=== PATIENT | male | born 1960 | race Caucasian/White ===

== ENCOUNTER 2017-07-30 21:19 | Emergency (ER) | payer SELFPAY ==
--- NOTE | 2017-07-30 21:20 | DI.CT.S_ITS ---
PROCEDURE: CT HEAD/BRAIN WO CON INDICATIONS: 56-year-old male with unwitnessed fall and confusion. TECHNIQUE: Noncontrast 4.5 mm thick angled axial sections acquired from the foramen magnum to the vertex, with coronal and sagittal reformats. For radiation dose reduction, the following was used: automated exposure control, adjustment of mA and/or kV according to patient size. COMPARISON: None. FINDINGS: Image quality: Excellent. CSF spaces: Basal cisterns are patent. No extra-axial fluid collections. Ventricles are normal in size and shape. Brain: No midline shift. No intracranial masses or hemorrhage. Wallace-white matter interface is normal. Skull and face: Calvarium and visualized facial bones are intact, without suspicious lesions. Sinuses: Visualized sinuses and mastoids are clear. IMPRESSION: No acute intracranial abnormalities. Dictated by: Alon Hoyos M.D. on 07/30/2017 at 21:49 Approved by: Alon Hoyos M.D. on 07/30/2017 at 21:52
--- NOTE | 2017-07-30 21:22 | ED.ALCOHOL ---
HPI - Alcohol General Chief Complaint: Psychiatric Symptoms Stated Complaint: Suicidal ideation Time Seen by Provider: 07/30/17 21:19 Source: EMS Mode of arrival: EMS Limitations: other (Alcohol intoxication) History of Present Illness HPI narrative: Patient arrived by EMS after they were called because the patient was found lying in the grass. Was reports of intoxication by alcohol. Also reports of concerns about the patient making statements about suicide. Was unable to talk EMS prior to their departure and I am unsure as to who called EMS and the exact situation with regard to the suicidal ideation. Related Data Home Medications Medication Instructions Recorded Confirmed clonazepam 1 mg PO QDAY #0 09/02/12 lisinopril 5 mg PO QDAY #0 09/02/12 propranolol [Inderal LA] 80 mg PO QDAY #0 09/02/12 quetiapine [Seroquel XR] 50 mg PO QDAY #0 09/02/12 sertraline [Zoloft] 50 mg PO QDAY #0 09/02/12 Allergies Allergy/AdvReac Type Severity Reaction Status Date / Time No Known Drug Allergies Allergy Verified 07/31/17 00:27 Review of Systems Review of Systems unobtainable due to mental condition (Specifically alcohol intoxication) Exam Initial Vital Signs Initial Vital Signs: Vital Signs Temperature 98.9 F 07/30/17 21:26 Pulse Rate 99 H 07/30/17 21:26 Respiratory Rate 18 07/30/17 21:26 Blood Pressure 138/85 H 07/30/17 21:26 Pulse Oximetry 99 07/30/17 21:26 Const General: healthy appearing, well developed, well groomed and No acute distress Nutritional Appearance: average body habitus Limitations: altered mental status (Intoxicated) [facility] Head: normal to inspection, normocephalic and atraumatic Nose: external nose normal Resp Effort & Inspection: normal respiratory effort Cardio Rate: regular rate Rhythm: regular rhythm GI Inspection: normal to inspection and non-distended Palpation: soft, No firm and No tender Skin General: no rashes or lesions noted, No jaundice and No petechiae Neuro General: awake and moves all extremities Extrem General: normal to inspection and normal exam except as noted Course Orders Ordered: Sodium Chloride (Normal Saline 0.9%) 1,000 mls @ 150 mls/hr IV CONT ELEUTERIO Last Admin: 07/31/17 00:57 Dose: Vital Signs - 8 hr 07/31/17 05:43 Temperature 97.5 F L Pulse Rate 92 H Respiratory Rate 16 Blood Pressure [Left Arm] 131/86 H Pulse Oximetry 98 MDM - Alcohol Lab Data Attestation: I reviewed the patient's lab results. Result diagrams: 07/30/17 21:25 07/30/17 21:25 Labs: Lab Results 07/30/17 07/30/17 07/30/17 Range/Units 21:25 21:25 21:25 WBC 8.7 (4.5-11.0) X10^3/uL RBC 5.11 (4.5-5.9) X10^6/uL Hgb 16.9 (13.5-17.5) g/dL Hct 48.7 (41-53) % MCV 95.3 (80-100) fL MCH 33.0 (26-34) PG MCHC 34.6 (30-36) % RDW 13.6 (11.6-14.8) % Plt Count 320 (150-400) X10^3/uL Neut % (Auto) 53.1 (50-75) % Lymph % (Auto) 30.5 (25-40) % [place] % (Auto) 10.0 (3-14) % Eos % (Auto) 3.8 (2-4) % Baso % (Auto) 2.6 H (0-2) % Neut # (Auto) 4600 (6021-6064) /uL Sodium 145 (137-145) mmol/L Potassium 3.7 (3.4-5.1) mmol/L Chloride 102 (98-107) mmol/L Carbon Dioxide 25 (22-32) mmol/L BUN 19 (9-20) mg/dL Creatinine 1.30 H (0.66-1.25) mg/dL Estimated GFR 57.5 L (>60) mL/min BUN/Creatinine Ratio 14.6 (6-22) Glucose 99 (70-100) mg/dL Calcium 9.0 (8.4-10.2) mg/dL Total Bilirubin 0.9 (0.2-1.3) mg/dL Conjugated Bilirubin 0.0 (0.0-0.3) md/dL Unconjugated Bilirubin 0.5 (0.0-1.1) mg/dL AST 229 H (17-59) IU/L ALT 162 H (21-72) IU/L Alkaline Phosphatase 164 H (38-126) U/L Total Protein 8.2 (6.3-8.2) g/dL Albumin 4.6 (3.5-5.0) g/dL Globulin 3.6 (1.7-4.1) g/dL Albumin/Globulin Ratio 1.3 (1.0-2.8) Lipase 128 (23-300) U/L Salicylates < 1.0 (<20) mg/dL Urine Opiates Screen (Negative) Ur Oxycodone Screen (Negative) Urine Methadone Screen (Negative) Acetaminophen < 10 L (10-30) ug/mL Ur Barbiturates Screen (Negative) U Tricyclic Antidepress (Negative) Ur Phencyclidine Scrn (Negative) Ur Amphetamines Screen (Negative) U Methamphetamines Scrn (Negative) Ur MDMA Scrn (Ecstasy) (Negative) U Benzodiazepines Scrn (Negative) Urine Cocaine Screen (Negative) U Marijuana (THC) Screen (Negative) Ethyl Alcohol 425 H* mg/dL 07/30/17 Range/Units 21:50 WBC (4.5-11.0) X10^3/uL RBC (4.5-5.9) X10^6/uL Hgb (13.5-17.5) g/dL Hct (41-53) % MCV (80-100) fL MCH (26-34) PG MCHC (30-36) % RDW (11.6-14.8) % Plt Count (150-400) X10^3/uL Neut % (Auto) (50-75) % Lymph % (Auto) (25-40) % [place] % (Auto) (3-14) % Eos % (Auto) (2-4) % Baso % (Auto) (0-2) % Neut # (Auto) (2944-2155) /uL Sodium (137-145) mmol/L Potassium (3.4-5.1) mmol/L Chloride (98-107) mmol/L Carbon Dioxide (22-32) mmol/L BUN (9-20) mg/dL Creatinine (0.66-1.25) mg/dL Estimated GFR (>60) mL/min BUN/Creatinine Ratio (6-22) Glucose (70-100) mg/dL Calcium (8.4-10.2) mg/dL Total Bilirubin (0.2-1.3) mg/dL Conjugated Bilirubin (0.0-0.3) md/dL Unconjugated Bilirubin (0.0-1.1) mg/dL AST (17-59) IU/L ALT (21-72) IU/L Alkaline Phosphatase (38-126) U/L Total Protein (6.3-8.2) g/dL Albumin (3.5-5.0) g/dL Globulin (1.7-4.1) g/dL Albumin/Globulin Ratio (1.0-2.8) Lipase (23-300) U/L Salicylates (<20) mg/dL Urine Opiates Screen Positive H (Negative) Ur Oxycodone Screen Negative (Negative) Urine Methadone Screen Negative (Negative) Acetaminophen (10-30) ug/mL Ur Barbiturates Screen Negative (Negative) U Tricyclic Antidepress Positive H (Negative) Ur Phencyclidine Scrn Negative (Negative) Ur Amphetamines Screen Negative (Negative) U Methamphetamines Scrn Negative (Negative) Ur MDMA Scrn (Ecstasy) Negative (Negative) U Benzodiazepines Scrn Positive H (Negative) Urine Cocaine Screen Negative (Negative) U Marijuana (THC) Screen Negative (Negative) Ethyl Alcohol mg/dL Imaging Data CT scan - head: Radiologist's impression: ROCEDURE: CT HEAD/BRAIN WO CON INDICATIONS: 56-year-old male with unwitnessed fall and confusion. TECHNIQUE: Noncontrast 4.5 mm thick angled axial sections acquired from the foramen magnum to the vertex, with coronal and sagittal reformats. For radiation dose reduction, the following was used: automated exposure control, adjustment of mA and/or kV according to patient size. COMPARISON: None. FINDINGS: Image quality: Excellent. CSF spaces: Basal cisterns are patent. No extra-axial fluid collections. Ventricles are normal in size and shape. Brain: No midline shift. No intracranial masses or hemorrhage. Wallace-white matter interface is normal. Skull and face: Calvarium and visualized facial bones are intact, without suspicious lesions. Sinuses: Visualized sinuses and mastoids are clear. IMPRESSION: No acute intracranial abnormalities. Dictated by: Alon Hoyos M.D. on 07/30/2017 at 21:49 MDM Narrative Medical decision making narrative: Patient arrived by EMS and was alert without signs of trauma did admit to drinking alcohol. Patient had elevated initial alcohol. He slept in the emergency department here without any problems. After several hours here in the emergency department I went in and around the patient. He was alert and oriented. He states that he did not remember the events of last night. He states that he did not remember where his car was or how he ended up in the grass. He did admit to drinking alcohol last night. He stated that he has been having ?problems ?with his mental health medicines. He states that he works at [employer]. He states that he had a fractured clavicle which prevented him from going to work and because he was not working he was dropped from their insurance and has not been able to get his medication. Patient states that he ?constantly ?has thoughts of suicide. He states he would never act on any of these thoughts. He was somewhat evasive when asking about his mental health in about getting help for alcohol abuse. He did ambulate to the bathroom without any problems. He did tolerate oral intake. He did have a friend who came by the emergency department last evening who left his phone number. Patient has to ?sleep ?here in the emergency department for little while longer. Turned over to day provider for further evaluation and disposition Discharge Plan Departure Prescriptions: No Action quetiapine [Seroquel XR] 50 MG tablet extended release 24 hr 50 mg PO QDAY Qty: 0 RF: 0 clonazepam 0.5 MG tablet 1 mg PO QDAY Qty: 0 RF: 0 propranolol [Inderal LA] 80 MG capsule,extended release 24 hr 80 mg PO QDAY Qty: 0 RF: 0 sertraline [Zoloft] 50 MG tablet 50 mg PO QDAY Qty: 0 RF: 0 lisinopril 5 MG tablet 5 mg PO QDAY Qty: 0 RF: 0
[2017-07-30 21:26] VITALS: BP 138/85; PULSE 99; RESP 18; TEMP 37.2; O2SAT 99
[2017-07-30 21:29] VITALS: BP 138/85; PULSE 99; RESP 18; TEMP 37.2; O2SAT 99; BMI 29.0
[2017-07-30 21:31] LABS: Add Manual Diff / Slide Review NO; Basophils Percent Auto 2.6 % (0-2); Eosinophils Percent Auto 3.8 % (2-4); Hematocrit 48.7 % (41-53); Hemoglobin 16.9 g/dL (13.5-17.5); Lymphocytes Percent Auto 30.5 % (25-40); Mean Corpuscular HGB Conc 34.6 % (30-36); Mean Corpuscular Volume 95.3 fL (80-100); Neutrophils Absolute Auto 4600 /uL (3000-5900); Neutrophils Percent Auto 53.1 % (50-75); Platelet Count 320 X10^3/uL (150-400); Red Blood Cell Count 5.11 X10^6/uL (4.5-5.9); Red Cell Distribution Width 13.6 % (11.6-14.8); White Blood Cell Count 8.7 X10^3/uL (4.5-11.0)
[2017-07-30 21:40] LABS: Acetaminophen < 10 ug/mL (10-30)
[2017-07-30 21:42] LABS: Alanine Aminotransferase 162 IU/L (21-72); Albumin 4.6 g/dL (3.5-5.0); Albumin Globulin Ratio 1.3 (1.0-2.8); Alkaline Phosphatase 164 U/L (38-126); Aspartate Aminotransferase 229 IU/L (17-59); BUN Creatinine Ratio 14.6 (6-22); Bilirubin Total 0.9 mg/dL (0.2-1.3); Bilirubin Unconjugated 0.5 mg/dL (0.0-1.1); Blood Urea Nitrogen 19 mg/dL (9-20); Carbon Dioxide 25 mmol/L (22-32); Chloride 102 mmol/L (98-107); Estimated Glomerular Filt Rate 57.5 mL/min (>60); Globulin 3.6 g/dL (1.7-4.1); Glucose 99 mg/dL (70-100); Lipase 128 U/L (23-300); Potassium 3.7 mmol/L (3.4-5.1); Salicylate < 1.0 mg/dL (<20); Sodium 145 mmol/L (137-145); Total Protein 8.2 g/dL (6.3-8.2)
[2017-07-30 21:50] LABS: HEMOLYSIS 40 (0-50)
[2017-07-30 21:54] LABS: Ethanol (ETOH) 425 mg/dL
[2017-07-30 22:07] LABS: Urine Amphetamines Negative (Negative); Urine Barbiturates Negative (Negative); Urine Benzodiazepines Positive (Negative); Urine Cocaine Negative (Negative); Urine MDMA Negative (Negative); Urine Methadone Negative (Negative); Urine Methamphetamines Negative (Negative); Urine Morphine/Opi cutoff 2000 Positive (Negative); Urine Phencyclidine Negative (Negative); Urine Tetrahydrocannabinol Negative (Negative); Urine Tricyclic Antidepressant Positive (Negative)
[2017-07-30 22:08] LABS: Urine Oxycodone Negative (Negative)
[2017-07-31 05:43] VITALS: BP 131/86; PULSE 92; RESP 16; TEMP 36.4; O2SAT 98
--- NOTE | 2017-07-31 07:09 | PC.NURSE ---
Assumed care. Sleeping. Plan for friend to return this am and discuss safetly plan.
--- NOTE | 2017-07-31 08:16 | PC.NURSE ---
Breakfast tray provided to patient
[2017-07-31] MEDS: ONDANSETRON 4 MG ODT PO (09:18)
[2017-07-31 10:17] VITALS: BP 124/76; PULSE 103; RESP 16; O2SAT 94
--- NOTE | 2017-07-31 16:15 | PC.NURSE ---
Pt has been accepted at [facility]. Meds will be provided for pts pm doses and scripts will be faxed to [facility] in [place]. 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
--- NOTE | 2017-07-31 16:15 | CM.SWNOTE ---
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 Mental Status: AxO. Flat affect. Monotone. Calm, cooperative, fair eye contact, some psychomotor slowing, no tremor or involuntary movements observed. Linear and concrete thought process. At the time of SW evaluation patient stated he had been down this before and knew if he told ?SW the truth it would end badly?. Patient was hesitance and guarded with all answers during assessment. Chemical Dependency: Patient states he drinks ?a lot?. Preferable vodka. Patient states he has been though all sorts of rehabs and detox and ?still ends up here?. Legal: Denies. Mental Health: Patient not currently being followed for diagnosis of Bipolar. Patient stated he recently lost his health insurance and is not compliant with his medication. Assessment: Met with patient. Patient emotional throughout conversation. Patient stated he doesn?t remember anything but knows he messed up. Patient concerned over his vehicle, his cell phone, his job and his mom. Patient stated he left work at [employer] at lunch and took a nap. When he woke up he went to his second job at [employer] when he was told to leave because ?he didn?t look right?. Patient doesn?t remember drinking, but stated that he probably did. Patient unsure how he ended up in field. SW asked patient if he remembers telling the police that he tried to wrap his bet around the neck and disclosing that he has tried multiple times during the week? Patient stated he doesn?t remember saying that but he has tried that in the past. Ask patient is he was currently suicidal and he looked SW right in the eye and said ?I want all this to end?. Asked patient again if he had plans to harm himself and he stated ?If I tell you, I know what you will have to do.? SW asked patient if he would be willing to voluntary go to detox and get stabilized for MH. Patient gave SW permission to locate bed. Patient?s friend Kishan entered the room and patient gave SW permission to speak freely. Kishan stated he had been concerned about patient and his SI. Kishan stated patient has appeared extremely manic at time but when he starts to drink he becomes very depressed and talks about . Plan: SW called crisis line for guidance given patient?s lack of health insurance. Patient will be able to go to [facility]. Patient was assessed, accepted and agreed to go to [facility]. Patient understands that if he does no longer agree to seek treatment ED staff will call [facility] to review for involuntary treatment.
--- NOTE | 2017-07-31 16:48 | PC.NURSE ---
PT understands plan for dc. Understands that if he dose not go volentary then he will be held involentary and detained by [facility] under [place] law. PT understands this. Clothing gone through in search of car keys with pt present. No keys found. Belongings locked back in safety cabinet. Friend found car and pt is aware.
[2017-07-31] MEDS: LORazepam 0.5 MG TABLET 1 MG PO (17:46)
--- NOTE | 2017-07-31 17:47 | PC.NURSE ---
Pt is looking for reasons not to go. MD at bedside and discusing options with pt. PT understands and agrees to go voluntary. Meds po per VO
[2017-07-31 17:52] VITALS: BP 161/88; PULSE 84; RESP 18; O2SAT 98
--- NOTE | 2017-07-31 20:03 | PC.NURSE ---
Late Entry: Received report from JENNIFER Castro at shift change. Pt has Rx in sealed envelope along with the rest of paperwork that needs to go to [facility] with him. 2100hr meds also in chart to be given at that time before departure. [employer] [facility] coming at 2215 for transport and informed no stops are to be made on the way, there is also a taxi voucher in the chart for payment. Pt is resting at this time on stretcher. Pt has been calm and cooperative today. Needs met at this time.
--- NOTE | 2017-07-31 21:16 | PC.NURSE ---
Seroquel 300mg and Trazodone [address] Calvillo for pt to take prior to [facility]. Spoke to JENNIFER Johnson at [facility] and made her aware of the concern of medicated pt prior to departure in regard to being too sleepy on arrival for intake assessment. JENNIFER Johnson agreed and reports she is able to give pt his night meds if they come with. Meds in labeled bag and placed in folder with the rest of pt's [facility] paperwork. Dr Calvillo made aware and ok'd.
--- NOTE | 2017-07-31 21:54 | PC.NURSE ---
Clothing given back to pt to dress. Taxi ETA 15-20 min. Pt sitting on side of bed checking cell phone
[2017-07-31] MEDS: QUETIAPINE 100 MG TABLET PO (21:56)
[2017-07-31] MEDS: TRAZODONE 50 MG TABLET 150 MG PO (22:04)
[2017-07-31] MEDS: QUETIAPINE 200 MG TABLET PO (22:04)
[2017-07-31 22:20] VITALS: BP 145/88; PULSE 88; RESP 18; O2SAT 97
== END 2017-07-31 22:23 | disposition home or self-care (01) ==
PROVIDERS: Emergency Provider Emergency Medicine; Family Provider Family Medicine; PCP Family Medicine
DX: R45.851 Suicidal ideations (principal); F10.929 Alcohol use, unspecified with intoxication, unspecified
CPT/HCPCS: 36591; 70450; 80053; 80076; 80305; 80320; 80329; 82075; 83690; 85025; 99285; G0480

== ENCOUNTER → 2019-03-08 12:01 | Outpatient (ROUT) | payer OTHER, SELFPAY | PROVIDERS: Family Provider Family Medicine; PCP Family Medicine; Visit Provider Family Medicine | DX: L03.032 Cellulitis of left toe (principal) | CPT/HCPCS: 87070; 87077; 87147; 87205 ==

== ENCOUNTER → 2019-09-28 09:12 | Outpatient (CLI) | payer OTHER, SELFPAY ==
[2019-09-28 09:43] LABS: Add Manual Diff / Slide Review NO; Basophils Absolute Auto 100 /uL (0-100); Basophils Percent Auto 1.1 % (0-2); Eosinophils Absolute Auto 400 /uL (0-450); Eosinophils Percent Auto 3.8 % (2-4); Hematocrit 42.4 % (41-53); Hemoglobin 14.4 g/dL (13.5-17.5); Lymphocytes Absolute Auto 1600 /uL (1100-4500); Lymphocytes Percent Auto 16.9 % (25-40); Mean Corpuscular HGB Conc 34.1 % (30-36); Monocytes Absolute Auto 700 /uL (0-900); Monocytes Percent Auto 7.6 % (3-14); Neutrophils Absolute Auto 6800 /uL (1500-7000); Neutrophils Percent Auto 70.6 % (50-75); Platelet Count 336 X10^3/uL (150-400); Red Blood Cell Count 4.66 X10^6/uL (4.5-5.9); White Blood Cell Count 9.6 X10^3/uL (4.5-11.0)
[2019-09-28 10:22] LABS: UR Morphine/Opiate cutoff 300 Negative (Negative); Ur Creatinine Normal (Normal); Ur Specific Gravity Normal (Normal); Urine Amphetamines Negative (Negative); Urine Barbiturates Negative (Negative); Urine Benzodiazepines Negative (Negative); Urine Cocaine Negative (Negative); Urine MDMA Negative (Negative); Urine Methadone Negative (Negative); Urine Methamphetamines Negative (Negative); Urine Oxycodone Negative (Negative); Urine Phencyclidine Negative (Negative); Urine Tetrahydrocannabinol Negative (Negative); Urine Tricyclic Antidepressant Positive (Negative); Urine pH Normal (Normal)
[2019-09-28 10:24] LABS: Alanine Aminotransferase 22 IU/L (<50); Albumin 4.4 g/dL (3.5-5.0); Albumin Globulin Ratio 1.5 (1.0-2.8); Alkaline Phosphatase 142 U/L (38-126); Aspartate Aminotransferase 29 IU/L (17-59); BUN Creatinine Ratio 13.3 (6-22); Bilirubin Total 0.6 mg/dL (0.2-1.3); Blood Urea Nitrogen 13 mg/dL (9-20); Calcium 9.6 mg/dL (8.4-10.2); Carbon Dioxide 27 mmol/L (22-32); Chloride 105 mmol/L (98-107); Estimated Glomerular Filt Rate > 60.0 mL/min (>60); Glucose 101 mg/dL (70-100); HEMOLYSIS < 15 (0-50); Sodium 139 mmol/L (137-145); Total Protein 7.4 g/dL (6.3-8.2)
[2019-09-28 10:37] LABS: Free T4, Direct Thyroxine 1.34 ng/dL (0.78-2.19)
[2019-09-28 10:51] LABS: Thyroid Stimulating Hormone 1.39 uIU/mL (0.47-4.68)
== END ==
PROVIDERS: Family Provider Family Medicine; PCP Family Medicine; Referring Provider Psychiatry & Neurology Psychiatry; Visit Provider Psychiatry & Neurology Psychiatry
DX: F31.9 Bipolar disorder, unspecified (principal)
CPT/HCPCS: 36415; 80053; 80305; 84439; 84443; 85025

== ENCOUNTER → 2019-10-16 12:26 | Outpatient (CLI) | payer OTHER, SELFPAY ==
[2019-10-16 14:04] LABS: BUN Creatinine Ratio 14.1 (6-22); Blood Urea Nitrogen 14 mg/dL (9-20); Calcium 9.2 mg/dL (8.4-10.2); Carbon Dioxide 29 mmol/L (22-32); Chloride 103 mmol/L (98-107); Estimated Glomerular Filt Rate > 60.0 mL/min (>60); Glucose 82 mg/dL (70-100); HEMOLYSIS < 15 (0-50); Potassium 4.7 mmol/L (3.4-5.1); Sodium 137 mmol/L (137-145)
[2019-10-16 14:17] LABS: Lithium < 0.2 mmol/L (0.6-1.2)
== END ==
PROVIDERS: Family Provider Family Medicine; PCP Family Medicine; Referring Provider Psychiatry & Neurology Psychiatry; Visit Provider Psychiatry & Neurology Psychiatry
DX: F31.81 Bipolar II disorder (principal)
CPT/HCPCS: 36415; 80048; 80178

== ENCOUNTER → 2020-01-23 16:14 | Outpatient (CLI) | payer OTHER, SELFPAY ==
[2020-01-23 17:36] LABS: BUN Creatinine Ratio 8.5 (6-22); Blood Urea Nitrogen 11 mg/dL (9-20); Calcium 8.9 mg/dL (8.4-10.2); Carbon Dioxide 30 mmol/L (22-32); Chloride 103 mmol/L (98-107); Estimated Glomerular Filt Rate 57.4 mL/min (>60); Glucose 79 mg/dL (70-100); HEMOLYSIS < 15 (0-50); Potassium 3.8 mmol/L (3.4-5.1); Sodium 135 mmol/L (137-145)
[2020-01-23 17:39] LABS: Lithium < 0.2 mmol/L (0.6-1.2)
== END ==
PROVIDERS: Family Provider Family Medicine; PCP Family Medicine; Referring Provider Psychiatry & Neurology Psychiatry; Visit Provider Psychiatry & Neurology Psychiatry
DX: F31.81 Bipolar II disorder (principal)
CPT/HCPCS: 36415; 80048; 80178

== ENCOUNTER → 2020-04-01 09:50 | Outpatient (CLI) | payer OTHER, SELFPAY ==
[2020-04-01 10:47] LABS: Lithium 0.4 mmol/L (0.6-1.2)
== END ==
PROVIDERS: Referring Provider Psychiatry & Neurology Psychiatry; Visit Provider Psychiatry & Neurology Psychiatry
DX: F31.81 Bipolar II disorder (principal)
CPT/HCPCS: 36415; 80178

== ENCOUNTER → 2020-05-12 14:19 | Outpatient (CLI) | payer OTHER, SELFPAY ==
[2020-05-12 15:50] LABS: Lithium 0.4 mmol/L (0.6-1.2)
== END ==
PROVIDERS: Referring Provider Psychiatry & Neurology Psychiatry; Visit Provider Psychiatry & Neurology Psychiatry
DX: F31.81 Bipolar II disorder (principal)
CPT/HCPCS: 36415; 80178

== ENCOUNTER → 2020-12-26 10:43 | Outpatient (CLI) | payer OTHER, SELFPAY ==
[2020-12-26 12:17] LABS: Add Manual Diff / Slide Review NO; Basophils Absolute Auto 200 /uL (0-100); Basophils Percent Auto 1.4 % (0-2); Eosinophils Absolute Auto 600 /uL (0-450); Eosinophils Percent Auto 5.1 % (2-4); Hematocrit 39.1 % (41-53); Lymphocytes Absolute Auto 1800 /uL (1100-4500); Lymphocytes Percent Auto 16.1 % (25-40); Mean Corpuscular HGB Conc 33.3 % (30-36); Mean Corpuscular Hemoglobin 30.1 PG (26-34); Mean Corpuscular Volume 90.5 fL (80-100); Monocytes Absolute Auto 800 /uL (0-900); Monocytes Percent Auto 7.2 % (3-14); Neutrophils Absolute Auto 8000 /uL (1500-7000); Neutrophils Percent Auto 70.2 % (50-75); Platelet Count 370 X10^3/uL (150-400); Red Blood Cell Count 4.32 X10^6/uL (4.5-5.9); Red Cell Distribution Width 13.2 % (11.6-14.8); White Blood Cell Count 11.4 X10^3/uL (4.5-11.0)
[2020-12-29 16:52] LABS: Interpretation Negative (Negative)
== END ==
PROVIDERS: PCP Family Medicine; Referring Provider Family Medicine; Visit Provider Family Medicine
DX: R74.8 Abnormal levels of other serum enzymes (principal); R53.81 Other malaise
CPT/HCPCS: 36415; 83013; 85025

== ENCOUNTER → 2021-03-18 12:55 | Outpatient (CLI) | payer OTHER, SELFPAY ==
--- NOTE | 2021-03-18 | DI.CT.S_ITS ---
PROCEDURE: CT ABDOMEN PELVIS W CON INDICATIONS: Left upper quadrant pain TECHNIQUE: After the administration of intravenous contrast, axial sections acquired from the lung bases to the pubic symphysis. Coronal and sagittal reformats were performed. For radiation dose reduction, the following was used: automated exposure control, adjustment of mA and/or kV according to patient size. COMPARISON: Merged With [facility], CT, PE STUDY (CTA CHEST), 09/02/2012, 19:44. FINDINGS: Image quality: Excellent. Lung bases: There is a nonspecific peripheral wedge-shaped density in the left lower lobe on image 10/2 measuring approximately 1.8 x 1.7 cm. This can potentially represent a peripheral nodular infiltrate or an area of pulmonary infarct. Neoplasm is not excluded. Also noted is an ill-defined somewhat rectangular nodule in the extreme left lung base on image 12/3 measuring 6 x 10 mm. . Heart: No significant findings. ABDOMEN: Liver: Unremarkable. Gallbladder: Unremarkable. Biliary ducts: Unremarkable. Pancreas: Unremarkable. Spleen: Unremarkable. Adrenal Glands: Unremarkable. Kidneys and Ureters: Unremarkable. Stomach and Bowel: There is a small focal area of luminal narrowing and wall thickening at the rectosigmoid junction which may potentially represent an area of peristalsis. However, a constricting lesion is not excluded. Reference images 65/2 in 36/4. Peritoneum: No abnormal intraperitoneal fluid. No free air. Ventral Wall: No hernias. Abdominal Nodes: No retroperitoneal or mesenteric adenopathy by size criteria. Vessels: Aorta and inferior vena cava are normal in size. PELVIS: Pelvic Organs: Unremarkable. Bladder: Mild diffuse bladder wall thickening. Pelvic Nodes: No enlarged lymph nodes. Miscellaneous: Fat containing right inguinal hernia. The region Bones: Bilateral L5 pars defects, grade 1 anterolisthesis of L5 on S1 measuring 10 mm. Resultant severe bilateral foraminal narrowing with bilateral L5 foraminal nerve root impingement. IMPRESSION: 1. A focal area of narrowing at the rectosigmoid junction most likely represents an area of active peristalsis. However, cannot exclude a constricting lesion. Therefore, direct visualization is recommended if this patient has not undergone recent colonoscopy. 2. A 1.8 x 1.7 cm wedge-shaped pleural-based density in the extreme left lung base is nonspecific. It can potentially represent a focal pneumonia versus pulmonary infarct. 3. There is also an ill-defined left basilar pulmonary nodule measuring 6 x 10 mm. 4. Note made of bilateral L5 pars defects, anterolisthesis of L5 on S1, and severe bilateral foraminal narrowing with bilateral L5 foraminal nerve root impingement. Comment: Consider chest CT with contrast. Dictated by: Alex Whitman M.D. on 03/18/2021 at 14:57 Approved by: Alex Whitman M.D. on 03/18/2021 at 15:10
== END ==
LOC: CT 12:56
PROVIDERS: PCP Family Medicine; Referring Provider Family Medicine; Visit Provider Family Medicine
DX: R10.12 Left upper quadrant pain (principal); R91.1 Solitary pulmonary nodule; M43.17 Spondylolisthesis, lumbosacral region; M48.061 Spinal stenosis, lumbar region without neurogenic claudication
CPT/HCPCS: 74177; Q9967

== ENCOUNTER → 2021-05-18 12:55 | Outpatient (CLI) | payer OTHER, SELFPAY ==
[2021-05-18 15:03] LABS: Lithium 0.7 mmol/L (0.6-1.2)
[2021-05-18 15:14] LABS: Alanine Aminotransferase 12 IU/L (<50); Albumin Globulin Ratio 1.1 (1.0-2.8); Alkaline Phosphatase 168 U/L (38-126); Aspartate Aminotransferase 22 IU/L (17-59); BUN Creatinine Ratio 18.7 (6-22); Bilirubin Total 0.4 mg/dL (0.2-1.3); Blood Urea Nitrogen 20 mg/dL (9-20); Calcium 9.6 mg/dL (8.4-10.2); Carbon Dioxide 25 mmol/L (22-32); Chloride 103 mmol/L (98-107); Estimated Glomerular Filt Rate > 60.0 mL/min (>60); Globulin 3.8 g/dL (1.7-4.1); Glucose 92 mg/dL (70-100); HEMOLYSIS < 15 (0-50); Potassium 4.4 mmol/L (3.4-5.1); Sodium 136 mmol/L (137-145); Total Protein 7.8 g/dL (6.3-8.2)
== END ==
PROVIDERS: PCP Family Medicine; Referring Provider Psychiatry & Neurology Psychiatry; Visit Provider Psychiatry & Neurology Psychiatry
DX: F31.81 Bipolar II disorder (principal)
CPT/HCPCS: 36415; 80053; 80178

== ENCOUNTER → 2021-05-24 10:09 | Outpatient (CLI) | payer OTHER, SELFPAY ==
[2021-05-24 11:02] LABS: COVID19 -Nasal RAPID Negative (Negative)
== END ==
PROVIDERS: PCP Family Medicine; Visit Provider Physician Assistant
DX: Z20.822 Contact with and (suspected) exposure to COVID-19 (principal)
CPT/HCPCS: 87635

== ENCOUNTER 2021-05-26 15:00 | Day surgery (SDC) | payer OTHER, SELFPAY ==
[2021-05-26] VITALS (7 sets, daily range): BP systolic 100–155; BP diastolic 63–104; PULSE 66–100; RESP 12–16; TEMP 36.1–36.4; O2SAT 98–100; BMI 24.0
--- NOTE | 2021-05-26 | PATH_ITS ---
[facility] Accession Number: [id number] . 01 Material submitted: . PART A: duodenum - DUODENUM PART B: stomach - PYLORUS PART C: stomach - FUNDUS PART D: gastrointestinal site - GASTRIC BODY PART E: esophagus, E-G Junction - GE JUNCTION PART F: sigmoid colon - SIGMOID POLYP (6MM) PART G: sigmoid colon - SIGMOID POLYP (6MM) PART H: rectum - RECTUM (4MM) . 02 Diagnosis: A. Duodenum, Biopsy: Small bowel mucosa with no diagnostic abnormality. Negative for active inflammation, dysplasia, and malignancy. . B. Pylorus: Portions of gastric antral mucosa with no diagnostic abnormality. Negative for Helicobacter organisms by immunohistochemistry. Positive for intestinal metaplasia. Negative for dysplasia or malignancy. . C. Fundus: Gastric body-type mucosa with mild chronic inflammation. Negative for Helicobacter organisms by immunohistochemistry. Negative for intestinal metaplasia. Negative for dysplasia or malignancy. . D. Gastric Body: Portions of gastric body-type mucosa with mild chronic inflammation. Negative for Helicobacter organisms by immunohistochemistry. Negative for intestinal metaplasia. Negative for dysplasia or malignancy. . E. Gastroesophageal Junction: Portion of mildly inflamed proximal gastric mucosa with features of reactive gastropathy. Negative for intestinal metaplasia. Negative for dysplasia or malignancy. . F. Sigmoid Polyp (6 mm): Portions of hyperplastic polyp x2. . G. Sigmoid Polyp (6 mm): Portions of hyperplastic polyp x2. . H. Rectum (4 mm): Portions of hyperplastic polyp x2. [facility] 05/29/2021 1358 Local . 02 Electronically signed: . Rupal Neumann MD, Pathologist NPI- [id number] . 01 Gross description: . Part A: DUODENUM: Received in formalin are 2 fragment(s) of yoo, soft tissue measuring 0.3 x 0.1 x 0.1 cm submitted entirely in 1 cassette(s) Part B: PYLORUS: Received in formalin are 3 fragment(s) of yoo, soft tissue measuring 0.5 x 0.2 x 0.1 cm to 0.1 x 0.1 x 0.1 cm submitted entirely in 1 cassette(s) Part C: FUNDUS: Received in formalin is 1 fragment(s) of yoo, soft tissue measuring 0.2 x 0.2 x 0.2 cm submitted entirely in 1 cassette(s) Part D: GASTRIC BODY: Received in formalin are 2 fragment(s) of yoo, soft tissue measuring 0.2 x 0.2 x 0.1 cm to 0.2 x 0.1 x 0.1 cm submitted entirely in 1 cassette(s) Part E: GE JUNCTION: Received in formalin is 1 fragment(s) of yoo, soft tissue measuring 0.3 x 0.2 x 0.1 cm submitted entirely in 1 cassette(s) Part F: SIGMOID POLYP (6MM): Received in formalin are 2 fragment(s) of yoo, soft tissue measuring 0.4 x 0.3 x 0.2 cm to 0.3 x 0.2 x 0.1 cm submitted entirely in 1 cassette(s) Part G: SIGMOID POLYP (6MM): Received in formalin are 2 fragment(s) of yoo, soft tissue measuring 0.4 x 0.2 x 0.2 cm to 0.3 x 0.2 x 0.1 cm submitted entirely in 1 cassette(s) Part H: RECTUM (4MM): Received in formalin are 2 fragment(s) of yoo, soft tissue measuring 0.3 x 0.3 x 0.2 cm to 0.1 x 0.1 x 0.1 cm submitted entirely in 1 cassette(s) /CPE 05/27/2021 0433 Local . 02 Microscopic: . B. An immunohistochemical stain is performed to evaluate for Helicobacter organisms and is negative. The control stain showed appropriate reactivity. . C. An immunohistochemical stain is performed to evaluate for Helicobacter organisms and is negative. The control stain showed appropriate reactivity. . D. An immunohistochemical stain is performed to evaluate for Helicobacter organisms and is negative. The control stain showed appropriate reactivity. . . * This test was developed and its performance characteristics determined by [facility]. It has not been cleared or approved by the U.S. Food and Drug Administration. The FDA has determined that such clearance or approval is not necessary. This test is used for clinical purposes. It should not be regarded as investigational or for research. . 02 Pathologist provided ICD-10: K29.70, Z12.11, R10.11, R10.12, K63.5 . 02 CPT . 253400, 624058, 120291, 603265, 729532, 582206, 036230, 793720, [id number] Specimen Comment: A courtesy copy of this report has been sent to [phone] Performed at: 01 [facility] [address] [place] [address], [place], [place] [id number] MD Cody Adamson MD Phone: [phone] Performed at: 02 [facility] [place] [address] [address] [place], [place] [id number] MD Ling Irving MD Phone: [phone]
--- NOTE | 2021-05-26 13:17 | P.HP_ITS ---
History of Present Illness History of Present Illness Chief complaint: DX COLONOSCOPY & EGD Narrative: 60 Years Old Male seen today for consideration of a diagnostic EGD and colonoscopy. Complaining of nausea x3 months with associated diarrhea. Has the feeling that he always has to go. Normally his baseline stool is formed. In the last 3 months, he has also had bilateral upper quadrant pain, left greater than right. At his 03/27/21 appointment, he was noted to have lost 10 pounds in approximately [address] abdomen/pelvis on 03/18/2021 showed a focal narrowing of the rectosigmoid junction most likely representing an area of active peristalsis but could not exclude a constricting lesion, colonoscopy recommended. He has never had a colonoscopy. However, he continues to feel extremely nauseated and has unrelenting left upper quadrant pain. Medical history significant for alcohol and drug abuse including IV heroin and cocaine for approximately 30 years, he has been sober for the last 3.5 years. Secondary to chronic GERD, he has been on omeprazole but in the last 3 months, that was changed to Protonix 40 mg p.o. daily, he has been taking this on empty stomach and that has not attenuated his symptoms. Just saw Dr. Jiang 2 weeks ago and was changed to omeprazole 40 mg PO BID. Family history significant for colon cancer in his mother. He denies melena or hematochezia. His last CBC on 12/30/2020 showed a mild anemia with a hemoglobin of 13.0, hematocrit 38.6. Medical history is complex and he has an upcoming toe surgery for open ulcer. CT scan on 03/18/2021 also showed a pulmonary nodule and wedge-shaped pleural- based density with inability to exclude neoplasm. Past Medical History: Stenosis of rectum and anus: Lung nodules: Chronic ulcer of right toe: ECZEMA: Abdominal pain: Bilateral upper quadrant Nausea: PLANTAR FASCIITIS: TOBACCO USER: Chronic ulcer of left foot: ALCOHOL ABUSE: SUBSTANCE ADDICTION/DEPENDENCE: HYPERTENSION, BENIGN ESSENTIAL: TACHYCARDIA: GERD: BIPOLAR DISORDER: DEPRESSION/ANXIETY: INSOMNIA: HERNIA: Past Surgical History: Hernia (1987) Family History: Father: Alcohol Mother: Hypertension, kidney cancer, colon cnacer, glaucoma,Alcohol Child: Asthma Social History: Marital Status: Children: Cassandra Daughter, Corinna daughter Occupation: [employer] Alcohol and drug abuse including IV heroin and cocaine for approximately 30 years, he has been sober for the last 3.5 years. Patient History Family & Social History Tobacco & Substance use: Smoking Status Current every day smoker alcohol intake frequency 3 or more drinks per day Meds Home Medications and Allergies Home Medications Medication Instructions Recorded Confirmed Type omeprazole 20 mg capsule,delayed See Rx Instructions .ROUTE 01/19/21 05/26/21 Rx release .COMPLEX #30 cap propranolol 20 mg tablet See Rx Instructions .ROUTE 03/06/21 05/26/21 Rx .COMPLEX #180 tab lithium carbonate 300 mg tablet See Rx Instructions .ROUTE 04/13/21 05/26/21 Rx .COMPLEX #90 tab lorazepam 0.5 mg tablet 0.5 mg PO TID PRN #60 tab 05/07/21 05/26/21 Rx trazodone 100 mg tablet 200 mg PO BEDTIME #60 tab 05/07/21 05/26/21 Rx bupropion HCl 150 mg 24 hr tablet, 150 mg PO QAM #30 tab 05/21/21 05/26/21 Rx extended release hydrochlorothiazide 12.5 mg tablet 12.5 mg PO DAILY 05/26/21 05/26/21 History quetiapine 400 mg tablet 400 mg PO DAILY 05/26/21 05/26/21 History Allergies Allergy/AdvReac Type Severity Reaction Status Date / Time No Known Drug Allergies Allergy Verified 05/26/21 15:22 Review of Systems Review of Systems Narrative: All remaining ROS were reviewed and negative except as addressed. Exam Narrative Exam Narrative: General: well developed, well nourished, in no acute distress, Head: normocephalic and atraumatic, Lungs: normal respiratory effort, clear bilaterally to auscultation, no wheezes rales or rhonchi. Heart: normal rate and regular rhythm, no murmurs, rubs, gallops, or clicks, Abdomen: Soft, tender in bilateral upper quadrants, left greater than right and over the epigastrium. Nondistended. Hypoactive bowel sounds in all 4 quadrants. Skin: intact without suspicious lesions or rashes, Psych: alert and cooperative; normal mood and affect; normal attention span and concentration; cognition, remote and recent memory appear to be intact, Assessment & Plan Assessment & Plan narrative: 1. Stenosis of rectum and anus 2. Abdominal pain, bilateral upper quadrant 3. Anorexia 4. Anemia 5. Tenesmus 6. Family history of colon cancer 7. Recent weight loss 8. History of substance abuse 9. Screening for colon cancer Plan for diagnostic EGD and screening colonoscopy. The nature and character of the procedures as well as anticipated results were discussed. The possibility of not completing the procedures were also discussed. Possible complications including aspiration pneumonia, bleeding, perforation and reaction to medications either for sedation or preparation and missed lesions were disc ussed. Questions were answered and proceeding to the EGD and colonoscopy were elected. Informed consent signed. Secondary to 30+ years of polysubstance abuse and addiction, will consult MD anesthesia for this high risk patient. I sincerely appreciate the referral allowing me to participate in this patient's care. Please contact me with any questions or concerns.
--- NOTE | 2021-05-26 13:29 | P.OP.EGD_ITS ---
Operative Date/Time/Diagnoses Date of procedure: 05/26/21 Procedure Notes SCOAP/Timeout: 4:10 p.m. Procedure in detail: ENDOSCOPIST: Yari Rick MD Anesthesiologist: Evaristo Mcclure MD Sedation start time: 4:11 p.m. Sedation end time: 4:29 p.m. PROCEDURE: EGD with biopsy REFERRING PROVIDER: Dr. Jiang INDICATIONS: 1. Bilateral upper quadrant pain 2. Anorexia 3. Anemia 4. Recent weight loss 5. Polysubstance abuse history MEDICATION: Incremental doses of Versed and fentanyl until an appropriate level of sedation was achieved. ASA Ratin DURATION OF PROCEDURE: 18 minutes. COMPLICATIONS: None. LIMITATIONS: None EXTENT OF PROCEDURE: Third portion of the Duodenum. PROCEDURE: The high-definition gastroduodenoscope was introduced into the posterior oropharynx under direct vision after Hurricaine spray, noted IV sedation, and proper informed consent. The esophagus was identified and intubated under direct visualization. The scope was quickly passed through the esophagus and into the fundus of the stomach. A clear fundal pool was aspirated. The scope was then advanced to the antrum and the pylorus was identified and intubated with some difficulty secondary to what appeared to be stenosis. The scope was eventually passed through the pylorus into the second and third portions of the duodenum. No abnormalities were noted in the duodenum, duodenal bulb or pyloric channel. Random biopsy taken x2. The antrum appeared to be hyp ertrophic and erythematous, targeted biopsy taken x4. J maneuver was produced. No abnormalities were noted of the proximal body, fundus or cardia. Random biopsy taken x2. No hiatal hernia was noted. Scope was broken out of the J maneuver and the remainder of the stomach was carefully inspected upon withdrawal and was normal. The stomach was carefully deflated of all air on withdrawal. The distal esophagus was carefully inspected and Z-line was noted to be regular, secondary to history unexplained weight loss, random biopsy taken at the GE junction x1. The remainder of the esophagus was normal upon withdrawal. The larynx and vocal cords appeared to be unremarkable. IMPRESSION: 1. Antritis 2. Hypertrophic antrum PLAN: 1. Follow-up in clinic status post pathology results. The possibility of missed lesion including a malignancy was discussed prior with the patient. Potential alarm symptoms have been discussed and should be reported by the patient immediately.
--- NOTE | 2021-05-26 13:32 | PM.OP.COLON ---
Operative Date/Time/Diagnoses Date of procedure: 05/26/21 Procedure Notes SCOAP/Timeout: 4:10 p.m. Procedure in detail: ENDOSCOPIST: Yari Rick MD Anesthesiologist: Roldan Mcclure MD Sedation start time: 4:34 p.m. Sedation end time: 4:30 p.m. PROCEDURE: Colonoscopy with cold biopsy INDICATIONS: 1. Stenosis of rectum and anus on CT scan 2. Bilateral upper quadrant pain 3. Anorexia 4. Anemia 5. Tenesmus 6. Family history of colon cancer 7. Recent weight loss 9. Screening for colon cancer 10. Polysubstance abuse MEDICATION: Levsin 0.125 mg sublingual, incremental doses of Versed and fentanyl until appropriate level sedation achieved. ASA CLASS: 3 CECAL WITHDRAWAL TIME: 20 minutes COMPLICATIONS: None. EXTENT OF PROCEDURE: Cecum. QUALITY OF PREP: Good with portions of liquid stool. PROCEDURE: Prior to insertion of the colonoscope, a digital rectal examination was accomplished with circumferential palpation of the distal rectal mucosa without significant findings being noted. The high-definition colonoscope was passed into the rectum in the usual fashion and advanced over to the cecum without difficulty. The ileocecal valve, appendiceal stoma, and medial wall all could be inspected and no abnormalities were seen. ASCENDING COLON: As the colonoscope was withdrawn, care was taken to expose and inspect the haustral folds and no abnormalities were seen. HEPATIC FLEXURE: Normal, no polyps, diverticula or other abnormalities. TRANSVERSE COLON: Normal, no polyps, diverticula or other abnormalities. DESCENDING COLON: Normal, no polyps, diverticula or other abnormalities. SIGMOID COLON: Two 6 mm polyps were removed with cold biopsy forceps, excellent hemostasis. No diverticula. RECTUM: Normal, no appreciable stricture. J maneuver was produced. There was no significant perianal disease. The J maneuver was broken. The remainder of the rectum was inspected and there was a 4 mm polyp that was removed with cold biopsy forceps. There was moderate external hemorrhoid disease and thrombosed rectal varicosities. The scope was withdrawn. IMPRESSION: 1. Sigmoid polyp x2, 6 mm, removed with cold biopsy forceps 2. Rectal polyp x1, 4 mm, removed with cold biopsy forceps 3. External hemorrhoids 4. Thrombosed rectal varicosities 5. No appreciable area of narrowing in the rectum or anus. PLAN: 1. Follow-up in clinic status post pathology results. The possibility of a missed lesion including a malignancy has been discussed with the patient previously. Potential alarm symptoms have been discussed and should be reported immediately.
[2021-05-26] MEDS: HYOSCYAMINE 0.125 MG TABLET PO (15:17)
[2021-05-26] MEDS: LACTATED RINGERS 1,000 ML 200 ML IV (15:17)
[2021-05-26] MEDS: LIDOCAINE JELLY 2% 5 ML 1 APPLIC TOP (16:16)
[2021-05-26] MEDS: LIDOCAINE 4% SOLN 50 ML 20 ML TOP (16:17)
== END 2021-05-26 17:52 | disposition home or self-care (01) ==
PROVIDERS: PCP Family Medicine; Referring Provider Student in an Organized Health Care Education/Training Program; Visit Provider Student in an Organized Health Care Education/Training Program
PROC: 0DJ08ZZ Inspection of Upper Intestinal Tract, Via Natural or Artificial Opening Endoscopic (ICD-10-PCS; CPT 43235; principal; 2021-05-26 16:00)
PROC: 0DJD8ZZ Inspection of Lower Intestinal Tract, Via Natural or Artificial Opening Endoscopic (ICD-10-PCS; CPT 45378; 2021-05-26 16:00)
DX: R10.11 Right upper quadrant pain (principal); R10.12 Left upper quadrant pain; R11.0 Nausea; R63.0 Anorexia; R63.4 Abnormal weight loss; R93.3 Abnormal findings on diagnostic imaging of other parts of digestive tract; K21.9 Gastro-esophageal reflux disease without esophagitis; D64.9 Anemia, unspecified; F31.81 Bipolar II disorder; F41.9 Anxiety disorder, unspecified; K64.4 Residual hemorrhoidal skin tags; K29.50 Unspecified chronic gastritis without bleeding; K31.9 Disease of stomach and duodenum, unspecified; K63.5 Polyp of colon; K62.1 Rectal polyp
CPT/HCPCS: 45380; 43239; J2704

== ENCOUNTER → 2021-06-01 11:30 | Outpatient (CLI) | payer OTHER, SELFPAY ==
--- NOTE | 2021-06-01 11:33 | DI.US.S_ITS ---
PROCEDURE: US PERIPH VENOUS LOW EXTREM LT INDICATIONS: PAIN IN LOWER LEFT LEG TECHNIQUE: Real-time imaging, as well as color and pulse Doppler interrogation, were performed of the lower extremity deep veins from the inguinal ligament to the popliteal fossa. COMPARISON: None. FINDINGS: In the common femoral vein, there is incomplete compressibility and internal echoes noted. Internal echoes noted involving the superficial femoral and popliteal vein and as well without compressibility. IMPRESSION: Right lower extremity deep venous thrombosis Note: Results were phoned to the referring physician by the cosmetology professor at 12:27 p.m. Approved by: Mynor Merlos M.D. on 06/01/2021 at 13:36
== END ==
PROVIDERS: PCP Family Medicine; Referring Provider Family Medicine; Visit Provider Family Medicine
DX: I82.401 Acute embolism and thrombosis of unspecified deep veins of right lower extremity (principal); M79.662 Pain in left lower leg
CPT/HCPCS: 93971

== ENCOUNTER → 2021-06-23 07:48 | Outpatient (CLI) | payer OTHER, SELFPAY ==
--- NOTE | 2021-06-23 | DI.NM.S_ITS ---
PROCEDURE: NM HIDA WITH CCK PHARMACEUTICAL: 5.0 mCi Tc-99m mebrofenin IV; 2.3 mcg CCK IV. INDICATIONS: Right upper quadrant pain TECHNIQUE: Following intravenous administration of Tc-99m mebrofenin, sequential anterior abdominal images were obtained. To evaluate the contractile response of the gallbladder in response to Cholecystokinin (CCK), sincalide (0.02 ?g/kg) was administered by slow intravenous infusion approximately 60 minutes after the administration of the radiopharmaceutical. Sequential imaging was continued for 30 minutes after the start of CCK infusion. Gallbladder ejection fraction was calculated. COMPARISON: [facility], CT, CT ABDOMEN PELVIS W CON, 03/18/2021, 13:44. FINDINGS: Biliary scan: There is normal tracer uptake and excretion by the liver. There is normal visualization of the intrahepatic ducts, common bile duct, and gallbladder. There is normal tracer transit into the duodenum. CCK stimulation: There is normal contractile response of the gallbladder to CCK infusion. The calculated gallbladder ejection fraction is 81% ; normal values are above 35%. IMPRESSION: 1. Normal filling of gallbladder. No evidence for acute cholecystitis. 2. Normal contractile response of gallbladder to CCK stimulation. Dictated by: Milena Tarango M.D. on 06/23/2021 at 11:20 Approved by: Milena Tarango M.D. on 06/23/2021 at 11:22
== END ==
PROVIDERS: PCP Family Medicine; Referring Provider Family Medicine; Visit Provider Family Medicine
DX: R10.11 Right upper quadrant pain (principal)
CPT/HCPCS: 78227; A9537; J2805

== ENCOUNTER → 2022-02-25 07:57 | Outpatient (CLI) | payer OTHER, SELFPAY ==
--- NOTE | 2022-02-25 | DI.RAD.S_ITS ---
PROCEDURE: XR LUMBAR SPINE 2-3V INDICATIONS: Lumbago with sciatica, left side TECHNIQUE: 3 views of the lumbar spine were acquired. COMPARISON: None. FINDINGS: Bones: 5 [id number] vertebrae are present. There is grade 1 anterolisthesis of L5 on S1 measuring approximately 1.2 cm secondary to L5 pars defect.. No acute vertebral body compression fractures. No suspicious bony lesions. Multilevel lumbar spondylitic changes most severe at L5-S1. Soft tissues: Overlying bowel gas pattern is normal. No suspicious soft tissue calcifications. IMPRESSION: Lumbar spine without acute fracture . Grade 1 anterolisthesis of L5 on S1 secondary to L5 pars defects. Moderate multilevel lumbar spondylosis. Dictated by: Ever Murphy M.D. on 02/25/2022 at 10:46 Approved by: Ever Murphy M.D. on 02/25/2022 at 10:55
== END ==
PROVIDERS: PCP Family Medicine; Referring Provider Family Medicine; Visit Provider Family Medicine
DX: M54.42 Lumbago with sciatica, left side (principal); M43.17 Spondylolisthesis, lumbosacral region; M47.816 Spondylosis without myelopathy or radiculopathy, lumbar region
CPT/HCPCS: 72100

== ENCOUNTER 2022-08-07 07:36 | Inpatient (IN) | payer OTHER, SELFPAY ==
[2022-08-07] VITALS (40 sets, daily range): BP systolic 105–165; BP diastolic 57–95; PULSE 78–104; RESP 12–27; TEMP 36–36.6; O2SAT 91–98; BMI 29.3; BMI 25.4
--- NOTE | 2022-08-07 07:44 | DI.RAD.S_ITS ---
PROCEDURE: XR CHEST 1V INDICATIONS: overdose TECHNIQUE: One view of the chest was acquired. COMPARISON: [facility], , CHEST 1 VIEW, 09/02/2012, 18:26. FINDINGS: Surgical changes and devices: None. Lungs and pleura: No pleural effusions or pneumothorax. Low lung volumes accentuate pulmonary interstitium and heart size. Left basilar atelectasis and or infiltrate Mediastinum: Mediastinal contours appear normal. Heart size is normal. Bones and chest wall: No suspicious bony lesions. Overlying soft tissues appear unremarkable. IMPRESSION: Left basilar atelectasis and or infiltrate accentuated by low lung volumes Approved by: Mynor Merlos M.D. on 08/07/2022 at 8:30
--- NOTE | 2022-08-07 07:45 | ED_ITS ---
HPI - Overdose General Chief Complaint: Psychiatric Symptoms Stated Complaint: SI Time Seen by Provider: 08/07/22 07:43 Source: patient, EMS, RN notes reviewed and old records reviewed History of Present Illness HPI Narrative: This is a 61-year-old male with history of chronic back pain and bipolar history, hypertension. Patient today with EMS. He is altered but able to answer questions. Indicates that he took 60 tablets of alprazolam yesterday during the day an attempt to overdose as well as drank alcohol. He denies other ingestions, there are medications including quetiapine and trazodone at bedside but they were filled May 20 for 60 days total at that time. Patient denies any other ingestions. He indicates that he still wants to . EMS was contacted after he did not show up for work today by his place of employment. Patient is eligible to tell me his name, he knows he is at [facility] and had a cord is, he is able to answer basic questions but falls asleep quite easily. Medics note that he had incontinence at home, vitals were stable for him but was sleepy. Glucose in the field was above 100. Related Data Home Medications Medication Instructions Recorded Confirmed apixaban 5 mg tablet (Eliquis) 5 mg PO BID 07/12/22 08/07/22 hydrochlorothiazide 25 mg tablet 25 mg PO DAILY 07/12/22 08/07/22 omeprazole 40 mg capsule,delayed 40 mg PO BID 07/12/22 08/07/22 release Previous Rx's Medication Instructions Recorded lorazepam 0.5 mg tablet 1 mg PO TID PRN agitation and 05/18/22 anxiety #120 tabs quetiapine 400 mg tablet 400 mg PO DAILY #30 tabs 05/20/22 trazodone 100 mg tablet 200 mg PO BEDTIME #180 tabs 05/20/22 cyclobenzaprine 10 mg tablet 10 mg PO BID PRN muscle spasm #60 07/12/22 tabs venlafaxine 75 mg capsule,extended 225 mg PO DAILY #90 caps 07/23/22 release 24 hr alprazolam 1 mg tablet 1 mg PO TID #60 tabs 08/04/22 Allergies Allergy/AdvReac Type Severity Reaction Status Date / Time No Known Drug Allergies Allergy Verified 07/12/22 15:48 Review of Systems Review of Systems ROS Unobtainable: All systems reviewed & are unremarkable except as noted in HPI and below Patient History Medical History Complicated grief Facet arthropathy, lumbar Lumbar foraminal stenosis Spondylolisthesis at L5-S1 level Surgical History H/O foot surgery Family History Family/Other No pertinent family history Social History household members: family Smoking Status: Current every day smoker alcohol intake: former Smoking Status: Current every day smoker (1ppd) alcohol intake frequency: 3 or more drinks per day Substance Use Type: marijuana Exam Narrative Exam Narrative: GEN: Male, alert and oriented to self and location, does answer questions but falls asleep quite easily, arousable to verbal stimuli, patient appears to be in moderate distress. HEENT: Atraumatic, pupils are equal round reactive to light, extraocular movements are intact, nares are clear, there is no conjunctival pallor. Throat is clear without any exudates, erythema, tonsillar enlargement or uvular deviation, no facial droop. HEART: Regular rate and rhythm without murmur, clicks, rubs. Pulses are equal in upper and lower extremities LUNGS:Lungs clear to auscultation, no wheezes, rales, crackles, chest moves symmetrically, no tachypnea accessory muscle use ABD:bowel sounds normal, soft, non-tender, no guarding, rebound, rigidity, no masses noted, no hepatosplenomegaly :No CVA tenderness MSCL: Non-tender, no muscle atrophy, muscles strength 5/5 upper and lower extremities, full range of motion NEURO:CN 2-12 intact, sensation normal, reflexes 2/4 upper and lower extremities. SKIN: No rash, erythema or other skin changes noted. Initial Vital Signs Initial Vital Signs: Vital Signs Pulse Rate 89 08/07/22 07:39 Blood Pressure 143/95 H 08/07/22 07:39 Pulse Oximetry 96 08/07/22 07:39 Course Orders Ordered: Apixaban (Apixaban 5 Mg Tablet) 5 mg PO BID ELEUTERIO Last Admin: 08/07/22 21:35 Dose: Not Given Documented By: Admin: 08/07/22 14:53 Dose: Not Given Documented By: DONOVAN Cyclobenzaprine HCl (Cyclobenzaprine 10 Mg Tablet) 10 mg PO BID PRN PRN Reason: muscle spasm Heparin Sodium (Porcine) (Heparin 5,000 Unit/Ml Vial) 5,000 unit SUBCUT BID [facility] Last Admin: 08/07/22 21:40 Dose: 5,000 unit Documented By: Admin: 08/07/22 15:13 Dose: 5,000 unit Documented By: DONOVAN Hydrochlorothiazide (Hydrochlorothiazide 25 Mg Tablet) 25 mg PO DAILY [facility] Sodium Chloride (Normal Saline 0.9%) 1,000 mls @ 84 mls/hr IV CONT [facility] Last Admin: 08/08/22 02:24 Dose: 84 mls/hr Documented By: Infusion: 08/08/22 02:24 Dose: 84 mls/hr Documented By: Admin: 08/07/22 15:16 Dose: 84 mls/hr Documented By: DONOVAN Lorazepam (Lorazepam 0.5 Mg Tablet) 1 mg PO TID PRN PRN Reason: agitation and anxiety Mupirocin (Mupirocin 22 Gm Oint) 1 applic TOP BID [facility] Last Admin: 08/07/22 21:41 Dose: 1 each Documented By: LORRAINE Ondansetron HCl (Ondansetron 4 Mg/2 Ml Inj) 4 mg IV Q6HR PRN PRN Reason: Nausea And Vomiting Pantoprazole Sodium (Pantoprazole Dr 40 Mg Tablet) 40 mg PO BID [facility] Last Admin: 08/07/22 21:36 Dose: Not Given Documented By: LORRAINE Quetiapine Fumarate (Quetiapine 100 Mg Tablet) 400 mg PO DAILY [facility] Trazodone HCl (Trazodone 50 Mg Tablet) 200 mg PO BEDTIME [facility] Last Admin: 08/07/22 21:36 Dose: Not Given Documented By: LORRANIE Venlafaxine HCl (Venlafaxine Er 75 Mg Cap) 225 mg PO DAILY [facility] Discontinued Medications Alprazolam (Alprazolam 0.5 Mg Tablet) 1 mg PO TID [facility] Sodium Chloride (Normal Saline 0.9%) 1,000 mls @ 1,000 mls/hr IV BOLUS ONE Stop: 08/07/22 08:42 Last Admin: 08/07/22 08:41 Dose: 1,000 mls/hr Documented By: AT Ondansetron HCl (Ondansetron 4 Mg/2 Ml Inj) 4 mg IV NOW ONE Stop: 08/07/22 07:44 Last Admin: 08/07/22 08:41 Dose: 4 mg Documented By: AT Vital Signs Vital signs: Vital Signs - 8 hr 08/07/22 07:45 08/07/22 07:39 08/07/22 07:39 Temperature 97.5 F L Pulse Rate 82 89 Respiratory Rate 22 Blood Pressure 141/94 H 143/95 H Pulse Oximetry 96 96 Oxygen Delivery Method Room Air 08/07/22 07:40 08/07/22 07:40 08/07/22 07:50 Temperature Pulse Rate 89 Respiratory Rate Blood Pressure 141/94 H 138/90 Pulse Oximetry 97 Oxygen Delivery Method 08/07/22 07:50 08/07/22 08:00 08/07/22 08:00 Temperature Pulse Rate 85 80 Respiratory Rate 27 H 19 Blood Pressure 135/88 Pulse Oximetry 96 97 Oxygen Delivery Method 08/07/22 08:10 08/07/22 08:10 08/07/22 08:20 Temperature Pulse Rate 79 Respiratory Rate 19 Blood Pressure 125/82 124/81 Pulse Oximetry 96 Oxygen Delivery Method 08/07/22 08:20 08/07/22 08:30 08/07/22 08:30 Temperature Pulse Rate 80 78 Respiratory Rate 18 18 Blood Pressure 145/89 H Pulse Oximetry 97 98 Oxygen Delivery Method 08/07/22 08:46 08/07/22 08:46 08/07/22 08:50 Temperature Pulse Rate 81 Respiratory Rate 17 Blood Pressure 157/92 H 153/88 H Pulse Oximetry Oxygen Delivery Method 08/07/22 08:50 08/07/22 09:00 08/07/22 09:00 Temperature Pulse Rate 83 92 H Respiratory Rate 17 17 Blood Pressure 139/74 Pulse Oximetry Oxygen Delivery Method 08/07/22 09:10 08/07/22 09:10 08/07/22 09:20 Temperature Pulse Rate 102 H Respiratory Rate 17 Blood Pressure 115/59 L 112/57 L Pulse Oximetry Oxygen Delivery Method 08/07/22 09:20 08/07/22 09:30 08/07/22 09:30 Temperature Pulse Rate 104 H 102 H Respiratory Rate 15 13 Blood Pressure 116/61 Pulse Oximetry Oxygen Delivery Method MDM - Overdose Lab Data 08/08/22 04:16 08/08/22 04:16 Labs: Lab Results 08/07/22 08/07/22 08/07/22 Range/Units 08:45 08:45 08:45 WBC 7.3 (4.5-11.0) X10^3/uL RBC 4.94 (4.5-5.9) X10^6/uL Hgb 14.9 (13.5-17.5) g/dL Hct 43.5 (41-53) % MCV 88.0 (80-100) fL MCH 30.2 (26-34) PG MCHC 34.3 (30-36) % RDW 14.3 (11.6-14.8) % Plt Count 314 (150-400) X10^3/uL Neut % (Auto) 71.0 (50-75) % Lymph % (Auto) 17.7 L (25-40) % [place] % (Auto) 9.6 (3-14) % Eos % (Auto) 1.0 L (2-4) % Baso % (Auto) 0.7 (0-2) % Neut # (Auto) 5200 (2599-8323) /uL Lymph # (Auto) 1300 (8511-6081) /uL [place] # (Auto) 700 (0-900) /uL Eos # (Auto) 100 (0-450) /uL Baso # (Auto) 0 (0-100) /uL PT 13.0 H (10.1-12.7) SECONDS INR 1.1 (0.9-1.3) APTT 35 (26-36) SECONDS Sodium 142 (137-145) mmol/L Potassium 3.4 (3.4-5.1) mmol/L Chloride 103 (98-107) mmol/L Carbon Dioxide 28 (22-32) mmol/L BUN 10 (9-20) mg/dL Creatinine 0.91 (0.66-1.25) mg/dL Estimated GFR > 60 (>60) mL/min BUN/Creatinine Ratio 11.0 (6-22) Glucose 97 (70-100) mg/dL Lactate (0.7-2.1) mmol/L Calcium 9.3 (8.4-10.2) mg/dL Total Bilirubin 0.8 (0.2-1.3) mg/dL Conjugated Bilirubin 0.0 (0.0-0.3) md/dL Unconjugated Bilirubin 0.5 (0.0-1.1) mg/dL AST 27 (17-59) IU/L ALT 23 (<50) IU/L Alkaline Phosphatase 114 (38-126) U/L Total Creatine Kinase 121 (55-170) U/L CK-MB (CK-2) TNP CK-MB (CK-2) Rel Index TNP Troponin I < 0.012 (0.01-0.034) ng/mL Total Protein 7.9 (6.3-8.2) g/dL Albumin 4.4 (3.5-5.0) g/dL Globulin 3.5 (1.7-4.1) g/dL Albumin/Globulin Ratio 1.3 (1.0-2.8) Salicylates < 1.0 (<20) mg/dL Acetaminophen < 10 (10-30) ug/mL Ethyl Alcohol 34 H ( - 10) mg/dL / Range/Units 08:45 WBC (4.5-11.0) X10^3/uL RBC (4.5-5.9) X10^6/uL Hgb (13.5-17.5) g/dL Hct (41-53) % MCV (80-100) fL MCH (26-34) PG MCHC (30-36) % RDW (11.6-14.8) % Plt Count (150-400) X10^3/uL Neut % (Auto) (50-75) % Lymph % (Auto) (25-40) % [place] % (Auto) (3-14) % Eos % (Auto) (2-4) % Baso % (Auto) (0-2) % Neut # (Auto) (8386-2091) /uL Lymph # (Auto) (6350-4618) /uL [place] # (Auto) (0-900) /uL Eos # (Auto) (0-450) /uL Baso # (Auto) (0-100) /uL PT (10.1-12.7) SECONDS INR (0.9-1.3) APTT (26-36) SECONDS Sodium (137-145) mmol/L Potassium (3.4-5.1) mmol/L Chloride (98-107) mmol/L Carbon Dioxide (22-32) mmol/L BUN (9-20) mg/dL Creatinine (0.66-1.25) mg/dL Estimated GFR (>60) mL/min BUN/Creatinine Ratio (6-22) Glucose (70-100) mg/dL Lactate 2.6 H (0.7-2.1) mmol/L Calcium (8.4-10.2) mg/dL Total Bilirubin (0.2-1.3) mg/dL Conjugated Bilirubin (0.0-0.3) md/dL Unconjugated Bilirubin (0.0-1.1) mg/dL AST (17-59) IU/L ALT (<50) IU/L Alkaline Phosphatase (38-126) U/L Total Creatine Kinase (55-170) U/L CK-MB (CK-2) CK-MB (CK-2) Rel Index Troponin I (0.01-0.034) ng/mL Total Protein (6.3-8.2) g/dL Albumin (3.5-5.0) g/dL Globulin (1.7-4.1) g/dL Albumin/Globulin Ratio (1.0-2.8) Salicylates (<20) mg/dL Acetaminophen (10-30) ug/mL Ethyl Alcohol ( - 10) mg/dL Imaging Data Chest x-ray: Radiologist's Impression: Close Chest X-Ray (Signed) Mynor Merlos - 08/07/22 Lumbar Spine X-Ray (Signed) Ever Murphy - 02/25/22 Hepatobiliary Scan Nuclear Medicine (Signed) Mireille Tarango - 06/23/21 Vascular Ultrasound (Signed) Mynor Merlos - 06/01/21 Abdomen/Pelvis CT (Signed) Alex Whitman - 03/18/[address] (Signed) Alon Hoyos - 07/30/[address] [address] XRay Report Signed Patient: Douglas Lucio MR#: [id number] : 1960 Acct:[id number] Age/Sex: 61 / M Date of Service: 08/07/22 Loc: 90A-1 Accession Number: [id number] ?? Procedure: XR chest 1V Ordering Provider: Corazon Ventura D.O. PROCEDURE:? XR CHEST 1V ? INDICATIONS:? overdose ? TECHNIQUE:? One view of the chest was acquired.? ? COMPARISON:? [facility], , CHEST 1 VIEW, 09/02/2012, 18:26. ? FINDINGS:? ? Surgical changes and devices:? None.? ? Lungs and pleura: ? No pleural effusions or pneumothorax.? Low lung volumes accentuate pulmonary interstitium and heart size.? Left basilar atelectasis and or infiltrate ? Mediastinum:? Mediastinal contours appear normal.? Heart size is normal.? ? Bones and chest wall:? No suspicious bony lesions.? Overlying soft tissues appear unremarkable.? ? IMPRESSION:? ? Left basilar atelectasis and or infiltrate accentuated by low lung volumes ? ? ? Approved by: Mynor Merlos M.D. on 08/07/2022 at 8:30? ECG Data Attestation: I personally reviewed and interpreted this ECG as follows: Interpretation: Sinus rhythm first-degree AV block rate of 70 8p are 212 QRS of 94 QTC of 476. No acute ST changes. MDM Narrative Medical decision making narrative: This is a 61-year-old male with attempted overdose describes 60 tablets of alprazolam and alcohol, there was quetiapine and trazodone bottles at home but they are empty and filled on May 20 for 60 days which would have been completed at the beginning of the month. Patient indicates only the alprazolam and alcohol. He is sedated somewhat obtunded but protecting airway, he has [id number] Poison on end-tidal CO2 without any rise, vitals have been appropriate. At this time he continues to be sleepy and felt unlikely to medically clear today, I spoke with Dr. Harden the hospitalist who accepts for admission ICU for monitoring, patient's labs show lactate slightly elevated but otherwise normal CBC, CMP, troponin no major EKG changes. Poison control was contacted recommend time monitoring no reversal of benzodiazepines. Poison control re-contacted, reviewed all of patient's labs his repeat lactate had decreased to 1.5. Otherwise negative workup UDS has not been obtained. Naloxone at Discharge Meets criteria for naloxone at discharge?: No (admitted for inpatient care.) Discharge Plan Departure Patient Disposition: Admitted As Inpatient Clinical Impression: Benzodiazepine overdose Admit Date/Time: 08/07/22 09:31 Admit Provider: Krystal Quinn
[2022-08-07] MEDS: ONDANSETRON 4 MG/2 ML INJ IV (08:41)
[2022-08-07] MEDS: SODIUM CHLORIDE 0.9% 1,000 ML 1000 ML IV (08:41)
[2022-08-07 09:00] LABS: Add Manual Diff / Slide Review NO; Basophils Absolute Auto 0 /uL (0-100); Basophils Percent Auto 0.7 % (0-2); Eosinophils Absolute Auto 100 /uL (0-450); Hematocrit 43.5 % (41-53); Hemoglobin 14.9 g/dL (13.5-17.5); Lymphocytes Absolute Auto 1300 /uL (1100-4500); Lymphocytes Percent Auto 17.7 % (25-40); Mean Corpuscular HGB Conc 34.3 % (30-36); Mean Corpuscular Hemoglobin 30.2 PG (26-34); Monocytes Absolute Auto 700 /uL (0-900); Monocytes Percent Auto 9.6 % (3-14); Neutrophils Absolute Auto 5200 /uL (1500-7000); Platelet Count 314 X10^3/uL (150-400); Red Blood Cell Count 4.94 X10^6/uL (4.5-5.9); Red Cell Distribution Width 14.3 % (11.6-14.8); White Blood Cell Count 7.3 X10^3/uL (4.5-11.0)
[2022-08-07 09:01] LABS: INR 1.1 (0.9-1.3)
[2022-08-07 09:04] LABS: Acetaminophen < 10 ug/mL (10-30); Alanine Aminotransferase 23 IU/L (<50); Albumin 4.4 g/dL (3.5-5.0); Albumin Globulin Ratio 1.3 (1.0-2.8); Alkaline Phosphatase 114 U/L (38-126); Aspartate Aminotransferase 27 IU/L (17-59); Bilirubin Total 0.8 mg/dL (0.2-1.3); Bilirubin Unconjugated 0.5 mg/dL (0.0-1.1); Blood Urea Nitrogen 10 mg/dL (9-20); Calcium 9.3 mg/dL (8.4-10.2); Carbon Dioxide 28 mmol/L (22-32); Chloride 103 mmol/L (98-107); Creatine Kinase 121 U/L (55-170); Estimated Glomerular Filt Rate > 60 mL/min (>60); Ethanol (ETOH) 34 mg/dL; Globulin 3.5 g/dL (1.7-4.1); Glucose 97 mg/dL (70-100); HEMOLYSIS < 15 (0-50); Lactate (Lactic Acid) 2.6 mmol/L (0.7-2.1); PTT Partial Thromboplastin Tim 35 SECONDS (26-36); Potassium 3.4 mmol/L (3.4-5.1); Salicylate < 1.0 mg/dL (<20); Sodium 142 mmol/L (137-145); Total Protein 7.9 g/dL (6.3-8.2)
[2022-08-07 09:15] LABS: Troponin I < 0.012 ng/mL (0.01-0.034)
[2022-08-07 10:48] LABS: Reflexed Lactate in 2 Hours Y
[2022-08-07 11:13] LABS: Lactate 2HR (Lactic Acid Rflx) 1.5 mmol/L (0.7-2.1)
[2022-08-07 11:31] LABS: MRSA (Nasal) PCR DETECTED (Not Detect)
--- NOTE | 2022-08-07 11:35 | PC.NURSE ---
Q15 [employer] Intelligence Consultant 10:45 patient in bed 11:00 patient in bed 11:15 patient in bed 11:30 patient in bed 11:45 patient in bed 12:00 patient in bed
--- NOTE | 2022-08-07 12:50 | PC.NURSE ---
1005 Pt arrived in 227 per stretcher from ED. Report from ED Nurse stated that pt arousable and continues to express suicidal ideation, however on arrival to , pt somnilent, unable to arouse and non verbal. VSS airway patent and O2 sats 98% Placed on ETCO2 monitor for safety. Pt is unrestrained and unresponsive at this time. Dr. Quinn notified of pt's arrival and she stated that not necessary for 1:1 observation at this time. Will reevaluate as pt begins to wake. Family members at the bedside.
--- NOTE | 2022-08-07 14:40 | P.HP_ITS ---
History of Present Illness History of Present Illness Date Patient Seen: 08/07/22 Chief complaint: SI Narrative: Douglas Lucio is a 61-year-old male with history of chronic back pain and bi polar history, hypertension.? Patient presented to ER today with EMS.? He had altered mental status but was able to answer questions in the ER.? Indicated that he took 60 tablets of alprazolam yesterday during the day an attempt to overdose as well as drank alcohol.? He denied other ingestions, there were medications including quetiapine and trazodone at bedside but they were filled May 20 for 60 days total at that time.? Patient denied any other ingestions.? He indicated that he still wants to .? EMS was contacted after he did not show up for work today by his place of employment.? Patient iwas able to tell R Physician his name, he knew he was at [facility], he was able to answer basic questions but fell asleep quite easily.? Medics note that he had incontinence at home, vitals were stable for him but was sleepy.? Glucose in the field was above 100. At the time of my examination he was not arousable. His daughter was by his bedside and she stated that he recognized him when she came to the ER. [facility] Medical History Complicated grief Facet arthropathy, lumbar Lumbar foraminal stenosis Spondylolisthesis at L5-S1 level Surgical History H/O foot surgery Family History Family/Other No pertinent family history Social History household members: family Smoking Status: Current every day smoker alcohol intake: former Meds Home Medications and Allergies Home Medications Medication Instructions Recorded Confirmed Type lorazepam 0.5 mg tablet 1 mg PO TID PRN agitation and 05/18/22 08/07/22 Rx anxiety #120 tabs quetiapine 400 mg tablet 400 mg PO DAILY #30 tabs 05/20/22 08/07/22 Rx trazodone 100 mg tablet 200 mg PO BEDTIME #180 tabs 05/20/22 08/07/22 Rx apixaban 5 mg tablet (Eliquis) 5 mg PO BID 07/12/22 08/07/22 History cyclobenzaprine 10 mg tablet 10 mg PO BID PRN muscle spasm #60 07/12/22 08/07/22 Rx tabs hydrochlorothiazide 25 mg tablet 25 mg PO DAILY 07/12/22 08/07/22 History omeprazole 40 mg capsule,delayed 40 mg PO BID 07/12/22 08/07/22 History release venlafaxine 75 mg capsule,extended 225 mg PO DAILY #90 caps 07/23/22 08/07/22 Rx release 24 hr alprazolam 1 mg tablet 1 mg PO TID #60 tabs 08/04/22 08/07/22 Rx Allergies Allergy/AdvReac Type Severity Reaction Status Date / Time No Known Drug Allergies Allergy Verified 07/12/22 15:48 Review of Systems Review of Systems Narrative: Unable to do a review of systems due to the fact that the patient is not arousable to talk to me. Only information available is from the ER physician and EMS as indicated above. Exam Vital Signs (past 8 hours): - 08/07/22 07:45 08/07/22 07:39 08/07/22 07:39 Temperature 97.5 F L Pulse Rate 82 89 Respiratory Rate 22 Blood Pressure 141/94 H 143/95 H Pulse Oximetry 96 96 Oxygen Delivery Method Room Air 08/07/22 07:40 08/07/22 07:40 08/07/22 07:50 Temperature Pulse Rate 89 Respiratory Rate Blood Pressure 141/94 H 138/90 Pulse Oximetry 97 Oxygen Delivery Method 08/07/22 07:50 08/07/22 08:00 08/07/22 08:00 Temperature Pulse Rate 85 80 Respiratory Rate 27 H 19 Blood Pressure 135/88 Pulse Oximetry 96 97 Oxygen Delivery Method 08/07/22 08:10 08/07/22 08:10 08/07/22 08:20 Temperature Pulse Rate 79 Respiratory Rate 19 Blood Pressure 125/82 124/81 Pulse Oximetry 96 Oxygen Delivery Method 08/07/22 08:20 08/07/22 08:30 08/07/22 08:30 Temperature Pulse Rate 80 78 Respiratory Rate 18 18 Blood Pressure 145/89 H Pulse Oximetry 97 98 Oxygen Delivery Method 08/07/22 08:46 08/07/22 08:46 08/07/22 08:50 Temperature Pulse Rate 81 Respiratory Rate 17 Blood Pressure 157/92 H 153/88 H Pulse Oximetry Oxygen Delivery Method 08/07/22 08:50 08/07/22 09:00 08/07/22 09:00 Temperature Pulse Rate 83 92 H Respiratory Rate 17 17 Blood Pressure 139/74 Pulse Oximetry Oxygen Delivery Method 08/07/22 09:10 08/07/22 09:10 08/07/22 09:20 Temperature Pulse Rate 102 H Respiratory Rate 17 Blood Pressure 115/59 L 112/57 L Pulse Oximetry Oxygen Delivery Method 08/07/22 09:20 08/07/22 09:30 08/07/22 09:30 Temperature Pulse Rate 104 H 102 H Respiratory Rate 15 13 Blood Pressure 116/61 Pulse Oximetry Oxygen Delivery Method 08/07/22 10:21 08/07/22 09:40 08/07/22 09:40 Temperature 96.8 F L Pulse Rate 102 H 100 H Respiratory Rate 19 12 Blood Pressure 146/80 H 123/64 Pulse Oximetry 93 Oxygen Delivery Method 08/07/22 09:50 08/07/22 09:50 08/07/22 09:58 Temperature Pulse Rate 97 H Respiratory Rate 12 Blood Pressure 117/65 Pulse Oximetry Oxygen Delivery Method Room Air 08/07/22 10:17 08/07/22 10:30 08/07/22 11:00 Temperature Pulse Rate 101 H 99 H Respiratory Rate Blood Pressure 126/68 Pulse Oximetry 97 92 Oxygen Delivery Method 08/07/22 11:00 08/07/22 11:30 08/07/22 12:00 Temperature Pulse Rate 91 H 88 Respiratory Rate Blood Pressure 138/75 Pulse Oximetry 96 98 Oxygen Delivery Method 08/07/22 12:00 08/07/22 12:30 08/07/22 13:00 Temperature Pulse Rate 90 89 Respiratory Rate Blood Pressure 129/75 Pulse Oximetry 98 98 Oxygen Delivery Method 08/07/22 13:00 08/07/22 14:00 Temperature Pulse Rate 87 Respiratory Rate Blood Pressure Pulse Oximetry 98 Oxygen Delivery Method Nasal Cannula Oxygen Delivery Method Nasal Cannula Narrative Exam Narrative: GEN:? Male, sleeping and not arousable and does not appear to be any acute medical distress. HEENT: Atraumatic, pupils are equal round reactive to light, extraocular movements are intact, nares are clear, there is no conjunctival pallor.? Throat is clear without any exudates, erythema, tonsillar enlargement or uvular deviat ion, no facial droop. HEART: Regular rate and rhythm without murmur or extra sounds..? Pulses are eq ual in upper and lower extremities LUNGS:Lungs clear to auscultation, no wheezes, rales, crackles, chest moves symmetrically, no tachypnea accessory muscle use ABD:bowel sounds normal, soft, non-tender, no guarding, rebound, rigidity, no masses noted, no hepatosplenomegaly :No CVA tenderness MSCL: Non-tender as indicated by the patient not wincing, no muscle atrophy, passive full range of motion NEURO: reflexes 2/4 upper and lower extremities. SKIN:? No rash, erythema or other skin changes noted. Objective Labs 08/07/22 08:45 08/07/22 08:45 Labs: Laboratory Results - last 24 hr 08/07/22 08/07/22 08/07/22 08:45 08:45 08:45 WBC 7.3 RBC 4.94 Hgb 14.9 Hct 43.5 MCV 88.0 MCH 30.2 MCHC 34.3 RDW 14.3 Plt Count 314 Neut % (Auto) 71.0 Lymph % (Auto) 17.7 L [place] % (Auto) 9.6 Eos % (Auto) 1.0 L Baso % (Auto) 0.7 Neut # (Auto) 5200 Lymph # (Auto) 1300 [place] # (Auto) 700 Eos # (Auto) 100 Baso # (Auto) 0 PT 13.0 H INR 1.1 APTT 35 Sodium 142 Potassium 3.4 Chloride 103 Carbon Dioxide 28 BUN 10 Creatinine 0.91 Estimated GFR > 60 BUN/Creatinine Ratio 11.0 Glucose 97 Lactate Calcium 9.3 Total Bilirubin 0.8 Conjugated Bilirubin 0.0 Unconjugated Bilirubin 0.5 AST 27 ALT 23 Alkaline Phosphatase 114 Total Creatine Kinase 121 CK-MB (CK-2) TNP CK-MB (CK-2) Rel Index TNP Troponin I < 0.012 Total Protein 7.9 Albumin 4.4 Globulin 3.5 Albumin/Globulin Ratio 1.3 Nasal Screen MRSA (PCR) Salicylates < 1.0 Acetaminophen < 10 Ethyl Alcohol 34 H 08/07/22 08/07/22 08/07/22 08:45 10:20 10:55 WBC RBC Hgb Hct MCV MCH MCHC RDW Plt Count Neut % (Auto) Lymph % (Auto) [place] % (Auto) Eos % (Auto) Baso % (Auto) Neut # (Auto) Lymph # (Auto) [place] # (Auto) Eos # (Auto) Baso # (Auto) PT INR APTT Sodium Potassium Chloride Carbon Dioxide BUN Creatinine Estimated GFR BUN/Creatinine Ratio Glucose Lactate 2.6 H 1.5 Calcium Total Bilirubin Conjugated Bilirubin Unconjugated Bilirubin AST ALT Alkaline Phosphatase Total Creatine Kinase CK-MB (CK-2) CK-MB (CK-2) Rel Index Troponin I Total Protein Albumin Globulin Albumin/Globulin Ratio Nasal Screen MRSA (PCR) Detected H Salicylates Acetaminophen Ethyl Alcohol Assessment & Plan Assessment & Plan narrative: 1. Intentional overdose of 60 tablets of 1 mg alprazolam. ER physician called poison control. Treatment is observation and maintenance of airway with expected observation over time being treatment of choice. 2. Persistent grief. Secondary to recent of friend. 3. Family stress. Mother's care transferred to a custodial facility in [place]. 4. Under psychiatric care with Dr. Kerns for following: Depression possibly bipolar/grief, fatigue, anhedonia, anxiety. Most recently treated with venlafaxine and quetiapine. Questionable whether the patient has been compliant with medication. Will contact Psychiatry about this admission. 5. History of alcohol abuse with recent sobriety that lasted for years. Recent use of alcohol during this presentation. 6. Suicidal ideation and plan with use of alprazolam/alcohol. 7. GERD. Has been treated with omeprazole. Continue once patient able to tolerate tolerate oral intake. 8. History of muscle spasms/low back pain. Re-initiation of cyclobenzaprine once patient able to take medication Patient admitted for observation and further evaluation. Not expected to be hospitalized for more than 2 midnights. Information obtained from the patient's daughter and the ER physician. Multiple avenues were completed to obtain the patient's accurate current medication for reconciliation Code status: Due to inability to discuss with the patient need to presumed full code at this time. Surrogate decision maker: Unable to ask the patient. New daughters have been visiting the patient however. DVT prophylaxis: Patient normally on apixaban. Unable to take anything by mouth at this time. Will treat with heparin 5000 units subQ b.i.d. until patient able to reinitiate apixaban MRSA screen positive. COVID-19 COVID-19 status: Not tested Quality VTE Deep Vein Thrombosis/Pulmonary Embolism Present on Admission: No MIPS - Admit The patient?s Advance Care plan is not present because I did NOT confirm today the presence of an Advance Care Plan or surrogate decision maker documented within the patient's medical record.: Yes MIPS - Meds 'Current medications' to include all prescriptions, [id number] products, herbals, cannabis/cannabidiol products, and vitamin/mineral/dietary (nu tritional) supplements. I have utilized all available resources to obtain, update, or review the patient?s current medications. [If Yes, STOP here]: Yes
[2022-08-07] MEDS: HEPARIN 5,000 UNIT/ML VIAL 5000 UNIT SUBCUT ×2 (15:13→21:40)
[2022-08-07] MEDS: SODIUM CHLORIDE 0.9% 1,000 ML 84 ML IV (15:16)
[2022-08-07 17:13] LABS: Ur Creatinine Normal (Normal)
[2022-08-07 17:14] LABS: UR Morphine/Opiate cutoff 300 Negative (Negative); Ur Specific Gravity Normal (Normal); Urine Amphetamines Negative (Negative); Urine Cocaine Negative (Negative); Urine Methamphetamines Negative (Negative); Urine Phencyclidine Negative (Negative); Urine Tetrahydrocannabinol Positive (Negative); Urine pH Normal (Normal)
[2022-08-07 17:15] LABS: Urine Barbiturates Negative (Negative); Urine Benzodiazepines Positive (Negative); Urine MDMA Negative (Negative); Urine Methadone Negative (Negative); Urine Oxycodone Positive (Negative); Urine Tricyclic Antidepressant Positive (Negative)
[2022-08-07] MEDS: MUPIROCIN 22 GM OINT 1 APPLIC TOP (21:41)
[2022-08-08] VITALS (43 sets, daily range): BP systolic 127–176; BP diastolic 72–92; PULSE 92–115; RESP 17–19; TEMP 36.3–37.2; O2SAT 91–97
--- NOTE | 2022-08-08 01:26 | PC.NURSE ---
0100- Patient remains somulent but will now open his eyes when asked. No purposeful movement but appears to be more aware. Will monitor
[2022-08-08] MEDS: SODIUM CHLORIDE 0.9% 1,000 ML 84 ML IV ×2 (02:24→12:57)
[2022-08-08 04:51] LABS: Add Manual Diff / Slide Review NO; Basophils Absolute Auto 100 /uL (0-100); Basophils Percent Auto 0.8 % (0-2); Eosinophils Absolute Auto 200 /uL (0-450); Eosinophils Percent Auto 1.4 % (2-4); Hematocrit 44.7 % (41-53); Hemoglobin 15.3 g/dL (13.5-17.5); Lymphocytes Absolute Auto 1000 /uL (1100-4500); Lymphocytes Percent Auto 6.8 % (25-40); Mean Corpuscular HGB Conc 34.3 % (30-36); Mean Corpuscular Hemoglobin 30.1 PG (26-34); Mean Corpuscular Volume 87.8 fL (80-100); Monocytes Absolute Auto 1000 /uL (0-900); Neutrophils Absolute Auto 11900 /uL (1500-7000); Platelet Count 308 X10^3/uL (150-400); Red Cell Distribution Width 14.3 % (11.6-14.8); White Blood Cell Count 14.2 X10^3/uL (4.5-11.0)
[2022-08-08 04:59] LABS: Alanine Aminotransferase 23 IU/L (<50); Albumin 3.9 g/dL (3.5-5.0); Albumin Globulin Ratio 1.1 (1.0-2.8); Alkaline Phosphatase 120 U/L (38-126); Aspartate Aminotransferase 25 IU/L (17-59); BUN Creatinine Ratio 11.3 (6-22); Bilirubin Total 1.3 mg/dL (0.2-1.3); Blood Urea Nitrogen 11 mg/dL (9-20); Calcium 8.7 mg/dL (8.4-10.2); Carbon Dioxide 27 mmol/L (22-32); Chloride 106 mmol/L (98-107); Estimated Glomerular Filt Rate > 60 mL/min (>60); Globulin 3.5 g/dL (1.7-4.1); Glucose 121 mg/dL (70-100); HEMOLYSIS < 15 (0-50); Potassium 3.4 mmol/L (3.4-5.1); Sodium 139 mmol/L (137-145); Total Protein 7.4 g/dL (6.3-8.2)
[2022-08-08] MEDS: HEPARIN 5,000 UNIT/ML VIAL 5000 UNIT SUBCUT ×2 (09:02→20:28)
[2022-08-08] MEDS: MUPIROCIN 22 GM OINT 1 APPLIC TOP ×2 (09:07→20:28)
--- NOTE | 2022-08-08 11:07 | CM.DANOTE ---
Addendum entered by SHASHI Velazquez 08/08/22 14:12: ADD: SW met bedside with pt's Dtr Corinna and explained role and pt still not very responsive but beginning to show signs of coughing and attempts to clear his throat at times but not opening his eyes. Dtr confirms that pt lives in [place] typically with his mother but she is currently at SNF after a hip fx and pt's best friend by suicide recently. Dtr confirms that pt also has another Dtr who lives in [place] who will be beside today and another Dtr in [place]. Family has noticed the past few weeks that pt has been more depressed and unhappy and they have been encouraging him to also get a therapist in addition to his established Psychiatrist for more counseling support. Dtr is not aware of pt having any hx of suicide attempt or Inpt MH tx but states that pt has a hx of suicidal ideation that he has been able to manage in the past. Although Dtr states that pt has a remote hx of drug abuse/addiction and had been starting to have thoughts of relapse that he has mentioned to his friend/coworker but hadn't relapsed yet. BF Original Note: Patient is a 61 yo male who was admitted on 08/07/22 for intentional overdose/suicidal ideation. Pt has [employer] for insurance and his PCP is Dr. Roldan Jiang. EMR was reviewed. Per MD, pt with dx of bipolar and life stressors and intentionally ingested prescribed medication with alcohol and upon arrival to ED was still endorsing suicidal ideation. Per MD and RN, since admission pt has been very somnolent and drowsy without much responsiveness and as of this morning pt was not yet medically appropriate for bedside assessment and adult Dtrs have been bedside and supportive but pt barely opening his eyes this morning. Pt resides in [place] alone and works and when he did not show for his work shift a [employer] check requested and pt found with intentional overdose and was able to give specific information and confirm ongoing suicidal ideation. Pt is established with Psychiatrist Dr. Kerns since 2019 for his bipolar and made Psych Consult order [place] [facility] [place] [facility] although it is currently a weekend and SW will call in the AM to confirm Dr. Kerns aware his pt is admitted for intentional overdose. Plan: SW to follow closely for bedside assessment when pt more medically appropriate and in the AM to call [employer] to confirm Dr. Kerns aware his pt is admitted to see if he can consult bedside. SHASHI Velazquez Discharge Planning/Care Management CM Discharge Assessment Start: 08/08/22 11:01 Freq: Status: Active Protocol: Document 08/08/22 11:02 BF (Rec: 08/08/22 11:06 BF [id number]) Discharge Planning Assessment Assigned Executive Account Manager SHASHI Bills Advance Directives? No Advance Directives on File No History Provided By Family Member,Medical Record Has Patient been admitted in last 30 No days? Prior Living Arrangements House Household Members none Type of transporation used prior to Drives own vehicle admit Independent with ADL's Yes Is patient alert and oriented? Yes Caregiver for Another No Barriers to Discharge Yes Comment Intentional overdose Discharge Plan Psychiatric Facility Transportation Arrangement Pending mental health assessment and d/c needs. Lots of supportive family bedside Additional Comment Waiting for pt to be more alert and oriented for mental health eval to determine d/c needs Whiteboard Updated in Patient Room with Yes name and ext. # of Executive Account Manager Review Status In Process Please Provide Date Initial DC 08/08/22 Assessment Was Performed Next Review Type Continued Stay Review ED Psychiatric Symptoms Assessment Start: 08/07/22 07:50 Freq: Status: Discharge Protocol: Document 08/07/22 08:00 NR (Rec: 08/07/22 09:04 NR [id number]) Psychiatric Symptoms Assessment Symptoms/Complaint suicide attempt Onset t-1 Duration Getting Worse History Of Same Yes Context Recent Alcohol Abuse,Recent Drug Abuse Associated Psychiatric Symptoms Suicidal Ideation If Self Harm Has Acted on Plan,Intentional Overdose Details of Plan pt took 60mg of alprazolam yesterday afternoon in attempt to kill himself. pt was found down this morning unresponsive. Level of Observation Continuous Precautions Safety precautions initiated Room placement non-ligature mitigated room Safety Interventions Constant observation Level of Consciousness Drowsy,Lethargic,Sedated Patient Orientation Name,Birthday,Place Patient Behavior/Mood Asleep,Sedated Ability to Follow Directions Poor Patient Cognition Impaired Yes Patient Appearance Unkempt,Disheveled Major Depressive Episode Yes Suicide Plan Clear,Organized,Specific, Feasible,High Lethality Nausea/Vomiting None
--- NOTE | 2022-08-08 11:08 | P.PN_ITS ---
Subjective Subjective Interval history: More alert today, trying to wake up and and talk but just grunting but is very aware that his daughter is by his bedside. Exam Vital Signs (past 8 hours): - 08/08/22 04:00 08/08/22 04:00 08/08/22 05:00 Temperature 98.1 F Pulse Rate 100 H Respiratory Rate Blood Pressure 148/87 H 143/92 H Pulse Oximetry 94 Oxygen Delivery Method Oxygen Flow Rate 2 2 08/08/22 05:00 08/08/22 05:33 08/08/22 06:00 Temperature Pulse Rate 105 H 106 H Respiratory Rate Blood Pressure 153/88 H Pulse Oximetry 94 93 Oxygen Delivery Method Oxygen Flow Rate 08/08/22 06:00 08/08/22 06:30 08/08/22 07:00 Temperature Pulse Rate 105 H 106 H Respiratory Rate Blood Pressure 148/88 H Pulse Oximetry 93 94 Oxygen Delivery Method Oxygen Flow Rate 08/08/22 07:00 08/08/22 07:30 08/08/22 08:00 Temperature Pulse Rate 108 H 114 H Respiratory Rate Blood Pressure 134/72 Pulse Oximetry 94 93 Oxygen Delivery Method Oxygen Flow Rate 08/08/22 08:00 08/08/22 10:00 Temperature 98.6 F Pulse Rate 115 H Respiratory Rate 19 Blood Pressure Pulse Oximetry 93 Oxygen Delivery Method Nasal Cannula Oxygen Flow Rate Oxygen Delivery Method Nasal Cannula Oxygen Flow Rate 2 Narrative Exam Narrative: GEN:? Male, sleeping but arousable and aware that his daughter is by his bedside, trying to speak with but grunting only HEART: Regular rate and rhythm without murmur or extra sounds..? Pulses are equal in upper and lower extremities LUNGS:Lungs clear to auscultation, no wheezes or crackles ABD:bowel sounds normal, soft, non-tender MSCL: no muscle atrophy, passive full range of motion SKIN:? No rash, erythema or other skin changes noted. Objective Labs 08/08/22 04:16 08/08/22 04:16 Labs: Laboratory Results - last 24 hr 08/07/22 08/07/22 08/07/22 10:20 10:55 17:00 WBC RBC Hgb Hct MCV MCH MCHC RDW Plt Count Neut % (Auto) Lymph % (Auto) [place] % (Auto) Eos % (Auto) Baso % (Auto) Neut # (Auto) Lymph # (Auto) [place] # (Auto) Eos # (Auto) Baso # (Auto) Sodium Potassium Chloride Carbon Dioxide BUN Creatinine Estimated GFR BUN/Creatinine Ratio Glucose Lactate 1.5 Calcium Total Bilirubin AST ALT Alkaline Phosphatase Total Protein Albumin Globulin Albumin/Globulin Ratio Nasal Screen MRSA (PCR) Detected H U Opiates 300ng/mL cut Negative Ur Oxycodone Screen Positive H Urine Methadone Screen Negative Ur Barbiturates Screen Negative U Tricyclic Antidepress Positive H Ur Phencyclidine Scrn Negative Ur Amphetamines Screen Negative U Methamphetamines Scrn Negative Ur MDMA Scrn (Ecstasy) Negative U Benzodiazepines Scrn Positive H Urine Cocaine Screen Negative U Marijuana (THC) Screen Positive H 08/08/22 08/08/22 04:16 04:16 WBC 14.2 H D RBC 5.10 Hgb 15.3 Hct 44.7 MCV 87.8 MCH 30.1 MCHC 34.3 RDW 14.3 Plt Count 308 Neut % (Auto) 84.0 H Lymph % (Auto) 6.8 L [place] % (Auto) 7.0 Eos % (Auto) 1.4 L Baso % (Auto) 0.8 Neut # (Auto) 17772 H Lymph # (Auto) 1000 L [place] # (Auto) 1000 H Eos # (Auto) 200 Baso # (Auto) 100 Sodium 139 Potassium 3.4 Chloride 106 Carbon Dioxide 27 BUN 11 Creatinine 0.97 Estimated GFR > 60 BUN/Creatinine Ratio 11.3 Glucose 121 H Lactate Calcium 8.7 Total Bilirubin 1.3 AST 25 ALT 23 Alkaline Phosphatase 120 Total Protein 7.4 Albumin 3.9 Globulin 3.5 Albumin/Globulin Ratio 1.1 Nasal Screen MRSA (PCR) U Opiates 300ng/mL cut Ur Oxycodone Screen Urine Methadone Screen Ur Barbiturates Screen U Tricyclic Antidepress Ur Phencyclidine Scrn Ur Amphetamines Screen U Methamphetamines Scrn Ur MDMA Scrn (Ecstasy) U Benzodiazepines Scrn Urine Cocaine Screen U Marijuana (THC) Screen [facility] Medical History Complicated grief Facet arthropathy, lumbar Lumbar foraminal stenosis Spondylolisthesis at L5-S1 level Surgical History H/O foot surgery Family History Family/Other No pertinent family history Social History household members: none Smoking Status: Current every day smoker alcohol intake: former Assessment & Plan Assessment & Plan narrative: 1. Intentional overdose of 60 tablets of 1 mg alprazolam.? ER physician called poison control.? Treatment is observation and maintenance of airway with expected observation over time being treatment of choice. Continue. Patient is slowly waking up. 2. Persistent grief.? Secondary to recent of friend. Under psychiatric care for this, psychiatrist is Dr. Kerns. 3. Family stress.? Mother's care transferred to a intermediate facility in [place]. Discussed yesterday with the mother the patient's status. 4. Under psychiatric care with Dr. Kerns for following:? Depression possibly bipolar/grief, fatigue, anhedonia, anxiety.? Most recently treated with venlafaxine and quetiapine.? Questionable whether the patient has been compliant with medication. Will contact Psychiatry about this admission. 5. History of alcohol abuse with recent sobriety that lasted for years.? Recent use of alcohol however during this presentation. 6. Suicidal ideation and plan with use of alprazolam/alcohol prior to presentation. 7. GERD.? Has been treated with omeprazole.? Continue once patient able to tolerate tolerate oral intake. 8. History of muscle spasms/low back pain.? Re-initiation of cyclobenzaprine once patient able to take medication Code status:? Due to inability to discuss with the patient need to presumed full code at this time. Surrogate decision maker:? Unable to ask the patient. Daughters have been visiting the patient however. DVT prophylaxis:? Patient normally on apixaban.? Unable to take anything by [facility] at this time.? Will treat with heparin 5000 units subQ b.i.d. until patient able to reinitiate apixaban MRSA screen positive. Quality VTE Deep Vein Thrombosis/Pulmonary Embolism Present on Admission: No
[2022-08-09] VITALS (35 sets, daily range): BP systolic 126–175; BP diastolic 70–93; PULSE 65–94; RESP 18–20; TEMP 36.3–37.6; O2SAT 80–100
[2022-08-09] MEDS: LORazepam 2 MG/ML INJ IV (05:36)
--- NOTE | 2022-08-09 08:34 | P.PN_ITS ---
Subjective Subjective Date Patient Seen: 08/09/22 Time Patient Seen: 08:34 Interval history: Patient still groggy this morning but will alert. Not met any completely. Wanting to go to [facility]. Still suicidal. All based on his friend's suicide. Exam Vital Signs (past 8 hours): - 08/09/22 00:36 08/09/22 01:00 08/09/22 01:00 Temperature Pulse Rate 91 H 89 Blood Pressure 145/87 H Pulse Oximetry 96 96 Oxygen Flow Rate 2 2 2 08/09/22 01:08 08/09/22 02:00 08/09/22 02:00 Temperature Pulse Rate 88 87 Blood Pressure 144/89 H Pulse Oximetry 97 97 Oxygen Flow Rate 2 2 2 08/09/22 03:00 08/09/22 03:00 08/09/22 03:06 Temperature Pulse Rate 88 87 Blood Pressure 158/90 H Pulse Oximetry 98 97 Oxygen Flow Rate 2 2 2 08/09/22 04:00 08/09/22 04:00 08/09/22 05:00 Temperature Pulse Rate 88 Blood Pressure 164/89 H 150/91 H Pulse Oximetry 97 Oxygen Flow Rate 2 2 2 08/09/22 05:00 08/09/22 05:48 08/09/22 06:00 Temperature Pulse Rate 88 86 87 Blood Pressure Pulse Oximetry 95 97 97 Oxygen Flow Rate 2 2 2 08/09/22 06:00 08/09/22 07:00 08/09/22 07:00 Temperature Pulse Rate 86 Blood Pressure 160/93 H 164/87 H Pulse Oximetry 98 Oxygen Flow Rate 2 2 2 08/09/22 07:02 08/09/22 08:07 08/09/22 07:30 Temperature 98.6 F Pulse Rate 87 88 Blood Pressure Pulse Oximetry 98 98 Oxygen Flow Rate 2 08/09/22 08:00 08/09/22 08:01 08/09/22 08:01 Temperature Pulse Rate 86 89 Blood Pressure 141/90 H Pulse Oximetry 98 96 Oxygen Flow Rate Oxygen Delivery Method Nasal Cannula Oxygen Flow Rate 2 Narrative Exam Narrative: Alert male fatigued in appearance no acute distress Lungs are clear heart is regular rate and rhythm neurologic exam was nonfocal. His mentating slow. Is responding somewhat appropriately to questions. Wanting to go to [facility]. Objective Labs 08/08/22 04:16 08/08/22 04:16 [facility] Medical History Complicated grief Facet arthropathy, lumbar Lumbar foraminal stenosis Spondylolisthesis at L5-S1 level Surgical History H/O foot surgery Family History Family/Other No pertinent family history Social History household members: none Smoking Status: Current every day smoker alcohol intake: former Assessment & Plan Assessment & Plan narrative: Active suicide intention. Status post suicidal attempt. Still not baseline. Still recovering from benzodiazepine overdose. But improving. At this point I do not believe he is probably safe to go home. But would like psychiatric input. Will discuss with his psychiatrist. And hopefully he will be seen. No other changes. Will feed today and continue to follow. Possible hematuria. UA. Recheck later. No complaints of discomfort. History of alcohol abuse. Probably part of a suicide attempt. Will have to follow as outpatient. Hopefully recheck and reconnect with AA. Not his biggest issue right now. Depression/grief. Will need to restart his psychiatric medicines but will see what Dr. Kerns has to say. GERD has been treated in the past will continue to follow. Code status full. DVT prophylaxis. On heparin will switch to orals later today hopefully Disposition. Hopefully possibly discharge tomorrow with some type of long-term more intense care. Will see what Dr. Kerns things today. Forty-five total minutes spent reviewing chart, family patient nursing dictation orders Quality VTE Deep Vein Thrombosis/Pulmonary Embolism Present on Admission: No
[2022-08-09 09:22] LABS: Add Manual Diff / Slide Review NO; Basophils Absolute Auto 100 /uL (0-100); Basophils Percent Auto 0.6 % (0-2); Eosinophils Absolute Auto 200 /uL (0-450); Hematocrit 42.9 % (41-53); Hemoglobin 14.5 g/dL (13.5-17.5); Lymphocytes Absolute Auto 1600 /uL (1100-4500); Lymphocytes Percent Auto 8.1 % (25-40); Mean Corpuscular HGB Conc 33.7 % (30-36); Mean Corpuscular Volume 88.8 fL (80-100); Monocytes Absolute Auto 1200 /uL (0-900); Monocytes Percent Auto 5.9 % (3-14); Neutrophils Absolute Auto 16600 /uL (1500-7000); Neutrophils Percent Auto 84.4 % (50-75); Platelet Count 300 X10^3/uL (150-400); Red Blood Cell Count 4.83 X10^6/uL (4.5-5.9); Red Cell Distribution Width 14.4 % (11.6-14.8); White Blood Cell Count 19.6 X10^3/uL (4.5-11.0)
[2022-08-09] MEDS: VENLAFAXINE ER 75 MG CAP 225 MG PO (09:33)
[2022-08-09] MEDS: hydroCHLOROthiazide 25 MG TABLET PO (09:34)
[2022-08-09] MEDS: PANTOPRAZOLE DR 40 MG TABLET PO ×2 (09:34→20:34)
[2022-08-09] MEDS: QUETIAPINE 100 MG TABLET 400 MG PO (09:34)
[2022-08-09] MEDS: APIXABAN 5 MG TABLET PO ×2 (09:34→20:34)
[2022-08-09] MEDS: MUPIROCIN 22 GM OINT 1 APPLIC TOP ×2 (09:35→20:45)
[2022-08-09] MEDS: HEPARIN 5,000 UNIT/ML VIAL 5000 UNIT SUBCUT ×2 (09:35→20:32)
[2022-08-09 09:52] LABS: Alanine Aminotransferase 21 IU/L (<50); Albumin 3.8 g/dL (3.5-5.0); Alkaline Phosphatase 111 U/L (38-126); Aspartate Aminotransferase 24 IU/L (17-59); Blood Urea Nitrogen 13 mg/dL (9-20); Calcium 8.9 mg/dL (8.4-10.2); Carbon Dioxide 28 mmol/L (22-32); Chloride 111 mmol/L (98-107); Estimated Glomerular Filt Rate > 60 mL/min (>60); Globulin 3.7 g/dL (1.7-4.1); Glucose 102 mg/dL (70-100); HEMOLYSIS 22 (0-50); Potassium 3.4 mmol/L (3.4-5.1); Sodium 144 mmol/L (137-145); Total Protein 7.5 g/dL (6.3-8.2)
[2022-08-09 09:53] LABS: Appearance Urine UA CLEAR; Bilirubin Urine UA 1+ (NEGATIVE); Color Urine UA YELLOW; Glucose Urine UA NEGATIVE (Negative); Ketones Urine UA TRACE (NEGATIVE); Leukocyte Esterase Urine UA NEGATIVE (NEGATIVE); Nitrite Urine UA NEGATIVE (Negative); Occult Blood Urine UA 3+ (Negative); Protein Urine UA 1+ (Negative); Specific Gravity Urine UA >=1.030 (1.000-1.035)
[2022-08-09 10:20] LABS: Bacteria Urine Few (2-10); Ictotest Urine Negative (Negative); RBC Urine 10-30/HPF (0-5/HPF); Squamous Epithelial Cell Urine 0-1 /HPF (0-5/HPF); WBC Urine 5-10/HPF (0-5/HPF)
[2022-08-09 10:21] LABS: Culture Indicated Urine Specimen Cultured; Mucus Urine 2+ (Negative)
--- NOTE | 2022-08-09 12:43 | DI.RAD.S_ITS ---
PROCEDURE: XR CHEST 1V INDICATIONS: cough, fever TECHNIQUE: One view of the chest was acquired. COMPARISON: [facility], [place], XR CHEST 1V, 08/07/2022, 7:42. [facility], [place], CHEST 1 VIEW, 09/02/2012, 18:26. FINDINGS: Surgical changes and devices: None. Lungs and pleura: Patchy right basilar airspace opacity. Mediastinum: Mediastinal contours appear normal. Heart size is normal. Bones and chest wall: No suspicious bony lesions. Overlying soft tissues appear unremarkable. IMPRESSION: Patchy right basilar airspace opacity, concerning for infection. Dictated by: Mario Alberto Ni M.D. on 08/09/2022 at 13:31 Approved by: Mario Alberto Ni M.D. on 08/09/2022 at 13:32
[2022-08-09] MEDS: SODIUM CHLORIDE 0.9% 1,000 ML 84 ML IV (12:54)
[2022-08-09] MEDS: levoFLOXacin 500 MG/100 ML PIGGYBACK 100 MG IV (12:57)
[2022-08-09] MEDS: POTASSIUM CHLORIDE 20 MEQ TAB 40 MEQ PO (13:48)
--- NOTE | 2022-08-09 13:50 | CM.DPC ---
DCP Cont: Per Dr. Jiang, pt now awake but continues to have some ongoing confusion and not yet medically stable to discharge and appears to still have some suicidal ideation and will await Psych Consult to determine possible Inpt MH vs close outpt f/u. Per Psychiatrist Dr. Kerns (whom pt has been established with since 2019), attempted bedside assessment but pt still too confused to fully assess and will attempt to meet with pt bedside again tonight after clinic to see if pt more alert and oriented. Dr. Kerns has concerns and possible Inpt MH tx recommendation but will wait for pt to be more medically appropriate. Supportive family has been bedside. Plan: SW to follow closely in the AM to determine if Psychiatrist able to determine recommendation of Inpt MH vs outpt and if pt would be voluntary vs involuntary for ongoing tx and support. SHASHI Velazquez
--- NOTE | 2022-08-09 16:44 | P.CONS_ITS ---
History of Present Illness Consult details Date Patient Seen: 08/09/22 Time Patient Seen: 10:10 Chief complaint: SI Reason for consult: Suicide attempt by overdose on alprazolam Requesting provider: Roldan Jiang Narrative: HISTORY OF PRESENT ILLNESS: Blade Lucio is a 61-year-old man with the long history of polysubstance dependence (long-time in remission) in the context of possible bipolar depress ion and significant anxiety as well.? He has been able to maintain sobriety for several years, but in recent years has had difficulty with worsening mood and anxiety symptoms.? We have been maintaining him on what appeared to be an optimal lithium dose of 900 mg per day and quetiapine dose of 400 mg per day.? When increasing either these he has experienced intolerable side effects.? Since his ongoing depression and anxiety have been persistent and severe we decided to try to modify his medication regimen in order to achieve better control of depression and anxiety symptoms. Triasl of bupropion, lamotrigine, lithium were not effective. We attempted a re-trial of venlafaxine along with quetiapine, which seemed to be working well in recent months. We were also in the process of re-visiting the diagnosis of bipolar disorder since he felt that it was not be entirely accurate given that when he was diagnosed with bipolar disorder he was also doing significant amounts of a number of different illicit substances including daily use of cocaine.? He thinks that his diagnosis is more accurately recurrent episodes of depression.? We concur that this may indeed be possible.? We decided to continue at his current dosing of medications while continuing to be vigilant regarding the possibility of cycling into a manic episode.? However, we note that given the poor performance of mood stabilizers in his case and the significant improvement on venlafaxine, he may be correct. Several weeks ago, his closest friend committed suicide by gunshot after drinking a large quantity of vodka.? The patient has had a difficult time coping with this but had been able to maintain sobriety and feels as if he is starting to get ?over the hump. ?? Unfortunately, shortly after that his mother fell and broke her hip and he has been having to cope with her issues, taking care of her dog, and feeling overwhelmed.? We switched from lorazepam to alprazolam for a brief period, and after his mother was transferred to a [place] [facility] facility felt that he was starting to improve with the relief from this stressor. In a recent visit, he reported that got a tattoo memorializing his friend and is planning on doing a celebration of life at some point in the future.? He reported feeling much more settled, much less stressed, has been able to grieve his loss and get back to normal.? Unfortunately, mood began to deterioirate and he was starting to feel the urge to return to drinking. The night before his admission, he took all of his alprazolam, lining up his pills, taking a couple and chasing it with booze. When he failed to report to work, his co-worker suspected something was up, called police for a welfare check resulting in EMS bringing the patient to the ED. Meds Home Medications and Allergies Home Medications Medication Instructions Recorded Confirmed Type lorazepam 0.5 mg tablet 1 mg PO TID PRN agitation and 05/18/22 08/07/22 Rx anxiety #120 tabs quetiapine 400 mg tablet 400 mg PO DAILY #30 tabs 05/20/22 08/07/22 Rx trazodone 100 mg tablet 200 mg PO BEDTIME #180 tabs 05/20/22 08/07/22 Rx apixaban 5 mg tablet (Eliquis) 5 mg PO BID 07/12/22 08/07/22 History cyclobenzaprine 10 mg tablet 10 mg PO BID PRN muscle spasm #60 07/12/22 08/07/22 Rx tabs hydrochlorothiazide 25 mg tablet 25 mg PO DAILY 07/12/22 08/07/22 History omeprazole 40 mg capsule,delayed 40 mg PO BID 07/12/22 08/07/22 History release venlafaxine 75 mg capsule,extended 225 mg PO DAILY #90 caps 07/23/22 08/07/22 Rx release 24 hr alprazolam 1 mg tablet 1 mg PO TID #60 tabs 08/04/22 08/07/22 Rx amoxicillin 875 mg-potassium 1 tab PO BID #20 tabs 08/11/22 Rx clavulanate 125 mg tablet Allergies Allergy/AdvReac Type Severity Reaction Status Date / Time No Known Drug Allergies Allergy Verified 07/12/22 15:48 Review of Systems Review of Systems ROS: Yes All systems reviewed with the patient and are negative except as otherwise documented Exam Vital Signs (past 8 hours): - 08/09/22 10:00 08/09/22 11:53 08/09/22 09:00 Pulse Rate 90 Respiratory Rate 18 Blood Pressure 175/89 H 168/89 H Pulse Oximetry 99 Oxygen Delivery Method Room Air 08/09/22 09:00 08/09/22 09:30 08/09/22 10:00 Pulse Rate 86 85 81 Respiratory Rate Blood Pressure Pulse Oximetry 96 99 99 Oxygen Delivery Method 08/09/22 10:30 08/09/22 11:00 08/09/22 11:30 Pulse Rate 90 90 88 Respiratory Rate Blood Pressure Pulse Oximetry 99 98 99 Oxygen Delivery Method 08/09/22 11:57 08/09/22 11:57 08/09/22 12:00 Pulse Rate 89 89 Respiratory Rate Blood Pressure 175/89 H Pulse Oximetry 98 96 Oxygen Delivery Method 08/09/22 12:30 08/09/22 13:59 08/09/22 14:01 Pulse Rate 87 65 Respiratory Rate Blood Pressure Pulse Oximetry 98 80 L 100 Oxygen Delivery Method 08/09/22 14:03 08/09/22 16:05 Pulse Rate Respiratory Rate Blood Pressure 154/88 H Pulse Oximetry 96 Oxygen Delivery Method Oxygen Delivery Method Room Air Oxygen Flow Rate 2 Narrative Exam Narrative: MENTAL STATUS EXAM * Apperance and Grooming:??The patient is very tall but well-developed and well- nourished male who appears stated age, and seen lying in his hospital bed. * Eye Contact:?Good * Behavior:?Calm and cooperative with the examination. * Motor Movement:?No abnormal motor movements noted. * Gait:?Normal * Speech:?Normal rate, volume, tone, and michela. * Mood:?better. OK. kind of embarrassed. * Affect:? Pleasant, but subdued, mildly dysphoric. Congruent with thought content and with normal range and reactivity. * Thought Process:?Linear, logical, and goal-directed. * Thought Content:?Denies current SI/HI, intent, or plan. No evidence of a thought or perceptual disturbance. * Attention:?Attentive to interview * Orientation:?Oriented to person, place, time, and circumstance. * Memory:?Intact for interview, not formally tested. * Insight:?Fair * Judgment:?Fair * Impulse Control:?Intact. Objective Labs 08/11/22 04:26 08/11/22 04:26 Labs: Laboratory Results - last 24 hr 08/09/22 08/09/22 08/09/22 09:00 09:00 09:30 WBC 19.6 H RBC 4.83 Hgb 14.5 Hct 42.9 MCV 88.8 MCH 30.0 MCHC 33.7 RDW 14.4 Plt Count 300 Neut % (Auto) 84.4 H Lymph % (Auto) 8.1 L Miner % (Auto) 5.9 Eos % (Auto) 1.0 L Baso % (Auto) 0.6 Neut # (Auto) 66102 H Lymph # (Auto) 1600 Miner # (Auto) 1200 H Eos # (Auto) 200 Baso # (Auto) 100 Sodium 144 Potassium 3.4 Chloride 111 H Carbon Dioxide 28 BUN 13 Creatinine 0.93 Estimated GFR > 60 BUN/Creatinine Ratio 14.0 Glucose 102 H Calcium 8.9 Total Bilirubin 1.0 AST 24 ALT 21 Alkaline Phosphatase 111 Total Protein 7.5 Albumin 3.8 Globulin 3.7 Albumin/Globulin Ratio 1.0 Urine Color Yellow Urine Appearance Clear Urine pH 6.0 Ur Specific [place] >=1.030 H Urine Protein 1+ H Urine Glucose (UA) Negative Urine Ketones Trace H Urine Occult Blood 3+ H Urine Nitrate Negative Urine Bilirubin 1+ H Ur Bilirubin Confirm Negative Urine Urobilinogen 2.0 H Ur Leukocyte Esterase Negative Urine RBC 10-30/hpf H Urine WBC 5-10/hpf H Ur Squamous Epith Cells 0-1 /hpf Urine Bacteria Few (2-10) H Urine Mucus 2+ H Ur Culture Indicated? Specimen cultured [facility], 1928[facility]1983 Medical History Complicated grief Facet arthropathy, lumbar Lumbar foraminal stenosis Spondylolisthesis at L5-S1 level Surgical History H/O foot surgery Family History Family/Other No pertinent family history Social History household members: none Tobacco & Substance Use Smoking Status: Current every day smoker alcohol intake: former Assessment & Plan Assessment & Plan narrative: ASSESSMENT: Blade Lucio is a 61-year-old male with a long history of polysubstance dependence that was in remission 5 years of sobriety until this incident. In addition, the patient has a very long history of anxiety and mood symptoms that have previously been diagnosed with bipolar II disorder, but more recently we have been considering that these may possibly have been related to his substance use because when he was diagnosed he was still using multiple substances regularly. The patient recently had a severe blow when his best friend committed suicide by gunshot after drinking a large quantity of vodka. For the last several weeks, tati allen has had a difficult time coping with this loss and over time started to more and more consider returning to alcohol use. In addition, further life stressors related to dealing with his ailing mother, and other life circumstances caused him to feel overwhelmed resulting in his taking all of his alprazolam and washing it down with hard liquor. RECOMMENDATIONS: 1. The patient currently denies any suicidal ideation, intent, or plan. Does not wish to be admitted to an inpatient psychiatric setting. Despite his serious suicide attempt, I do not believe he is holdable. Therefore, once he is medically stable, recommend discharge to outpatient care where we will follow him closely until more stable. 2. The patient is to resume his previous medication regimen with the exception of alprazolam. This should include: * Venlafaxine ER 225 mg daily * Trazodone 200 mg at bedtime * Quetiapine 400 mg at bedtime 3. I will assess need for lorazepam following discharge and provide limited supply. 4. Notify Psychiatry health manager when ready for discharge to schedule with me gonzales crump the next week. 5. I will assist in arranging [facility] 6. We will continue to follow with you while the patient is still inpatient.
--- NOTE | 2022-08-09 17:47 | PM.PN.1 ---
Subjective Subjective Date Patient Seen: 08/09/22 Time Patient Seen: 17:47 Interval history: Patient seen in follow-up of his labs and chest x-ray today. No real cough. Exam Vital Signs (past 8 hours): - 08/09/22 10:00 08/09/22 11:53 08/09/22 10:00 Pulse Rate 90 81 Respiratory Rate 18 Blood Pressure 175/89 H Pulse Oximetry 99 99 Oxygen Delivery Method Room Air 08/09/22 10:30 08/09/22 11:00 08/09/22 11:30 Pulse Rate 90 90 88 Respiratory Rate Blood Pressure Pulse Oximetry 99 98 99 Oxygen Delivery Method 08/09/22 11:57 08/09/22 11:57 08/09/22 12:00 Pulse Rate 89 89 Respiratory Rate Blood Pressure 175/89 H Pulse Oximetry 98 96 Oxygen Delivery Method 08/09/22 12:30 08/09/22 13:59 08/09/22 14:01 Pulse Rate 87 65 Respiratory Rate Blood Pressure Pulse Oximetry 98 80 L 100 Oxygen Delivery Method 08/09/22 14:03 08/09/22 16:05 Pulse Rate Respiratory Rate Blood Pressure 154/88 H Pulse Oximetry 96 Oxygen Delivery Method Oxygen Delivery Method Room Air Oxygen Flow Rate 2 Narrative Exam Narrative: Alert male sleeping in no acute distress Objective Labs 08/09/22 09:00 08/09/22 09:00 Labs: Laboratory Results - last 24 hr 08/09/22 08/09/22 08/09/22 09:00 09:00 09:30 WBC 19.6 H RBC 4.83 Hgb 14.5 Hct 42.9 MCV 88.8 MCH 30.0 MCHC 33.7 RDW 14.4 Plt Count 300 Neut % (Auto) 84.4 H Lymph % (Auto) 8.1 L Moore % (Auto) 5.9 Eos % (Auto) 1.0 L Baso % (Auto) 0.6 Neut # (Auto) 45688 H Lymph # (Auto) 1600 Moore # (Auto) 1200 H Eos # (Auto) 200 Baso # (Auto) 100 Sodium 144 Potassium 3.4 Chloride 111 H Carbon Dioxide 28 BUN 13 Creatinine 0.93 Estimated GFR > 60 BUN/Creatinine Ratio 14.0 Glucose 102 H Calcium 8.9 Total Bilirubin 1.0 AST 24 ALT 21 Alkaline Phosphatase 111 Total Protein 7.5 Albumin 3.8 Globulin 3.7 Albumin/Globulin Ratio 1.0 Urine Color Yellow Urine Appearance Clear Urine pH 6.0 Ur Specific [place] >=1.030 H Urine Protein 1+ H Urine Glucose (UA) Negative Urine Ketones Trace H Urine Occult Blood 3+ H Urine Nitrate Negative Urine Bilirubin 1+ H Ur Bilirubin Confirm Negative Urine Urobilinogen 2.0 H Ur Leukocyte Esterase Negative Urine RBC 10-30/hpf H Urine WBC 5-10/hpf H Ur Squamous Epith Cells 0-1 /hpf Urine Bacteria Few (2-10) H Urine Mucus 2+ H Ur Culture Indicated? Specimen cultured [facility] Medical History Complicated grief Facet arthropathy, lumbar Lumbar foraminal stenosis Spondylolisthesis at L5-S1 level Surgical History H/O foot surgery Family History Family/Other No pertinent family history Social History household members: none Smoking Status: Current every day smoker alcohol intake: former Assessment & Plan Assessment & Plan narrative: Elevated white count with abnormal chest x-ray and urine. Could be a UTI. Could be pneumonia and I would lean way more to aspiration given the fact that he was having difficulty clearing his airway. Nurses felt like they were pulling significant stuff out of those airway this weekend. At this point will cover with Unasyn. Should cover both risks and will recheck tomorrow. Suicidal ideation. Patient was suicidal still this morning. Appreciate Dr. Lawton evaluation. Probably will need inpatient therapy. Still not clear Enough at this point. Quality VTE Deep Vein Thrombosis/Pulmonary Embolism Present on Admission: No
[2022-08-09] MEDS: AMPICILLIN/SULBACTAM 3 GM 3 GM in SODIUM CHLORIDE 0.9% 100 ML IV ×2 (18:10→23:26)
[2022-08-09] MEDS: TRAZODONE 50 MG TABLET 200 MG PO (20:34)
[2022-08-10] VITALS (23 sets, daily range): BP systolic 130–152; BP diastolic 66–95; PULSE 65–91; RESP 16–20; TEMP 36.6–37.5; O2SAT 87–95
[2022-08-10] MEDS: SODIUM CHLORIDE 0.9% 1,000 ML 84 ML IV ×2 (03:08→15:58)
[2022-08-10 04:58] LABS: BUN Creatinine Ratio 11.7 (6-22); Blood Urea Nitrogen 9 mg/dL (9-20); Calcium 8.2 mg/dL (8.4-10.2); Carbon Dioxide 27 mmol/L (22-32); Chloride 106 mmol/L (98-107); Estimated Glomerular Filt Rate > 60 mL/min (>60); Glucose 99 mg/dL (70-100); HEMOLYSIS < 15 (0-50); Potassium 3.5 mmol/L (3.4-5.1); Sodium 137 mmol/L (137-145)
[2022-08-10] MEDS: AMPICILLIN/SULBACTAM 3 GM 3 GM in SODIUM CHLORIDE 0.9% 100 ML IV ×4 (06:52→23:47)
[2022-08-10] MEDS: QUETIAPINE 100 MG TABLET 400 MG PO (08:20)
[2022-08-10] MEDS: VENLAFAXINE ER 75 MG CAP 225 MG PO (08:20)
[2022-08-10] MEDS: hydroCHLOROthiazide 25 MG TABLET PO (08:20)
[2022-08-10] MEDS: PANTOPRAZOLE DR 40 MG TABLET PO ×2 (08:20→20:59)
[2022-08-10] MEDS: LACTOBACILLUS ACIDOPHILUS TABLET 1 EACH PO ×3 (08:20→18:21)
[2022-08-10] MEDS: HEPARIN 5,000 UNIT/ML VIAL 5000 UNIT SUBCUT ×2 (08:20→20:59)
[2022-08-10] MEDS: APIXABAN 5 MG TABLET PO ×2 (08:20→20:59)
--- NOTE | 2022-08-10 08:39 | PM.PN.1 ---
Subjective Subjective Date Patient Seen: 08/10/22 Time Patient Seen: 08:40 Interval history: Patient seen in follow-up of benzodiazepine overdose suicide ideation andspiration pneumonia. Patient much clear today. Not feeling suicidal today. No other significant change. No cough. No shortness of breath no chest pain. Exam Vital Signs (past 8 hours): - 08/10/22 04:18 08/10/22 04:18 08/10/22 04:28 Temperature 99.5 F Pulse Rate 82 83 Respiratory Rate Blood Pressure 150/81 H Pulse Oximetry 95 94 08/10/22 04:30 08/10/22 05:00 08/10/22 05:30 Temperature Pulse Rate 85 84 89 Respiratory Rate Blood Pressure Pulse Oximetry 94 93 95 08/10/22 06:00 08/10/22 06:30 08/10/22 07:00 Temperature Pulse Rate 88 88 86 Respiratory Rate Blood Pressure Pulse Oximetry 94 94 94 08/10/22 07:57 Temperature 98 F Pulse Rate 84 Respiratory Rate 16 Blood Pressure 152/95 H Pulse Oximetry 93 Oxygen Delivery Method Room Air Oxygen Flow Rate 2 Narrative Exam Narrative: Alert male in no acute distress Lungs are clear heart regular rate and rhythm Objective Labs 08/09/22 09:00 08/10/22 04:15 Labs: Laboratory Results - last 24 hr 08/09/22 08/09/22 08/09/22 09:00 09:00 09:30 WBC 19.6 H RBC 4.83 Hgb 14.5 Hct 42.9 MCV 88.8 MCH 30.0 MCHC 33.7 RDW 14.4 Plt Count 300 Neut % (Auto) 84.4 H Lymph % (Auto) 8.[address] % (Auto) 5.9 Eos % (Auto) 1.0 L Baso % (Auto) 0.6 Neut # (Auto) 61208 H Lymph # (Auto) 1600 [facility] # (Auto) 1200 H Eos # (Auto) 200 Baso # (Auto) 100 Sodium 144 Potassium 3.4 Chloride 111 H Carbon Dioxide 28 BUN 13 Creatinine 0.93 Estimated GFR > 60 BUN/Creatinine Ratio 14.0 Glucose 102 H Calcium 8.9 Total Bilirubin 1.0 AST 24 ALT 21 Alkaline Phosphatase 111 Total Protein 7.5 Albumin 3.8 Globulin 3.7 Albumin/Globulin Ratio 1.0 Urine Color Yellow Urine Appearance Clear Urine pH 6.0 Ur Specific [place] >=1.030 H Urine Protein 1+ H Urine Glucose (UA) Negative Urine Ketones Trace H Urine Occult Blood 3+ H Urine Nitrate Negative Urine Bilirubin 1+ H Ur Bilirubin Confirm Negative Urine Urobilinogen 2.0 H Ur Leukocyte Esterase Negative Urine RBC 10-30/hpf H Urine WBC 5-10/hpf H Ur Squamous Epith Cells 0-1 /hpf Urine Bacteria Few (2-10) H Urine Mucus 2+ H Ur Culture Indicated? Specimen cultured 08/10/22 04:15 WBC RBC Hgb Hct MCV MCH MCHC RDW Plt Count Neut % (Auto) Lymph % (Auto) [facility] % (Auto) Eos % (Auto) Baso % (Auto) Neut # (Auto) Lymph # (Auto) [facility] # (Auto) Eos # (Auto) Baso # (Auto) Sodium 137 Potassium 3.5 Chloride 106 Carbon Dioxide 27 BUN 9 Creatinine 0.77 Estimated GFR > 60 BUN/Creatinine Ratio 11.7 Glucose 99 Calcium 8.2 L Total Bilirubin AST ALT Alkaline Phosphatase Total Protein Albumin Globulin Albumin/Globulin Ratio Urine Color Urine Appearance Urine pH Ur Specific [place] Urine Protein Urine Glucose (UA) Urine Ketones Urine Occult Blood Urine Nitrate Urine Bilirubin Ur Bilirubin Confirm Urine Urobilinogen Ur Leukocyte Esterase Urine RBC Urine WBC Ur Squamous Epith Cells Urine Bacteria Urine Mucus Ur Culture Indicated? [facility] Medical History Complicated grief Facet arthropathy, lumbar Lumbar foraminal stenosis Spondylolisthesis at L5-S1 level Surgical History H/O foot surgery Family History Family/Other No pertinent family history Social History household members: none Smoking Status: Current every day smoker alcohol intake: former Assessment & Plan Assessment & Plan narrative: Active suicidal ideation. Patient currently not expressing suicidal ideation. Due to the strong attempt to end his life patient probably would benefit from inpatient therapy but at this point after discussion with Dr. Kerns it is unclear whether or not he is going to be a candidate. Probably will not meet criteria for forced inpatient. Will continue to follow. Dr. Kerns is going to see later today and will come up with plan at that time. But continue observation. Aspiration pneumonia. On Unasyn. White count pending. Will see what that shows. Probably IV antibiotics for the next 24 hours and then discontinue. Possible UTI. Discontinue Chavez continue Unasyn. Await culture. History of alcohol abuse. One time episode. Suspect stable at this time. Has good program. Will follow. Depression/grief manic. Continue usual meds as per Dr. Kerns. Code status full. DVT prophylaxis on heparin Disposition possible discharge tomorrow. Whether or not this is going to be to inpatient therapy is unclear at this time. Will waiting Dr. Bautista final decision. Otherwise will need antibiotics for at least 24 more hours. 45 minutes spent with nursing consult social service patient and dictation orders Quality VTE Deep Vein Thrombosis/Pulmonary Embolism Present on Admission: No
[2022-08-10 08:45] LABS: Add Manual Diff / Slide Review NO; Basophils Absolute Auto 100 /uL (0-100); Basophils Percent Auto 1.1 % (0-2); Eosinophils Absolute Auto 700 /uL (0-450); Eosinophils Percent Auto 4.9 % (2-4); Hematocrit 37.8 % (41-53); Hemoglobin 12.8 g/dL (13.5-17.5); Lymphocytes Absolute Auto 1300 /uL (1100-4500); Lymphocytes Percent Auto 9.4 % (25-40); Mean Corpuscular HGB Conc 33.9 % (30-36); Mean Corpuscular Hemoglobin 29.9 PG (26-34); Mean Corpuscular Volume 88.2 fL (80-100); Monocytes Absolute Auto 1000 /uL (0-900); Monocytes Percent Auto 7.5 % (3-14); Neutrophils Absolute Auto 10700 /uL (1500-7000); Neutrophils Percent Auto 77.1 % (50-75); Platelet Count 270 X10^3/uL (150-400); Red Blood Cell Count 4.29 X10^6/uL (4.5-5.9); Red Cell Distribution Width 14.2 % (11.6-14.8); White Blood Cell Count 13.9 X10^3/uL (4.5-11.0)
[2022-08-10 08:57] LABS: Alanine Aminotransferase 16 IU/L (<50); Albumin 3.1 g/dL (3.5-5.0); Albumin Globulin Ratio 1.1 (1.0-2.8); Alkaline Phosphatase 90 U/L (38-126); Aspartate Aminotransferase 20 IU/L (17-59); Bilirubin Total 0.8 mg/dL (0.2-1.3); Blood Urea Nitrogen 8 mg/dL (9-20); Calcium 8.1 mg/dL (8.4-10.2); Carbon Dioxide 27 mmol/L (22-32); Chloride 106 mmol/L (98-107); Estimated Glomerular Filt Rate > 60 mL/min (>60); Globulin 2.9 g/dL (1.7-4.1); Glucose 98 mg/dL (70-100); HEMOLYSIS < 15 (0-50); Potassium 3.3 mmol/L (3.4-5.1); Sodium 138 mmol/L (137-145)
[2022-08-10] MEDS: MUPIROCIN 22 GM OINT 1 APPLIC TOP ×2 (10:27→20:58)
[2022-08-10] MEDS: POTASSIUM CHLORIDE 20 MEQ TAB 40 MEQ PO ×2 (10:27→15:50)
--- NOTE | 2022-08-10 16:41 | CM.DPC ---
DCP Continued: COSTUME SPECIALIST reviewed EMR. From psychiatry, it does not appear that patient has a current plan to complete suicide at this time. From provider, it is likely that patient will be medically stable and ready for d/c tomorrow, 08.11.22. COSTUME SPECIALIST team entered room and introduced selves and roles. Patient was sitting up in the chair and appeared A/Ox4. Patient was euthymic and conversational, frequently making jokes with COSTUME SPECIALIST team. Patient reported that he feels regretful after his suicidal attempt. Patient went into the timeline and history of his attempt. Patient went into details regarding some of his stressors that contributed to his feelings, such as caring for his mother. Patient reported he has no current plan at this time. Patient was able to list current supports he has in his life/reasons for living, such as his daughters, dogs, and his mother. Working with COSTUME SPECIALISTStanford Jones. Will be continuing case on 08.11. Will update Apolinar in am. Vincenzo Weinstein entered room towards the end of the assessment. Daughter agreed that at this time it is in patient's best interest to not d/c home alone. Vincenzo Weinstein reported between her and her sisters (Cassandra and Cristina) they will have someone stay with him at this time. COSTUME SPECIALIST provided daughter Corinna with information for HH care for patient's mother in order to reduce stressors with patient upon d/c. COSTUME SPECIALIST called [facility] to set up an OP MH appointment. Patient has a virtual appointment with Shelbie Servin for August 26 at 9:30am to assess for MH needs. Plan: Likely d/c home with family. COSTUME SPECIALIST team will put together a packet of suicide crisis stabilization information, grief support, suicide support, and MH providers. CM team will continue to follow with needs. SHASHI Ng
[2022-08-10] MEDS: SODIUM CHLORIDE 0.9% 1,000 ML 100 ML IV (20:07)
[2022-08-10] MEDS: TRAZODONE 50 MG TABLET 200 MG PO (20:59)
[2022-08-11 01:00] VITALS: BP 163/95; PULSE 80; RESP 20; TEMP 37; O2SAT 95
[2022-08-11 04:32] VITALS: BP 157/95; PULSE 78; RESP 18; TEMP 37.2; O2SAT 95
[2022-08-11 05:00] LABS: Add Manual Diff / Slide Review NO; Basophils Absolute Auto 100 /uL (0-100); Basophils Percent Auto 1.1 % (0-2); Eosinophils Absolute Auto 700 /uL (0-450); Eosinophils Percent Auto 5.8 % (2-4); Lymphocytes Absolute Auto 1700 /uL (1100-4500); Lymphocytes Percent Auto 14.2 % (25-40); Mean Corpuscular HGB Conc 34.1 % (30-36); Mean Corpuscular Hemoglobin 29.8 PG (26-34); Mean Corpuscular Volume 87.4 fL (80-100); Monocytes Absolute Auto 800 /uL (0-900); Monocytes Percent Auto 6.9 % (3-14); Neutrophils Absolute Auto 8700 /uL (1500-7000); Platelet Count 312 X10^3/uL (150-400); Red Blood Cell Count 4.35 X10^6/uL (4.5-5.9); Red Cell Distribution Width 13.8 % (11.6-14.8); White Blood Cell Count 12.1 X10^3/uL (4.5-11.0)
[2022-08-11 05:05] LABS: Alanine Aminotransferase 16 IU/L (<50); Albumin 3.1 g/dL (3.5-5.0); Albumin Globulin Ratio 0.9 (1.0-2.8); Alkaline Phosphatase 93 U/L (38-126); Aspartate Aminotransferase 23 IU/L (17-59); BUN Creatinine Ratio 11.3 (6-22); Bilirubin Total 0.7 mg/dL (0.2-1.3); Blood Urea Nitrogen 8 mg/dL (9-20); Calcium 8.2 mg/dL (8.4-10.2); Carbon Dioxide 26 mmol/L (22-32); Chloride 105 mmol/L (98-107); Estimated Glomerular Filt Rate > 60 mL/min (>60); Globulin 3.3 g/dL (1.7-4.1); Glucose 97 mg/dL (70-100); HEMOLYSIS < 15 (0-50); Potassium 3.4 mmol/L (3.4-5.1); Sodium 136 mmol/L (137-145); Total Protein 6.4 g/dL (6.3-8.2)
[2022-08-11] MEDS: AMPICILLIN/SULBACTAM 3 GM 3 GM in SODIUM CHLORIDE 0.9% 100 ML IV (05:30)
[2022-08-11] MEDS: SODIUM CHLORIDE 0.9% 1,000 ML 100 ML IV (05:31)
[2022-08-11 07:15] VITALS: BP 158/99; PULSE 82; RESP 18; TEMP 37.2; O2SAT 97
[2022-08-11] MEDS: HEPARIN 5,000 UNIT/ML VIAL 5000 UNIT SUBCUT (08:26)
[2022-08-11] MEDS: LACTOBACILLUS ACIDOPHILUS TABLET 1 EACH PO (08:27)
[2022-08-11] MEDS: QUETIAPINE 100 MG TABLET 400 MG PO (08:27)
[2022-08-11] MEDS: APIXABAN 5 MG TABLET PO (08:27)
[2022-08-11] MEDS: VENLAFAXINE ER 75 MG CAP 225 MG PO (08:27)
[2022-08-11] MEDS: PANTOPRAZOLE DR 40 MG TABLET PO (08:27)
[2022-08-11] MEDS: hydroCHLOROthiazide 25 MG TABLET PO (08:27)
[2022-08-11] MEDS: MUPIROCIN 22 GM OINT 1 APPLIC TOP (08:27)
--- NOTE | 2022-08-11 09:12 | P.DS_ITS ---
History of Present Illness History of Present Illness Date Patient Seen: 08/11/22 Time Patient Seen: 09:13 Date of Onset of Symptoms: 08/07/22 Chief complaint: SI Narrative: Douglas Lucio is a 61-year-old male with history of chronic back pain and bipolar history, hypertension.? Patient presented to ER today with EMS.? He had altered mental status but was able to answer questions in the ER.? Indicated that he took 60 tablets of alprazolam yesterday during the day an attempt to overdose as well as drank alcohol.? He denied other ingestions, there were medications including quetiapine and trazodone at bedside but they were filled May 20 for 60 days total at that time.? Patient denied any other ingestions.? He indicated that he still wants to .? EMS was contacted after he did not show up for work today by his place of employment.? Patient iwas able to tell R Physician? his name, he knew he was at [facility], he was able to answer basic questions but fell asleep quite easily.? Medics note that he had incontinence at home, vitals were stable for him but was sleepy.? Glucose in the field was above 100.? At the time of my examination he was not arousable.? His daughter was by his bedside and she stated that he recognized him when she came to the ER. Discharge Providers Provider Date of admission: 08/07/22 09:31 Discharge Date: 08/11/22 Primary care physician: Roldan Jiang MD Consults: 08/07/22 07:43 Consult to [facility] [place] [facility] Urgent Comment: 08/07/22 07:50 Consult to [facility] [place] Stat Comment: 08/07/22 15:07 Consult to Physician Routine Comment: Consult to Dr. Kerns Consulting Provider: Kellen Palencia Reason for consultation: Known patient to psychiatrist Has provider been notified: No Discharge provider: Roldan Jiang MD Summary Hospital Course Discharge Diagnosis: Benzodiazepine overdose Suicidal ideation Aspiration pneumonia History of alcohol Abuse depression/grief/manic depression Hospital Course: Benzodiazepine overdose. Patient was serious suicidal attempt. Benzodiazepine and alcohol. Patient actually slept for 48 hours and required no significant other support. And has slowly woken up over the past 2 days increasingly back to normal. Able to ambulate and move. Appreciate Dr. Lawton input. Dr. Kerns myself have discussed with patient extensively. He feels like he does not need inpatient therapy because he feels this was a mistake he is not suicidal ideation. After discussion with Dr. Kerns he does not have indication for admission against his will and at this point he will be discharged home. P atient understands. Questions answered. He guarantees he is fine he will be with family and will be discharged home. Will follow-up with both Dr. Kerns and myself next week. He will call us sooner if any changes has appointment set up for counseling by social service. Suicidal ideation. Patient has developed understanding about his attempt and feels that the reasons he does not want to commit suicide and well he is still sad does not have active suicidal ideation. He expressed that multiple people and overall is doing well. Will follow-up with me next week will call sooner if any change. Will continue current medicines. Aspiration pneumonia. Patient was found to have a significantly elevated white count and abnormal chest x-ray. While there was some question of UTI cultures have not grown anything definitive. Patient was placed on Unasyn. Will be had significant improvement in symptoms and white count. Cultures were negative. He was switched to Augmentin will be followed as an outpatient. History of alcohol abuse. Patient will continue with his sobriety. Really this was all part of his suicidal attempt and he does not feel like his addiction is active he will follow-up with his usual program. Depression. As per Dr. Kerns but seems to be slightly improved. Certainly concerning with the degree of impact he had. And will be followed as an outpatient. 40 minutes spent with patient dictation social service dictation and orders Exam Vital Signs (past 8 hours): - 08/11/22 04:32 08/11/22 07:15 08/11/22 08:15 Temperature 98.9 F 98.9 F Pulse Rate 78 82 Respiratory Rate 18 18 Blood Pressure 157/95 H 158/99 H Pulse Oximetry 95 97 Oxygen Delivery Method Room Air Oxygen Flow Rate 0 Oxygen Delivery Method Room Air Oxygen Flow Rate 0 Narrative Exam Narrative: Alert male in no acute distress. Much more clear and appropriate Lungs are clear heart is regular rate and rhythm Objective Labs 08/11/22 04:26 08/11/22 04:26 Labs: Laboratory Results - last 24 hr 08/11/22 08/11/22 04:26 04:26 WBC 12.1 H RBC 4.35 L Hgb 13.0 L Hct 38.0 L MCV 87.4 MCH 29.8 MCHC 34.1 RDW 13.8 Plt Count 312 Neut % (Auto) 72.0 Lymph % (Auto) 14.2 L Hoke % (Auto) 6.9 Eos % (Auto) 5.8 H Baso % (Auto) 1.1 Neut # (Auto) 8700 H Lymph # (Auto) 1700 Hoke # (Auto) 800 Eos # (Auto) 700 H Baso # (Auto) 100 Sodium 136 L Potassium 3.4 Chloride 105 Carbon Dioxide 26 BUN 8 L Creatinine 0.71 Estimated GFR > 60 BUN/Creatinine Ratio 11.3 Glucose 97 Calcium 8.2 L Total Bilirubin 0.7 AST 23 ALT 16 Alkaline Phosphatase 93 Total Protein 6.4 Albumin 3.1 L Globulin 3.3 Albumin/Globulin Ratio 0.9 L PFSH Medical History Complicated grief Facet arthropathy, lumbar Lumbar foraminal stenosis Spondylolisthesis at L5-S1 level Surgical History H/O foot surgery Family History Family/Other No pertinent family history Social History household members: none Smoking Status: Current every day smoker alcohol intake: former Discharge Assessment & Plan Assessment and Plan Assessment: Discharge home Plan of Treatment: Close follow-up with psychiatrist Psychology and ia Discharge Plan Discharge Plan Patient Disposition: Home Discharge orders & Medications Prescriptions: New amoxicillin-pot clavulanate 875-125 mg tablet 1 tab PO BID Qty: 20 0RF Continued lorazepam 0.5 mg tablet 1 mg PO TID PRN (Reason: agitation and anxiety) Qty: 120 0RF trazodone 100 mg tablet 200 mg PO BEDTIME Qty: 180 0RF quetiapine 400 mg tablet 400 mg PO DAILY Qty: 30 2RF venlafaxine 75 mg capsule,extended release 24hr 225 mg PO DAILY Qty: 90 2RF alprazolam 1 mg tablet 1 mg PO TID Qty: 60 0RF hydrochlorothiazide 25 mg tablet 25 mg PO DAILY Patient Comments: TAKE ONE TABLET BY MOUTH ONE TIME DAILY omeprazole 40 mg capsule,delayed release(DR/EC) 40 mg PO BID Patient Comments: TAKE ONE CAPSULE BY MOUTH TWICE DAILY Eliquis 5 mg tablet 5 mg PO BID Patient Comments: Take 1 tablet by mouth twice a day cyclobenzaprine 10 mg tablet 10 mg PO BID PRN (Reason: muscle spasm) Qty: 60 1RF Follow up/Referrals: Mario Alberto Kerns MD [Physician] - 08/17/22 (has 0800 appointment) Roldan Jiang MD [Primary Care Provider] - 08/17/22 (Appt:08/17 @ please call for appointment before discharge) Discharge Health Status Multidrug resistant organism: No MDRO Diet/Activity/Treatments Diet: Diet as Tolerated Visit Report/Discharge Packet Stand Alone Forms: Patient Portal/API, Stroke Signs & Symptoms Discharge Data Primary Care Provider: Roldan Jiang Quality VTE Deep Vein Thrombosis/Pulmonary Embolism Present on Admission: No
[2022-08-11] MEDS: POTASSIUM CHLORIDE 20 MEQ TAB 40 MEQ PO (09:45)
--- NOTE | 2022-08-11 15:41 | CM.DPC ---
DCP Continued: DRAFTER COMMERCIAL entered room and reintroduced self and role. Patient appeared A/Ox4 and was accompanied by daughter. Patient reported feeling in a good mood and was excited to d/c because it's her daughter's birthday. DRAFTER COMMERCIAL provided patient with SI crisis stabilization information, national suicide hotline information, appointment information for his August 26 [facility] assessment at 9:30am, follow up appointment information for Dr. Kerns, suicide support groups, grief support groups, comprehensive MH facilities in the area, and AA group information. Patient appeared appreciative for the information. Patient and daughter reported that patient will not be alone for the next week or so after d/c. One of his daughter's will stay with him between now and follow up appointment with Dr. Kerns. Plan: d/c home with daughters in POV. Patient will follow up with MH screening appointment on August 26 and psychiatry appointment on August 17. CM team will continue to follow with needs. SHASHI Ng
== END 2022-08-11 09:40 | disposition home or self-care (01) | DRG 917 ==
LOC: ED 08:06 → AC 09:32 → ICU 09:58
PROVIDERS: Admitting Provider Neuromusculoskeletal Medicine, Sports Medicine; Emergency Provider Emergency Medicine; PCP Family Medicine; Referring Provider Emergency Medicine; Visit Provider Family Medicine
DX: T42.4X2A Poisoning by benzodiazepines, intentional self-harm, initial encounter (principal); J69.0 Pneumonitis due to inhalation of food and vomit; R45.851 Suicidal ideations; F33.9 Major depressive disorder, recurrent, unspecified; F43.81 Prolonged grief disorder; K21.9 Gastro-esophageal reflux disease without esophagitis; M62.830 Muscle spasm of back; F10.90 Alcohol use, unspecified, uncomplicated; F17.210 Nicotine dependence, cigarettes, uncomplicated; I10 Essential (primary) hypertension; Y90.1 Blood alcohol level of 20-39 mg/100 ml; Z20.822 Contact with and (suspected) exposure to COVID-19
CPT/HCPCS: 36415; 71045; 80048; 80053; 80076; 80305; 80320; 80329; 81001; 82550; 82962; 83605; 84484; 85025; 85610; 85730; 87040; 87086; 87797; 93005; 96374; 99222; 99284; G0480; J0295; J1644; J1956; J2060; J2405

== ENCOUNTER 2022-10-07 16:16 | Emergency (ER) | payer OTHER, SELFPAY ==
[2022-08-07 09:58] VITALS: BMI 25.4
[2022-10-07 16:20] VITALS: BP 144/88; PULSE 93; RESP 18; TEMP 36.6; O2SAT 95; BMI 27.7
[2022-10-07 16:56] LABS: Add Manual Diff / Slide Review NO; Basophils Absolute Auto 200 /uL (0-100); Basophils Percent Auto 2.4 % (0-2); Eosinophils Absolute Auto 500 /uL (0-450); Eosinophils Percent Auto 6.1 % (2-4); Hematocrit 44.7 % (41-53); Hemoglobin 15.4 g/dL (13.5-17.5); Lymphocytes Absolute Auto 2800 /uL (1100-4500); Lymphocytes Percent Auto 31.5 % (25-40); Mean Corpuscular HGB Conc 34.4 % (30-36); Mean Corpuscular Hemoglobin 30.9 PG (26-34); Mean Corpuscular Volume 89.7 fL (80-100); Monocytes Absolute Auto 500 /uL (0-900); Monocytes Percent Auto 6.1 % (3-14); Neutrophils Absolute Auto 4800 /uL (1500-7000); Neutrophils Percent Auto 53.9 % (50-75); Platelet Count 383 X10^3/uL (150-400); Red Blood Cell Count 4.98 X10^6/uL (4.5-5.9); Red Cell Distribution Width 14.9 % (11.6-14.8); White Blood Cell Count 8.9 X10^3/uL (4.5-11.0)
[2022-10-07 17:03] LABS: UR Morphine/Opiate cutoff 300 Negative (Negative); Ur Creatinine Normal (Normal); Ur Specific Gravity Normal (Normal); Urine Amphetamines Negative (Negative); Urine Barbiturates Negative (Negative); Urine Benzodiazepines Positive (Negative); Urine Cocaine Negative (Negative); Urine MDMA Negative (Negative); Urine Methadone Negative (Negative); Urine Methamphetamines Negative (Negative); Urine Oxycodone Negative (Negative); Urine Phencyclidine Negative (Negative); Urine Tetrahydrocannabinol Positive (Negative); Urine pH Normal (Normal)
[2022-10-07 17:04] LABS: Acetaminophen < 10 ug/mL (10-30); Alanine Aminotransferase 32 IU/L (<50); Albumin 4.4 g/dL (3.5-5.0); Albumin Globulin Ratio 1.2 (1.0-2.8); Alkaline Phosphatase 123 U/L (38-126); Aspartate Aminotransferase 35 IU/L (17-59); BUN Creatinine Ratio 11.8 (6-22); Bilirubin Total 0.4 mg/dL (0.2-1.3); Blood Urea Nitrogen 11 mg/dL (9-20); Calcium 9.2 mg/dL (8.4-10.2); Carbon Dioxide 21 mmol/L (22-32); Chloride 112 mmol/L (98-107); Estimated Glomerular Filt Rate > 60 mL/min (>60); Ethanol (ETOH) 263 mg/dL; Globulin 3.7 g/dL (1.7-4.1); Glucose 88 mg/dL (70-100); HEMOLYSIS < 15 (0-50); Salicylate < 1.0 mg/dL (<20); Sodium 145 mmol/L (137-145); Total Protein 8.1 g/dL (6.3-8.2); Urine Tricyclic Antidepressant Negative (Negative)
[2022-10-07 17:20] LABS: Free T4, Direct Thyroxine 1.17 ng/dL (0.78-2.19)
[2022-10-07] MEDS: NICOTINE 21 MG PATCH TOP (17:21)
[2022-10-07] MEDS: LORazepam 0.5 MG TABLET 1 MG PO (17:31)
[2022-10-07 17:34] LABS: Thyroid Stimulating Hormone 0.475 uIU/mL (0.47-4.68)
[2022-10-07 17:45] LABS: COVID19 -Nasal RAPID Negative (Negative)
--- NOTE | 2022-10-07 17:55 | PC.NURSE ---
belongings placed in pt cabinet
--- NOTE | 2022-10-07 18:24 | CM.SWNOTE ---
WRAPPER STRIPPER Assessment WRAPPER STRIPPER - Clerical Supervisor Assessment WRAPPER STRIPPER/Clerical Supervisor Assessment Time Spent with Patient Start date 10/07/22 Visit Start Time 17:00 End date 10/07/22 Visit End Time 17:30 Total time Care Management spent on 30 minutes patient visit-in minutes Mental Health Screening Include Onset, Duration, Intensity Presenting Problem Patient presents to ED via POV with friend after calling his Psychiatrist's office, they contacted 911 and patient contacted his friend regarding current SI with plan. Patient endorses current plan to hang self with belt and active SI I want to . Patient had Psychiatry appt yesterday and hospitalization was discussed but it was decided to start [place] rx first. After consulting with Psychiatrist, Dr. Kerns recommends hospitalization for patient. Precipitating Event(s) Patient had recent suicide attempt where he overdosed on 100 pills of trazadone and xanax. Patient endorses he has been suicidal and depressed since his friend killed himself in May 2022. Patient endorses that he started drinking again recently. Patient's BAL is 263 . Patient Strengths Patient has support from friends and family, patient has current Psychiatrist and upcoming counselor appt on October 20. Current Behavioral Health Provider(s) Patient sees Psychiatrist Dr. Ayse Wyatt, Provider, Ph. # Luis F at [facility](Ph. # [phone]), patient had appointment yesterday with provider. Dr. Kerns calls ED and states he recommends inpatient hospitalization for patient. Patient has scheduled Psychiatry appt for 10/26/22. Patient has upcoming appt with [facility] at [facility] with ISABELLA UnderwoodSW (Ph. # [phone]) on Psych. Hx Mental Health and Chemical Patient has dx of Bipolar 2 Dependency disorder severe depressed with Anxious distress, Anxiety, Polysubstance dependence in early or patial remission. Patient has rx for Quetiapine 400mg, Trazodone 200mg, Clonzaepam 0.5 mg BID, was just prescribed [place] (300mg for 5 days, increase to 600mg on day 6 increase to 900mg on day 12). Patient was just recommended to continue venafaxine XR 225mg and discontine Sertraline 50mg. Patient endorses he started drinking again recently and drank 1 pint of vodka earlier today, patient endorses occasional marijuana use. Patient is positive for ETOH, marijuana and Benzodiazepines. Family Hx of Behavioral Abuse Patient endorses he has been in and out of therapy most of his life. Psychiatric Hospitalizations (date(s)/ Patient endorses hx of location) hospitalization after overdose in 2004 at [facility]. Psychosocial information & Support Patient is 61 y/o male who Systems resides in [place] on his mother's property. Patient has mother, daughters, and friends as supports. School/Work Patient works at [employer] Legal Concerns Legal Matters - Outstanding Issues None reported Mental Status Orientation (Person/Place/Time) A/Ox4 Stated Mood I want to Affect (Congruent with Mood?) anxious, sarcastic, euthymic, incongruent with mood, full range. Thought Content - Specify/Describe Patient denies visual and Obsessions, Delusions, Hallucinations auditory hallucinations. Patient denies paranoia or delusions. Thought Processes (Nlkyjev-Bnxrfqte-Zqnr coherent Ptocviwf-Ckpdhksl-Ctqzqwmkqp- Iporoxgbpwodve-Mdtygjd-Znpirsynbdjh- Thought Blocking) Speech (Yvhvyj-Sbys-Tfbfasj-Rapid-Soft- loud, normal Loud-Pressured) Motor (Frvlyb-Kyiirfbfo-Hpmw-Other) normal Insight (Esre-Foiq-Nrre/Limited) fair/limited Judgement (Pwan-Glld-Klyc/Limited) fair/limited Impulse Control (Adequate-Impaired) adequate, vocalizing he has thoughts of leaving hallway ED location, but patient is able to vocalize patient needs and patient is given nicotene. Memory (Vqfdvckil-Vrxedw-Bxfedm, intact, not formally assessed Impaired-Intact) Concentration (Intact-Impaired) intact Attention (Intact-Impaired) intact Behavior (Appropriate-Inappropriate) appropriate, patient presents with humor and sarcasm as coping mechanism. Additional Comment Patient presents as calm, cooperate and communicative. Risk Assessment Suicidal Ideation (Plan) Yes Homicidal Ideation (Plan) No Comment Patient endorses SI, current plan to kill himself like Jalen Cheung, lead [employer]roll of [employer]. Patient endorses plan to hang self with belt in the bathroom. When asked about attempting this patient states not yet. Patient endorses he attempted to kill himself in July () by overdosing on 100 pills of trazodone and xanax. Patient was placed in ICU after attempt and was hospitalized for 4 days at with outpatient follow up. Patient endorses he wishes he was not found after overdose. Intervention Intervention WRAPPER STRIPPER enters hallway to meet with patient. Present with patient is patient's friend Medardo, it is reported that patient contacted his friend after contacting his psychiatrist's office endorsing SI with plan. WRAPPER STRIPPER speaks with patient's psychiatrist Dr. Kerns who recommends BH inpatient hospitalization for patient after meeting with patient yesterday and in response to patient's call requesting for help. Patient endorses ongoing SI since suicide attempt in July 2022. Patient endorses current plan to hang self with belt and current thoughts of wanting to . WRAPPER STRIPPER discusses voluntary vs. involuntary BH hospitalization , at this time patient cannot contract for safety or contract to agree to voluntary BH hospitalization. It is the opinion of this WRAPPER STRIPPER that patient is in need of DCR evaluation to determine [facility] hospitalization. There is concern for patient's safety, crisis stabilization and patient has not yet started new medications recently prescribed by Psychiatrist. At this time, patient's psychiatrist is recommending BH hospitalization for patient and endorses that patient has had ongoing struggles with stabilization since suicide attempt in July 2022. WRAPPER STRIPPER to review the above with ED provider Dr. Calvillo. Plan RA Plan Upon medical clearance, ED team to dispatch DCR and seek [facility] placement for patient. JORGITO Du
--- NOTE | 2022-10-07 18:48 | PC.NURSE ---
during interviewing this patient he reports to taking 1 pint of vodka since July. Prior to this he reports 5 years sober. Patient last drink at 9am. Patient denies having had seizures on previous withdrawl. Patient reports that he started lithium per Dr. Kerns yesterday but thinks he messed up the amount as he believes he was supposed to gradually build up to 900mg. Patient reports first dose taken yesterday of full 900mg. Provider notified.
[2022-10-07 19:30] LABS: Lithium 0.3 mmol/L (0.6-1.2)
--- NOTE | 2022-10-07 20:11 | PC.NURSE ---
Pt refused ativan, stated he was leaving & wanted his personal effects Pt informed he was DCR'd & couldn't leave & we would not give him his belongings until evaluated & cleared by [facility]. Charge nurse notified
--- NOTE | 2022-10-07 20:43 | ED.PSYCH ---
HPI - Psych <Regis Calvillo, DO - Last Filed: 10/11/22 19:09> General Chief Complaint: Psychiatric Symptoms Stated Complaint: SI Time Seen by Provider: 10/07/22 17:25 Source: patient Mode of arrival: Ambulatory History of Present Illness HPI Narrative: Patient is a 61-year-old male who arrives to the emergency department voluntarily for evaluation of suicidal ideation. Patient has had significant issues with alcohol in the past. He states he was sober for a fairly long time however over the past several months he has had quite a bit of personal issues. He states that 1 of his best friends killed himself earlier this year. After this he states that he fell off the wagon. He started drinking again. He was actually here in the hospital and admitted several weeks ago for an intentional medication overdose. Over the past 24-48 hours he is had an increase in life stressors. He would not specifically go into these discussions. He does admit to drinking alcohol. He contact in both his psychiatrist yesterday and also his primary doctor. His psychiatrist started him on lithium. He does have history of bipolar disorder. History of polysubstance abuse. History of anxiety. Patient states he does have a plan to kill himself. He states he would take a belt and hang himself from a door. He says he had those thoughts earlier today however since that time he found out from his daughter that she was . He stated that this actually was very good news. Patient was seen by social work prior to myself. At 1 point he did leave the emergency department and was sitting in the weight room but came back when asked. Related Data Home Medications Medication Instructions Recorded Confirmed apixaban 5 mg tablet (Eliquis) 5 mg PO BID 07/12/22 08/07/22 hydrochlorothiazide 25 mg tablet 25 mg PO DAILY 07/12/22 08/07/22 omeprazole 40 mg capsule,delayed 40 mg PO BID 07/12/22 08/07/22 release Previous Rx's Medication Instructions Recorded quetiapine 400 mg tablet 400 mg PO DAILY #30 tabs 05/20/22 trazodone 100 mg tablet 200 mg PO BEDTIME #180 tabs 05/20/22 cyclobenzaprine 10 mg tablet 10 mg PO BID PRN muscle spasm #60 07/12/22 tabs alprazolam 1 mg tablet 1 mg PO TID #60 tabs 08/04/22 amoxicillin 875 mg-potassium 1 tab PO BID #20 tabs 08/11/22 clavulanate 125 mg tablet clonazepam 1 mg tablet 0.5 mg PO BID #30 tabs 09/22/22 sertraline 50 mg tablet 100 mg PO DAILY #60 tabs 09/28/22 lithium carbonate 300 mg capsule 900 mg PO BEDTIME #90 caps 10/06/22 Allergies Allergy/AdvReac Type Severity Reaction Status Date / Time No Known Drug Allergies Allergy Verified 10/07/22 16:28 Review of Systems <Regis Calvillo DO - Last Filed: 10/11/22 19:09> Constitutional Constitutional: Denies headache(s) ENT Ears, Nose, Mouth, and Throat: Denies headache(s) Cardiovascular Comments: Chest pain Respiratory Comments: Denies shortness of breath Gastrointestinal Comments: Denies abdominal pain Integumentary/Breasts Comments: No skin rashes Neurologic Neurologic: Denies headache(s) Patient History <DO Cathleen Tineo Last Filed: 10/11/22 19:09> Medical History Complicated grief Facet arthropathy, lumbar Lumbar foraminal stenosis Spondylolisthesis at L5-S1 level Surgical History H/O foot surgery Family History Family/Other No pertinent family history Social History household members: none Smoking Status: Current every day smoker alcohol intake: former Smoking Status: Current every day smoker alcohol intake frequency: 3 or more drinks per day Substance Use Type: marijuana Exam <DO Cathleen Tineo Last Filed: 10/11/22 19:09> Initial Vital Signs Initial Vital Signs: Vital Signs Temperature 98 F 10/07/22 16:20 Pulse Rate 93 H 10/07/22 16:20 Respiratory Rate 18 10/07/22 16:20 Blood Pressure 144/88 H 10/07/22 16:20 Pulse Oximetry 95 10/07/22 16:20 Oxygen Delivery Method Room Air 10/07/22 16:20 Const General: No ill appearing HENMT Head: normal to inspection and normocephalic Resp Effort & Inspection: normal respiratory effort Cardio Rate: regular rate Skin General: no rashes or lesions noted Neuro General: patient alert, patient awake, patient oriented x3 and moves all extremities Psych Other: Intoxicated, suicidal ideation <Corazon Ventura DO - Last Filed: 10/08/22 19:51> Initial Vital Signs Initial Vital Signs: Vital Signs Temperature 98 F 10/07/22 16:20 Pulse Rate 93 H 10/07/22 16:20 Respiratory Rate 18 10/07/22 16:20 Blood Pressure 144/88 H 10/07/22 16:20 Pulse Oximetry 95 10/07/22 16:20 Oxygen Delivery Method Room Air 10/07/22 16:20 Course <Regis Calvillo, DO - Last Filed: 10/11/22 19:09> Orders Ordered: Discontinued Medications Apixaban (Apixaban 5 Mg Tablet) 5 mg PO NOW ONE Stop: 10/07/22 21:01 Last Admin: 10/07/22 21:23 Dose: Not Given Documented By: GC Diphenhydramine HCl (Diphenhydramine 50 Mg/Ml Vial) 25 mg IM NOW ONE Stop: 10/07/22 20:38 Last Admin: 10/07/22 20:40 Dose: Not Given Documented By: GC Haloperidol (Haloperidol 5 Mg/Ml Vial) 5 mg IM NOW ONE Stop: 10/07/22 20:38 Last Admin: 10/07/22 20:40 Dose: Not Given Documented By: GC Lorazepam (Lorazepam 0.5 Mg Tablet) 1 mg PO NOW ONE Stop: 10/07/22 17:26 Last Admin: 10/07/22 17:31 Dose: 1 mg Documented By: AMV Lorazepam (Lorazepam 0.5 Mg Tablet) 1 mg PO NOW ONE Stop: 10/07/22 19:55 Last Admin: 10/07/22 21:30 Dose: Not Given Documented By: GC Lorazepam (Lorazepam 2 Mg/Ml Inj) 2 mg IM NOW ONE Stop: 10/07/22 20:39 Last Admin: 10/07/22 20:40 Dose: Not Given Documented By: GC Nicotine (Nicotine 21 Mg Patch) 21 mg TOP NOW ONE Stop: 10/07/22 17:17 Last Admin: 10/07/22 17:21 Dose: 21 mg Documented By: CHARITY Quetiapine Fumarate (Quetiapine 100 Mg Tablet) 400 mg PO BEDTIME FOR[facility]LY [facility], [facility]1983 Last Admin: 10/07/22 21:17 Dose: 400 mg Documented By: CARL Trazodone HCl (Trazodone 50 Mg Tablet) 200 mg PO BEDTIME FORMERLY [facility], [facility] Last Admin: 10/07/22 21:17 Dose: 200 mg Documented By: CARL Vital Signs Vital signs: Vital Signs - 8 hr 10/08/22 07:35 Temperature 98.0 F Pulse Rate 109 H Respiratory Rate 14 Blood Pressure 169/101 H Pulse Oximetry 97 Oxygen Delivery Method Room Air <Corazon Ventura, - Last Filed: 10/08/22 19:51> Orders Ordered: Discontinued Medications Apixaban (Apixaban 5 Mg Tablet) 5 mg PO NOW ONE Stop: 10/07/22 21:01 Last Admin: 10/07/22 21:23 Dose: Not Given Documented By: CARL Diphenhydramine HCl (Diphenhydramine 50 Mg/Ml Vial) 25 mg IM NOW ONE Stop: 10/07/22 20:38 Last Admin: 10/07/22 20:40 Dose: Not Given Documented By: CARL Haloperidol (Haloperidol 5 Mg/Ml Vial) 5 mg IM NOW ONE Stop: 10/07/22 20:38 Last Admin: 10/07/22 20:40 Dose: Not Given Documented By: CARL Lorazepam (Lorazepam 0.5 Mg Tablet) 1 mg PO NOW ONE Stop: 10/07/22 17:26 Last Admin: 10/07/22 17:31 Dose: 1 mg Documented By: LIZY Lorazepam (Lorazepam 0.5 Mg Tablet) 1 mg PO NOW ONE Stop: 10/07/22 19:55 Last Admin: 10/07/22 21:30 Dose: Not Given Documented By: CARL Lorazepam (Lorazepam 2 Mg/Ml Inj) 2 mg IM NOW ONE Stop: 10/07/22 20:39 Last Admin: 10/07/22 20:40 Dose: Not Given Documented By: CARL Nicotine (Nicotine 21 Mg Patch) 21 mg TOP NOW ONE Stop: 10/07/22 17:17 Last Admin: 10/07/22 17:21 Dose: 21 mg Documented By: CHARITY Quetiapine Fumarate (Quetiapine 100 Mg Tablet) 400 mg PO BEDTIME FOR[facility] Last Admin: 08/17/23 21:17 Dose: 400 mg Documented By: CARL Trazodone HCl (Trazodone 50 Mg Tablet) 200 mg PO BEDTIME ELEUTERIO Last Admin: 10/07/22 21:17 Dose: 200 mg Documented By: CARL Vital Signs Vital signs: Vital Signs - 8 hr 10/08/22 07:35 Temperature 98.0 F Pulse Rate 109 H Respiratory Rate 14 Blood Pressure 169/101 H Pulse Oximetry 97 Oxygen Delivery Method Room Air MDM - Psych <Regis Calvillo DO - Last Filed: 10/11/22 19:09> Medical Records Attestation: I reviewed the patient's medical records. Lab Data Attestation: I reviewed the patient's lab results. 10/07/22 16:30 10/07/22 16:30 Labs: Lab Results 10/07/22 10/07/22 10/07/22 Range/Units 16:30 16:30 16:30 WBC 8.9 (4.5-11.0) X10^3/uL RBC 4.98 (4.5-5.9) X10^6/uL Hgb 15.4 (13.5-17.5) g/dL Hct 44.7 (41-53) % MCV 89.7 (80-100) fL MCH 30.9 (26-34) PG MCHC 34.4 (30-36) % RDW 14.9 H (11.6-14.8) % Plt Count 383 (150-400) X10^3/uL Neut % (Auto) 53.9 (50-75) % Lymph % (Auto) 31.5 (25-40) % Mchenry % (Auto) 6.1 (3-14) % Eos % (Auto) 6.1 H (2-4) % Baso % (Auto) 2.4 H (0-2) % Neut # (Auto) 4800 (7990-0772) /uL Lymph # (Auto) 2800 (2207-8729) /uL Mchenry # (Auto) 500 (0-900) /uL Eos # (Auto) 500 H (0-450) /uL Baso # (Auto) 200 H (0-100) /uL Sodium 145 (137-145) mmol/L Potassium 4.0 (3.4-5.1) mmol/L Chloride 112 H (98-107) mmol/L Carbon Dioxide 21 L (22-32) mmol/L BUN 11 (9-20) mg/dL Creatinine 0.93 (0.66-1.25) mg/dL Estimated GFR > 60 (>60) mL/min BUN/Creatinine Ratio 11.8 (6-22) Glucose 88 (70-100) mg/dL Calcium 9.2 (8.4-10.2) mg/dL Total Bilirubin 0.4 (0.2-1.3) mg/dL AST 35 (17-59) IU/L ALT 32 (<50) IU/L Alkaline Phosphatase 123 (38-126) U/L Total Protein 8.1 (6.3-8.2) g/dL Albumin 4.4 (3.5-5.0) g/dL Globulin 3.7 (1.7-4.1) g/dL Albumin/Globulin Ratio 1.2 (1.0-2.8) TSH 0.475 (0.47-4.68) uIU/mL Free T4 1.17 (0.78-2.19) ng/dL Salicylates < 1.0 (<20) mg/dL U Opiates 300ng/mL cut (Negative) Ur Oxycodone Screen (Negative) Urine Methadone Screen (Negative) Acetaminophen < 10 (10-30) ug/mL Ur Barbiturates Screen (Negative) U Tricyclic Antidepress (Negative) Ur Phencyclidine Scrn (Negative) Ur Amphetamines Screen (Negative) U Methamphetamines Scrn (Negative) Ur MDMA Scrn (Ecstasy) (Negative) U Benzodiazepines Scrn (Negative) Bucks (0.6-1.2) mmol/L Urine Cocaine Screen (Negative) U Marijuana (THC) Screen (Negative) Ethyl Alcohol 263 H ( - 10) mg/dL SARS-CoV-2 (PCR) (Negative) 10/07/22 10/07/22 10/07/22 Range/Units 16:30 16:30 16:30 WBC (4.5-11.0) X10^3/uL RBC (4.5-5.9) X10^6/uL Hgb (13.5-17.5) g/dL Hct (41-53) % MCV (80-100) fL MCH (26-34) PG MCHC (30-36) % RDW (11.6-14.8) % Plt Count (150-400) X10^3/uL Neut % (Auto) (50-75) % Lymph % (Auto) (25-40) % Mchenry % (Auto) (3-14) % Eos % (Auto) (2-4) % Baso % (Auto) (0-2) % Neut # (Auto) (9549-7108) /uL Lymph # (Auto) (1917-1732) /uL Mchenry # (Auto) (0-900) /uL Eos # (Auto) (0-450) /uL Baso # (Auto) (0-100) /uL Sodium (137-145) mmol/L Potassium (3.4-5.1) mmol/L Chloride (98-107) mmol/L Carbon Dioxide (22-32) mmol/L BUN (9-20) mg/dL Creatinine (0.66-1.25) mg/dL Estimated GFR (>60) mL/min BUN/Creatinine Ratio (6-22) Glucose (70-100) mg/dL Calcium (8.4-10.2) mg/dL Total Bilirubin (0.2-1.3) mg/dL AST (17-59) IU/L ALT (<50) IU/L Alkaline Phosphatase (38-126) U/L Total Protein (6.3-8.2) g/dL Albumin (3.5-5.0) g/dL Globulin (1.7-4.1) g/dL Albumin/Globulin Ratio (1.0-2.8) TSH (0.47-4.68) uIU/mL Free T4 (0.78-2.19) ng/dL Salicylates (<20) mg/dL U Opiates 300ng/mL cut Negative (Negative) Ur Oxycodone Screen Negative (Negative) Urine Methadone Screen Negative (Negative) Acetaminophen (10-30) ug/mL Ur Barbiturates Screen Negative (Negative) U Tricyclic Antidepress Negative (Negative) Ur Phencyclidine Scrn Negative (Negative) Ur Amphetamines Screen Negative (Negative) U Methamphetamines Scrn Negative (Negative) Ur MDMA Scrn (Ecstasy) Negative (Negative) U Benzodiazepines Scrn Positive H (Negative) Bucks 0.3 L (0.6-1.2) mmol/L Urine Cocaine Screen Negative (Negative) U Marijuana (THC) Screen Positive H (Negative) Ethyl Alcohol ( - 10) mg/dL SARS-CoV-2 (PCR) Negative (Negative) Urine Dip Bedside Urine Glucose Negative Bedside Urine Bilirubin - Negative Bedside Urine Ketone - Negative Urine Specific [place] 1.01 Bedside Urine Occult Blood - Negative Bedside Urine pH 6 Bedside Urine Protein - Negative Bedside Urine Urobilinogen - Negative Bedside Urine Nitrite - Negative Bedside Urine Leukocytes - Negative Esterase MDM Narrative Medical decision making narrative: Douglas and Giovanna had a very rough initial encounter during this visit. He left the emergency department prior to my evaluation but only went to the waiting room and returned when asked to do so. During our initial encounter he once again left the emergency department and was actually brought back by police. We then sat down together. This 2nd encounter was much better. We are both more calm. He was very open about his struggles that he is had specifically with regard to his good friend killing himself. Patient did state that he had thoughts of killing himself in his had persistent thoughts of killing himself since his friend's . He does admit to drinking alcohol. He stated that these thoughts today were actually before he heard from his daughter that she was . He did make comments that now that he knew this he does want to be around for his grandchild. This would be his 1st grandchild. We had a extensive discussion regarding his presentation here and what we had to offer him. We discussed his alcohol use. We came to an agreement that I would provide him his nightly medicines to include Seroquel and trazodone. He agreed to stay here in the emergency department. He would sleep here this evening. He would sober up from his alcohol use and then we could re-evaluate once he had a chance to sleep. He was in agreement with this. Since that time he has been sleeping comfortably. Care turned over to day provider to follow-up and disposition. <Corazon Ventura, DO - Last Filed: 10/08/22 19:51> Lab Data Labs: Lab Results 10/07/22 10/07/22 10/07/22 Range/Units 16:30 16:30 16:30 WBC 8.9 (4.5-11.0) X10^3/uL RBC 4.98 (4.5-5.9) X10^6/uL Hgb 15.4 (13.5-17.5) g/dL Hct 44.7 (41-53) % MCV 89.7 (80-100) fL MCH 30.9 (26-34) PG MCHC 34.4 (30-36) % RDW 14.9 H (11.6-14.8) % Plt Count 383 (150-400) X10^3/uL Neut % (Auto) 53.9 (50-75) % Lymph % (Auto) 31.5 (25-40) % Mchenry % (Auto) 6.1 (3-14) % Eos % (Auto) 6.1 H (2-4) % Baso % (Auto) 2.4 H (0-2) % Neut # (Auto) 4800 (6835-2101) /uL Lymph # (Auto) 2800 (9471-2727) /uL Mchenry # (Auto) 500 (0-900) /uL Eos # (Auto) 500 H (0-450) /uL Baso # (Auto) 200 H (0-100) /uL Sodium 145 (137-145) mmol/L Potassium 4.0 (3.4-5.1) mmol/L Chloride 112 H (98-107) mmol/L Carbon Dioxide 21 L (22-32) mmol/L BUN 11 (9-20) mg/dL Creatinine 0.93 (0.66-1.25) mg/dL Estimated GFR > 60 (>60) mL/min BUN/Creatinine Ratio 11.8 (6-22) Glucose 88 (70-100) mg/dL Calcium 9.2 (8.4-10.2) mg/dL Total Bilirubin 0.4 (0.2-1.3) mg/dL AST 35 (17-59) IU/L ALT 32 (<50) IU/L Alkaline Phosphatase 123 (38-126) U/L Total Protein 8.1 (6.3-8.2) g/dL Albumin 4.4 (3.5-5.0) g/dL Globulin 3.7 (1.7-4.1) g/dL Albumin/Globulin Ratio 1.2 (1.0-2.8) TSH 0.475 (0.47-4.68) uIU/mL Free T4 1.17 (0.78-2.19) ng/dL Salicylates < 1.0 (<20) mg/dL U Opiates 300ng/mL cut (Negative) Ur Oxycodone Screen (Negative) Urine Methadone Screen (Negative) Acetaminophen < 10 (10-30) ug/mL Ur Barbiturates Screen (Negative) U Tricyclic Antidepress (Negative) Ur Phencyclidine Scrn (Negative) Ur Amphetamines Screen (Negative) U Methamphetamines Scrn (Negative) Ur MDMA Scrn (Ecstasy) (Negative) U Benzodiazepines Scrn (Negative) Bucks (0.6-1.2) mmol/L Urine Cocaine Screen (Negative) U Marijuana (THC) Screen (Negative) Ethyl Alcohol 263 H ( - 10) mg/dL SARS-CoV-2 (PCR) (Negative) 10/07/22 10/07/22 10/07/22 Range/Units 16:30 16:30 16:30 WBC (4.5-11.0) X10^3/uL RBC (4.5-5.9) X10^6/uL Hgb (13.5-17.5) g/dL Hct (41-53) % MCV (80-100) fL MCH (26-34) PG MCHC (30-36) % RDW (11.6-14.8) % Plt Count (150-400) X10^3/uL Neut % (Auto) (50-75) % Lymph % (Auto) (25-40) % [place]hen[place] % (Auto) (3-14) % Eos % (Auto) (2-4) % Baso % (Auto) (0-2) % Neut # (Auto) (4893-6709) /uL Lymph # (Auto) (9741-0103) /uL Mchenry # (Auto) (0-900) /uL Eos # (Auto) (0-450) /uL Baso # (Auto) (0-100) /uL Sodium (137-145) mmol/L Potassium (3.4-5.1) mmol/L Chloride (98-107) mmol/L Carbon Dioxide (22-32) mmol/L BUN (9-20) mg/dL Creatinine (0.66-1.25) mg/dL Estimated GFR (>60) mL/min BUN/Creatinine Ratio (6-22) Glucose (70-100) mg/dL Calcium (8.4-10.2) mg/dL Total Bilirubin (0.2-1.3) mg/dL AST (17-59) IU/L ALT (<50) IU/L Alkaline Phosphatase (38-126) U/L Total Protein (6.3-8.2) g/dL Albumin (3.5-5.0) g/dL Globulin (1.7-4.1) g/dL Albumin/Globulin Ratio (1.0-2.8) TSH (0.47-4.68) uIU/mL Free T4 (0.78-2.19) ng/dL Salicylates (<20) mg/dL U Opiates 300ng/mL cut Negative (Negative) Ur Oxycodone Screen Negative (Negative) Urine Methadone Screen Negative (Negative) Acetaminophen (10-30) ug/mL Ur Barbiturates Screen Negative (Negative) U Tricyclic Antidepress Negative (Negative) Ur Phencyclidine Scrn Negative (Negative) Ur Amphetamines Screen Negative (Negative) U Methamphetamines Scrn Negative (Negative) Ur MDMA Scrn (Ecstasy) Negative (Negative) U Benzodiazepines Scrn Positive H (Negative) Bucks 0.3 L (0.6-1.2) mmol/L Urine Cocaine Screen Negative (Negative) U Marijuana (THC) Screen Positive H (Negative) Ethyl Alcohol ( - 10) mg/dL SARS-CoV-2 (PCR) Negative (Negative) Urine Dip Bedside Urine Glucose Negative Bedside Urine Bilirubin - Negative Bedside Urine Ketone - Negative Urine Specific [place] 1.01 Bedside Urine Occult Blood - Negative Bedside Urine pH 6 Bedside Urine Protein - Negative Bedside Urine Urobilinogen - Negative Bedside Urine Nitrite - Negative Bedside Urine Leukocytes - Negative Esterase MDM Narrative Medical decision making narrative: Douglas and Giovanna had a very rough initial encounter during this visit. He left the emergency department prior to my evaluation but only went to the waiting room and returned when asked to do so. During our initial encounter he once again left the emergency department and was actually brought back by police. We then sat down together. This 2nd encounter was much better. We are both more calm. He was very open about his struggles that he is had specifically with regard to his good friend killing himself. Patient did state that he had thoughts of killing himself in his had persistent thoughts of killing himself since his friend's . He does admit to drinking alcohol. He stated that these thoughts today were actually before he heard from his daughter that she was . He did make comments that now that he knew this he does want to be around for his grandchild. This would be his 1st grandchild. We had a extensive discussion regarding his presentation here and what we had to offer him. We discussed his alcohol use. We came to an agreement that I would provide him his nightly medicines to include Seroquel and trazodone. He agreed to stay here in the emergency department. He would sleep here this evening. He would sober up from his alcohol use and then we could re-evaluate once he had a chance to sleep. He was in agreement with this. Since that time he has been sleeping comfortably. Care turned over to day provider to follow-up and disposition. 10/08/22 Mank: Patient signed out to myself. He and I discussed the events overnight. At this time he states he would like to return home. He states that he does not wish to kill himself, he states that he recently found out that he is going to be a grandfather and he finds this positive event. He states his mom is at home and he does need to help take care of her as well. This time he is nael for safety, he is calm and appropriate and denies any active suicidal intent. Patient and I discussed he is willing to have via awake call today, he does not normally answer his phone so we discussed watch for new numbers and voice they will leave a voicemail and he needs to call back within 30 minutes otherwise they will have police do a welfare check. Also spoke with his primary care doctor Apolinar they are happy to see him and he can be seen 1st thing Tuesday or Tuesday. Discharge Plan Departure Patient Disposition: Home Clinical Impression: Suicidal ideation, Alcohol intoxication Activity Restrictions/Additional Instructions: Follow with at your scheduled appointment. I did speak with Dr. Jiang today and they can follow up with you at any time as well, call Tuesday and they can see you Tuesday or Tuesday. You will be contacted by via away or [facility] between 5 and 6:00 p.m. today September 07 please call them back within 30 minutes. They will also reach out to you again tomorrow likely between 2 and 4:00 p.m. on September 08. If you're feeling suicidal or having suicidal thoughts, contact the suicide hotline: . Please return if you are having worsening thoughts of harming herself, if you do not feel you can keep yourself or other safe, if you have other new or concerning changes. Prescriptions: No Action sertraline 50 mg tablet 100 mg PO DAILY Qty: 60 1RF Rx Instructions: Take 50 mg (1/2 tab) daily for two weeks, then increase to 100 mg (2 tabs) daily. trazodone 100 mg tablet 200 mg PO BEDTIME Qty: 180 0RF quetiapine 400 mg tablet 400 mg PO DAILY Qty: 30 2RF alprazolam 1 mg tablet 1 mg PO TID Qty: 60 0RF clonazepam 1 mg tablet 0.5 mg PO BID Qty: 30 1RF lithium carbonate 300 mg capsule 900 mg PO BEDTIME Qty: 90 0RF amoxicillin-pot clavulanate 875-125 mg tablet 1 tab PO BID Qty: 20 0RF hydrochlorothiazide 25 mg tablet 25 mg PO DAILY Patient Comments: TAKE ONE TABLET BY MOUTH ONE TIME DAILY omeprazole 40 mg capsule,delayed release(DR/EC) 40 mg PO BID Patient Comments: TAKE ONE CAPSULE BY MOUTH TWICE DAILY Eliquis 5 mg tablet 5 mg PO BID Patient Comments: Take 1 tablet by mouth twice a day cyclobenzaprine 10 mg tablet 10 mg PO BID PRN (Reason: muscle spasm) Qty: 60 1RF Referrals: Roldan Jiang MD [Primary Care Provider] - Stand Alone Forms: Patient Portal/API
--- NOTE | 2022-10-07 20:46 | PC.NURSE ---
Pt flipped stretcher in room [address] Calvillo speaking to pt and attempting to explain what the process was. Dr Calvillo ordered medication to help with the patients behavior and anxiety. Prior to being able to give the patient RX he left. Pt left the department for the 2nd time. Police were called and asked if they will bring him back to the ED if they locate him. The first time that he left was at 2007. The patient said that he wanted his belongings or he wanted the political reporter to come. Pt only made it to the lobby the first time that he left and then returned to room 13. The 2nd time he left he walked out toward [facility]. Police were called.
[2022-10-07] MEDS: TRAZODONE 50 MG TABLET 200 MG PO (21:17)
[2022-10-07] MEDS: QUETIAPINE 100 MG TABLET 400 MG PO (21:17)
--- NOTE | 2022-10-08 05:16 | PC.NURSE ---
SUPERVISORY FORESTER note: Pt got up to use bathroom/urinate at 0430.
--- NOTE | 2022-10-08 05:18 | CM.MNRNOTE ---
FIELD [employer]ILL[employer] BASIC note: Pt has been laying down with eyes closed since 2300, got up once at 0430 to urinate in the bathroom, pt breathing is even and unlabored, no signs of distress, no stated concerns at the moment.
--- NOTE | 2022-10-08 07:30 | PC.NURSE ---
0730: 1:[address] See paper charting for Q15 min documentation.
[2022-10-08 07:35] VITALS: BP 169/101; PULSE 109; RESP 14; TEMP 36.7; O2SAT 97
--- NOTE | 2022-10-08 09:30 | PC.NURSE ---
Pt A&Ox4, calm and cooperative. Denies suicide ideation or intent to harm self or others and verbalizes agreement with discharge plan and instructions. Called friend for ride home. Provided with personal belongings.
[2022-10-08 09:44] VITALS: BP 155/92; PULSE 100; RESP 16; TEMP 36.9; O2SAT 99
== END 2022-10-08 09:34 | disposition home or self-care (01) ==
PROVIDERS: Emergency Medicine; Emergency Provider Emergency Medicine; PCP Family Medicine
DX: R45.851 Suicidal ideations (principal); F10.129 Alcohol abuse with intoxication, unspecified; Y90.8 Blood alcohol level of 240 mg/100 ml or more; Z79.01 Long term (current) use of anticoagulants; Z79.899 Other long term (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 therapy; Z20.822 Contact with and (suspected) exposure to COVID-19
CPT/HCPCS: 80053; 80178; 80305; 80320; 80329; 81003; 84439; 84443; 85025; 87635; 99284; C9803; G0480

== ENCOUNTER → 2022-10-20 10:20 | Outpatient (CLI) | payer OTHER, SELFPAY ==
[2022-08-07 09:58] VITALS: BMI 25.4
[2022-10-20 13:26] LABS: Lithium 0.6 mmol/L (0.6-1.2)
== END ==
PROVIDERS: PCP Family Medicine; Referring Provider Psychiatry & Neurology Psychiatry; Visit Provider Psychiatry & Neurology Psychiatry
DX: F31.81 Bipolar II disorder (principal); F10.20 Alcohol dependence, uncomplicated; F43.21 Adjustment disorder with depressed mood; F41.9 Anxiety disorder, unspecified; Z79.899 Other long term (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 therapy
CPT/HCPCS: 36415; 80178; 90834

== ENCOUNTER → 2022-11-09 11:50 | Outpatient (CLI) | payer OTHER, SELFPAY ==
[2022-08-07 09:58] VITALS: BMI 25.4
--- NOTE | 2022-11-09 11:51 | DI.MRI.S_ITS ---
PROCEDURE: MR LUMBAR SPINE WO CON INDICATIONS: L5-S1 spondylolisthesis TECHNIQUE: Noncontrast sagittal T1 spin echo and T2 fast echo, coronal T2, sagittal STIR, and T2 fast spin echo through the lumbar spine. COMPARISON: [facility], CR, XR LUMBAR SPINE 2-3V, 02/25/2022, 8:08. FINDINGS: Image quality: Excellent. Alignment and Curvature: 5 lumbar type vertebral bodies are present by plain film. 2 mm of retrolisthesis L2 on L3 and L4 on L5. 11 mm of anterolisthesis of L5 on S1. Mild diffuse leftward curvature of the mid lumbar spine. Bone Marrow: Marrow is of normal overall signal. No acute vertebral body compression fractures. Bilateral L5-S1 pars interarticularis defects. Moderate reactive signal within the endplates adjacent to the L5-S1 intervertebral disc. Mild reactive signal within the remaining lumbar and lower thoracic endplates. Spinal Cord: Conus medullaris terminates at the L1-L2 disc space level. Visualized cord demonstrates normal signal and size. Paraspinous Soft Tissues: No paravertebral masses. T12-L1: Mild disc desiccation. No significant canal nor foraminal stenosis. L1-L2: Mild disc desiccation. Mild facet and ligamentum flavum hypertrophy. No significant canal nor foraminal stenosis. L2-L3: Mild disc desiccation and diffuse disc bulge. Mild facet and ligamentum flavum hypertrophy. Mild canal stenosis. Mild bilateral foraminal stenosis. L3-L4: Moderate disc height loss and desiccation. Mild diffuse disc bulge. Mild facet and ligamentum flavum hypertrophy. Mild epidural lipomatosis. Mild canal stenosis. Moderate right and mild left foraminal stenosis. L4-L5: Mild disc desiccation and diffuse disc bulge. Mild bilateral facet hypertrophy. Mild canal stenosis. Mild bilateral foraminal stenosis. L5-S1: Severe disc height loss and desiccation. Mild diffuse disc bulge. Mild bilateral facet hypertrophy. No significant canal stenosis. Severe bilateral foraminal stenosis with bilateral L5 nerve root compression. IMPRESSION: 1. Grade 1 isthmic spondylolisthesis at L5-S1. 2. Multilevel degenerative disc and facet disease, as well as ligamentum flavum hypertrophy and epidural lipomatosis. 3. Mild multilevel canal stenoses. 4. Multilevel foraminal stenoses, worst at L5-S1 where there is associated intraforaminal nerve root compression. Recommend correlation with clinical symptoms to ascertain relevance of this finding. Dictated by: Di Swanson M.D. on 11/09/2022 at 13:28 Approved by: Di Swanson M.D. on 11/09/2022 at 13:32
== END ==
PROVIDERS: PCP Family Medicine; Referring Provider Physical Medicine & Rehabilitation; Visit Provider Physical Medicine & Rehabilitation
DX: M43.17 Spondylolisthesis, lumbosacral region (principal); M48.061 Spinal stenosis, lumbar region without neurogenic claudication; M48.07 Spinal stenosis, lumbosacral region; M47.816 Spondylosis without myelopathy or radiculopathy, lumbar region; M47.817 Spondylosis without myelopathy or radiculopathy, lumbosacral region; M51.36 Other intervertebral disc degeneration, lumbar region; M51.37 Other intervertebral disc degeneration, lumbosacral region
CPT/HCPCS: 72148

== ENCOUNTER 2023-01-17 16:18 | Emergency (ER) | payer OTHER, SELFPAY ==
[2022-12-30 09:44] VITALS: BMI 25.4
--- NOTE | 2023-01-17 16:46 | ED.PSYCH ---
HPI - Psych <Corazon Conti MD - Last Filed: 01/18/23 08:59> General Chief Complaint: Psychiatric Symptoms Stated Complaint: SI Time Seen by Provider: 01/17/23 16:37 History of Present Illness HPI Narrative: 62-year-old male with history of alcohol use disorder, substance abuse, severe depression presents by private vehicle for suicidal ideation. History is limited as the patient is severely intoxicated. He denied suicidal ideation to myself or charge nurse, however to his nurse, who was a mutual acquaintance, he did endorse that he has been profoundly depressed since his best friend of suicide and he does not know how to escape his anger and depression. Previously overdosed on pills in the past badly enough to require ICU hospitalization. Related Data Home Medications Medication Instructions Recorded Confirmed hydrochlorothiazide 25 mg tablet 25 mg PO QAM 07/12/22 01/17/23 omeprazole 40 mg capsule,delayed 40 mg PO BID 07/12/22 01/17/23 release quetiapine 400 mg tablet 400 mg PO BEDTIME 01/17/23 01/17/23 venlafaxine 75 mg capsule,extended 150 mg PO QAM 01/17/23 01/17/23 release 24 hr Previous Rx's Medication Instructions Recorded lithium carbonate 300 mg capsule 900 mg (3 x 300 mg) PO BEDTIME #90 11/08/22 caps trazodone 100 mg tablet 200 mg (2 x 100 mg) PO BEDTIME #60 11/09/22 tabs clonazepam 1 mg tablet 1 mg PO BID PRN panic attack(s) 01/11/23 #30 tabs Allergies Allergy/AdvReac Type Severity Reaction Status Date / Time No Known Drug Allergies Allergy Verified 01/17/23 17:22 Review of Systems <Corazon Conti MD - Last Filed: 01/18/23 08:59> Review of Systems Narrative: Unable to assess due to intoxication Patient History <Corazon Conti MD - Last Filed: 01/18/23 08:59> Medical History (Updated 01/18/23 @ 00:00 by Regis Calvillo DO) Complicated grief Facet arthropathy, lumbar Lumbar foraminal stenosis Spondylolisthesis at L5-S1 level Surgical History H/O foot surgery Family History Family/Other No pertinent family history Social History household members: none Smoking Status: Current every day smoker alcohol intake: former Smoking Status: Current every day smoker alcohol intake frequency: 3 or more drinks per day Substance Use Type: marijuana Exam <Corazon Conti MD - Last Filed: 01/18/23 08:59> Initial Vital Signs Initial Vital Signs: Vital Signs Temperature 98.6 F 01/17/23 17:02 Pulse Rate 93 H 01/17/23 17:02 Respiratory Rate 20 01/17/23 17:02 Blood Pressure 136/88 01/17/23 17:02 Pulse Oximetry 97 01/17/23 17:02 Oxygen Delivery Method Room Air 01/17/23 17:02 Const: Awake, alert, appears chronically unwell, intoxicated Cardiac: regular rate, regular rhythm RESP: unlabored, clear bilaterally, no wheezing GI: Atraumatic, soft, nontender, nondistended, no rebound, no guarding MSK: Atraumatic, full range of motion, pulses equal Skin: Warm, Dry, intact, no rashes Neuro: AO x3, CN II-XII grossly intact, moves all extremities Psych: Unable to assess due to intoxication, does endorse suicidal ideation to nursing <Regis Calvillo DO - Last Filed: 01/18/23 00:00> Initial Vital Signs Initial Vital Signs: Vital Signs Temperature 98.6 F 01/17/23 17:02 Pulse Rate 93 H 01/17/23 17:02 Respiratory Rate 20 01/17/23 17:02 Blood Pressure 136/88 01/17/23 17:02 Pulse Oximetry 97 01/17/23 17:02 Oxygen Delivery Method Room Air 01/17/23 17:02 Course <Corazon Conti MD - Last Filed: 01/18/23 08:59> Orders Ordered: Discontinued Medications Clonazepam (Clonazepam 0.5 Mg Tablet) 1 mg PO NOW ONE Stop: 01/17/23 18:35 Last Admin: 01/17/23 18:38 Dose: 1 mg Documented By: ELMER Clonazepam (Clonazepam 0.5 Mg Tablet) 1 mg PO BID PRN PRN Reason: Anxiety Last Admin: 01/17/23 23:04 Dose: 1 mg Documented By: JACKY Folic Acid (Folic Acid 1 Mg Tablet) 1 mg PO NOW ONE Stop: 01/17/23 16:46 Last Admin: 01/17/23 17:27 Dose: 1 mg Documented By: ALAN Hydrochlorothiazide (Hydrochlorothiazide 25 Mg Tablet) 25 mg PO DAILY [facility] Thiamine HCl 100 mg/ Sodium (Chloride) 101 mls @ 404 mls/hr IV NOW ONE Stop: 01/17/23 16:46 Last Infusion: 01/17/23 17:52 Dose: Infused Documented By: Admin: 01/17/23 17:27 Dose: 404 mls/hr Documented By: ALAN Sodium Chloride (Normal Saline 0.9%) 1,000 mls @ 1,000 mls/hr IV BOLUS ONE Stop: 01/17/23 17:45 Last Infusion: 01/17/23 18:39 Dose: Infused Documented By: Admin: 01/17/23 17:26 Dose: 1,000 mls/hr Documented By: ALAN [place] Carbonate ([place] 150 Mg Ir Capsule) 900 mg PO BEDTIME [facility] Last Admin: 01/17/23 21:06 Dose: 900 mg Documented By: JACKY Pantoprazole Sodium (Pantoprazole Dr 20 Mg Tablet) 20 mg PO 0700,2100 [facility] Last Admin: 01/17/23 23:05 Dose: 20 mg Documented By: JACKY Quetiapine Fumarate (Quetiapine 100 Mg Tablet) 400 mg PO BEDTIME [facility] Last Admin: 01/17/23 21:07 Dose: 400 mg Documented By: JACKY Trazodone HCl (Trazodone 50 Mg Tablet) 100 mg PO BEDTIME [facility] Last Admin: 01/17/23 21:06 Dose: 100 mg Documented By: JACKY Venlafaxine HCl (Venlafaxine Er 75 Mg Cap) 75 mg PO DAILY [facility] Vital Signs Vital signs: Vital Signs - 8 hr 01/18/23 05:53 Temperature 98.3 F Pulse Rate 91 H Respiratory Rate 20 Blood Pressure [Left Arm] 139/75 Pulse Oximetry 96 Oxygen Delivery Method Room Air Oxygen Flow Rate 0 <Regis Calvillo DO - Last Filed: 01/18/23 00:00> Orders Ordered: Discontinued Medications Clonazepam (Clonazepam 0.5 Mg Tablet) 1 mg PO NOW ONE Stop: 01/17/23 18:35 Last Admin: 01/17/23 18:38 Dose: 1 mg Documented By: ELMER Clonazepam (Clonazepam 0.5 Mg Tablet) 1 mg PO BID PRN PRN Reason: Anxiety Last Admin: 01/17/23 23:04 Dose: 1 mg Documented By: JACKY Folic Acid (Folic Acid 1 Mg Tablet) 1 mg PO NOW ONE Stop: 01/17/23 16:46 Last Admin: 01/17/23 17:27 Dose: 1 mg Documented By: ALAN Hydrochlorothiazide (Hydrochlorothiazide 25 Mg Tablet) 25 mg PO DAILY [facility] Thiamine HCl 100 mg/ Sodium (Chloride) 101 mls @ 404 mls/hr IV NOW ONE Stop: 01/17/23 16:46 Last Infusion: 01/17/23 17:52 Dose: Infused Documented By: Admin: 01/17/23 17:27 Dose: 404 mls/hr Documented By: ALAN Sodium Chloride (Normal Saline 0.9%) 1,000 mls @ 1,000 mls/hr IV BOLUS ONE Stop: 01/17/23 17:45 Last Infusion: 01/17/23 18:39 Dose: Infused Documented By: Admin: 01/17/23 17:26 Dose: 1,000 mls/hr Documented By: ALAN [place] Carbonate ([place] 150 Mg Ir Capsule) 900 mg PO BEDTIME [facility] Last Admin: 01/17/23 21:06 Dose: 900 mg Documented By: JACKY Pantoprazole Sodium (Pantoprazole Dr 20 Mg Tablet) 20 mg PO 0700,2100 [facility] Last Admin: 01/17/23 23:05 Dose: 20 mg Documented By: JACKY Quetiapine Fumarate (Quetiapine 100 Mg Tablet) 400 mg PO BEDTIME [facility] Last Admin: 01/17/23 21:07 Dose: 400 mg Documented By: JACKY Trazodone HCl (Trazodone 50 Mg Tablet) 100 mg PO BEDTIME [facility] Last Admin: 01/17/23 21:06 Dose: 100 mg Documented By: JACKY Venlafaxine HCl (Venlafaxine Er 75 Mg Cap) 75 mg PO DAILY [facility] Vital Signs Vital signs: Vital Signs - 8 hr 01/18/23 05:53 Temperature 98.3 F Pulse Rate 91 H Respiratory Rate 20 Blood Pressure [Left Arm] 139/75 Pulse Oximetry 96 Oxygen Delivery Method Room Air Oxygen Flow Rate 0 MDM - Psych <Corazon Conti MD - Last Filed: 01/18/23 08:59> Differential Diagnosis Differential diagnosis: Likely acute psychosis, suicidal ideation and drug-induced psychotic disorder Lab Data 01/17/23 17:15 01/17/23 17:15 Labs: Lab Results 01/17/23 01/17/23 Range/Units 17:15 17:26 WBC 12.1 H (4.5-11.0) X10^3/uL RBC 4.92 (4.5-5.9) X10^6/uL Hgb 15.5 (13.5-17.5) g/dL Hct 46.4 (41-53) % MCV 94.2 (80-100) fL MCH 31.5 (26-34) PG MCHC 33.4 (30-36) % RDW 13.7 (11.6-14.8) % Plt Count 376 (150-400) X10^3/uL Neut % (Auto) 62.0 (50-75) % Lymph % (Auto) 25.8 (25-40) % [place] % (Auto) 4.1 (3-14) % Eos % (Auto) 6.0 H (2-4) % Baso % (Auto) 2.1 H (0-2) % Neut # (Auto) 7500 H (6067-6667) /uL Lymph # (Auto) 3100 (4317-5870) /uL [place] # (Auto) 500 (0-900) /uL Eos # (Auto) 700 H (0-450) /uL Baso # (Auto) 200 H (0-100) /uL Sodium 146 H (137-145) mmol/L Potassium 3.9 (3.4-5.1) mmol/L Chloride 109 H (98-107) mmol/L Carbon Dioxide 22 (22-32) mmol/L BUN 9 (9-20) mg/dL Creatinine 1.13 (0.66-1.25) mg/dL Estimated GFR > 60 (>60) mL/min BUN/Creatinine Ratio 8.0 (6-22) Glucose 88 (80-110) mg/dL Calcium 10.0 (8.4-10.2) mg/dL Magnesium 2.2 (1.6-2.3) mg/dL Total Bilirubin 0.8 (0.2-1.3) mg/dL AST 57 (17-59) IU/L ALT 35 (<50) IU/L Alkaline Phosphatase 124 (38-126) U/L Total Protein 8.6 H (6.3-8.2) g/dL Albumin 4.7 (3.5-5.0) g/dL Globulin 3.9 (1.7-4.1) g/dL Albumin/Globulin Ratio 1.2 (1.0-2.8) TSH 1.10 (0.47-4.68) uIU/mL Free T4 1.12 (0.78-2.19) ng/dL Urine Color Yellow Urine Appearance Clear Urine pH 6.5 (4.5-8.0) Ur Specific [place] <=1.005 (1.000-1.035) Urine Protein Negative (Negative) Urine Glucose (UA) Negative (Negative) g/dL Urine Ketones Negative (NEGATIVE) Urine Occult Blood Negative (Negative) Urine Nitrate Negative (Negative) Urine Bilirubin Negative (NEGATIVE) Urine Urobilinogen 0.2 (0.2) E.U./dL Ur Leukocyte Esterase Negative (NEGATIVE) Urine RBC 0-1/hpf D (0-5/HPF) Urine WBC 0-1/hpf (0-5/HPF) Ur Squamous Epith Cells 0-1 /hpf (0-5/HPF) Urine Bacteria None seen (None) Ur Culture Indicated? Cult not indicated Salicylates < 1.0 (<20) mg/dL U Opiates 300ng/mL cut Negative (Negative) Ur Oxycodone Screen Negative (Negative) Urine Methadone Screen Negative (Negative) Acetaminophen < 10 (10-30) ug/mL Ur Barbiturates Screen Negative (Negative) U Tricyclic Antidepress Negative (Negative) Ur Phencyclidine Scrn Negative (Negative) Ur Amphetamines Screen Negative (Negative) U Methamphetamines Scrn Negative (Negative) Ur MDMA Scrn (Ecstasy) Negative (Negative) U Benzodiazepines Scrn Negative (Negative) [place] 0.6 (0.6-1.2) mmol/L Urine Cocaine Screen Negative (Negative) U Marijuana (THC) Screen Positive H (Negative) Ethyl Alcohol 345 H ( - 10) mg/dL SARS-CoV-2 (PCR) Negative (Negative) ECG Data Interpretation: Normal sinus rhythm, rate 86 beats per minute. Normal axis, borderline QTC Treatment and disposition Social Determinants of Health that impact treatment or disposition: Depression, chronic alcohol abuse, substance abuse MDM Narrative Medical decision making narrative: This is a chronically unwell appearing patient known to this emergency department for severe depression and numerous suicide attempts. He initially denies suicidal ideation, however did endorse to nursing staff privately that he was wanting to kill himself due to the severity of his anger and his sadness. Has overdose on benzodiazepines in the past. We will order laboratory work for medical clearance. Discussed case with certified medical records coder, who agrees that patient should be detained on an involuntary status. 1800 -care of patient is signed out to Dr. Calvillo. <Regis Calvillo, DO - Last Filed: 01/18/23 00:00> Lab Data Labs: Lab Results 01/17/23 01/17/23 Range/Units 17:15 17:26 WBC 12.1 H (4.5-11.0) X10^3/uL RBC 4.92 (4.5-5.9) X10^6/uL Hgb 15.5 (13.5-17.5) g/dL Hct 46.4 (41-53) % MCV 94.2 (80-100) fL MCH 31.5 (26-34) PG MCHC 33.4 (30-36) % RDW 13.7 (11.6-14.8) % Plt Count 376 (150-400) X10^3/uL Neut % (Auto) 62.0 (50-75) % Lymph % (Auto) 25.8 (25-40) % [place] % (Auto) 4.1 (3-14) % Eos % (Auto) 6.0 H (2-4) % Baso % (Auto) 2.1 H (0-2) % Neut # (Auto) 7500 H (0771-5392) /uL Lymph # (Auto) 3100 (7651-2866) /uL [place] # (Auto) 500 (0-900) /uL Eos # (Auto) 700 H (0-450) /uL Baso # (Auto) 200 H (0-100) /uL Sodium 146 H (137-145) mmol/L Potassium 3.9 (3.4-5.1) mmol/L Chloride 109 H (98-107) mmol/L Carbon Dioxide 22 (22-32) mmol/L BUN 9 (9-20) mg/dL Creatinine 1.13 (0.66-1.25) mg/dL Estimated GFR > 60 (>60) mL/min BUN/Creatinine Ratio 8.0 (6-22) Glucose 88 (80-110) mg/dL Calcium 10.0 (8.4-10.2) mg/dL Magnesium 2.2 (1.6-2.3) mg/dL Total Bilirubin 0.8 (0.2-1.3) mg/dL AST 57 (17-59) IU/L ALT 35 (<50) IU/L Alkaline Phosphatase 124 (38-126) U/L Total Protein 8.6 H (6.3-8.2) g/dL Albumin 4.7 (3.5-5.0) g/dL Globulin 3.9 (1.7-4.1) g/dL Albumin/Globulin Ratio 1.2 (1.0-2.8) TSH 1.10 (0.47-4.68) uIU/mL Free T4 1.12 (0.78-2.19) ng/dL Urine Color Yellow Urine Appearance Clear Urine pH 6.5 (4.5-8.0) Ur Specific [place] <=1.005 (1.000-1.035) Urine Protein Negative (Negative) Urine Glucose (UA) Negative (Negative) g/dL Urine Ketones Negative (NEGATIVE) Urine Occult Blood Negative (Negative) Urine Nitrate Negative (Negative) Urine Bilirubin Negative (NEGATIVE) Urine Urobilinogen 0.2 (0.2) E.U./dL Ur Leukocyte Esterase Negative (NEGATIVE) Urine RBC 0-1/hpf D (0-5/HPF) Urine WBC 0-1/hpf (0-5/HPF) Ur Squamous Epith Cells 0-1 /hpf (0-5/HPF) Urine Bacteria None seen (None) Ur Culture Indicated? Cult not indicated Salicylates < 1.0 (<20) mg/dL U Opiates 300ng/mL cut Negative (Negative) Ur Oxycodone Screen Negative (Negative) Urine Methadone Screen Negative (Negative) Acetaminophen < 10 (10-30) ug/mL Ur Barbiturates Screen Negative (Negative) U Tricyclic Antidepress Negative (Negative) Ur Phencyclidine Scrn Negative (Negative) Ur Amphetamines Screen Negative (Negative) U Methamphetamines Scrn Negative (Negative) Ur MDMA Scrn (Ecstasy) Negative (Negative) U Benzodiazepines Scrn Negative (Negative) [place] 0.6 (0.6-1.2) mmol/L Urine Cocaine Screen Negative (Negative) U Marijuana (THC) Screen Positive H (Negative) Ethyl Alcohol 345 H ( - 10) mg/dL SARS-CoV-2 (PCR) Negative (Negative) MDM Narrative Medical decision making narrative: This is a chronically unwell appearing patient known to this emergency department for severe depression and numerous suicide attempts. He initially denies suicidal ideation, however did endorse to nursing staff privately that he was wanting to kill himself due to the severity of his anger and his sadness. Has overdose on benzodiazepines in the past. We will order laboratory work for medical clearance. Discussed case with certified medical records coder, who agrees that patient should be detained on an involuntary status. 1800 -care of patient is signed out to Dr. Calvillo. Dr Calvillo: Received turned over. If you patient's history and physical and workup up to this point. Patient has remained calm. Has ambulated to the bathroom. Given his frequent history of presenting with intoxication and suicidal ideation social work consulted DCR for evaluation of TAIWO under [place]'s law. Patient was seen here in the emergency department by DCR and will be detained. Placement has been found. Patient stable for transport. Discharge Plan Departure Patient Disposition: Xfer [facility] Clinical Impression: Alcohol intoxication, Suicidal ideations Prescriptions: No Action trazodone 100 mg tablet 200 mg PO BEDTIME Qty: 60 3RF clonazepam 1 mg tablet 1 mg PO BID PRN (Reason: panic attack(s)) Qty: 30 0RF lithium carbonate 300 mg capsule 900 mg PO BEDTIME Qty: 90 2RF venlafaxine 75 mg capsule,extended release 24hr 150 mg PO QAM quetiapine 400 mg tablet 400 mg PO BEDTIME hydrochlorothiazide 25 mg tablet 25 mg PO QAM Patient Comments: TAKE ONE TABLET BY MOUTH ONE TIME DAILY omeprazole 40 mg capsule,delayed release(DR/EC) 40 mg PO BID Patient Comments: TAKE ONE CAPSULE BY MOUTH TWICE DAILY Referrals: Roldan Jiang MD [Primary Care Provider] -
[2023-01-17 17:02] VITALS: BP 136/88; PULSE 93; RESP 20; TEMP 37; O2SAT 97; BMI 27.1
--- NOTE | 2023-01-17 17:14 | PC.NURSE ---
Pt came to ED today via personal vehicle with ex and friends. Pt was consuming etoh today and is having SI. Pt stated that he wants to , but does not have a specific plan today and has made attempts to in the past. Pt has several suicide attempts and most recent overdose attempt resulted in an ICU stay at [facility] from 12/16/2022-12/31/2022. Pt states that he wants to get help because he feels sick, but he does not feel like he knows how and the doctors just keep giving him pills. He has been experiencing depression and SI since last May when his lifelong and best friend committed suicide. Friend reports that he started using etoh and prescription medications again after 20 years of sobriety shortly after his friend's passing. Pt has access to clonezepam and admits to taking too many with alcohol sometimes. Friend reports that pt drinks 750ml (1/5th) of vodka a day. Pt intoxicated at this time. Pt placed in paper scrubs, belongings secured in locked cabinet, and family at beside. Labs and urine sample sent to lab. Pt agrees to following steps to treatment at this time. Dr Conti notified of pt status.
[2023-01-17] MEDS: SODIUM CHLORIDE 0.9% 1,000 ML 1000 ML IV (17:26)
[2023-01-17] MEDS: THIAMINE 100 MG in SODIUM CHLORIDE 0.9% 100 ML 404 MG IV (17:27)
[2023-01-17] MEDS: FOLIC ACID 1 MG TABLET PO (17:27)
[2023-01-17 17:28] LABS: Add Manual Diff / Slide Review NO; Basophils Absolute Auto 200 /uL (0-100); Basophils Percent Auto 2.1 % (0-2); Eosinophils Absolute Auto 700 /uL (0-450); Hematocrit 46.4 % (41-53); Hemoglobin 15.5 g/dL (13.5-17.5); Lymphocytes Absolute Auto 3100 /uL (1100-4500); Lymphocytes Percent Auto 25.8 % (25-40); Mean Corpuscular HGB Conc 33.4 % (30-36); Mean Corpuscular Hemoglobin 31.5 PG (26-34); Mean Corpuscular Volume 94.2 fL (80-100); Monocytes Absolute Auto 500 /uL (0-900); Monocytes Percent Auto 4.1 % (3-14); Neutrophils Absolute Auto 7500 /uL (1500-7000); Platelet Count 376 X10^3/uL (150-400); Red Blood Cell Count 4.92 X10^6/uL (4.5-5.9); Red Cell Distribution Width 13.7 % (11.6-14.8); White Blood Cell Count 12.1 X10^3/uL (4.5-11.0)
[2023-01-17 17:38] LABS: Appearance Urine UA CLEAR; Bilirubin Urine UA NEGATIVE (NEGATIVE); Color Urine UA YELLOW; Glucose Urine UA NEGATIVE (Negative); Ketones Urine UA NEGATIVE (NEGATIVE); Leukocyte Esterase Urine UA NEGATIVE (NEGATIVE); Nitrite Urine UA NEGATIVE (Negative); Occult Blood Urine UA NEGATIVE (Negative); Protein Urine UA NEGATIVE (Negative); Specific Gravity Urine UA <=1.005 (1.000-1.035); Urobilinogen Urine UA 0.2 E.U./dL (0.2); pH Urine UA 6.5 (4.5-8.0)
[2023-01-17 17:41] LABS: Magnesium 2.2 mg/dL (1.6-2.3); UR Morphine/Opiate cutoff 300 Negative (Negative); Ur Creatinine Normal (Normal); Ur Specific Gravity Normal (Normal); Urine Amphetamines Negative (Negative); Urine Barbiturates Negative (Negative); Urine Benzodiazepines Negative (Negative); Urine Cocaine Negative (Negative); Urine MDMA Negative (Negative); Urine Methadone Negative (Negative); Urine Methamphetamines Negative (Negative); Urine Oxycodone Negative (Negative); Urine Phencyclidine Negative (Negative); Urine Tetrahydrocannabinol Positive (Negative); Urine Tricyclic Antidepressant Negative (Negative); Urine pH Normal (Normal)
[2023-01-17 17:43] LABS: Acetaminophen < 10 ug/mL (10-30); Alanine Aminotransferase 35 IU/L (<50); Albumin 4.7 g/dL (3.5-5.0); Albumin Globulin Ratio 1.2 (1.0-2.8); Alkaline Phosphatase 124 U/L (38-126); Aspartate Aminotransferase 57 IU/L (17-59); Bilirubin Total 0.8 mg/dL (0.2-1.3); Blood Urea Nitrogen 9 mg/dL (9-20); Carbon Dioxide 22 mmol/L (22-32); Chloride 109 mmol/L (98-107); Estimated Glomerular Filt Rate > 60 mL/min (>60); Globulin 3.9 g/dL (1.7-4.1); Glucose 88 mg/dL (80-110); HEMOLYSIS < 15 (0-50); Potassium 3.9 mmol/L (3.4-5.1); Salicylate < 1.0 mg/dL (<20); Sodium 146 mmol/L (137-145); Total Protein 8.6 g/dL (6.3-8.2)
--- NOTE | 2023-01-17 17:43 | PC.NURSE ---
Addendum entered by Shelbie Jones CNA 01/17/23 17:54: this presser all around is turning over 1:1 to patient sitter. Original Note: [employer]AMER note: Pt. is lying down with pillow over face and nose exposed. respirations are even and non labored, chest is rising and falling. this presser all around remains at pt. doorway for 1:1
[2023-01-17 17:45] LABS: COVID19 -Nasal RAPID Negative (Negative)
--- NOTE | 2023-01-17 17:45 | CM.SWNOTE ---
ED SLASHER TENDER Assessment SLASHER TENDER - Endoscopy Tech Assessment SLASHER TENDER/Endoscopy Tech Assessment Time Spent with Patient Start date 01/17/23 Visit Start Time 16:40 End date 01/17/23 Visit End Time 16:45 Total time Care Management spent on 10 minutes patient visit-in minutes Mental Health Screening Include Onset, Duration, Intensity Presenting Problem Patient presents to ED with friend via POV with ex due to concern for patient's SI and ETOH use. Patient is not forthcoming with his substance use today or SI and asks SLASHER TENDER to leave. Precipitating Event(s) Patient has hx of TAIWO hospitalizations at [facility] in October 2022 and November- December 2022, patient also engaged in detox at [facility] in November 2022. Patient has hx of suicide attempt in July 2022 via overdose and hx of SI plans. Patient lost his very close friend by suicide in May 2022 and has been coping by drinking excessively and experience depression and SI. Patient Strengths Patient has support from daughter, friends and ex Current Behavioral Health Provider(s) Patient sees Psychiatrist Dr. Ayse Wyatt, Provider, Ph. # Luis F at [facility] clinic (Ph. # [phone]), patient's last appt was on and patient has appt scheduled for 01/27/23. Patient also sees therapist JORGITO Underwood at clinic and has scheduled appt for 02/28/23. Psych. Hx Mental Health and Chemical Patient has dx of Bipolar II, Dependency ETOH use disorder, Anxiety, SI and hx of SA. Per EMR patient drinks a pint to a 1/5 of vodka daily. Hx of occasional Marijuana use. Patient is prescribed the following by Psychiatrist Dr. Kerns: -clonazepam1 mg PO BID PRN 30 tabs 0RF panic attack(s) -[place] 600 mg po qhs -Quetiapine 400 mg p.o. q.h.s. -Trazodone 200 mg p.o. q.h.s. -Venlafaxine XR 150 mg po qday Family Hx of Behavioral Abuse None reported Psychiatric Hospitalizations (date(s)/ Patient has hospitalized for location) at [facility] 11/01/22 to 11/05/22, [facility] 12/16/22 to 12/31/22 and was also at [facility] for detox in November 2022. Patient previously endorsed hx of overdose in 2004 leading to hospitalization at [facility]. Psychosocial information & Support Patient is 62 y/o male who Systems resides at home with mother in [place]. Patient is primary caregiver for mother. Patient has support from friends, daughter and ex . School/Work Patient works at [employer] Legal Concerns Legal Matters - Outstanding Issues None reported Mental Status Orientation (Person/Place/Time) A/Ox3 Stated Mood I shouldn't be here...I have no idea why I'm here Affect (Congruent with Mood?) sarcastic, flat, congruent with mood Thought Content - Specify/Describe Non reported Obsessions, Delusions, Hallucinations Thought Processes (Kysqqig-Ibzoqhwr-Qrky circumstantial, unable to Xqdpefwr-Qgewyrav-Mwqhqpqrjm- answer direct questions Zrmloemtedtxpi-Sirqnkk-Jebhrbibgdqs- Thought Blocking) Speech (Dmldae-Iutj-Snxhvvi-Rapid-Soft- slurred, slow to respond or Loud-Pressured) nonresponsive Motor (Bvvuqm-Liqvxdxrx-Wxga-Other) normal Insight (Rzrp-Ehac-Sazt/Limited) limited/poor Judgement (Hfki-Knfi-Dcnx/Limited) limited/poor Impulse Control (Adequate-Impaired) somewhat adequate, there is concern patient may try to leave. Memory (Vuebsmeps-Hyrlkt-Lvivsu, intact, not formally assessed Impaired-Intact) Concentration (Intact-Impaired) impaired Attention (Intact-Impaired) impaired, patient easily distracted and not wanting to engage in conversation. Behavior (Appropriate-Inappropriate) appropriate Additional Comment Patient presents as calm and cooperative. Patient not willing to communicate with SLASHER TENDER and asks SLASHER TENDER to leave. Patient is able to communicate with RN who has known patient as acquaintance. Risk Assessment Suicidal Ideation (Plan) Yes Homicidal Ideation (Plan) No Comment Patient endorses current SI I want to . Patient does not endorse current plans. Patient has hx of SI plans to hang self with belt in bathroom like Jalen Cheung, lead carroll of brigida and patient has hx of recent overdose attempts with benzodiazpines and ETOH. Patient has easy access to prescribed medication and alcohol. Patient's overdose in July 2022 of trazadone and xanax resulted in an ICU admission at . Intervention Intervention SLASHER TENDER enters room to meet with patient, present in room is RNs and patient's friend. Patient is very limited in communication with SLASHER TENDER and eventually asks SLASHER TENDER to leave. RN conducts further triage assessment with patient and patient endorses depression and SI but does not identify SI plan. Patient has significant hx of trauma with the loss of his best friend in May 2022 via suicide, since that time patient has been struggling with Depression, ETOH use and SI, leading to suicide attempts. It is the opinion of this SLASHER TENDER that patient is not safe for discharge to home and would benefit from inpatient hospitalization. It is the opinion of this SLASHER TENDER that patient is not able to make decisions to leave ED at this time and patient would benefit from DCR evaluation upon medical clearance to determine eligibility for TAIWO hospitalization. SLASHER TENDER reviews this with ED provider Dr. Conti who indicates agreement and understanding. Plan RA Plan SLASHER TENDER and ED team to dispatch DCR upon medical clearance JORGITO Du
[2023-01-17 17:47] LABS: Bacteria Urine None Seen; Culture Indicated Urine Cult Not Indicated; RBC Urine 0-1/HPF (0-5/HPF); Squamous Epithelial Cell Urine 0-1 /HPF (0-5/HPF); WBC Urine 0-1/HPF (0-5/HPF)
[2023-01-17 17:47] LABS: Lithium 0.6 mmol/L (0.6-1.2)
[2023-01-17 17:54] LABS: Ethanol (ETOH) 345 mg/dL
[2023-01-17 17:58] LABS: Free T4, Direct Thyroxine 1.12 ng/dL (0.78-2.19)
[2023-01-17] MEDS: clonazePAM 0.5 MG TABLET 1 MG PO ×2 (18:38→23:04)
--- NOTE | 2023-01-17 19:07 | CM.SWNOTE ---
PRESSURE DISPATCHER Note PRESSURE DISPATCHER dispatches DCR, faxes attestation and clinical packet. Loida DCR is assigned, PRESSURE DISPATCHER discusses patient with DCR. PRESSURE DISPATCHER discusses that patient is an appropriate Roshan's Law candidate due to ongoing SI, substance use and hx of suicide attempts. Loida states he is going to call facilities, will f/u with ED and assess patient this evening. Awaiting DCR Roshan's Law evaluation and DCR disposition. Adilene Walls, RECEIVABLE EXECUTIVE
[2023-01-17] MEDS: LITHIUM 150 MG IR CAPSULE 900 MG PO (21:06)
[2023-01-17] MEDS: TRAZODONE 50 MG TABLET 100 MG PO (21:06)
[2023-01-17] MEDS: QUETIAPINE 100 MG TABLET 400 MG PO (21:07)
[2023-01-17] MEDS: PANTOPRAZOLE DR 20 MG TABLET PO (23:05)
--- NOTE | 2023-01-18 00:46 | PC.NURSE ---
Pt accepted at [facility] By Dr. Bender . [facility] picking Pt up @ 0700 for arrival at facility @1030am.
[2023-01-18 05:53] VITALS: BP 139/75; PULSE 91; RESP 20; TEMP 36.8; O2SAT 96
== END 2023-01-18 07:11 ==
PROVIDERS: Emergency Medicine; Emergency Provider Emergency Medicine; PCP Family Medicine
DX: F10.129 Alcohol abuse with intoxication, unspecified (principal); R45.851 Suicidal ideations; I44.0 Atrioventricular block, first degree; R94.31 Abnormal electrocardiogram [ECG] [EKG]; Y90.8 Blood alcohol level of 240 mg/100 ml or more
CPT/HCPCS: 36415; 80053; 80178; 80305; 80320; 80329; 81001; 83735; 84439; 84443; 85025; 87635; 93005; 96361; 96374; 99284; 99285; C9803; G0480

== ENCOUNTER → 2023-01-28 13:44 | Outpatient (CLI) | payer OTHER, SELFPAY ==
[2022-12-30 09:44] VITALS: BMI 25.4
[2023-01-28 14:19] LABS: Lithium 0.8 mmol/L (0.6-1.2)
== END ==
PROVIDERS: PCP Family Medicine; Referring Provider Psychiatry & Neurology Psychiatry; Visit Provider Psychiatry & Neurology Psychiatry
DX: Z79.899 Other long term (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 therapy (principal)
CPT/HCPCS: 36415; 80178

== ENCOUNTER 2023-01-30 16:08 | Inpatient (IN) | payer OTHER, MEDICAID, SELFPAY ==
[2022-12-30 09:44] VITALS: BMI 25.4
[2023-01-30] VITALS (16 sets, daily range): BP systolic 82–150; BP diastolic 52–89; PULSE 63–85; RESP 13–34; TEMP 36.3–37.1; O2SAT 96–100; BMI 27.1
--- NOTE | 2023-01-30 16:13 | DI.RAD.S_ITS ---
PROCEDURE: XR HIP W PEL IF DONE LT 2V INDICATIONS: fall, left hip pain, shortened, rotated. TECHNIQUE: 2 views of the hip were acquired. COMPARISON: None. FINDINGS: Bones: Severely comminuted intertrochanteric fracture extending to the proximal diaphysis with moderate to severe foreshortening. No suspicious bony lesions. The visualized pelvic ring appears intact. Soft tissues: No suspicious soft tissue calcifications or masses. IMPRESSION: Severely comminuted left femur fracture. Dictated by: Rc Peres M.D. on 01/30/2023 at 16:21 Approved by: Rc Peres M.D. on 01/30/2023 at 16:22
--- NOTE | 2023-01-30 16:13 | DI.RAD.S_ITS ---
PROCEDURE: XR CHEST 1V INDICATIONS: fall, left hip pain, shortened, rotated. TECHNIQUE: One view of the chest was acquired. COMPARISON: [facility], , CHEST 1 VIEW, 09/02/2012, 18:26. FINDINGS: Surgical changes and devices: None. Lungs and pleura: Lungs are clear. No pleural effusions or pneumothorax. Mediastinum: Mediastinal contours appear normal. Heart size is normal. Bones and chest wall: No suspicious bony lesions. Overlying soft tissues appear unremarkable. IMPRESSION: No acute cardiopulmonary abnormality is seen. Dictated by: Rc Peres M.D. on 01/30/2023 at 16:19 Approved by: Rc Peres M.D. on 01/30/2023 at 16:21
--- NOTE | 2023-01-30 16:16 | ED.FALL ---
HPI - Fall General Chief Complaint: Extremity Injury, Lower Stated Complaint: GLF, L hip pain Time Seen by Provider: 01/30/23 16:08 Source: patient, RN notes reviewed and old records reviewed Mode of arrival: Ambulatory Limitations: no limitations History of Present Illness HPI Narrative: 62-year-old male with a history of alcohol use disorder, substance abuse, severe depression with fall this evening. Patient states he would taken his home lithium and Seroquel dose was planning to sit down watch some TV and fall asleep. Patient states he was walking made a twisting motion and fell and felt a crack in his left hip leg has significant pain with shortening and rotation. Patient states no numbness or tingling. Pain with any sort of movement. He denies hitting his head he denies any headache, no neck pain, no chest pain or shortness of breath. Denies any nausea or vomiting. He denies any loss of consciousness. Denies any low back pain. Denies any diarrhea or constipation, no incontinence. Denies any other injuries. Patient states no alcohol today. He states he has been attending outpatient alcohol treatment. Patient has had multiple overdoses in the past. Patient was recently transferred to a psychiatric hospital on 01/17/2023 and I T8 under Roshan's law. He denies any thoughts of harming himself or others at this time. No known drug allergies. Does smoke daily, uses marijuana denies any other recreational drugs currently. Patient received fentanyl EN route with EMS. Patient notes that he took his lithium and Seroquel in the often makes him feel loopy and may have contributed to his fall. Related Data Home Medications Medication Instructions Recorded Confirmed omeprazole 40 mg capsule,delayed 40 mg PO BID 07/12/22 01/30/23 release quetiapine 400 mg tablet 400 mg PO BEDTIME 01/17/23 01/30/23 venlafaxine 75 mg capsule,extended 150 mg PO QAM 01/17/23 01/30/23 release 24 hr Previous Rx's Medication Instructions Recorded clonazepam 1 mg tablet 1 mg PO TID PRN severe anxiety. 01/27/23 #30 tabs lithium carbonate 300 mg capsule 600 mg (2 x 300 mg) PO BEDTIME #60 01/27/23 caps trazodone 100 mg tablet 200 mg (2 x 100 mg) PO BEDTIME #60 01/27/23 tabs Allergies Allergy/AdvReac Type Severity Reaction Status Date / Time No Known Drug Allergies Allergy Verified 01/17/23 17:22 Review of Systems Review of Systems ROS Unobtainable: All systems reviewed & are unremarkable except as noted in HPI and below Patient History Medical History Complicated grief Facet arthropathy, lumbar Lumbar foraminal stenosis Spondylolisthesis at L5-S1 level Surgical History H/O foot surgery Family History Family/Other No pertinent family history Social History household members: none Smoking Status: Current every day smoker alcohol intake: former Smoking Status: Current every day smoker alcohol intake frequency: 3 or more drinks per day Alcohol type: beer and hard liquor Substance Use Type: marijuana and prescription drug Exam Narrative Exam Narrative: GEN: well nourished, well appearing male, alert and oriented x 3, patient appears to be in moderate distress. HEENT: Atraumatic, pupils are equal round reactive to light, extraocular movements are intact, nares are clear, there is no conjunctival pallor. Throat is clear without any exudates, erythema, tonsillar enlargement or uvular deviation, no cervical vertebral tenderness. HEART: Regular rate and rhythm without murmur, clicks, rubs. Pulses are equal in upper and lower extremities LUNGS:Lungs clear to auscultation, no wheezes, rales, crackles, chest moves symmetrically ABD:bowel sounds normal, soft, non-tender, no guarding, rebound, rigidity, no masses noted, no hepatosplenomegaly :No CVA tenderness MSCL: Patient's left hip is tender, it is shortened and externally rotated. He has 2+ dorsalis pedis pulse. Can feel sensation to light touch throughout the leg. Patient is able to dorsi plantar flex his foot without issue. Full range of motion of 3 other extremities. NEURO:CN 2-12 intact, sensation normal Initial Vital Signs Initial Vital Signs: Vital Signs Temperature 97.4 F L 01/30/23 16:15 Pulse Rate 63 01/30/23 16:15 Respiratory Rate 14 01/30/23 16:15 Blood Pressure 102/57 L 01/30/23 16:15 Pulse Oximetry 99 01/30/23 16:15 Oxygen Delivery Method Room Air 01/30/23 16:15 Course Orders Ordered: Clonazepam (Clonazepam 0.5 Mg Tablet) 1 mg PO TID PRN PRN Reason: severe anxiety. Last Admin: 01/30/23 21:04 Dose: 1 mg Documented By: AKP Folic Acid (Folic Acid 1 Mg Tablet) 1 mg PO DAILY [facility] Hydromorphone HCl (Hydromorphone 0.5 Mg Inj) 1 mg IV Q2H PRN PRN Reason: Pain, Severe (7-10) Sodium Chloride (Normal Saline 0.9%) 1,000 mls @ 125 mls/hr IV CONT [facility] Last Admin: 01/31/23 06:27 Dose: 125 mls/hr Documented By: Infusion: 01/31/23 05:59 Dose: Infused Documented By: Admin: 01/30/23 21:59 Dose: 125 mls/hr Documented By: Infusion: 01/30/23 21:59 Dose: Infused Documented By: Admin: 01/30/23 16:31 Dose: 125 mls/hr Documented By: CRIS [place] Carbonate ([place] 150 Mg Ir Capsule) 600 mg PO BEDTIME [facility] Last Admin: 01/30/23 21:04 Dose: 600 mg Documented By: KONSTANTIN Lorazepam (Lorazepam 2 Mg/Ml Inj) 0 mg IV CIWAPRN PRN; Protocol PRN Reason: Alcohol Withdrawal Morphine Sulfate (Morphine 4 Mg/Ml Inj) 4 mg IV Q2HR [facility] Last Admin: 01/31/23 07:31 Dose: 4 mg Documented By: Admin: 01/31/23 04:52 Dose: 4 mg Documented By: Admin: 01/31/23 02:59 Dose: Not Given Documented By: Admin: 01/31/23 01:58 Dose: Not Given Documented By: Admin: 01/31/23 00:20 Dose: Not Given Documented By: Admin: 01/30/23 21:04 Dose: 4 mg Documented By: KONSTANTIN Multivitamins (Multivitamin 1 Tablet) 1 tab PO DAILY [facility] Naloxone HCl (Naloxone 0.4 Mg/Ml Vial) 0.2 mg IV Q2MIN PRN PRN Reason: Opiate Reversal Ondansetron HCl (Ondansetron 4 Mg/2 Ml Inj) 4 mg IV Q6HR PRN PRN Reason: Nausea And Vomiting Last Admin: 01/30/23 17:26 Dose: 4 mg Documented By: ALAN Pantoprazole Sodium (Pantoprazole Dr 40 Mg Tablet) 40 mg PO BID [facility] Last Admin: 01/30/23 21:04 Dose: 40 mg Documented By: KONSTANTIN Quetiapine Fumarate (Quetiapine 100 Mg Tablet) 400 mg PO BEDTIME [facility] Last Admin: 01/30/23 21:04 Dose: 400 mg Documented By: KONSTANTIN Thiamine HCl (Thiamine 100 Mg Tablet) 100 mg PO DAILY [facility] Stop: 02/03/23 09:01 Trazodone HCl (Trazodone 50 Mg Tablet) 200 mg PO BEDTIME [facility] Last Admin: 01/30/23 21:04 Dose: 200 mg Documented By: KONSTANTIN Venlafaxine HCl (Venlafaxine Er 75 Mg Cap) 150 mg PO DAILY [facility] Discontinued Medications Hydromorphone HCl (Hydromorphone 1 Mg Inj) 1 mg IV NOW ONE Stop: 01/30/23 17:49 Last Admin: 01/30/23 17:51 Dose: 1 mg Documented By: ALAN Morphine Sulfate (Morphine 4 Mg/Ml Inj) 4 mg IV NOW ONE Stop: 01/30/23 17:21 Last Admin: 01/30/23 17:25 Dose: 4 mg Documented By: ALAN Vital Signs Vital signs: Vital Signs - 8 hr 01/30/23 16:15 01/30/23 16:22 01/30/23 16:23 Temperature 97.4 F L Pulse Rate 63 65 Respiratory Rate 14 34 H Blood Pressure 102/57 L 82/52 L Pulse Oximetry 99 96 Oxygen Delivery Method Room Air 01/30/23 16:24 01/30/23 16:24 01/30/23 16:29 Temperature Pulse Rate 71 71 Respiratory Rate 34 H 34 H Blood Pressure 109/66 Pulse Oximetry 96 97 Oxygen Delivery Method 01/30/23 16:29 01/30/23 16:30 01/30/23 16:30 Temperature Pulse Rate 71 Respiratory Rate 30 H Blood Pressure 120/75 125/77 Pulse Oximetry 97 Oxygen Delivery Method 01/30/23 17:00 01/30/23 17:00 01/30/23 17:15 Temperature Pulse Rate 73 75 Respiratory Rate 24 Blood Pressure 120/70 Pulse Oximetry 96 97 Oxygen Delivery Method 01/30/23 17:15 01/30/23 17:30 01/30/23 17:30 Temperature Pulse Rate 77 Respiratory Rate 18 Blood Pressure 119/71 124/70 Pulse Oximetry 97 Oxygen Delivery Method Room Air MDM - Fall Lab Data 01/31/23 06:00 01/30/23 16:40 Labs: Lab Results 01/30/23 01/30/23 Range/Units 16:40 16:50 WBC 9.7 (4.5-11.0) X10^3/uL RBC 4.18 L (4.5-5.9) X10^6/uL Hgb 13.3 L (13.5-17.5) g/dL Hct 39.1 L (41-53) % MCV 93.7 (80-100) fL MCH 31.9 (26-34) PG MCHC 34.1 (30-36) % RDW 13.3 (11.6-14.8) % Plt Count 405 H (150-400) X10^3/uL Neut % (Auto) 62.9 (50-75) % Lymph % (Auto) 21.7 L (25-40) % [place] % (Auto) 9.3 (3-14) % Eos % (Auto) 4.3 H (2-4) % Baso % (Auto) 1.8 (0-2) % Neut # (Auto) 6100 (6655-9182) /uL Lymph # (Auto) 2100 (3164-6675) /uL [place] # (Auto) 900 (0-900) /uL Eos # (Auto) 400 (0-450) /uL Baso # (Auto) 200 H (0-100) /uL PT 13.6 H (9.4-12.5) SECONDS INR 1.2 (0.9-1.3) APTT 29 (25.1-36.5) SECONDS Sodium 136 L (137-145) mmol/L Potassium 4.2 (3.4-5.1) mmol/L Chloride 106 (98-107) mmol/L Carbon Dioxide 25 (22-32) mmol/L BUN 8 L (9-20) mg/dL Creatinine 1.11 (0.66-1.25) mg/dL Estimated GFR > 60 (>60) mL/min BUN/Creatinine Ratio 7.2 (6-22) Glucose 104 (80-110) mg/dL Calcium 9.4 (8.4-10.2) mg/dL Total Bilirubin 0.6 (0.2-1.3) mg/dL AST 25 (17-59) IU/L ALT 25 (<50) IU/L Alkaline Phosphatase 74 (38-126) U/L Total Protein 6.9 (6.3-8.2) g/dL Albumin 3.9 (3.5-5.0) g/dL Globulin 3.0 (1.7-4.1) g/dL Albumin/Globulin Ratio 1.3 (1.0-2.8) Lipase 44 (23-300) U/L [place] 0.8 (0.6-1.2) mmol/L Ethyl Alcohol 14 H ( - 10) mg/dL Blood Type O Negative Antibody Screen Positive Antibody Identification Anti-D Imaging Data Chest x-ray: Radiologist's Impression: [address] [address] XRay Report Signed Patient: Douglas Lucio MR#: [id number] : 1960 Acct:[id number] Age/Sex: 62 / M Date of Service: 01/30/23 Loc: ED Accession Number: [id number] Procedure: XR chest 1V Ordering Provider: Corazon Ventura D.O. PROCEDURE: XR CHEST 1V INDICATIONS: fall, left hip pain, shortened, rotated. TECHNIQUE: One view of the chest was acquired. COMPARISON: [facility], CHEST 1 VIEW, 09/02/2012, 18:26. FINDINGS: Surgical changes and devices: None. Lungs and pleura: Lungs are clear. No pleural effusions or pneumothorax. Mediastinum: Mediastinal contours appear normal. Heart size is normal. Bones and chest wall: No suspicious bony lesions. Overlying soft tissues appear unremarkable. IMPRESSION: No acute cardiopulmonary abnormality is seen. Dictated by: Rc Peres M.D. on 01/30/2023 at 16:19 Approved by: Rc Peres M.D. on 01/30/2023 at 16:21 Extremity x-ray #1: Radiologist's Impression: Close Hip X-Ray (Signed) Rc Peres - 01/30/23 Chest X-Ray (Signed) Rc Peres - 01/30/23 Lumbar Spine MRI (Signed) Di Swanson - 11/09/22 Chest X-Ray (Signed) Mario Alberto Ni - 08/09/22 Telemetry Strips 08/07/22 Chest X-Ray (Signed) MerlosMynor - 08/07/22 Lumbar Spine X-Ray (Signed) MurphyEver - 02/25/22 Hepatobiliary Scan Nuclear Medicine (Signed) Mireille Tarango - 06/23/21 Vascular Ultrasound (Signed) Mynor Merlos - 06/01/21 Abdomen/Pelvis CT (Signed) J CarlosAlex - 03/18/[address] (Signed) Alon Hoyos - 07/30/[address] [address] XRay Report Signed Patient: Douglas Lucio MR#: [id number] : 1960 Acct:[id number] Age/Sex: 62 / M Date of Service: 01/30/23 Loc: ED Accession Number: [id number] Procedure: XR hip w pel if done LT 2V Ordering Provider: Corazon Ventura D.O. PROCEDURE: XR HIP W PEL IF DONE LT 2V INDICATIONS: fall, left hip pain, shortened, rotated. TECHNIQUE: 2 views of the hip were acquired. COMPARISON: None. FINDINGS: Bones: Severely comminuted intertrochanteric fracture extending to the proximal diaphysis with moderate to severe foreshortening. No suspicious bony lesions. The visualized pelvic ring appears intact. Soft tissues: No suspicious soft tissue calcifications or masses. IMPRESSION: Severely comminuted left femur fracture. Dictated by: Rc Peres M.D. on 01/30/2023 at 16:21 Approved by: Rc Peres M.D. on 01/30/2023 at 16:22 [facility] Narrative Medical decision making narrative: 62-year-old male history psychiatric issues who had reported trip and fall and has left hip fracture. Patient states he did have his home medications. He states he has been alcohol free. Patient's exam consistent with left hip fracture and CT imaging shows same. No obvious changes to chest x-ray. CBC shows a white count of 9.7 13.3 hemoglobin, 405 platelets. Coags are negative, sodium is 136 electrolytes are appropriate with normal renal function LFTs. Type and screen was sent. Spoke with Dr. Fleming, orthopedic surgery asked to add on a femur to visualize the entire femur. Patient plan for surgical repair. Plan for admission to patient's medical team. Spoke with Dr. Segura who accepts for admission. We will put in orders. Discussed there is potential for alcohol withdrawal. Discharge Plan Departure Patient Disposition: Admitted As Inpatient Clinical Impression: Closed fracture of left hip Admit Date/Time: 01/30/23 18:00 Admit Provider: Tootie Segura
[2023-01-30] MEDS: SODIUM CHLORIDE 0.9% 1,000 ML 125 ML IV ×2 (16:31→21:59)
--- NOTE | 2023-01-30 16:34 | PC.NURSE ---
Shortening and rotation of left leg.
[2023-01-30 17:05] LABS: Add Manual Diff / Slide Review NO; Basophils Absolute Auto 200 /uL (0-100); Basophils Percent Auto 1.8 % (0-2); Eosinophils Absolute Auto 400 /uL (0-450); Eosinophils Percent Auto 4.3 % (2-4); Hematocrit 39.1 % (41-53); Hemoglobin 13.3 g/dL (13.5-17.5); Lymphocytes Absolute Auto 2100 /uL (1100-4500); Lymphocytes Percent Auto 21.7 % (25-40); Mean Corpuscular HGB Conc 34.1 % (30-36); Mean Corpuscular Hemoglobin 31.9 PG (26-34); Mean Corpuscular Volume 93.7 fL (80-100); Monocytes Absolute Auto 900 /uL (0-900); Monocytes Percent Auto 9.3 % (3-14); Neutrophils Absolute Auto 6100 /uL (1500-7000); Neutrophils Percent Auto 62.9 % (50-75); Platelet Count 405 X10^3/uL (150-400); Red Blood Cell Count 4.18 X10^6/uL (4.5-5.9); Red Cell Distribution Width 13.3 % (11.6-14.8); White Blood Cell Count 9.7 X10^3/uL (4.5-11.0)
[2023-01-30 17:13] LABS: INR 1.2 (0.9-1.3); Prothrombin Time 13.6 SECONDS (9.4-12.5)
[2023-01-30 17:16] LABS: Alanine Aminotransferase 25 IU/L (<50); Albumin 3.9 g/dL (3.5-5.0); Albumin Globulin Ratio 1.3 (1.0-2.8); Alkaline Phosphatase 74 U/L (38-126); Aspartate Aminotransferase 25 IU/L (17-59); BUN Creatinine Ratio 7.2 (6-22); Bilirubin Total 0.6 mg/dL (0.2-1.3); Blood Urea Nitrogen 8 mg/dL (9-20); Calcium 9.4 mg/dL (8.4-10.2); Carbon Dioxide 25 mmol/L (22-32); Chloride 106 mmol/L (98-107); Estimated Glomerular Filt Rate > 60 mL/min (>60); Glucose 104 mg/dL (80-110); HEMOLYSIS < 15 (0-50); Lipase 44 U/L (23-300); PTT Partial Thromboplastin Tim 29 SECONDS (25.1-36.5); Potassium 4.2 mmol/L (3.4-5.1); Sodium 136 mmol/L (137-145); Total Protein 6.9 g/dL (6.3-8.2)
[2023-01-30] MEDS: MORPHINE 4 MG/ML INJ IV ×2 (17:25→21:04)
[2023-01-30 17:26] LABS: Lithium 0.8 mmol/L (0.6-1.2)
[2023-01-30] MEDS: ONDANSETRON 4 MG/2 ML INJ IV (17:26)
--- NOTE | 2023-01-30 17:35 | DI.RAD.S_ITS ---
PROCEDURE: XR FEMUR LT MIN 2V INDICATIONS: whole femur for Dr. Fleming TECHNIQUE: 5 views of the femur were acquired. COMPARISON: [facility], CR, XR HIP W PEL IF DONE LT 2V, 01/30/2023, 16:24. FINDINGS: Bones: Avulsion of lesser trochanter with probable fracture line extending through the intertrochanteric region. Decreased foreshortening from comparison. No suspicious bony lesions. Soft tissues: No suspicious soft tissue calcifications or masses. IMPRESSION: Comminuted intertrochanteric fracture with avulsion and moderate displacement of the lesser trochanter Dictated by: Rc Peres M.D. on 01/30/2023 at 17:44 Approved by: Rc Peres M.D. on 01/30/2023 at 17:46
[2023-01-30 17:48] LABS: Ethanol (ETOH) 14 mg/dL
[2023-01-30] MEDS: HYDROMORPHONE 1 MG INJ IV (17:51)
--- NOTE | 2023-01-30 19:22 | PM.HP.1 ---
History of Present Illness History of Present Illness Date Patient Seen: 01/30/23 Time Patient Seen: 19:22 Date of Onset of Symptoms: 01/30/23 Chief complaint: GLF, L hip pain Narrative: This is a 62-year-old gentleman who fell and noted the acute onset of severe left hip pain. He just slipped outside in the wet. 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 He lives with his mom who has some disability and uses a walker. They have 5 steps to get into the house. He did not have any hip problems prior to the fall. [facility] Medical History Complicated grief Facet arthropathy, lumbar Lumbar foraminal stenosis Spondylolisthesis at L5-S1 level Surgical History H/O foot surgery Family History Family/Other No pertinent family history Social History household members: none Smoking Status: Current every day smoker alcohol intake: former Meds Home Medications and Allergies Home Medications Medication Instructions Recorded Confirmed Type omeprazole 40 mg capsule,delayed 40 mg PO BID 07/12/22 01/17/23 History release quetiapine 400 mg tablet 400 mg PO BEDTIME 01/17/23 01/17/23 History venlafaxine 75 mg capsule,extended 150 mg PO QAM 01/17/23 01/17/23 History release 24 hr clonazepam 1 mg tablet 1 mg PO TID PRN severe anxiety. 01/27/23 01/27/23 Rx #30 tabs lithium carbonate 300 mg capsule 600 mg (2 x 300 mg) PO BEDTIME #60 01/27/23 01/27/23 Rx caps trazodone 100 mg tablet 200 mg (2 x 100 mg) PO BEDTIME #60 01/27/23 01/27/23 Rx tabs Allergies Allergy/AdvReac Type Severity Reaction Status Date / Time No Known Drug Allergies Allergy Verified 01/17/23 17:22 Review of Systems Review of Systems Narrative: It was not lightheaded did not have chest pain dizziness or other problems prior to the fall. He slipped in the wet and landed on his left hip, he does have problems with GI distress but he says he does reasonably well as long as he takes his omeprazole. He has problems with anxiety and significant depression. Exam Vital Signs (past 8 hours): - 01/30/23 16:15 01/30/23 16:22 01/30/23 16:23 Temperature 97.4 F L Pulse Rate 63 65 Respiratory Rate 14 34 H Blood Pressure 102/57 L 82/52 L Pulse Oximetry 99 96 Oxygen Delivery Method Room Air 01/30/23 16:24 01/30/23 16:24 01/30/23 16:29 Temperature Pulse Rate 71 71 Respiratory Rate 34 H 34 H Blood Pressure 109/66 Pulse Oximetry 96 97 Oxygen Delivery Method 01/30/23 16:29 01/30/23 16:30 01/30/23 16:30 Temperature Pulse Rate 71 Respiratory Rate 30 H Blood Pressure 120/75 125/77 Pulse Oximetry 97 Oxygen Delivery Method 01/30/23 17:00 01/30/23 17:00 01/30/23 17:15 Temperature Pulse Rate 73 75 Respiratory Rate 24 Blood Pressure 120/70 Pulse Oximetry 96 97 Oxygen Delivery Method 01/30/23 17:15 01/30/23 17:30 01/30/23 17:30 Temperature Pulse Rate 77 Respiratory Rate 18 Blood Pressure 119/71 124/70 Pulse Oximetry 97 Oxygen Delivery Method Room Air 01/30/23 17:45 01/30/23 17:45 01/30/23 18:00 Temperature Pulse Rate 74 81 Respiratory Rate 19 13 Blood Pressure 126/73 Pulse Oximetry 98 99 Oxygen Delivery Method 01/30/23 18:00 01/30/23 18:15 01/30/23 18:15 Temperature Pulse Rate 80 Respiratory Rate 20 Blood Pressure 128/75 130/76 Pulse Oximetry 98 Oxygen Delivery Method 01/30/23 18:30 01/30/23 18:30 01/30/23 18:45 Temperature Pulse Rate 83 85 Respiratory Rate 19 19 Blood Pressure 150/89 H Pulse Oximetry 100 96 Oxygen Delivery Method Room Air 01/30/23 18:45 01/30/23 19:00 01/30/23 19:00 Temperature Pulse Rate 85 Respiratory Rate 16 Blood Pressure 123/78 127/77 Pulse Oximetry 98 Oxygen Delivery Method Room Air Oxygen Delivery Method Room Air Narrative Exam Narrative: Resting comfortably in bed, HEENT is benign lungs are clear cor regular rate and rhythm abdomen soft and benign examination of his left lower extremity shows obvious substantial foreshortening of his left lower extremity with external rotation deformity he has some mild numbness in his left foot he can fire his toe flexors and extensors and he has a palpable dorsalis and posterior tibial pulse, skin is intact, his calf is soft, bilateral upper extremities are unremarkable nares no pain with range of motion in the right lower extremity except that it is painful in the left lower extremity. Objective Labs 01/30/23 16:40 01/30/23 16:40 Labs: Laboratory Results - last 24 hr 01/30/23 01/30/23 16:40 16:50 WBC 9.7 RBC 4.18 L Hgb 13.3 L Hct 39.1 L MCV 93.7 MCH 31.9 MCHC 34.1 RDW 13.3 Plt Count 405 H Neut % (Auto) 62.9 Lymph % (Auto) 21.7 L [place] % (Auto) 9.3 Eos % (Auto) 4.3 H Baso % (Auto) 1.8 Neut # (Auto) 6100 Lymph # (Auto) 2100 [place] # (Auto) 900 Eos # (Auto) 400 Baso # (Auto) 200 H PT 13.6 H INR 1.2 APTT 29 Sodium 136 L Potassium 4.2 Chloride 106 Carbon Dioxide 25 BUN 8 L Creatinine 1.11 Estimated GFR > 60 BUN/Creatinine Ratio 7.2 Glucose 104 Calcium 9.4 Total Bilirubin 0.6 AST 25 ALT 25 Alkaline Phosphatase 74 Total Protein 6.9 Albumin 3.9 Globulin 3.0 Albumin/Globulin Ratio 1.3 Lipase 44 [place] 0.8 Ethyl Alcohol 14 H Blood Type O Negative Antibody Screen Positive x-rays show a comminuted left subtroch intertrochanteric hip fracture with displacement Assessment & Plan Assessment and plan (1) Closed fracture of left hip: Status: Acute (2) [place] use: Status: Acute (3) Facet arthropathy, lumbar: Status: Acute (4) Anxiety: Status: Acute (5) Primary hypertension: Status: Acute (6) Bipolar II disorder, severe, depressed, with anxious distress: Status: Acute (7) Closed subtrochanteric fracture of hip: Status: Acute Plan I have recommended open reduction internal fixation of his left hip fracture with repair as indicated. He has a comminuted fracture which is intertrochanteric and subtrochanteric. Supplemented fixation with a intramedullary nail. We will plan to use a long nail and will have a cerclage wire available in case we need it. The procedure options risks benefits complications were discussed in detail. We also discussed that it will take a minimum of 6 weeks to heal and he will be only partial weight-bearing on the left lower extremity. Options risks benefits and complications discussed in detail. We are going to go ahead and proceed with that sometime tomorrow when we can get him onto the operating room schedule.
[2023-01-30 19:31] LABS: UR Morphine/Opiate cutoff 300 Positive (Negative); Ur Creatinine Normal (Normal); Ur Specific Gravity Normal (Normal); Urine Amphetamines Negative (Negative); Urine Barbiturates Negative (Negative); Urine Benzodiazepines Positive (Negative); Urine Cocaine Negative (Negative); Urine MDMA Negative (Negative); Urine Methadone Negative (Negative); Urine Methamphetamines Negative (Negative); Urine Oxycodone Negative (Negative); Urine Phencyclidine Negative (Negative); Urine Tetrahydrocannabinol Positive (Negative); Urine Tricyclic Antidepressant Negative (Negative); Urine pH Normal (Normal)
[2023-01-30] MEDS: QUETIAPINE 100 MG TABLET 400 MG PO (21:04)
[2023-01-30] MEDS: PANTOPRAZOLE DR 40 MG TABLET PO (21:04)
[2023-01-30] MEDS: clonazePAM 0.5 MG TABLET 1 MG PO (21:04)
[2023-01-30] MEDS: LITHIUM 150 MG IR CAPSULE 600 MG PO (21:04)
[2023-01-30] MEDS: TRAZODONE 50 MG TABLET 200 MG PO (21:04)
[2023-01-31 00:20] VITALS: BP 109/70; PULSE 88; RESP 16; TEMP 36.1; O2SAT 96
[2023-01-31 04:00] VITALS: BP 111/70; PULSE 91; RESP 16; TEMP 36.3; O2SAT 95
[2023-01-31] MEDS: MORPHINE 4 MG/ML INJ IV ×7 (04:52→23:49)
[2023-01-31 06:17] LABS: Add Manual Diff / Slide Review NO; Basophils Absolute Auto 100 /uL (0-100); Basophils Percent Auto 1.8 % (0-2); Eosinophils Absolute Auto 300 /uL (0-450); Eosinophils Percent Auto 3.7 % (2-4); Hematocrit 35.2 % (41-53); Hemoglobin 11.9 g/dL (13.5-17.5); Lymphocytes Absolute Auto 1700 /uL (1100-4500); Lymphocytes Percent Auto 22.5 % (25-40); Mean Corpuscular HGB Conc 33.8 % (30-36); Mean Corpuscular Hemoglobin 31.4 PG (26-34); Mean Corpuscular Volume 92.9 fL (80-100); Monocytes Absolute Auto 1200 /uL (0-900); Monocytes Percent Auto 15.8 % (3-14); Neutrophils Absolute Auto 4300 /uL (1500-7000); Neutrophils Percent Auto 56.2 % (50-75); Platelet Count 312 X10^3/uL (150-400); Red Blood Cell Count 3.79 X10^6/uL (4.5-5.9); Red Cell Distribution Width 13.6 % (11.6-14.8); White Blood Cell Count 7.7 X10^3/uL (4.5-11.0)
[2023-01-31] MEDS: SODIUM CHLORIDE 0.9% 1,000 ML 125 ML IV ×3 (06:27→21:59)
--- NOTE | 2023-01-31 07:35 | PC.ADMIT ---
[email or web address] Admission Note: Patient arrived to AC unit from ED at 19:30, transferred into bed using slide board. A/O x 4, drowsy, able to make needs known. Oriented to room and call light. Bed in low and locked position, bed alarm is on. CIWA 0, seizure pads in place. NS running @ 125. Refused skin assessment d/t pain. Bed in low and locked position, bed alarm is on. The patient,Douglas Lucio,62 y/o, was given written information regarding hospital policies, unit procedures and contact persons. Patient's smoking status: Current every day smoker. Vital Signs - 8 hr 01/31/23 00:20 01/31/23 04:00 Temperature 97.0 F L 97.4 F L Pulse Rate 88 91 H Respiratory Rate 16 16 Blood Pressure 109/70 111/70 Pulse Oximetry 96 95 Oxygen Flow Rate 0 0
[2023-01-31 08:41] VITALS: BP 139/89; PULSE 95; RESP 18; TEMP 36.9; O2SAT 98
[2023-01-31] MEDS: PANTOPRAZOLE DR 40 MG TABLET PO ×2 (09:04→21:47)
[2023-01-31] MEDS: THIAMINE 100 MG TABLET PO (09:04)
[2023-01-31] MEDS: FOLIC ACID 1 MG TABLET PO (09:04)
[2023-01-31] MEDS: VENLAFAXINE ER 75 MG CAP 150 MG PO (09:04)
[2023-01-31] MEDS: MULTIVITAMIN 1 TABLET 1 TAB PO (09:05)
--- NOTE | 2023-01-31 11:36 | P.PN_ITS ---
Subjective Subjective Date Patient Seen: 01/31/23 Time Patient Seen: 12:27 Interval history: Pt sleeping, arouses easily to voice. C/o LLE pain. Aware that surgical repair delayed until tomorrow. Exam Vital Signs (past 8 hours): - 01/31/23 04:00 01/31/23 08:41 Temperature 97.4 F L 98.4 F Pulse Rate 91 H 95 H Respiratory Rate 16 18 Blood Pressure 111/70 139/89 Pulse Oximetry 95 98 Oxygen Flow Rate 0 0 Oxygen Delivery Method Room Air Oxygen Flow Rate 0 Narrative Exam Narrative: Left leg externally rotated. 5/5 strength in PF, DF, EHL on left; unable to flex at knee or hip d/t pain. Sensation to light touch and skin intact throughout LLE. Objective Labs 01/31/23 06:00 01/30/23 16:40 Labs: Laboratory Results - last 24 hr 01/30/23 01/30/23 01/30/23 16:40 16:50 18:28 WBC 9.7 RBC 4.18 L Hgb 13.3 L Hct 39.1 L MCV 93.7 MCH 31.9 MCHC 34.1 RDW 13.3 Plt Count 405 H Neut % (Auto) 62.9 Lymph % (Auto) 21.7 L [place] % (Auto) 9.3 Eos % (Auto) 4.3 H Baso % (Auto) 1.8 Neut # (Auto) 6100 Lymph # (Auto) 2100 [place] # (Auto) 900 Eos # (Auto) 400 Baso # (Auto) 200 H PT 13.6 H INR 1.2 APTT 29 Sodium 136 L Potassium 4.2 Chloride 106 Carbon Dioxide 25 BUN 8 L Creatinine 1.11 Estimated GFR > 60 BUN/Creatinine Ratio 7.2 Glucose 104 Calcium 9.4 Total Bilirubin 0.6 AST 25 ALT 25 Alkaline Phosphatase 74 Total Protein 6.9 Albumin 3.9 Globulin 3.0 Albumin/Globulin Ratio 1.3 Lipase 44 U Opiates 300ng/mL cut Positive H Ur Oxycodone Screen Negative Urine Methadone Screen Negative Ur Barbiturates Screen Negative U Tricyclic Antidepress Negative Ur Phencyclidine Scrn Negative Ur Amphetamines Screen Negative U Methamphetamines Scrn Negative Ur MDMA Scrn (Ecstasy) Negative U Benzodiazepines Scrn Positive H [place] 0.8 Urine Cocaine Screen Negative U Marijuana (THC) Screen Positive H Ethyl Alcohol 14 H Blood Type O Negative Antibody Screen Positive Antibody Identification Anti-D 01/31/23 06:00 WBC 7.7 RBC 3.79 L Hgb 11.9 L Hct 35.2 L MCV 92.9 MCH 31.4 MCHC 33.8 RDW 13.6 Plt Count 312 Neut % (Auto) 56.2 Lymph % (Auto) 22.5 L [place] % (Auto) 15.8 H Eos % (Auto) 3.7 Baso % (Auto) 1.8 Neut # (Auto) 4300 Lymph # (Auto) 1700 [place] # (Auto) 1200 H Eos # (Auto) 300 Baso # (Auto) 100 PT INR APTT Sodium Potassium Chloride Carbon Dioxide BUN Creatinine Estimated GFR BUN/Creatinine Ratio Glucose Calcium Total Bilirubin AST ALT Alkaline Phosphatase Total Protein Albumin Globulin Albumin/Globulin Ratio Lipase U Opiates 300ng/mL cut Ur Oxycodone Screen Urine Methadone Screen Ur Barbiturates Screen U Tricyclic Antidepress Ur Phencyclidine Scrn Ur Amphetamines Screen U Methamphetamines Scrn Ur MDMA Scrn (Ecstasy) U Benzodiazepines Scrn [place] Urine Cocaine Screen U Marijuana (THC) Screen Ethyl Alcohol Blood Type Antibody Screen Antibody Identification PFSH Medical History Complicated grief Facet arthropathy, lumbar Lumbar foraminal stenosis Spondylolisthesis at L5-S1 level Surgical History H/O foot surgery Family History Family/Other No pertinent family history Social History household members: none Smoking Status: Current every day smoker alcohol intake: former Assessment & Plan Assessment and plan (1) Closed subtrochanteric fracture of hip: Status: Acute Plan: Plan for open reduction and internal fixation of subtrochanteric hip fracture tomorrow late afternoon d/t lack of operating room availability today. Plan is long IM nail, possible cerclage wire. NPO after midnight for surgery.
[2023-01-31 12:35] LABS: Alanine Aminotransferase 23 IU/L (<50); Albumin 3.3 g/dL (3.5-5.0); Albumin Globulin Ratio 1.1 (1.0-2.8); Alkaline Phosphatase 72 U/L (38-126); Aspartate Aminotransferase 31 IU/L (17-59); BUN Creatinine Ratio 9.9 (6-22); Bilirubin Total 0.8 mg/dL (0.2-1.3); Blood Urea Nitrogen 9 mg/dL (9-20); Calcium 8.9 mg/dL (8.4-10.2); Carbon Dioxide 26 mmol/L (22-32); Chloride 108 mmol/L (98-107); Estimated Glomerular Filt Rate > 60 mL/min (>60); Glucose 91 mg/dL (80-110); HEMOLYSIS < 15 (0-50); Potassium 3.9 mmol/L (3.4-5.1); Sodium 137 mmol/L (137-145); Total Protein 6.3 g/dL (6.3-8.2)
[2023-01-31] MEDS: HYDROMORPHONE 0.5 MG INJ 1 MG IV ×3 (13:17→19:10)
--- NOTE | 2023-01-31 13:34 | PM.HP.1 ---
History of Present Illness History of Present Illness Date Patient Seen: 01/31/23 Time Patient Seen: 13:35 Date of Onset of Symptoms: 01/30/23 Chief complaint: GLF, L hip pain Narrative: Patient is a 62-year-old male well known to me with history of severe depression, suicidal ideation, suicidal attempts, and severe alcohol use disorder. Patient was recently discharged from [address] [place] [address] for required inpatient stay. Patient feels like that helped him immensely. And he is actually feeling better. He denies any alcohol use. Apparently he was on his back porch and twisted lost his balance and fell. Did not hit his head. Did not had any other changes. But hit his hip left side. [place] an enormous pain at the time. [place] a crack. Was brought to the emergency room. COUNTS INCLUDE 234 BEDS AT THE [facility] Medical History Complicated grief Facet arthropathy, lumbar Lumbar foraminal stenosis Spondylolisthesis at L5-S1 level Surgical History H/O foot surgery Family History Family/Other No pertinent family history Social History household members: none Smoking Status: Current every day smoker alcohol intake: former Meds Home Medications and Allergies Home Medications Medication Instructions Recorded Confirmed Type omeprazole 40 mg capsule,delayed 40 mg PO BID 07/12/22 01/30/23 History release quetiapine 400 mg tablet 400 mg PO BEDTIME 01/17/23 01/30/23 History venlafaxine 75 mg capsule,extended 150 mg PO QAM 01/17/23 01/30/23 History release 24 hr clonazepam 1 mg tablet 1 mg PO TID PRN severe anxiety. 01/27/23 01/30/23 Rx #30 tabs lithium carbonate 300 mg capsule 600 mg (2 x 300 mg) PO BEDTIME #60 01/27/23 01/30/23 Rx caps trazodone 100 mg tablet 200 mg (2 x 100 mg) PO BEDTIME #60 01/27/23 01/30/23 Rx tabs Allergies Allergy/AdvReac Type Severity Reaction Status Date / Time No Known Drug Allergies Allergy Verified 01/17/23 17:22 Review of Systems Review of Systems Narrative: Negative except as above Exam Vital Signs (past 8 hours): - 01/31/23 08:41 Temperature 98.4 F Pulse Rate 95 H Respiratory Rate 18 Blood Pressure 139/89 Pulse Oximetry 98 Oxygen Flow Rate 0 Oxygen Delivery Method Room Air Oxygen Flow Rate 0 Narrative Exam Narrative: Alert middle-aged male in no acute distress HEENT exam shows no tenderness or abnormality neck supple without adenopathy lungs are clear heart is regular rate and rhythm abdomen is soft positive bowel sounds nontender. Extremities left is appears normal but it was not moved right is normal. Neurologic exam is nonfocal Objective Labs 01/31/23 06:00 01/31/23 06:41 Labs: Laboratory Results - last 24 hr 01/30/23 01/30/23 01/30/23 16:40 16:50 18:28 WBC 9.7 RBC 4.18 L Hgb 13.3 L Hct 39.1 L MCV 93.7 MCH 31.9 MCHC 34.1 RDW 13.3 Plt Count 405 H Neut % (Auto) 62.9 Lymph % (Auto) 21.7 L [place] % (Auto) 9.3 Eos % (Auto) 4.3 H Baso % (Auto) 1.8 Neut # (Auto) 6100 Lymph # (Auto) 2100 [place] # (Auto) 900 Eos # (Auto) 400 Baso # (Auto) 200 H PT 13.6 H INR 1.2 APTT 29 Sodium 136 L Potassium 4.2 Chloride 106 Carbon Dioxide 25 BUN 8 L Creatinine 1.11 Estimated GFR > 60 BUN/Creatinine Ratio 7.2 Glucose 104 Calcium 9.4 Total Bilirubin 0.6 AST 25 ALT 25 Alkaline Phosphatase 74 Total Protein 6.9 Albumin 3.9 Globulin 3.0 Albumin/Globulin Ratio 1.3 Lipase 44 U Opiates 300ng/mL cut Positive H Ur Oxycodone Screen Negative Urine Methadone Screen Negative Ur Barbiturates Screen Negative U Tricyclic Antidepress Negative Ur Phencyclidine Scrn Negative Ur Amphetamines Screen Negative U Methamphetamines Scrn Negative Ur MDMA Scrn (Ecstasy) Negative U Benzodiazepines Scrn Positive H [place] 0.8 Urine Cocaine Screen Negative U Marijuana (THC) Screen Positive H Ethyl Alcohol 14 H Blood Type O Negative Antibody Screen Positive Antibody Identification Anti-D 01/31/23 01/31/23 06:00 06:41 WBC 7.7 RBC 3.79 L Hgb 11.9 L Hct 35.2 L MCV 92.9 MCH 31.4 MCHC 33.8 RDW 13.6 Plt Count 312 Neut % (Auto) 56.2 Lymph % (Auto) 22.5 L [place] % (Auto) 15.8 H Eos % (Auto) 3.7 Baso % (Auto) 1.8 Neut # (Auto) 4300 Lymph # (Auto) 1700 [place] # (Auto) 1200 H Eos # (Auto) 300 Baso # (Auto) 100 PT INR APTT Sodium 137 Potassium 3.9 Chloride 108 H Carbon Dioxide 26 BUN 9 Creatinine 0.91 Estimated GFR > 60 BUN/Creatinine Ratio 9.9 Glucose 91 Calcium 8.9 Total Bilirubin 0.8 AST 31 ALT 23 Alkaline Phosphatase 72 Total Protein 6.3 Albumin 3.3 L Globulin 3.0 Albumin/Globulin Ratio 1.1 Lipase U Opiates 300ng/mL cut Ur Oxycodone Screen Urine Methadone Screen Ur Barbiturates Screen U Tricyclic Antidepress Ur Phencyclidine Scrn Ur Amphetamines Screen U Methamphetamines Scrn Ur MDMA Scrn (Ecstasy) U Benzodiazepines Scrn [place] Urine Cocaine Screen U Marijuana (THC) Screen Ethyl Alcohol Blood Type Antibody Screen Antibody Identification Assessment & Plan Assessment & Plan narrative: Left hip fracture. Femur fracture. As per orthopedist appreciate Dr. Fleming input. Will continue IV pain control. Will need to prep for discharge. Unclear where that is going to be. Will discuss with social service. History of depression/suicidal ideation. Actually seems to be doing well. Appreciate Dr. Casey seeing. No other changes. Will continue his current medication. Seems to be stable. History of alcohol abuse. Severe. Denies use did have a mild increase in his alcohol although it is minimal. I tend to believe him. He has been off alcohol for more than a week but will keep alcohol withdrawal protocol in place. Code status full code. DVT prophylaxis on Lovenox. Disposition. Surgery tomorrow. Will need to pay attention to where we are going to go afterwards. Going to be difficult for him to do this at home by himself. Mom probably will not be able to help. Will have to see how it goes.
[2023-01-31 15:22] VITALS: BP 115/61; PULSE 83; RESP 16; TEMP 37.1
--- NOTE | 2023-01-31 17:02 | CM.DANOTE ---
Initial DCP Assessment Note Patient is a 62 yo male, resident of [place], presents after a fall at home and subsequent hip fx in need of repair. Patient is scheduled for hip surgery tomorrow 02.01.23 PCP: Roldan Jiang Payer: [place] [facility] Met w/patient to introduce self and role. Patient is drowsy this visit and admits to being in pain, tried to keep visit brief. Patient reports that since his friend by suicide in May 2022, he has not been healthy. Three weeks ago patient had been drinking up to or more than a fifth of alcohol daily, has presented to the ER multiple times after drinking and threatening suicide-has been detained numerous times and has hx at [facility], [facility] psychiatric unit x2 and detained recently to [facility] in [place] under [place] [employer]. Patient states he has been sober since being discharged from [facility] after an 8 day stay and feels great pride about this. Patient has been attending group, trying to secure an outpatient [facility] program and was scheduled to see his long time psychiatrist Dr Kerns until this injury happened. Patient is motivated to remain clean for his daughters and a grand baby on the way. Patient lives next door to his mom and also looks after her. Asked patient how he will be cared for upon discharge, patient unsure. Suggested that CM team return to discuss discharge plan after patient's surgery and once therapy has a chance to provide recommendations. Patient states appreciation. Plan: Discharge plan TBD. Awaiting surgery and recs from PT. Can patient return home w/family to assist (?) If SNF- need SNF acceptance and a [place] auth needs to be obtained. PASRR---> Hospital Exempt (?) SHASHI [place] Discharge Planning/Care Management CM Discharge Assessment Start: 01/31/23 16:57 Maisha: Status: Active Protocol: Document 01/31/23 16:57 DAYAMI (Rec: 01/31/23 17:02 DAYAMI [id number]) Discharge Planning Assessment Assigned Dial Equipment Engineer SHASHI Groves DPOA/Assigned Designee Name cristela Coates Contact Information [phone] Advance Directives? No Advance Directives on File No History Provided By Patient,Medical Record Prior Living Arrangements House Household Members none Comment Patient's diasbled mom lives in a MIL house on the property Type of transporation used prior to Drives own vehicle admit Independent with ADL's Yes Is patient alert and oriented? Yes Barriers to Discharge Yes Comment Needs assist upon discharge, unsure who will provide (?) May be able to discharge home with daughters if they are available to assist
[2023-01-31 19:00] VITALS: BP 123/79; PULSE 81; RESP 16; TEMP 36.4; O2SAT 95
[2023-01-31] MEDS: LITHIUM 150 MG IR CAPSULE 600 MG PO (21:46)
[2023-01-31] MEDS: TRAZODONE 50 MG TABLET 200 MG PO (21:46)
[2023-01-31] MEDS: QUETIAPINE 100 MG TABLET 400 MG PO (21:46)
[2023-01-31 23:00] VITALS: BP 118/73; PULSE 83; RESP 16; TEMP 36.3; O2SAT 94
[2023-02-01] VITALS (15 sets, daily range): BP systolic 118–137; BP diastolic 63–89; PULSE 83–104; RESP 12–18; TEMP 36.2–37; O2SAT 90–99; BMI 27.1
--- NOTE | 2023-02-01 | DI.RAD.S_ITS ---
PROCEDURE: XR FEMUR LT MIN 2V INDICATIONS: LEFT HIP NAILING TECHNIQUE: 6 views of the femur were acquired. COMPARISON: [facility], CR, XR FEMUR LT MIN 2V, 01/30/2023, 17:50. [facility], CR, XR FEMUR LT MIN 2V, 02/01/2023, 16:59. FINDINGS: Bones: Status post interval open reduction and internal fixation of intertrochanteric fracture of the proximal left femur using anterograde intramedullary mehnaz and dynamic compression screw fixation. Distal interlocking screws are also seen. No evidence for acute hardware complication. Normal postsurgical alignment. Remainder of the visualized osseous structures appear intact. Soft tissues: No suspicious soft tissue calcifications or masses. Expected postsurgical changes of the left hip. Skin paxton are present. IMPRESSION: Status post open reduction and internal fixation of mildly comminuted left intertrochanteric femur neck fracture in normal postsurgical alignment. No evidence for acute hardware complication. Dictated by: Ever Murphy M.D. on 02/01/2023 at 20:17 Approved by: Ever Murphy M.D. on 02/01/2023 at 20:19
--- NOTE | 2023-02-01 | DI.RAD.S_ITS ---
PROCEDURE: XR FEMUR LT MIN 2V INDICATIONS: LEFT HIP NAILING TECHNIQUE: Numerous fluoroscopy images of the femur were acquired. COMPARISON: [facility], CR, XR FEMUR LT MIN 2V, 02/01/2023, 19:25. [facility], CR, XR HIP W PEL IF DONE LT 2V, 01/30/2023, 16:24. [facility], CR, XR FEMUR LT MIN 2V, 01/30/2023, 17:50. FINDINGS: Intraoperative fluoroscopy images demonstrate open reduction internal fixation of trans trochanteric proximal femoral fracture. IMPRESSION: ORIF of proximal femoral fracture. Dictated by: Milena Tarango M.D. on 02/01/2023 at 20:02 Approved by: Milena Tarango M.D. on 02/01/2023 at 20:03
[2023-02-01] MEDS: HYDROMORPHONE 0.5 MG INJ 1 MG IV ×3 (04:10→12:46)
[2023-02-01] MEDS: SODIUM CHLORIDE 0.9% 1,000 ML 125 ML IV (05:53)
--- NOTE | 2023-02-01 08:28 | PM.PN.1 ---
Subjective Subjective Date Patient Seen: 02/01/23 Time Patient Seen: 08:29 Interval history: Patient seen in follow-up of depression, alcohol abuse history, left femur fracture. Overall stable. No evidence of withdrawal. Pain has been intense but controlled. Apparently due for surgery today. Exam Vital Signs (past 8 hours): - 02/01/23 04:00 Temperature 97.5 F L Pulse Rate 87 Respiratory Rate 16 Blood Pressure 118/63 Pulse Oximetry 98 Oxygen Flow Rate 0 Oxygen Delivery Method Room Air Oxygen Flow Rate 0 Narrative Exam Narrative: Alert male in no acute distress lying in bed Lungs are clear heart is regular rate and rhythm Objective Labs 01/31/23 06:00 01/31/23 06:41 Labs: Laboratory Results - last 24 hr 01/31/23 06:41 Sodium 137 Potassium 3.9 Chloride 108 H Carbon Dioxide 26 BUN 9 Creatinine 0.91 Estimated GFR > 60 BUN/Creatinine Ratio 9.9 Glucose 91 Calcium 8.9 Total Bilirubin 0.8 AST 31 ALT 23 Alkaline Phosphatase 72 Total Protein 6.3 Albumin 3.3 L Globulin 3.0 Albumin/Globulin Ratio 1.1 PFSH Medical History Complicated grief Facet arthropathy, lumbar Lumbar foraminal stenosis Spondylolisthesis at L5-S1 level Surgical History H/O foot surgery Family History Family/Other No pertinent family history Social History household members: none Smoking Status: Current every day smoker alcohol intake: former Assessment & Plan Assessment & Plan narrative: Left femur fracture. Apparently going to be repaired today by orthopedist. Appreciate their help. While pain is intense seems to be well-controlled with current medication. Depression. Actually seems to be doing pretty well. While he is frustrated that he fractured his leg and it seems like 1 more thing he seems to be processing well and having no issues. History of alcohol abuse. Currently sober but we have to watch closely. No evidence of withdrawal. I do not think we are going to have any and will follow. Code status. Full. DVT prophylaxis on Lovenox. Disposition. Discussed with social service. Going to be difficult for him to go home with no help. Mom has not capable of caring for him. Will have to see how things go. Other family members are not living in town as far as I know. Will just have to see how it goes. Patient understands and will see how he does after surgery. That will be the determination. If there is an issue with his mental health certainly can have Dr. brenner assess. Currently feels like things are going well. 35 minutes spent with the patient social service dictation orders
[2023-02-01] MEDS: THIAMINE 100 MG TABLET PO (10:00)
[2023-02-01] MEDS: MULTIVITAMIN 1 TABLET 1 TAB PO (10:00)
[2023-02-01] MEDS: PANTOPRAZOLE DR 40 MG TABLET PO (10:00)
[2023-02-01] MEDS: FOLIC ACID 1 MG TABLET PO (10:00)
[2023-02-01] MEDS: VENLAFAXINE ER 75 MG CAP 150 MG PO (10:00)
[2023-02-01] MEDS: MORPHINE 4 MG/ML INJ IV ×2 (10:09→11:57)
[2023-02-01] MEDS: LACTATED RINGERS 1,000 ML 42 ML IV ×2 (15:56→18:52)
--- NOTE | 2023-02-01 16:16 | PC.NURSE ---
Patient taken to PREOP by bed approximately 1530 this afternoon by bed. A&OX4.
--- NOTE | 2023-02-01 16:18 | PM.PREOP ---
Pre-operative Note Interval Note History & Physical reviewed/Exam performed by Physician: Yes Changes to H&P: No
--- NOTE | 2023-02-01 16:19 | PM.OP.1 ---
Operative Date/Time/Diagnoses Date of procedure: 02/01/23 Time of procedure: 16:20 Pre-op diagnosis: Comminuted left femur fracture subtroch intertroch variant Post-op diagnosis: same Procedure & Clinicians Procedure: Intramedullary nailing left femur fracture subtroch intertrochanteric variant Same procedure as scheduled: Yes Indications: This is a 62-year-old gentleman who fell and sustained a comminuted left subtroch intertrochanteric hip fracture. He is brought to the operating room for open reduction internal fixation. Surgeon: Earline Fleming Agency Operator: Leyda Alexander Anesthesia Type: General Operative Notes Findings: Comminuted left intertroch subtroch fracture, soft bone, acceptable alignment, adequate fixation Closure Type: primary Specimen(s): none sent Prosthetic devices, grafts, tissues, transplants, or devices: Fleming and nephew tri Gen inner yoo 11.5 x 46 cm left 125 degree nail, size 120 lag screw, 2 distal interlocking screws Estimated Blood Loss (mL): 400 Blood products transfused: none Procedure in detail: Patient was brought the operating room. IV antibiotics were given. A time-out was performed. He was carefully positioned on a fracture table in the left lower extremity was prepped and draped in a standard sterile fashion after meticulously positioning the patient. Traction was placed on the left leg and the fracture was meticulously reduced. Lateral skin incision was made dissection was carried out through skin and subcutaneous tissues. He did have moderate subcutaneous tissues. Gelpi retractor was placed. Subcutaneous tissues were retracted. Fascia was incised. A pin was placed in the tip of the greater trochanter and carefully advanced down distally was confirmed with AP and lateral fluoroscopic imaging. Proximal femur was then carefully reamed. Ball tip K-wire guide wire was then advanced down distally into the femur. The proximal femur was carefully reamed. It was pretty easy to pass a 13 mm Reamer distally. AP and lateral image confirmed position of the mehnaz and adequate reaming. The mehnaz was inserted without difficulty. We carefully checked it with imaging. Proximal interlocking was performed using standard technique. I did do some compression across the fracture site. There was acceptable overall alignment. He had a fairly large fragment of his lesser trochanter which was off medially. It was not felt that it would provide him a mechanical additional stability to further stabilize his trochanteric fragment. Multiple imaging shots were taken. The proximal wound was closed with combination of interrupted Vicryl running subcuticular PDS and skin paxton. Distal interlocking was performed using AP and lateral image. Good interlocking was achieved. The fracture was felt to be stable. The wound was meticulously irrigated with normal saline. And we meticulously and gently injected Marcaine and Exparel in order to prove improve postoperative pain management. Complications: none Post-operative Condition: stable Disposition: Acute Care Plan for aftercare: Partial weight-bearing on the left lower extremity. Okay to be discharged to home when safe for ambulation partial weight-bearing. Follow-up [facility] orthopedics in about 2 weeks with new x-rays AP and lateral left femur and an AP pelvis.
--- NOTE | 2023-02-01 16:26 | DIET.CONS ---
Dietary Consultation Note Admission Date: 01/30/2023 18:00 Assessment: 62M admitted with left femur fracture. PMH of ETOHism, depression, suicidal ideation and attempts. RD consulted for alcoholism. Currently on MVI and thiamine. Pt reports he has had an increase in ETOH intake over the last month due to stress. Also endorses only one eating occurrence in the last two weeks, which he attributes to stress with having a bad year (h/o detox, mother's hip fx, and friend's suicide). Pt currently NPO for surgery today. Wt hx indicates 7.3% loss over 4-5 months (not significant). Recent admission wt similar to 12/2022. No NFPE today. He seemed very uncomfortable during our visit. Will check back in with pt tomorrow for both NFPE and PO. Ht: 208.28 cm Wt: 117.934 kg BMI: 27.1 Last BM: 01/29/23 (02/01/23 15:20) MNA: 11 Jonatan Score: 14 Diet: 01/31/23 Breakfast General (Regular) Diet Diet Modifications: Food Texture: Level 7 - Regular Liquid Consistency: Level 0 - Thin 02/01/23 00:01 NPO Diet Diet Modifications: NPO Type: NPO after Midnight Nutrition Percent Meal Consumed 0% 01/31/23 10:33 Labs: RBC 3.79 X10^6/uL (4.5-5.9) L 01/31/23 06:00 Hgb 11.9 g/dL (13.5-17.5) L 01/31/23 06:00 Hct 35.2 % (41-53) L 01/31/23 06:00 Creatinine 0.91 mg/dL (0.66-1.25) 01/31/23 06:41 Nutrition Diagnosis: Inadequate energy intake r/t anxiety aeb pt report Interventions: Discussed ONS to supplement appetite when feeling anxiety. Will reassess after NPO status changes. Monitoring/Evaluations: 02/02 RD f/u Electronically Signed by: Cristina Wallace 02/01/23 16:26 Clinical Dietitian [address] [id number]
--- NOTE | 2023-02-01 16:33 | CM.DPNOTE ---
DCP NOte DIDACTIC INSTRUCTOR reviewed EMR. Per Dr. Jiang, concerned about home supports at this time. Reports pt may need SNF due to living home alone. Barriers to SNF include Hx of suicide attempts, inpt psychiatric stays, and substance use as well as insurance auth. Hip repair scheduled for 02.01 at 1645. Per RN, no withdrawal symptoms at this time. DIDACTIC INSTRUCTOR unable to meet with pt today due to triaging needs. Pending PT/OT recs tomorrow for dc needs. CM team will need to obtain [facility] as well. Plan: dispo plan pending post OP needs. CM team will continue to follow closely. SHASHI Ng
[2023-02-01] MEDS: CEFAZOLIN 2 GM/100 ML PREMIX 100 ML IV ×2 (16:42→21:30)
--- NOTE | 2023-02-01 17:37 | SUR.OPER ---
Supine on padded Maxwell table with left legs secured in padded positioning boots and suspended in positioning spar, operative leg in traction per surgeon. Right leg in padded well leg salomon and secured .Head on one pillow. Arm on non-operative side secured on padded armboard <90 degrees abduction. Arm on operative side padded and resting across chest then secured with tape over sheet. Padded perineal post in place per surgeon.
[2023-02-01] MEDS: BUPIVACAINE 0.25% (PF) 30 ML, EPINEPHrine 0.15 MG INJ (17:54)
[2023-02-01] MEDS: BUPIVACAINE LIPOSOME 266 MG/20 ML VIAL INJ (17:55)
[2023-02-01] MEDS: HYDROMORPHONE 1 MG INJ IV (19:42)
[2023-02-01] MEDS: LACTATED RINGERS 1,000 ML 100 ML IV (20:25)
[2023-02-01] MEDS: SENNOSIDES 8.6 MG TABLET 17.2 MG PO (20:34)
[2023-02-01] MEDS: ASPIRIN EC 81 MG TABLET PO (20:34)
[2023-02-01] MEDS: DOCUSATE 100 MG CAPSULE PO (20:34)
--- NOTE | 2023-02-01 20:38 | PC.NURSE ---
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 Patient AOx3 oriented to call light, RENDERING EQUIPMENT TENDER intact, VS WNL. Patient denies any pain
[2023-02-01] MEDS: OXYCODONE IR 10 MG TABLET PO (23:59)
[2023-02-01] MEDS: IBUPROFEN 400 MG TABLET PO (23:59)
[2023-02-02 05:11] VITALS: BP 135/81; PULSE 81; RESP 16; TEMP 36.2; O2SAT 94
[2023-02-02] MEDS: OXYCODONE IR 10 MG TABLET PO ×4 (05:38→21:16)
[2023-02-02] MEDS: CEFAZOLIN 2 GM/100 ML PREMIX 100 ML IV (05:38)
[2023-02-02 05:54] LABS: Hematocrit 34.1 % (41-53); Hemoglobin 11.6 g/dL (13.5-17.5); Mean Corpuscular Hemoglobin 31.6 PG (26-34); Platelet Count 347 X10^3/uL (150-400); Red Blood Cell Count 3.66 X10^6/uL (4.5-5.9); Red Cell Distribution Width 12.9 % (11.6-14.8); White Blood Cell Count 10.3 X10^3/uL (4.5-11.0)
[2023-02-02 07:35] VITALS: BP 131/78; PULSE 82; RESP 18; TEMP 37.1; O2SAT 97
[2023-02-02] MEDS: ASPIRIN EC 81 MG TABLET PO ×2 (08:39→20:17)
[2023-02-02] MEDS: IBUPROFEN 400 MG TABLET PO ×2 (08:39→12:31)
[2023-02-02] MEDS: DOCUSATE 100 MG CAPSULE PO ×2 (08:39→20:16)
[2023-02-02] MEDS: ACETAMINOPHEN 325 MG TABLET 650 MG PO ×3 (08:40→16:55)
[2023-02-02] MEDS: polyethylene glycoL 3350 17 GM POWD.PACK PO (08:40)
--- NOTE | 2023-02-02 09:01 | P.PN_ITS ---
Subjective Subjective Date Patient Seen: 02/02/23 Time Patient Seen: 09:01 Interval history: Patient seen in follow-up of left femur fracture, depression, history of substance abuse. Patient overall is doing well. Pain maybe slightly improved after surgery. Mostly frustrated that he quits drinking and then breaks his leg. But otherwise seems to be doing well. Exam Vital Signs (past 8 hours): - 02/02/23 05:11 Temperature 97.1 F L Pulse Rate 81 Respiratory Rate 16 Blood Pressure 135/81 Pulse Oximetry 94 Oxygen Delivery Method Nasal Cannula Oxygen Flow Rate 2 Narrative Exam Narrative: Alert male in no acute distress Objective Labs 02/02/23 05:25 01/31/23 06:41 Labs: Laboratory Results - last 24 hr 02/02/23 05:25 WBC 10.3 RBC 3.66 L Hgb 11.6 L Hct 34.1 L MCV 93.0 MCH 31.6 MCHC 34.0 RDW 12.9 Plt Count 347 PFSH Medical History Complicated grief Facet arthropathy, lumbar Lumbar foraminal stenosis Spondylolisthesis at L5-S1 level Surgical History H/O foot surgery Family History Family/Other No pertinent family history Social History household members: none Smoking Status: Current every day smoker alcohol intake: former Assessment & Plan Assessment & Plan narrative: Left hip fracture. Status post surgery day 1. Will see how things goes today. PT OT. Will continue Chavez today and discontinue tomorrow. As per orthopedist decision on whether he can do this at home. Depression. Actually seems to be doing pretty well. Will have to see as time goes. Concerning for difficulty as he tries to rehab. Will see and follow closely. History of alcohol abuse. Will be difficult time to stay sober with increased pain and difficulty with social issues. Not able to make contact with sober group because he will be limited. Will have to watch closely. At this time he seems to be comfortable with sobriety. But may change on day-to-day basis. Support given. Disposition. Discussed with social service yesterday it was unclear what options are available. Will see how PT goes today. Anticipate at least here until Tuesday 1 where the other. Will continue to see what happens. And re- evaluate. Some of this depends on orthopedic evaluation.
[2023-02-02] MEDS: HYDROMORPHONE 0.5 MG INJ IV ×2 (10:42→12:32)
--- NOTE | 2023-02-02 10:46 | P.PN_ITS ---
Subjective Subjective Date Patient Seen: 02/02/23 Time Patient Seen: 10:46 Interval history: Blade is a 62 year old male who is POD #1 for a comminuted left femur fracture subtroch intertroch variant s/p ORIF with intermedullary nail of the left femur. Still complains of significant pain, 10 at this moment. Tried to get up and sit in a chair yesterday but was unable to move out of bed d/t pain. Has not been evaluated by PT yet. Still has urinary catheter in place, has not passed a BM since surgery. Denies chest pain, SOB, nausea, vomiting, fever, chills. Exam Vital Signs (past 8 hours): - 02/02/23 05:11 02/02/23 07:35 Temperature 97.1 F L 98.8 F Pulse Rate 81 82 Respiratory Rate 16 18 Blood Pressure 135/81 131/78 Pulse Oximetry 94 97 Oxygen Flow Rate 0 Oxygen Delivery Method Nasal Cannula Oxygen Flow Rate 0 Const General: cooperative Resp Effort & Inspection: normal respiratory effort and able to speak in complete sentences Cardio Rate: regular rate Neuro Other: Alert and Oriented. Extrem Other: 5/5 strength with dorsi flexion and plantar flexion. Unable to flex knee without pain. Sensation intact to bilateral lower extremities. Calves are soft and non-tender to palpation. Clean and dry Aquacel dressing in place over right lateral thigh. Objective Labs 02/02/23 05:25 01/31/23 06:41 Labs: Laboratory Results - last 24 hr 02/02/23 05:25 WBC 10.3 RBC 3.66 L Hgb 11.6 L Hct 34.1 L MCV 93.0 MCH 31.6 MCHC 34.0 RDW 12.9 Plt Count 347 PFSH Medical History Complicated grief Facet arthropathy, lumbar Lumbar foraminal stenosis Spondylolisthesis at L5-S1 level Surgical History H/O foot surgery Family History Family/Other No pertinent family history Social History household members: none Smoking Status: Current every day smoker alcohol intake: former Assessment & Plan Post-op Postoperative Procedures: Procedures Operation Date: 02/01/23 16:45 Actual Procedure Side Surgeon p hip intertroch, subtroch fracture Left Earline Fleming MD Postoperative day: 1 Postoperative status narrative: Comminuted left femur fracture subtroch intertroch variant s/p ORIF with intermedullary nail left femur Postoperative plan: routine post-op care Postoperative plan narrative: Partial weight-bearing on the left lower extremity at least 4 weeks. Will continue to work on safe partial weight-bearing ambulation prior to discharge. Follow-up [facility] orthopedics in about 2 weeks with new x-rays AP and lateral left femur and an AP pelvis.
[2023-02-02 11:52] VITALS: BP 144/81; PULSE 88; RESP 16; TEMP 36.6; O2SAT 95
--- NOTE | 2023-02-02 13:35 | PT.IIE ---
Current Diagnoses Bipolar II disorder (01/30/23) Anxiety disorder, unspecified (01/30/23) Essential (primary) hypertension (01/30/23) Spondylosis without myelopathy or radiculopathy, lumbar region (01/30/23) Fracture of unspecified part of neck of left femur, initial encounter for closed fracture (01/30/23) Displaced subtrochanteric fracture of unspecified femur, initial encounter for closed fracture (01/30/23) Other assisted (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 therapy (01/30/23) Surgery Performed Operation Date: 02/01/23 16:45 Actual Procedures p hip intertroch, subtroch fracture(Left) - Earline Fleming MD Surgical History (Last Reviewed 01/31/23 @ 13:36 by Roldan Jiang MD) H/O foot surgery Medical History (Last Reviewed 01/31/23 @ 13:36 by Roldan Jiang MD) Complicated grief Facet arthropathy, lumbar Lumbar foraminal stenosis Spondylolisthesis at L5-S1 level Physical Therapy Inpatient Evaluation/Re-Eval M1 PT/OT-IP Prior Functional Status Start: 02/02/23 14:46 Freq: NEEDED Status: Active Protocol: Document 02/02/23 13:35 AB (Rec: 02/02/23 15:02 AB [id number]) Medical Review Prior Functional Status Medical History Reviewed Yes Communication able to make needs known Mobility and Gait pt stated that he was independent with all mobilities and ambulation without AD. Social History Household Members none Living Arrangements House Number of Floors (Floors) One Floor Number of Stairs To Enter/Railing? no steps to enter Home Environment Standard Height Toilet,Walk in Shower Home Equipment Front Wheel Walker,Straight Cane,Crutches,Manual Wheelchair,Shower Seat with Backrest Additional Social History Comment pt lives next door to his mom (mother in law suite) but his mom will not be able to assist him. stated that his GF might be able to assist some but will not be able to stay with him M2 PT-IP Current Condition Start: 02/02/23 14:46 Freq: NEEDED Status: Active Protocol: Document 02/02/23 13:35 AB (Rec: 02/02/23 15:02 AB [id number]) Physical Therapy Current Condition Current Condition Evaluation Date 02/02/23 Treatment Diagnosis s/p L hip ORIF; difficulty in walking Onset Date 01/30/23 M3 PT-IP Subjective Start: 02/02/23 14:46 Freq: NEEDED Status: Active Protocol: Document 02/02/23 13:35 AB (Rec: 02/02/23 15:02 [email or web address]) Subjective Physical Therapy Visit Type Type Initial Evaluation Visit Start Time 13:35 Visit Stop Time 14:30 Total Visit Minutes 55 Number of DETECTIVE BUREAU CHIEF Visits 0 Physical Therapy Visit Comments Patient Comments pt is hesitant to do PT but after education of importance of PT and mobility, pt agreed to do PT but pt limits self Therapy Pain Assessment Pain When Pain Assessed At Rest Pain Present Pain Present Pain Reported Location Left Hip Intensity 8 Scale Used Numeric (0 - 10) Pain Behaviors Facial Grimacing,Guarding, Holding Area Pain Management Techniques Distraction,Modification of Treatment,Re-positioning, Timing of Activity with Medications M4 PT-IP Mobility and Gait Start: 02/02/23 14:46 Freq: NEEDED Status: Active Protocol: Document 02/02/23 13:35 AB (Rec: 02/02/23 15:02 [email or web address]) PT-Bed Mobility Assessment Supine to Sit Supine to Sit Moderate Assistance,1 Person Assistance,Head of Bed Elevated,Bedrails Sit to Supine Sit to Supine Maximum Assistance,2 Person Assistance,Bedrails PT-Transfer Assessment Sit to and From Stand Sit to and from Stand Maximum Assistance,2 Person Assistance,Use of Upper Extremities Equipment Transfer Assistive Device Gait Belt,Front Wheeled Walker Orthotic/Prosthetic Devices or Brace: No Comments Mobility Comments pt in supine in bed. initially refusing PT and stated that he tried with nursing staff earlier today but due to pain, was unable to do much. pt educated on importance of PT and pt agreed to do PT. PLOF and home set up obtained. educated pt on weight bearing restriction of PWB on LLE. pt completed LLE heel slides prior to mobility requiring max A and max cues with increase guarding noted. pt completed supine to sit mod A and max cues. HOB elevated to ~ 35 deg and pt used bed rail to assist. pt was able to sit on EOB CGA with cues for steasiness and balance. c /o increase hip pain. nurse had already provided pt with IV pain meds. pt educated on how to do sit<> stand while maintaining PWB on LLE. pt completed sit to stand max A x 2 and max cues using FWW for support. pt required max A x 1-2 for standing balance and max A to maintain PWB on LLE. pt unable to take steps and wanting to sit back on EOB. pt requiring max A x 2 for controlled descent to EOB. pt scooted towards HOB max A and max cues. pt required max A x 2 for sit to supine. positioned pt in bed max A x 1 -2 and max cues. call light and table placed within reach. Talked to case sealer regarding SNF rehab and OT eval order. Pt is aware of plans. Gait Assessment Comments Gait Comments unable at this time PT-Balance Assessment Sitting Balance and Reactions Static Sitting Balance Ability Fair Dynamic Sitting Balance Ability Poor Standing Balance and Reactions Static Standing Balance Ability Poor Dynamic Standing Balance Ability Poor Device Used FWW M5 PT-IP Objective Assessments Start: 02/02/23 14:46 Freq: NEEDED Status: Active Protocol: Document 02/02/23 13:35 AB (Rec: 02/02/23 15:02 [email or web address] Orientation Orientation/Cognition Level of Alertness Alert Orientation Name,Place,Situation Safety Awareness Decreased Safety Awareness Memory Description No Deficits Noted Gross Range of Motion Lower Extremity ROM Impairments pt with increase LLE guading inihibiting ROM Strength Lower Extremity Strength Assessment Left Impaired Hip 2+/5 Knee 3+/5 Muscle Tone Muscle Tone WNL Yes M6 PT-IP Treatment Start: 02/02/23 14:46 Freq: NEEDED Status: Active Protocol: Document 02/02/23 13:35 AB (Rec: 02/02/23 15:02 AB [email or web address]) Physical Therapy Treatment Education Education Provided Precautions,Weight Bearing Status,Post-Op Packet,Safety M7 PT-IP Assessment and Plan Start: 02/02/23 14:46 Freq: NEEDED Status: Active Protocol: Document 02/02/23 13:35 AB (Rec: 02/02/23 15:02 AB [email or web address]) PT Summary Assessment and Plan Potential Rehabilitation Potential Fair Status of Condition at Evaluation Evolving Summary Impairments Pain,ROM,Strength,Balance, Coordination,Sensation,Tone, Cognition,Bed Mobility, Transfers,Gait,Activity Tolerance Assessment Summary pt is a 62 y/o M s/p fall and sustained a L hip fracture. pt underwent L hip ORIF and is PWB at this time. pt requiring max A x 1-2 with bed mobility and max A x 2 for sit to stand. pt unable to take steps to transfer or ambulate at this time. Recommending use of mechanical lift for transfers with nursing staff. pt will require SNF rehab. will continue to assess progress. Goals Bed Mobility Goal Minimal Assistance Transfer Goal Minimal Assistance,Front Wheeled Walker Gait Goal Minimal Assistance,Front Wheel Walker Gait Distance 25 Other Goals improve bed mobility, transfers and ambulation using FWW SBA ~ 50 ft. Days to Meet Goals 10 Frequency of Treatment Frequency Of Treatment Twice a Day Treatment Plan Physical Therapy Treatment Plan Bed Mobility Training,Transfer Training,Gait Training, Therapeutic Exercise,Balance Retraining,Post Op Education, Discharge Planning,Hot or Cold Pack,Neuromuscular Re-ed, Coordination Retraining,Manual Therapy Weight Bearing Status Weight Bearing Status Partial Weight Bearing Allowed Weight Bearing Amount (enter % PWB LLE or #) (%) Recommendations To Nursing Amount of Assist Needed Mechanical Lift Discharge Recommendations PT Discharge Recommendations SNF Rehab Transportation Needs at Discharge Wheelchair/Cabulance,Stretcher /Ambulance
[2023-02-02] MEDS: KETOROLAC 30 MG/ML VIAL IV ×2 (14:06→18:57)
[2023-02-02] MEDS: CYCLOBENZAPRINE 10 MG TABLET PO ×2 (14:06→20:17)
[2023-02-02] MEDS: HYDROMORPHONE 1 MG INJ IV ×3 (14:06→20:14)
--- NOTE | 2023-02-02 16:41 | DIET.PN1 ---
Dietary Progress Note Assessment: 62M s/p surgery for left femur fracture. Poor PO and reported low appetite continued. <50% REE for 2+ weeks. 7.3% weight loss. Mild muscle/fat mass losses (temporal, shoulder, interosseous). Reports h/o severe weight loss with initial sobriety. Ht: 208.28 cm Wt: 117.934 kg BMI: 27.1 Last BM: 01/29/23 (02/01/23 15:20) MNA: 11 Jonatan Score: 21 Diet: 01/31/23 Breakfast General (Regular) Diet Diet Modifications: Food Texture: Level 7 - Regular Liquid Consistency: Level 0 - Thin 02/01/23 Dinner General (Regular) Diet Diet Modifications: Food Texture: Level 7 - Regular Liquid Consistency: Level 0 - Thin Nutrition Percent Meal Consumed 0% 02/02/23 13:00 Labs: RBC 3.66 X10^6/uL (4.5-5.9) L 02/02/23 05:25 Hgb 11.6 g/dL (13.5-17.5) L 02/02/23 05:25 Hct 34.1 % (41-53) L 02/02/23 05:25 Creatinine 0.91 mg/dL (0.66-1.25) 01/31/23 06:41 Nutrition Diagnosis: Acute moderate protein calorie malnutrition r/t reduced appetite due to sobriety and anxiety per report aeb <50% REE for >2 weeks and mild physical signs of muscle/fat losses (temporal, shoulder, and interosseous). -The patient is at much higher risk for medical and surgical complications because of his malnutrition.? This increases the difficulty and complexity of medical and surgical interventions and increases the chances of poor outcomes such as morbidity and mortality. Interventions: ONS BID, reviewed importance of energy intake (especially protein) with weight loss and for healing. EER: [id number] (20-22kcal/kg per BMI) 130-140g PRO (1.1-1.2g/kg per moderate PCM) Monitoring/Evaluations: RD f/u 3-5 days Electronically Signed by: Cristina Wallace 02/02/23 16:41 Clinical Dietitian [address] [address]
[2023-02-02 16:45] VITALS: BP 118/76; PULSE 86; RESP 18; TEMP 36.9; O2SAT 98
[2023-02-02 20:03] VITALS: BP 116/77; PULSE 84; RESP 16; TEMP 36.2; O2SAT 97
[2023-02-02] MEDS: LITHIUM 150 MG IR CAPSULE 600 MG PO (20:16)
[2023-02-02] MEDS: TRAZODONE 50 MG TABLET 200 MG PO (20:16)
[2023-02-02] MEDS: ONDANSETRON 4 MG ODT PO (20:17)
[2023-02-02] MEDS: SENNOSIDES 8.6 MG TABLET 17.2 MG PO (20:17)
[2023-02-02] MEDS: PANTOPRAZOLE DR 40 MG TABLET PO (20:18)
[2023-02-02] MEDS: VENLAFAXINE ER 75 MG CAP 150 MG PO (20:26)
[2023-02-03] VITALS: BP 119/71; PULSE 90; RESP 16; TEMP 36.2; O2SAT 97
[2023-02-03] MEDS: ACETAMINOPHEN 325 MG TABLET 650 MG PO ×3 (00:18→14:07)
[2023-02-03] MEDS: OXYCODONE IR 10 MG TABLET PO ×2 (00:21→06:04)
[2023-02-03] MEDS: HYDROMORPHONE 1 MG INJ IV ×2 (01:31→12:03)
[2023-02-03 04:22] VITALS: BP 105/70; PULSE 81; RESP 16; TEMP 36.3; O2SAT 95
[2023-02-03] MEDS: KETOROLAC 30 MG/ML VIAL IV ×2 (06:03→14:07)
[2023-02-03 07:00] VITALS: BP 108/64; PULSE 85; RESP 16; TEMP 36.3; O2SAT 98
--- NOTE | 2023-02-03 08:47 | P.PN_ITS ---
Subjective Subjective Date Patient Seen: 02/03/23 Time Patient Seen: 08:47 Interval history: Patient seen in follow-up of fracture of left femur. And depression. Patient overall feeling well. Issue is all about pain control. Can barely get up yesterday. Required IV Dilaudid. Feeling slightly better today but without other changes. Emotionally feeling okay just bummed out about the fact that he fractured his leg while he was sober. No other changes. Exam Vital Signs (past 8 hours): - 02/03/23 04:22 Temperature 97.4 F L Pulse Rate 81 Respiratory Rate 16 Blood Pressure 105/70 Pulse Oximetry 95 Oxygen Flow Rate 0 Oxygen Delivery Method Nasal Cannula Oxygen Flow Rate 0 Narrative Exam Narrative: Alert male lying in bed in no acute distress lungs are clear heart is regular rate and rhythm much brighter than he has been for some time in the past. Objective Labs 02/02/23 05:25 01/31/23 06:41 [facility] Medical History Complicated grief Facet arthropathy, lumbar Lumbar foraminal stenosis Spondylolisthesis at L5-S1 level Surgical History H/O foot surgery Family History Family/Other No pertinent family history Social History household members: none Smoking Status: Current every day smoker alcohol intake: former Assessment & Plan Assessment & Plan narrative: Left femur fracture. Status post surgery day 2. Pain control not adequate. Although better with IV Dilaudid. We discussed with the patient that we are not going to eliminate his pain we just need to be modified enough to make him functional. He understands but certainly was not comfortable with getting up yesterday although PT yesterday afternoon was slightly better. Will go to oral Dilaudid today. With backup of IV Dilaudid if needed. And hope we can get pain controlled enough to get him mobilized as per orthopedist. Indwelling Chavez. Would like to pull but patient would prefer to have slightly better pain control. Will hold today but will need discontinued tomorrow. In thoughts of eventually being discharged. History of alcohol abuse. Sober for 2 weeks. No evidence or concern for withdrawal patient understands. Doing well. Support given. High risk for recurrence. Will have to give support. History of depression. Actually despite his recent fracture is doing pretty well. Will have to see. As per Dr. Kerns. Appreciate his input. I do not think we are going to make any changes at this time. Because he seems to be doing well. DVT prophylaxis on Lovenox will see what orthopedist recommendation will be for discharge home. GI prophylaxis not required at this time. Disposition. Patient would like to go home. I think there is going to be some difficulty with placement and rehab Center. Will see how we get pain controlled over the next 24-48 hours and at least get mobilize enough to do ADLs and if we can do that he can go home. My anticipation is Tuesday or Tuesday but will have to see what happens over the next 24 hours with pain control. Patient understands questions answered. 40 minutes spent with patient social service nursing dictation orders
[2023-02-03] MEDS: CYCLOBENZAPRINE 10 MG TABLET PO ×3 (09:11→20:58)
[2023-02-03] MEDS: HYDROMORPHONE 4 MG TABLET PO ×4 (09:11→22:14)
[2023-02-03] MEDS: polyethylene glycoL 3350 17 GM POWD.PACK PO (09:11)
[2023-02-03] MEDS: SENNOSIDES 8.6 MG TABLET 17.2 MG PO ×2 (09:11→20:58)
[2023-02-03] MEDS: DOCUSATE 100 MG CAPSULE PO ×2 (09:12→20:57)
[2023-02-03] MEDS: ASPIRIN EC 81 MG TABLET PO ×2 (09:12→20:57)
--- NOTE | 2023-02-03 09:16 | PT.IPTN ---
Current Diagnoses Bipolar II disorder (01/30/23) Anxiety disorder, unspecified (01/30/23) Essential (primary) hypertension (01/30/23) Spondylosis without myelopathy or radiculopathy, lumbar region (01/30/23) Fracture of unspecified part of neck of left femur, initial encounter for closed fracture (01/30/23) Displaced subtrochanteric fracture of unspecified femur, initial encounter for closed fracture (01/30/23) Other mcfp (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 therapy (01/30/23) Surgery Performed Operation Date: 02/01/23 16:45 Actual Procedures p hip intertroch, subtroch fracture(Left) - Earline Fleming MD Physical Therapy Treatment Note M2 PT-IP Current Condition Start: 02/02/23 14:46 Freq: NEEDED Status: Active Protocol: Document 02/02/23 13:35 AB (Rec: 02/02/23 15:02 AB [id number]) Physical Therapy Current Condition Current Condition Evaluation Date 02/02/23 Treatment Diagnosis s/p L hip ORIF; difficulty in walking Onset Date 01/30/23 M3 PT-IP Subjective Start: 02/02/23 14:46 Freq: NEEDED Status: Active Protocol: Document 02/03/23 09:35 ZF (Rec: 02/03/23 09:49 ZF [id number]) Subjective Physical Therapy Visit Type Type Treatment Note Visit Start Time 09:16 Visit Stop Time 09:35 Total Visit Minutes 19 Number of OLIVE PITTER Visits 1 Physical Therapy Visit Comments Patient Comments Nursing requests PT to assist with commode transfer, as pt requesting to use commode. Therapy Pain Assessment Pain When Pain Assessed During Mobility Pain Present Pain Present Pain Reported Location Left Hip Pain Behaviors Facial Grimacing,Guarding, Holding Area Pain Management Techniques Distraction,Modification of Treatment,Re-positioning, Timing of Activity with Medications M4 PT-IP Mobility and Gait Start: 02/02/23 14:46 Freq: NEEDED Status: Active Protocol: Document 02/03/23 09:35 ZF (Rec: 02/03/23 09:49 ZF [id number]) PT-Bed Mobility Assessment Supine to Sit Supine to Sit Moderate Assistance,1 Person Assistance,Head of Bed Elevated,Bedrails Sit to Supine Sit to Supine Moderate Assistance,Maximum Assistance,Bedrails PT-Transfer Assessment Sit to and From Stand Sit to and from Stand Moderate Assistance,2 Person Assistance,Use of Upper Extremities Equipment Transfer Assistive Device Gait Belt,Front Wheeled Walker Orthotic/Prosthetic Devices or Brace: No Transfers Transfer Destination Bedside Commode Transfer Technique Stand Step Pivot Transfer Ability Level of Assist Moderate Assistance,2 Person Assistance Comments Mobility Comments Pt Requires ModA and Max cueing for getting supine> Sitting EOB. Pt requires extended time to scoot to EOB. Verbal cues for set up and sequencing of transfer. STS from raised EOB requires ModAx2. PT ensuring partial WB L LE. Stand pivot Transfer requires ModAx2. Cueing for extending L LE before sit. MinAx2 required for safe sit on commode. Pt requests privacy, and transfers himself back to bed before PT returns to room. Pt educated on importance of waiting for assist for safety. Pt verbally understood. Pt declines further therapy at this time. Requests lying back down. Pt requires ModA for L LE management. PT-Balance Assessment Sitting Balance and Reactions Static Sitting Balance Ability Fair Dynamic Sitting Balance Ability Poor Standing Balance and Reactions Static Standing Balance Ability Poor Dynamic Standing Balance Ability Poor Device Used FWW M5 PT-IP Objective Assessments Start: 02/02/23 14:46 Freq: NEEDED Status: Active Protocol: Document 02/02/23 13:35 AB (Rec: 02/02/23 15:02 AB [id number]) Orientation Orientation/Cognition Level of Alertness Alert Orientation Name,Place,Situation Safety Awareness Decreased Safety Awareness Memory Description No Deficits Noted Gross Range of Motion Lower Extremity ROM Impairments pt with increase LLE guading inihibiting ROM Strength Lower Extremity Strength Assessment Left Impaired Hip 2+/5 Knee 3+/5 Muscle Tone Muscle Tone WNL Yes M6 PT-IP Treatment Start: 02/02/23 14:46 Freq: NEEDED Status: Active Protocol: Document 02/03/23 09:35 ZF (Rec: 02/03/23 09:49 ZF [id number]) Physical Therapy Treatment Education Education Provided Precautions,Weight Bearing Status,Safety M7 PT-IP Assessment and Plan Start: 02/02/23 14:46 Freq: NEEDED Status: Active Protocol: Document 02/03/23 09:35 ZF (Rec: 02/03/23 09:49 ZF [id number]) PT Summary Assessment and Plan Potential Rehabilitation Potential Fair Summary Impairments Pain,ROM,Strength,Balance, Coordination,Sensation,Tone, Cognition,Bed Mobility, Transfers,Gait,Activity Tolerance Assessment Summary Pt motivated for PT to get to commode. Pt requires ModAx2 for STS and transfer to commode. Pt is fearful and dems pain behaviors throughout transfer. Recommending SNF at this time. Goals Bed Mobility Goal Minimal Assistance Transfer Goal Minimal Assistance,Front Wheeled Walker Gait Goal Minimal Assistance,Front Wheel Walker Gait Distance 25 Other Goals improve bed mobility, transfers and ambulation using FWW SBA ~ 50 ft. Days to Meet Goals 10 Frequency of Treatment Frequency Of Treatment Twice a Day Treatment Plan Physical Therapy Treatment Plan Bed Mobility Training,Transfer Training,Gait Training, Therapeutic Exercise,Balance Retraining,Post Op Education, Discharge Planning,Hot or Cold Pack,Neuromuscular Re-ed, Coordination Retraining,Manual Therapy Weight Bearing Status Weight Bearing Status Partial Weight Bearing Allowed Weight Bearing Amount (enter % PWB LLE or #) (%) Recommendations To Nursing Amount of Assist Needed Mechanical Lift Discharge Recommendations PT Discharge Recommendations SNF Rehab Transportation Needs at Discharge Wheelchair/Cabulance,Stretcher /Ambulance
--- NOTE | 2023-02-03 10:11 | PM.PNPO.1 ---
Subjective Subjective Date Patient Seen: 02/03/23 Time Patient Seen: 07:15 Interval history: Blade is a 62 year old male who is POD #2 s/p ORIF with intermedullary nail of the left femur for a comminuted left femur fracture subtroch intertroch variant. At this time he reports 7/10 pain, and inability to ambulate on his own. Reports that when PT worked with him yesterday he was only able to stand with a walker for a few seconds before sitting back down again d/t pain. Still on IV hydromorphone and PO Oxycodone for pain control. Plans to return home after hospital discharge, says his mom is there and can help provide some assistance as well as his friend who is willing to provide assistance via meals/shopping. He does have steps up to his home, 10 steps to the front door and 3 steps to the backdoor. Has walker, crutches and wheelchair at home. Still has urinary catheter in place, has not had a BM still. Has not had PT yet today. Denies fever, chills, nausea, vomiting, chest pain, SOB. Exam Vital Signs (past 8 hours): - 02/03/23 04:22 Temperature 97.4 F L Pulse Rate 81 Respiratory Rate 16 Blood Pressure 105/70 Pulse Oximetry 95 Oxygen Flow Rate 0 Oxygen Delivery Method Nasal Cannula Oxygen Flow Rate 0 Const Orientation: alert and oriented x3 Resp Effort & Inspection: normal respiratory effort and able to speak in complete sentences Cardio Rate: regular rate Other: extremities appear well perfused. Neuro Other: Sensation intact to BL lower extremities. Extrem Other: 5/5 strength with dorsi and plantar flexion. Mild left knee effusion, no erythema. Unable to flex knee without pain during todays exam. Calves are soft and non-tender to palpation. Two clean and dry dressings on the lateral left thigh, proximal dressing with scant dried blood. Objective Labs 02/02/23 05:25 02/03/23 12:05 [facility] Medical History Complicated grief Facet arthropathy, lumbar Lumbar foraminal stenosis Spondylolisthesis at L5-S1 level Surgical History H/O foot surgery Family History Family/Other No pertinent family history Social History household members: none Smoking Status: Current every day smoker alcohol intake: former Assessment & Plan Post-op Postoperative Procedures: Procedures Operation Date: 02/01/23 16:45 Actual Procedure Side Surgeon p hip intertroch, subtroch fracture Left Earline Carey Fleming MD Postoperative day: 2 Postoperative plan narrative: Remove urinary catheter today. Continue to work on safe partial weight bearing ambulation, will await PT evaluation prior to discharge. Follow-up [facility] orthopedics in about 2 weeks with new x-rays AP and lateral left femur and an AP pelvis.
--- NOTE | 2023-02-03 10:38 | PM.PNPO.1 ---
Exam Vital Signs (past 8 hours): - 02/03/23 04:22 Temperature 97.4 F L Pulse Rate 81 Respiratory Rate 16 Blood Pressure 105/70 Pulse Oximetry 95 Oxygen Flow Rate 0 Oxygen Delivery Method Nasal Cannula Oxygen Flow Rate 0 Objective Labs 02/02/23 05:25 01/31/23 06:41 [facility] [place] Medical History Complicated grief Facet arthropathy, lumbar Lumbar foraminal stenosis Spondylolisthesis at L5-S1 level Surgical History H/O foot surgery Family History Family/Other No pertinent family history Social History household members: none Smoking Status: Current every day smoker alcohol intake: former Assessment & Plan Post-op Postoperative Procedures: Procedures Operation Date: 02/01/23 16:45 Actual Procedure Side Surgeon p hip intertroch, subtroch fracture Left Earline Fleming MD
[2023-02-03 12:49] LABS: Estimated Glomerular Filt Rate > 60 mL/min (>60)
--- NOTE | 2023-02-03 14:40 | PT.IPTN ---
Current Diagnoses Bipolar II disorder (01/30/23) Anxiety disorder, unspecified (01/30/23) Essential (primary) hypertension (01/30/23) Spondylosis without myelopathy or radiculopathy, lumbar region (01/30/23) Fracture of unspecified part of neck of left femur, initial encounter for closed fracture (01/30/23) Displaced subtrochanteric fracture of unspecified femur, initial encounter for closed fracture (01/30/23) Other half-way (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 therapy (01/30/23) Surgery Performed Operation Date: 02/01/23 16:45 Actual Procedures p hip intertroch, subtroch fracture(Left) - Earline Fleming MD Physical Therapy Treatment Note M2 PT-IP Current Condition Start: 02/02/23 14:46 Freq: NEEDED Status: Active Protocol: Document 02/02/23 13:35 AB (Rec: 02/02/23 15:02 AB [id number]) Physical Therapy Current Condition Current Condition Evaluation Date 02/02/23 Treatment Diagnosis s/p L hip ORIF; difficulty in walking Onset Date 01/30/23 M3 PT-IP Subjective Start: 02/02/23 14:46 Freq: NEEDED Status: Active Protocol: Document 02/03/23 15:08 ZF (Rec: 02/03/23 15:22 ZF [id number]) Subjective Physical Therapy Visit Type Type Treatment Note Visit Start Time 14:40 Visit Stop Time 15:06 Total Visit Minutes 26 Number of VOICE OVER ARTIST Visits 2 Physical Therapy Visit Comments Patient Comments Pt in long sitting position in bed when approached for therapy. Confirmed with nursing that pain meds were given 30mns prior. Therapy Pain Assessment Pain When Pain Assessed During Mobility Pain Present Pain Present Pain Reported Location Left Hip Intensity 8 Scale Used Numeric (0 - 10) Pain Behaviors Facial Grimacing,Guarding, Holding Area Pain Management Techniques Distraction,Modification of Treatment,Re-positioning, Timing of Activity with Medications M4 PT-IP Mobility and Gait Start: 02/02/23 14:46 Freq: NEEDED Status: Active Protocol: Document 02/03/23 15:08 ZF (Rec: 02/03/23 15:22 ZF [id number]) PT-Bed Mobility Assessment Supine to Sit Supine to Sit Minimal Assistance,1 Person Assistance,Head of Bed Elevated,Bedrails Sit to Supine Sit to Supine Minimal Assistance,Bedrails PT-Transfer Assessment Sit to and From Stand Sit to and from Stand Maximum Assistance,1 Person Assistance,Use of Upper Extremities Equipment Transfer Assistive Device Gait Belt,Front Wheeled Walker Orthotic/Prosthetic Devices or Brace: No Comments Mobility Comments Supine LE AROM to prepare for functional mobility training, to include ankle pumpks, heel slides. Supine>sitting EOB requires Raf for L LE management. STS from EOB requires MaxA. Pt tolerates ~ 2mins of Standing, w/CGA. Dems good adherance to partial WB precaution. Attempted step forward. Pt cued to advance L LE first, which he does, but pt unable to bring R LE forward. Pt is fearful w/ mobility training, reports high level of pain. Reports that he can't do it and requests sitting back down. Pt declines further attempts at standing and lies back down, w /Raf for LE management. Gait Assessment Comments Gait Comments Unable PT-Balance Assessment Sitting Balance and Reactions Static Sitting Balance Ability Good Dynamic Sitting Balance Ability Fair Standing Balance and Reactions Static Standing Balance Ability Poor Dynamic Standing Balance Ability Poor Device Used FWW M5 PT-IP Objective Assessments Start: 02/02/23 14:46 Freq: NEEDED Status: Active Protocol: Document 02/02/23 13:35 AB (Rec: 02/02/23 15:02 AB [id number]) Orientation Orientation/Cognition Level of Alertness Alert Orientation Name,Place,Situation Safety Awareness Decreased Safety Awareness Memory Description No Deficits Noted Gross Range of Motion Lower Extremity ROM Impairments pt with increase LLE guading inihibiting ROM Strength Lower Extremity Strength Assessment Left Impaired Hip 2+/5 Knee 3+/5 Muscle Tone Muscle Tone WNL Yes M6 PT-IP Treatment Start: 02/02/23 14:46 Freq: NEEDED Status: Active Protocol: Document 02/03/23 15:08 ZF (Rec: 02/03/23 15:22 ZF [id number]) Physical Therapy Treatment Education Education Provided Precautions,Weight Bearing Status,Safety M7 PT-IP Assessment and Plan Start: 02/02/23 14:46 Freq: NEEDED Status: Active Protocol: Document 02/03/23 15:08 ZF (Rec: 02/03/23 15:22 ZF [id number]) PT Summary Assessment and Plan Potential Rehabilitation Potential Fair Summary Impairments Pain,ROM,Strength,Balance, Coordination,Sensation,Tone, Cognition,Bed Mobility, Transfers,Gait,Activity Tolerance Assessment Summary Pt activity limited by high level of pain and fear of falling. Pt requires Raf for LE management w/bed mobility. STS requires MaxA. Pt unable to take steps today. Pt reports that he has x5 steps a landing and then a few more steps to get into his home. Pt reports that he has friends to help with grocery shopping, but assist will be limited at home. Recommending SNF at this time vs Home with assist. Goals Bed Mobility Goal Minimal Assistance Transfer Goal Minimal Assistance,Front Wheeled Walker Gait Goal Minimal Assistance,Front Wheel Walker Gait Distance 25 Other Goals improve bed mobility, transfers and ambulation using FWW SBA ~ 50 ft. Days to Meet Goals 10 Frequency of Treatment Frequency Of Treatment Twice a Day Treatment Plan Physical Therapy Treatment Plan Bed Mobility Training,Transfer Training,Gait Training, Therapeutic Exercise,Balance Retraining,Post Op Education, Discharge Planning,Hot or Cold Pack,Neuromuscular Re-ed, Coordination Retraining,Manual Therapy Weight Bearing Status Weight Bearing Status Partial Weight Bearing Allowed Weight Bearing Amount (enter % PWB LLE or #) (%) Recommendations To Nursing Amount of Assist Needed 2 Person Assist Discharge Recommendations PT Discharge Recommendations Home with Assistance,SNF Rehab Transportation Needs at Discharge Wheelchair/Cabulance,Stretcher /Ambulance
--- NOTE | 2023-02-03 14:51 | CM.DPNOTE ---
Addendum entered by SHASHI Borrego 02/03/23 14:54: ADD: Patient and family prefer [facility] and request that an [employer] be added to services for resource development- ie info/coordination about short term disability benefits, transition to Medicaid from [place] etc. Patient has been and will be out of work. Marga Faustin at [facility] plans to do a check-in call with patient Tuesday once home. Otherwise, patient is scheduled Feb 28 for an in-person counseling visit. DAYAMI Original Note: DCP Cont PT recommending SNF at this time. Dr Jiang anticipates patient will be here until the end of the week and will likely go home this weekend with services, family to assist. CM team following closely, will plan to meet w/patient at bedside tomorrow to review DCP. DAYAMI
[2023-02-03 17:00] VITALS: BP 104/58; PULSE 80; RESP 16; TEMP 36.6; O2SAT 97
[2023-02-03 20:00] VITALS: BP 121/66; PULSE 74; RESP 18; TEMP 36.4; O2SAT 94
[2023-02-03] MEDS: TRAZODONE 50 MG TABLET 200 MG PO (20:58)
[2023-02-03] MEDS: VENLAFAXINE ER 75 MG CAP 150 MG PO (20:58)
[2023-02-03] MEDS: LITHIUM 150 MG IR CAPSULE 600 MG PO (20:58)
[2023-02-03] MEDS: PANTOPRAZOLE DR 40 MG TABLET PO (20:58)
[2023-02-03] MEDS: QUETIAPINE 100 MG TABLET 200 MG PO (20:59)
[2023-02-04] MEDS: HYDROMORPHONE 1 MG INJ IV (01:02)
[2023-02-04] MEDS: HYDROMORPHONE 4 MG TABLET PO ×5 (04:11→21:18)
--- NOTE | 2023-02-04 07:24 | P.PN_ITS ---
Subjective Subjective Date Patient Seen: 02/04/23 Time Patient Seen: 07:24 Interval history: Pt found sleeping. Easily aroused. He has pain along wound site along the hip and knee. He says his pain is finally being controled with medications. He has been working with PT. Denies any numbness or tingling down left leg Nurse states cath was removed yesterday and the patient is having difficulty with PT yesterday. Exam Vital Signs (past 8 hours): Oxygen Delivery Method Nasal Cannula Oxygen Flow Rate 0 Narrative Exam Narrative: Aquaseal maintained and tegaderm maintained. No pain to compression of posterior calf or thigh. Able to dorsiflex and plantar flex against resistance at the ankle. Edema noted through anterior compartment of the thigh. Chest Chest: normal inspection of the chest and normal palpation of entire chest wall Objective Labs 02/02/23 05:25 02/03/23 12:05 Labs: Laboratory Results - last 24 hr 02/03/23 12:05 Creatinine 0.98 Estimated GFR > 60 PFSH Medical History Complicated grief Facet arthropathy, lumbar Lumbar foraminal stenosis Spondylolisthesis at L5-S1 level Surgical History H/O foot surgery Family History Family/Other No pertinent family history Social History household members: none Smoking Status: Current every day smoker alcohol intake: former Assessment & Plan Post-op Postoperative Procedures: Procedures Operation Date: 02/01/23 16:45 Actual Procedure Side Surgeon p hip intertroch, subtroch fracture Left Earline Fleming MD Postoperative day: 3 Postoperative status: doing well Postoperative plan: routine post-op care Postoperative plan narrative: Continue with multimodal pain control. Continue to work on safe partial weight bearing ambulation, will await PT evaluation prior to discharge. Follow-up [facility] orthopedics in about 2 weeks with new x-rays AP and lateral left femur and an AP pelvis. Time Spent With Patient Time with patient: less than 15 minutes
--- NOTE | 2023-02-04 08:27 | P.PN_ITS ---
Subjective Subjective Date Patient Seen: 02/04/23 Time Patient Seen: 08:28 Interval history: Patient got Chavez out yesterday seems to be urinating well. He is still struggling with pain control. He is not having any chest pain or shortness of breath. He is not very hungry. He did not sleep at all last night. No GI symptoms No fever 12 point review of systems otherwise negative Exam Vital Signs (past 8 hours): Oxygen Delivery Method Nasal Cannula Oxygen Flow Rate 0 Narrative Exam Narrative: Afebrile vital signs are stable HEENT unremarkable Neck: Supple Chest: Clear to auscultation Cor: Regular rate and rhythm without a murmur Abdomen: Positive bowel sounds, soft, nontender Extremities: Warm, pulses intact, no significant edema Neurologic exam nonfocal Objective Labs 02/02/23 05:25 02/03/23 12:05 Labs: Laboratory Results - last 24 hr 02/03/23 12:05 Creatinine 0.98 Estimated GFR > 60 PFSH Medical History Complicated grief Facet arthropathy, lumbar Lumbar foraminal stenosis Spondylolisthesis at L5-S1 level Surgical History H/O foot surgery Family History Family/Other No pertinent family history Social History household members: none Smoking Status: Current every day smoker alcohol intake: former Assessment & Plan Assessment & Plan narrative: 62-year-old male who is seen [facility]. Jiang. This is my 1st time seeing patient. Reviewed hospitalization and op notes and discussed with ortho. Left femur fracture. Status post surgery day 3. Pain control not adequate. Although better with IV Dilaudid. We discussed with the patient that we are not going to eliminate his pain we just need to be modified enough to make him functional. He understands but certainly was not comfortable with getting up yesterday although PT yesterday afternoon was slightly better. Will go to oral Dilaudid today. With backup of IV Dilaudid if needed. And hope we can get pain controlled enough to get him mobilized as per orthopedist. Patient's surgery went excellent. He has a Chavez catheter out is urinating well without difficulty. Due to mobility issues and control with pain patient will likely be discharged to home on Tuesday. Patient lives with his frail, elderly mother and so does not have a lot of support. Indwelling Chavez. Removed yesterday and patient is urinating fine History of alcohol abuse. Sober for 2 weeks. No evidence or concern for withdrawal patient understands. Doing well. Support given. High risk for recurrence. Will have to give support. Reviewed counseling appointment with Leah Faustin History of depression. Actually despite his recent fracture is doing pretty well. Will have to see. As per Dr. Kerns. Appreciate his input. I do not think we are going to make any changes at this time. Because he seems to be doing well. DVT prophylaxis on Lovenox will see what orthopedist recommendation will be for discharge home. GI prophylaxis not required at this time. Disposition. Patient would like to go home. I think there is going to be some difficulty with placement and rehab Center. Will see how we get pain controlled over the next 24-48 hours and at least get mobilize enough to do ADLs and if we can do that he can go home. Patient doing well with Chavez catheter out. Anticipate discharge to home on Tuesday if he continues to make progress. 56 minutes spent with patient and discussing with physicians, nursing, reviewing chart, meeting with patient, formulating a plan and documentation.
[2023-02-04] MEDS: SENNOSIDES 8.6 MG TABLET 17.2 MG PO ×2 (08:48→20:32)
[2023-02-04] MEDS: CYCLOBENZAPRINE 10 MG TABLET PO ×3 (08:48→20:32)
[2023-02-04] MEDS: ASPIRIN EC 81 MG TABLET PO ×2 (08:48→20:31)
[2023-02-04] MEDS: polyethylene glycoL 3350 17 GM POWD.PACK PO (08:48)
[2023-02-04] MEDS: DOCUSATE 100 MG CAPSULE PO ×2 (08:48→20:32)
[2023-02-04] MEDS: ACETAMINOPHEN 325 MG TABLET 650 MG PO ×2 (08:48→17:44)
--- NOTE | 2023-02-04 10:22 | PT-IP ANOTE ---
Pt refused to work with PT this morning, states he is exhausted and would like to get some sleep. Therapist informed pt he will be back in the afternoon and recommended he participate.
[2023-02-04 13:32] VITALS: BP 134/85; PULSE 91; RESP 16; TEMP 37; O2SAT 99
--- NOTE | 2023-02-04 14:00 | PT.IPTN ---
Current Diagnoses Bipolar II disorder (01/30/23) Anxiety disorder, unspecified (01/30/23) Essential (primary) hypertension (01/30/23) Spondylosis without myelopathy or radiculopathy, lumbar region (01/30/23) Fracture of unspecified part of neck of left femur, initial encounter for closed fracture (01/30/23) Displaced subtrochanteric fracture of unspecified femur, initial encounter for closed fracture (01/30/23) Other nursing home (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 therapy (01/30/23) Surgery Performed Operation Date: 02/01/23 16:45 Actual Procedures p hip intertroch, subtroch fracture(Left) - Earline Fleming MD Physical Therapy Treatment Note M2 PT-IP Current Condition Start: 02/02/23 14:46 Freq: NEEDED Status: Active Protocol: Document 02/02/23 13:35 AB (Rec: 02/02/23 15:02 AB [id number]) Physical Therapy Current Condition Current Condition Evaluation Date 02/02/23 Treatment Diagnosis s/p L hip ORIF; difficulty in walking Onset Date 01/30/23 M3 PT-IP Subjective Start: 02/02/23 14:46 Freq: NEEDED Status: Active Protocol: Document 02/04/23 14:46 TS (Rec: 02/04/23 15:00 TS [id number]) Subjective Physical Therapy Visit Type Type Treatment Note Visit Start Time 14:00 Visit Stop Time 14:31 Total Visit Minutes 31 Number of OPTICAL GLASS INSPECTOR Visits 3 Physical Therapy Visit Comments Patient Comments Pt found resting in bed, reports high pain and gives recent history on his life. Pt is agreeable to PT. Therapy Pain Assessment Pain When Pain Assessed During Mobility Pain Present Pain Present Pain Reported M4 PT-IP Mobility and Gait Start: 02/02/23 14:46 Freq: NEEDED Status: Active Protocol: Document 02/04/23 14:46 TS (Rec: 02/04/23 15:00 TS [id number]) PT-Bed Mobility Assessment Supine to Sit Supine to Sit Minimal Assistance,1 Person Assistance,Head of Bed Elevated,Bedrails Sit to Supine Sit to Supine Moderate Assistance,Bedrails PT-Transfer Assessment Sit to and From Stand Sit to and from Stand Maximum Assistance,1 Person Assistance,Use of Upper Extremities Equipment Transfer Assistive Device Gait Belt,Front Wheeled Walker Orthotic/Prosthetic Devices or Brace: No Comments Mobility Comments Pt was educated on PWB status on LLE before mobility. Supine to sit Raf for LLE and use of gait belt strap, pt required extra time to complete and with some difficulty. He performed sit to stand from bed MaxA with use of FWW. In standing pt performed weight shifts from L to R with cues for PWB on LLE . Pt attempted to take steps forward but was not comfortable performing. Sit to supine into bed ModA for LLE inot bed, pt scooted to HOB SBA. Pt was left in bed all needs met, RN notified. Gait Assessment Comments Gait Comments Unable PT-Balance Assessment Sitting Balance and Reactions Static Sitting Balance Ability Good Dynamic Sitting Balance Ability Fair Standing Balance and Reactions Static Standing Balance Ability Poor Dynamic Standing Balance Ability Poor Device Used FWW M5 PT-IP Objective Assessments Start: 02/02/23 14:46 Freq: NEEDED Status: Active Protocol: Document 02/02/23 13:35 AB (Rec: 02/02/23 15:02 AB [id number]) Orientation Orientation/Cognition Level of Alertness Alert Orientation Name,Place,Situation Safety Awareness Decreased Safety Awareness Memory Description No Deficits Noted Gross Range of Motion Lower Extremity ROM Impairments pt with increase LLE guading inihibiting ROM Strength Lower Extremity Strength Assessment Left Impaired Hip 2+/5 Knee 3+/5 Muscle Tone Muscle Tone WNL Yes M6 PT-IP Treatment Start: 02/02/23 14:46 Freq: NEEDED Status: Active Protocol: Document 02/04/23 14:46 TS (Rec: 02/04/23 15:00 TS [id number]) Physical Therapy Treatment Education Education Provided Precautions,Weight Bearing Status,Safety M7 PT-IP Assessment and Plan Start: 02/02/23 14:46 Freq: NEEDED Status: Active Protocol: Document 02/04/23 14:46 TS (Rec: 02/04/23 15:00 TS [id number]) PT Summary Assessment and Plan Potential Rehabilitation Potential Fair Summary Impairments Pain,ROM,Strength,Balance, Coordination,Sensation,Tone, Cognition,Bed Mobility, Transfers,Gait,Activity Tolerance Progress Towards Goals Slow Progress due to Pain,Slow Progress due to Medical Issues Assessment Summary Blade continues to make slow progress with his mobility. He requires Raf-ModA for bed mobility with assistance for LLE. Pt does do better with strap placed around L foot for assistance. Sit to stand from bed MaxA with use of FWW, pt is unsteady coming into standing and requires cues for PWB on LLE. Pt attempted to perform transfer to chair but did not feel comfortable doing so due to pain and unsteadiness. PT at this time is recommending SNF. If pt was to go home would require 24/7 assist available with HHPT. Goals Bed Mobility Goal Minimal Assistance Transfer Goal Minimal Assistance,Front Wheeled Walker Gait Goal Minimal Assistance,Front Wheel Walker Gait Distance 25 Other Goals improve bed mobility, transfers and ambulation using FWW SBA ~ 50 ft. Days to Meet Goals 10 Frequency of Treatment Frequency Of Treatment Twice a Day Treatment Plan Physical Therapy Treatment Plan Bed Mobility Training,Transfer Training,Gait Training, Therapeutic Exercise,Balance Retraining,Post Op Education, Discharge Planning,Hot or Cold Pack,Neuromuscular Re-ed, Coordination Retraining,Manual Therapy Weight Bearing Status Weight Bearing Status Partial Weight Bearing Allowed Weight Bearing Amount (enter % PWB LLE or #) (%) Recommendations To Nursing Amount of Assist Needed 2 Person Assist Discharge Recommendations PT Discharge Recommendations Home with 24/7 Assist Available,Home Health,SNF Rehab Transportation Needs at Discharge Wheelchair/Cabulance,Stretcher /Ambulance
--- NOTE | 2023-02-04 15:48 | CM.DPNOTE ---
DCP Cont Initially, CM team planning for patient's return home w/family, HH and outpatient psychiatric and [facility] follow up. Therapies unsure this is a realistic plan as of today and recommending SNF referrals, patient agreeable to this. SEBAS Mcguire, kindly agreed to send referrals to [facility], [facility], [facility] and [facility]. Plan: Patient will likely end up returning home w/HH and outpatient follow up. Although if a SNF is able to be secured, patient has been deemed a good rehab candidate. [facility] will need to reflect hx of [facility]ERSON/MH illness. CM team following closely. Need to review dispo options and planning with patient soon. DAYAMI
[2023-02-04 20:00] VITALS: BP 137/78; PULSE 87; RESP 19; TEMP 37.2; O2SAT 98
[2023-02-04] MEDS: TRAZODONE 50 MG TABLET 200 MG PO (20:32)
[2023-02-04] MEDS: PANTOPRAZOLE DR 40 MG TABLET PO (20:32)
[2023-02-04] MEDS: LITHIUM 150 MG IR CAPSULE 600 MG PO (20:32)
[2023-02-04] MEDS: VENLAFAXINE ER 75 MG CAP 150 MG PO (20:33)
[2023-02-04] MEDS: QUETIAPINE 100 MG TABLET 400 MG PO (21:15)
[2023-02-05] VITALS: BP 101/55; PULSE 102; RESP 19; TEMP 36.6; O2SAT 97
[2023-02-05] MEDS: HYDROMORPHONE 1 MG INJ IV ×3 (00:03→20:32)
[2023-02-05] MEDS: HYDROMORPHONE 4 MG TABLET PO ×6 (01:19→21:22)
[2023-02-05 05:45] LABS: Estimated Glomerular Filt Rate > 60 mL/min (>60)
[2023-02-05 06:00] VITALS: BP 135/73; PULSE 91; RESP 20; TEMP 36.4; O2SAT 98
[2023-02-05] MEDS: SENNOSIDES 8.6 MG TABLET 17.2 MG PO ×2 (09:36→20:36)
[2023-02-05] MEDS: ASPIRIN EC 81 MG TABLET PO ×2 (09:36→20:36)
[2023-02-05] MEDS: CYCLOBENZAPRINE 10 MG TABLET PO ×3 (09:38→20:37)
--- NOTE | 2023-02-05 09:39 | PM.PNPO.1 ---
Subjective Subjective Date Patient Seen: 02/05/23 Time Patient Seen: 09:39 Interval history: Patient states his pain is moderate. Denies fever or chills. No nausea or vomiting. Exam Vital Signs (past 8 hours): - 02/05/23 06:00 Temperature 97.6 F Pulse Rate 91 H Respiratory Rate 20 Blood Pressure 135/73 Pulse Oximetry 98 Oxygen Delivery Method Nasal Cannula Oxygen Flow Rate 0 Narrative Exam Narrative: 62-year-old male sitting up in bed in no apparent distress. Dressing is saturated. Dressing is removed and there is no active drainage. He has some mild swelling about the left hip. The drainage in the dressing was serosanguineous. There is no ecchymosis about the left hip. The lower dressing is clean, dry and intact. New dressing applied. Motor functions intact distal left lower extremity. Sensation grossly intact to light touch. Const General: cooperative and comfortable Nutritional Appearance: average body habitus Resp Effort & Inspection: normal respiratory effort and able to speak in complete sentences Objective Labs 02/02/23 05:25 02/05/23 05:10 Labs: Laboratory Results - last 24 hr 02/05/23 05:10 Creatinine 0.78 Estimated GFR > 60 [facility] Medical History Complicated grief Facet arthropathy, lumbar Lumbar foraminal stenosis Spondylolisthesis at L5-S1 level Surgical History H/O foot surgery Family History Family/Other No pertinent family history Social History household members: none Smoking Status: Current every day smoker alcohol intake: former Assessment & Plan Post-op Postoperative Procedures: Procedures Operation Date: 02/01/23 16:45 Actual Procedure Side Surgeon p hip intertroch, subtroch fracture Left Earline Fleming MD Postoperative status narrative: Stable status post intramedullary nailing left femur fracture subtroch/intertrochanteric variant February 01, 2023 Postoperative plan narrative: Partial weight-bearing left lower extremity. Follow up outpatient Orthopedics in 2 weeks with new x-rays AP and lateral left femur and AP pelvis Patient has been slow to progress due to pain and difficulty with partial weight-bearing left lower extremity Discharge per Internal Medicine when stable.
[2023-02-05] MEDS: DOCUSATE 100 MG CAPSULE PO ×2 (09:41→20:37)
[2023-02-05] MEDS: polyethylene glycoL 3350 17 GM POWD.PACK PO (09:41)
--- NOTE | 2023-02-05 10:10 | PT.IPTN ---
Current Diagnoses Bipolar II disorder (01/30/23) Anxiety disorder, unspecified (01/30/23) Essential (primary) hypertension (01/30/23) Spondylosis without myelopathy or radiculopathy, lumbar region (01/30/23) Fracture of unspecified part of neck of left femur, initial encounter for closed fracture (01/30/23) Displaced subtrochanteric fracture of unspecified femur, initial encounter for closed fracture (01/30/23) Other senior living (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 therapy (01/30/23) Surgery Performed Operation Date: 02/01/23 16:45 Actual Procedures p hip intertroch, subtroch fracture(Left) - Earline Fleming MD Physical Therapy Treatment Note M2 PT-IP Current Condition Start: 02/02/23 14:46 Freq: NEEDED Status: Active Protocol: Document 02/02/23 13:35 AB (Rec: 02/02/23 15:02 AB [id number]) Physical Therapy Current Condition Current Condition Evaluation Date 02/02/23 Treatment Diagnosis s/p L hip ORIF; difficulty in walking Onset Date 01/30/23 M3 PT-IP Subjective Start: 02/02/23 14:46 Freq: NEEDED Status: Active Protocol: Document 02/05/23 10:49 TS (Rec: 02/05/23 11:02 TS [id number]) Subjective Physical Therapy Visit Type Type Treatment Note Visit Start Time 10:10 Visit Stop Time 10:26 Total Visit Minutes 16 Notes Pt informed therapist of having steps at home to get into house. Pt has 5 steps then a landing and then another 5 steps with B handrails but can only reach one at the top of the stairs. Number of GLEASON GEAR GENERATOR Visits 4 Physical Therapy Visit Comments Patient Comments Pt found resting in bed, is agreeable to try to go to rehab, pt agreeable to PT. Therapy Pain Assessment Pain When Pain Assessed During Mobility Pain Present Pain Present Pain Reported M4 PT-IP Mobility and Gait Start: 02/02/23 14:46 Freq: NEEDED Status: Active Protocol: Document 02/05/23 10:49 TS (Rec: 02/05/23 11:02 TS [id number]) PT-Bed Mobility Assessment Supine to Sit Supine to Sit Minimal Assistance,1 Person Assistance,Head of Bed Elevated,Bedrails Sit to Supine Sit to Supine Moderate Assistance,Bedrails PT-Transfer Assessment Sit to and From Stand Sit to and from Stand Moderate Assistance,1 Person Assistance,Use of Upper Extremities Equipment Transfer Assistive Device Gait Belt,Front Wheeled Walker Orthotic/Prosthetic Devices or Brace: No Comments Mobility Comments Pt educated on PWB status prior to mobility. Pt required assitance for strap around L foot and Raf for moving LLE to EOB. Sit to stand from bed ModA with use of FWW and heavy support from UEs on FWW. Pt intially wanted to use commode but requested to try and walk . He ambulated ~6' CGA/Raf with use of FWW. Pt has a very slow antalgic gait with heavy use of UEs on FWW. Stand to sit onto bed MaxA for slow eccentric control, pt was impulsive to sit before it was safe to do so. Sit to supine ModA for LLE into bed. Pt was left in bed with all needs met . Gait Assessment Gait Gait Assistance Required: Contact Guard Assist,Minimum Assistance,1 Person Assist Distance (Feet) 6 Able to Maintain Weight Bearing Status Yes During Gait Assistive Devices Assistive Device Gait Belt,Front Wheeled Walker Orthotic/Prosthetic Devices or Brace: No Gait Deviations General Gait Pattern Antalgic,Decreased Stride Length,Decreased Feet Clearance,Step-to Gait Factors Limiting Gait Function Factors Limiting Gait Function Decreased Activity Tolerance, Decreased Strength,Limited Range of Motion,Pain,Poor Balance,Poor Safety Awareness Comments Gait Comments See mobility comments Stair Climbing Assessment Comments Stair Climbing Comments Unable at this time PT-Balance Assessment Sitting Balance and Reactions Static Sitting Balance Ability Good Dynamic Sitting Balance Ability Fair Standing Balance and Reactions Static Standing Balance Ability Poor Dynamic Standing Balance Ability Poor Device Used FWW M5 PT-IP Objective Assessments Start: 02/02/23 14:46 Freq: NEEDED Status: Active Protocol: Document 02/02/23 13:35 AB (Rec: 02/02/23 15:02 AB [id number]) Orientation Orientation/Cognition Level of Alertness Alert Orientation Name,Place,Situation Safety Awareness Decreased Safety Awareness Memory Description No Deficits Noted Gross Range of Motion Lower Extremity ROM Impairments pt with increase LLE guading inihibiting ROM Strength Lower Extremity Strength Assessment Left Impaired Hip 2+/5 Knee 3+/5 Muscle Tone Muscle Tone WNL Yes M6 PT-IP Treatment Start: 02/02/23 14:46 Freq: NEEDED Status: Active Protocol: Document 02/05/23 10:49 TS (Rec: 02/05/23 11:02 TS [id number]) Physical Therapy Treatment Education Education Provided Precautions,Weight Bearing Status,Safety M7 PT-IP Assessment and Plan Start: 02/02/23 14:46 Freq: NEEDED Status: Active Protocol: Document 02/05/23 10:49 TS (Rec: 02/05/23 11:02 TS [id number]) PT Summary Assessment and Plan Potential Rehabilitation Potential Fair Summary Impairments Pain,ROM,Strength,Balance, Coordination,Sensation,Tone, Cognition,Bed Mobility, Transfers,Gait,Activity Tolerance Progress Towards Goals Slow Progress due to Pain,Slow Progress due to Medical Issues Assessment Summary Blade continues to make slow progress with his mobility. He is Raf for LLE out of bed and requires assistance with looping strap around foot. He performed sit to stand ModA with use of FWW, requires cues for PWB on LLE. He ambulated a short distance of ~6' CGA/ Raf with the use of the FWW. He required MaxA for descent onto bed safely, pt sat before it was safe to do so. He lacks good safety awareness and activity tolerance. Pt reports having 5 stairs then a landing and then another 5 steps to get into house. At this time pt is unable to perform steps. If he were to go home he may need BLS to get into house. PT is recommending SNF at this time to progress bed mobility, transfers and gait. pt would benefit from daily therapy before safe d/c to home. Goals Bed Mobility Goal Minimal Assistance Transfer Goal Minimal Assistance,Front Wheeled Walker Gait Goal Minimal Assistance,Front Wheel Walker Gait Distance 25 Other Goals improve bed mobility, transfers and ambulation using FWW SBA ~ 50 ft. Days to Meet Goals 10 Frequency of Treatment Frequency Of Treatment Twice a Day Treatment Plan Physical Therapy Treatment Plan Bed Mobility Training,Transfer Training,Gait Training, Therapeutic Exercise,Balance Retraining,Post Op Education, Discharge Planning,Hot or Cold Pack,Neuromuscular Re-ed, Coordination Retraining,Manual Therapy Weight Bearing Status Weight Bearing Status Partial Weight Bearing Allowed Weight Bearing Amount (enter % PWB LLE or #) (%) Recommendations To Nursing Amount of Assist Needed 2 Person Assist Discharge Recommendations PT Discharge Recommendations SNF Rehab Other Discharge Recommendations May need BLS to get into home. Transportation Needs at Discharge Wheelchair/Cabulance,Stretcher /Ambulance
[2023-02-05 12:00] VITALS: BP 104/58; PULSE 93; RESP 16; TEMP 36.7; O2SAT 99
--- NOTE | 2023-02-05 12:15 | P.PN_ITS ---
Subjective Subjective Date Patient Seen: 02/05/23 Time Patient Seen: 10:45 Interval history: Patient continues to struggle with pain control. States that he is unable to move left leg without assistance and could only take a few steps toward bathroom with PT before experiencing excruciating left leg pain. Most bothered by distal femur where pins were placed during surgical procedure. He is concerned about imminent discharge and how he will be able to move around or get to PT. States he was told that he may not be able to get inpatient PT due to history of substance use though this is not an active issue. Denies any fever, chest pain, shortness of breath and is otherwise well. Exam Vital Signs (past 8 hours): - 02/05/23 06:00 Temperature 97.6 F Pulse Rate 91 H Respiratory Rate 20 Blood Pressure 135/73 Pulse Oximetry 98 Oxygen Delivery Method Nasal Cannula Oxygen Flow Rate 0 Narrative Exam Narrative: General: Well-nourished, no distress HEENT: Normocephalic, EOMI, external ears and nose normal-appearing, moist mucous membranes Resp: CTAB, comfortable work of breathing CV: Regular rate and rhythm, no murmur auscultated Abdomen: Soft, nontender, nondistended, bowel sounds present Extremities: Warm, distal pulses intact, no significant edema, left hip with surgical wound bandage that has a minimal amount of bloody secretion Skin: Warm and well perfused, no rash noted Neurologic: Nonfocal Objective Labs 02/02/23 05:25 02/05/23 05:10 Labs: Laboratory Results - last 24 hr 02/05/23 05:10 Creatinine 0.78 Estimated GFR > 60 PFSH Medical History Complicated grief Facet arthropathy, lumbar Lumbar foraminal stenosis Spondylolisthesis at L5-S1 level Surgical History H/O foot surgery Family History Family/Other No pertinent family history Social History household members: none Smoking Status: Current every day smoker alcohol intake: former Assessment & Plan Assessment and plan (1) Closed comminuted intertrochanteric fracture of left femur: Qualifiers: Encounter type: subsequent encounter Fracture healing: with routine healing Qualified Code(s): S72.142D - Displaced intertrochanteric fracture of left femur, subsequent encounter for closed fracture with routine healing Status: Acute (2) Closed subtrochanteric fracture of hip: Qualifiers: Encounter type: subsequent encounter Fracture alignment: nondisplaced Laterality: left Fracture healing: with routine healing Qualified Code(s): S 72.25XD - Nondisplaced subtrochanteric fracture of left femur, subsequent encounter for closed fracture with routine healing Status: Acute (3) Closed fracture of left hip: Qualifiers: Encounter type: subsequent encounter Fracture healing: with routine healing Qualified Code(s): S72.002D - Fracture of unspecified part of neck of left femur, subsequent encounter for closed fracture with routine healing Status: Acute (4) Alcohol use disorder, severe, dependence: Status: Acute Assessment & Plan narrative: 62-year-old male who was seen as coverage for Dr. Jiang. This is my 1st time seeing patient. Reviewed hospitalization and op notes. #Left femur fracture: POD 4 s/p ORIF repair of comminuted left femur fracture. Continues to report inadequate pain control when attempting PT. making slow progress according to PT note, able to walk only about 6 ft and required significant assistance for safe descent onto bed when sitting. Unable to navigate stairs at this time which is a requirement for him to be able to enter home. PT is recommending SNF at this time and requires daily therapy before safe to discharge home. #H/o alcohol abuse: Sober for 2 weeks based on previous note. No evidence of withdrawal during this admission. Has previously received support resources from during admission. #H/o depression: Appears to be doing well overall despite recent events. Follows with Dr. Kerns outpatient. Continue current medication regimen. DVT ppx: Lovenox subQ Dispo: Likely discharge to SNF for additional rehab until he gains enough mobilization to do ADLs at home. Lives with elderly mother who also recently had hip fracture and does not have much support at home. Anticipate discharge in next 24-48 hours. Time Spent With Patient Time with patient: less than 30 minutes
--- NOTE | 2023-02-05 12:23 | CM.DPC ---
Addendum entered by Jennifer Bowden R.N. 02/05/23 14:41: [facility] has declined patient. Called over at [facility], they have beds, not until Tuesday, and accept [place]. Faxed over the referral via right fax. Original Note: DCP Cont: Spoke to Angela in admissions at [facility]. She indicated that she is not able to log into [employer] to review patient. Went ahead and faxed over clinical notes including P.T. Did this via fax, and right fax. Jennifer Bowden RN/[place] Transfer Operator
--- NOTE | 2023-02-05 12:54 | PM.DS.1 ---
History of Present Illness History of Present Illness Date Patient Seen: 02/05/23 Time Patient Seen: 13:32 Date of Onset of Symptoms: 01/30/23 Chief complaint: GLF, L hip pain Narrative: Mr. Lucio is a 62-year-old male with a history of severe depression, severe AUD who was admitted 01/30/2023 for a comminuted left femur fracture after a fall earlier that day. Patient states he was walking and made a twisting motion, then fell and felt a crack in his left hip with acute onset of significant pain, shortening, and rotation of the leg. There was no numbness or tingling of the leg. He did not hit his head or have any loss of consciousness. Has been attending outpatient alcohol treatment program and did not consume any alcohol prior to injury. Discharge Providers Provider Date of admission: 01/30/23 18:00 Primary care physician: Roldan Jiang MD Consults: 01/30/23 16:19 Consult to [facility] [place] - Physical Therapy Instructor Stat Comment: 01/30/23 19:33 Consult to [facility] [place] - Physical Therapy Instructor Routine Comment: Consult to Orthopedic Surgery Routine Comment: Consulting Provider: Earline Fleming Reason for consultation: hip fx Has provider been notified: Yes 01/30/23 20:20 Consult to Dietitian, Adult Routine Comment: Reason For Exam: alcoholism 01/30/23 20:53 Consult to [facility] - Physical Therapy Instructor Routine Comment: Consult to Physical Therapy Instructor Routine Comment: 02/01/23 20:08 Consult to Discharge Planning Routine Comment: Consult to Physical Therapy Evaluate & Treat Comment: Physician Instructions: Evaluate and Treat 02/02/23 14:36 Consult to Occupational Therapy Evaluate & Treat Comment: Physician Instructions: Evaluate and treat Discharge provider: Chato Ramon MD Summary Hospital Course Discharge Diagnosis: #Comminuted left femur fracture subtroch intertroch variant #Depression #AUD Hospital Course: Admitted 01/30/2023 with closed comminuted femoral fracture. He underwent uncomplicated ORIF by Dr. Earline Fleming two days later on 02/01/2023. His postoperative course was medically uncomplicated but patient continues to experience a moderate to severe amount of pain in the affected leg which has slowed his recovery course inability to participate in PT. Status at Discharge Cognitive/behavioral status at discharge: oriented Functional status at discharge: wheelchair bound Overall status at discharge: patient is not back to baseline Time Spent with Patient Time spent: Greater than 30 minutes Exam Vital Signs (past 8 hours): - 02/05/23 06:00 02/05/23 12:00 Temperature 97.6 F 98.1 F Pulse Rate 91 H 93 H Respiratory Rate 20 16 Blood Pressure 135/73 104/58 L Pulse Oximetry 98 99 Oxygen Delivery Method Nasal Cannula Oxygen Flow Rate 0 Narrative Exam Narrative: General: Well-nourished, no distress HEENT: Normocephalic, EOMI, external ears and nose normal-appearing, moist mucous membranes Resp: CTAB, comfortable work of breathing CV: Regular rate and rhythm, no murmur auscultated Abdomen: Soft, nontender, nondistended, bowel sounds present Extremities: Warm, distal pulses intact, no significant edema, left hip with surgical wound bandage that has a minimal amount of bloody secretion Skin: Warm and well perfused, no rash noted Neurologic: Nonfocal Objective Labs 02/02/23 05:25 02/05/23 05:10 Labs: Laboratory Results - last 24 hr 02/05/23 05:10 Creatinine 0.78 Estimated GFR > 60 PFSH Medical History Complicated grief Facet arthropathy, lumbar Lumbar foraminal stenosis Spondylolisthesis at L5-S1 level Surgical History H/O foot surgery Family History Family/Other No pertinent family history Social History household members: none Smoking Status: Current every day smoker alcohol intake: former Discharge Assessment & Plan Assessment and Plan Assessment: 62-year-old male with history of severe depression, IUD in early remission admitted for comminuted left femur fracture subtroch intertroch variant now POD #4 s/p ORIF with intramedullary nailing. Plan of Treatment: #Left femur fracture: POD #4 s/p ORIF repair of comminuted left femur fracture on 02/01/2023. Making slow progress according to PT note, able to walk only about 6 ft and required significant assistance for safe descent onto bed when sitting. Unable to navigate stairs at this time which is a requirement for him to be able to enter home. PT is recommending SNF at this time and requires daily therapy before safe to discharge home. -Discharge to SNF for continued rehab -DVT ppx: ASA 81 mg p.o. b.i.d. -Hydromorphone 4 mg Q 4-6 hour as needed -Bowel regimen #H/o depression: Appears to be doing well overall despite recent events. Follows with Dr. Kerns outpatient. Continue current medication regimen. -Venlafaxine 150 mg p.o. daily -Cane Beds 600 mg p.o. q.h.s. -Quetiapine 400 mg p.o. q.h.s. -Trazodone 200 mg q.h.s. #H/o alcohol abuse: Sober for 2 weeks based on previous note. No evidence of withdrawal during this admission. Has previously received support resources from during admission. Discharge Plan Discharge Plan Patient Disposition: Home Discharge orders & Medications Prescriptions: No Action clonazepam 1 mg tablet 1 mg PO TID PRN (Reason: severe anxiety. ) Qty: 30 0RF lithium carbonate 300 mg capsule 600 mg PO BEDTIME Qty: 60 2RF trazodone 100 mg tablet 200 mg PO BEDTIME Qty: 60 3RF venlafaxine 75 mg capsule,extended release 24hr 150 mg PO QAM quetiapine 400 mg tablet 400 mg PO BEDTIME omeprazole 40 mg capsule,delayed release(DR/EC) 40 mg PO BID Patient Comments: TAKE ONE CAPSULE BY MOUTH TWICE DAILY Follow up/Referrals: Roldan Jiang MD [Primary Care Provider] - Earline Fleming MD [Physician] - (Follow up in 2 weeks with new x-rays AP and lateral left femur and AP pelvis) Diet/Activity/Treatments Diet: Diet as Tolerated and Regular Activity: Partial weight-bearing left lower extremity Cold/Heat Therapy: Ice as needed for pain control Skin/Wound/Dressing Care Report to your healthcare provider any signs of infection, such as:: chills, fever, night sweats, increased pain, unusual drainage and unusual redness Dressing: Keep dressing clean and dry, if dressing becomes saturated or dirty okay to remove and replace with clean, dry gauze. No soaking the incisions site, do not apply lotions, creams or ointments to the incision site. Visit Report/Discharge Packet Stand Alone Forms: Patient Portal/API, Stroke Signs & Symptoms Discharge Data Primary Care Provider: Roldan Jiang
--- NOTE | 2023-02-05 13:00 | PT.IPTN ---
Current Diagnoses Alcohol dependence, uncomplicated (01/30/23) Bipolar II disorder (01/30/23) Anxiety disorder, unspecified (01/30/23) Essential (primary) hypertension (01/30/23) Spondylosis without myelopathy or radiculopathy, lumbar region (01/30/23) Fracture of unspecified part of neck of left femur, initial encounter for closed fracture (01/30/23) Fracture of unspecified part of neck of left femur, subsequent encounter for closed fracture with routine healing (01/30/23) Displaced intertrochanteric fracture of left femur, subsequent encounter for closed fracture with routine healing (01/30/23) Displaced subtrochanteric fracture of unspecified femur, initial encounter for closed fracture (01/30/23) Nondisplaced subtrochanteric fracture of left femur, subsequent encounter for closed fracture with routine healing (01/30/23) Other line cleaner (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 therapy (01/30/23) Surgery Performed Operation Date: 02/01/23 16:45 Actual Procedures p hip intertroch, subtroch fracture(Left) - Earline Fleming MD Physical Therapy Treatment Note M2 PT-IP Current Condition Start: 02/02/23 14:46 Freq: NEEDED Status: Active Protocol: Document 02/02/23 13:35 AB (Rec: 02/02/23 15:02 AB [id number]) Physical Therapy Current Condition Current Condition Evaluation Date 02/02/23 Treatment Diagnosis s/p L hip ORIF; difficulty in walking Onset Date 01/30/23 M3 PT-IP Subjective Start: 02/02/23 14:46 Freq: NEEDED Status: Active Protocol: Document 02/05/23 13:34 TS (Rec: 02/05/23 13:44 TS [id number]) Subjective Physical Therapy Visit Type Type Treatment Note Visit Start Time 13:00 Visit Stop Time 13:20 Total Visit Minutes 20 Number of WORKERS COMPENSATION ADJUSTER Visits 5 Physical Therapy Visit Comments Patient Comments Pt found resting in bed, is agreeable to PT. Therapy Pain Assessment Pain When Pain Assessed During Mobility Pain Present Pain Present Pain Reported M4 PT-IP Mobility and Gait Start: 02/02/23 14:46 Freq: NEEDED Status: Active Protocol: Document 02/05/23 13:34 TS (Rec: 02/05/23 13:44 TS [id number]) PT-Bed Mobility Assessment Supine to Sit Supine to Sit Minimal Assistance,1 Person Assistance,Head of Bed Elevated,Bedrails Sit to Supine Sit to Supine Moderate Assistance,Bedrails PT-Transfer Assessment Sit to and From Stand Sit to and from Stand Minimal Assistance,1 Person Assistance,Use of Upper Extremities Equipment Transfer Assistive Device Gait Belt,Front Wheeled Walker Orthotic/Prosthetic Devices or Brace: No Comments Mobility Comments Supine to sit Raf with use of gait belt strap for LLE to EOB, pt requires assist for strap around foot. He performed sit to stand with FWW Raf with BUE support pushing from bed, bed elevated due to pt's height. He took steps x2 but having increased difficulty wbering on LLE with gait this session. Pt might be more than PWB when taking steps, cued for UEs to support LLE. Pt requested back to bed . Sit to supine ModA for LLE into bed, pt scooted to HOB SBA. He was left in bed, all needs met. Gait Assessment Gait Gait Assistance Required: Minimum Assistance,1 Person Assist Distance (Feet) 1 Able to Maintain Weight Bearing Status Yes During Gait Assistive Devices Assistive Device Gait Belt,Front Wheeled Walker Orthotic/Prosthetic Devices or Brace: No Gait Deviations General Gait Pattern Antalgic,Decreased Stride Length,Decreased Feet Clearance,Step-to Gait Factors Limiting Gait Function Factors Limiting Gait Function Decreased Activity Tolerance, Decreased Strength,Limited Range of Motion,Pain,Poor Balance,Poor Safety Awareness Comments Gait Comments See mobility comments Stair Climbing Assessment Comments Stair Climbing Comments Unable at this time PT-Balance Assessment Sitting Balance and Reactions Static Sitting Balance Ability Good Dynamic Sitting Balance Ability Fair Standing Balance and Reactions Static Standing Balance Ability Poor Dynamic Standing Balance Ability Poor Device Used FWW M5 PT-IP Objective Assessments Start: 02/02/23 14:46 Freq: NEEDED Status: Active Protocol: Document 02/02/23 13:35 AB (Rec: 02/02/23 15:02 AB [id number]) Orientation Orientation/Cognition Level of Alertness Alert Orientation Name,Place,Situation Safety Awareness Decreased Safety Awareness Memory Description No Deficits Noted Gross Range of Motion Lower Extremity ROM Impairments pt with increase LLE guading inihibiting ROM Strength Lower Extremity Strength Assessment Left Impaired Hip 2+/5 Knee 3+/5 Muscle Tone Muscle Tone WNL Yes M6 PT-IP Treatment Start: 02/02/23 14:46 Freq: NEEDED Status: Active Protocol: Document 02/05/23 13:34 TS (Rec: 02/05/23 13:44 TS [id number]) Physical Therapy Treatment Education Education Provided Precautions,Weight Bearing Status,Safety M7 PT-IP Assessment and Plan Start: 02/02/23 14:46 Freq: NEEDED Status: Active Protocol: Document 02/05/23 13:34 TS (Rec: 02/05/23 13:44 TS [id number]) PT Summary Assessment and Plan Potential Rehabilitation Potential Fair Summary Impairments Pain,ROM,Strength,Balance, Coordination,Sensation,Tone, Cognition,Bed Mobility, Transfers,Gait,Activity Tolerance Progress Towards Goals Slow Progress due to Pain,Slow Progress due to Medical Issues Assessment Summary Blade continues to make slow progress with his mobility. He continues to be Raf for supine to sit with assistance for donning of strap to assist LLE. He required decreased assist to stand to Raf with FWW, does lack good sit to stand technique. He attempted to ambulate this session but could go further than a couple steps due to pain wbering on L side. Pt maybe putting more than PWB on LLE with some tasks but is aware of his precaution. PT continues to recommend SNF rehab at this time for daily phyiscal therapy and 13/09 care. Goals Bed Mobility Goal Minimal Assistance Transfer Goal Minimal Assistance,Front Wheeled Walker Gait Goal Minimal Assistance,Front Wheel Walker Gait Distance 25 Other Goals improve bed mobility, transfers and ambulation using FWW SBA ~ 50 ft. Days to Meet Goals 10 Frequency of Treatment Frequency Of Treatment Twice a Day Treatment Plan Physical Therapy Treatment Plan Bed Mobility Training,Transfer Training,Gait Training, Therapeutic Exercise,Balance Retraining,Post Op Education, Discharge Planning,Hot or Cold Pack,Neuromuscular Re-ed, Coordination Retraining,Manual Therapy Weight Bearing Status Weight Bearing Status Partial Weight Bearing Allowed Weight Bearing Amount (enter % PWB LLE or #) (%) Recommendations To Nursing Amount of Assist Needed 2 Person Assist Discharge Recommendations PT Discharge Recommendations SNF Rehab Other Discharge Recommendations May need BLS to get into home. Transportation Needs at Discharge Wheelchair/Cabulance,Stretcher /Ambulance
[2023-02-05] MEDS: CALCIUM CARBONATE 500 MG TAB PO (17:44)
[2023-02-05 18:00] VITALS: BP 121/79; PULSE 91; RESP 16; TEMP 36.3; O2SAT 96
[2023-02-05] MEDS: LITHIUM 150 MG IR CAPSULE 600 MG PO (20:36)
[2023-02-05] MEDS: TRAZODONE 50 MG TABLET 200 MG PO (20:37)
[2023-02-05] MEDS: QUETIAPINE 100 MG TABLET 400 MG PO (20:37)
[2023-02-05] MEDS: PANTOPRAZOLE DR 40 MG TABLET PO (20:37)
[2023-02-05] MEDS: VENLAFAXINE ER 75 MG CAP 150 MG PO (20:38)
[2023-02-06 00:53] VITALS: BP 117/72; PULSE 90; RESP 17; TEMP 36.5; O2SAT 99
[2023-02-06] MEDS: HYDROMORPHONE 4 MG TABLET PO ×6 (00:57→21:08)
[2023-02-06] MEDS: HYDROMORPHONE 1 MG INJ IV ×5 (05:54→20:20)
[2023-02-06 06:00] VITALS: BP 125/71; PULSE 95; RESP 17; TEMP 36.4; O2SAT 99
[2023-02-06 08:00] VITALS: BP 111/65; PULSE 90; RESP 16; TEMP 36.3; O2SAT 97
[2023-02-06] MEDS: SENNOSIDES 8.6 MG TABLET 17.2 MG PO ×2 (09:30→20:19)
[2023-02-06] MEDS: ASPIRIN EC 81 MG TABLET PO ×2 (09:30→20:19)
[2023-02-06] MEDS: polyethylene glycoL 3350 17 GM POWD.PACK PO (09:31)
[2023-02-06] MEDS: DOCUSATE 100 MG CAPSULE PO ×2 (09:31→20:20)
[2023-02-06] MEDS: CYCLOBENZAPRINE 10 MG TABLET PO ×3 (09:31→20:20)
--- NOTE | 2023-02-06 09:42 | P.PN_ITS ---
Subjective Subjective Date Patient Seen: 02/06/23 Time Patient Seen: 10:00 Interval history: No acute events overnight. Continues to work on mobility with PT, afternoon session was better compared to his morning session yesterday. Still complains of moderate pain in left leg. Highly concerned about being discharged home without support. No fevers, chills, nausea, and vomiting, shortness of breath. Exam Vital Signs (past 8 hours): - 02/06/23 06:00 02/06/23 08:00 Temperature 97.6 F 97.3 F L Pulse Rate 95 H 90 Respiratory Rate 17 16 Blood Pressure 125/71 111/65 Pulse Oximetry 99 97 Oxygen Flow Rate 0 Oxygen Delivery Method Room Air Oxygen Flow Rate 0 Narrative Exam Narrative: General: Well-nourished, no distress HEENT: Normocephalic, EOMI, external ears and nose normal-appearing, moist mucous membranes Resp: CTAB, comfortable work of breathing CV: Regular rate and rhythm, no murmur auscultated Abdomen: Soft, nontender, nondistended, bowel sounds present Extremities: Warm, distal pulses intact, no significant edema, left hip with surgical wound bandage that has a moderate amount of bloody secretion Skin: Warm and well perfused, no rash noted Neurologic: Nonfocal Objective Labs 02/02/23 05:25 02/05/23 05:10 [facility] Medical History Complicated grief Facet arthropathy, lumbar Lumbar foraminal stenosis Spondylolisthesis at L5-S1 level Surgical History H/O foot surgery Family History Family/Other No pertinent family history Social History household members: none Smoking Status: Current every day smoker alcohol intake: former Assessment & Plan Assessment and plan (1) Closed comminuted intertrochanteric fracture of left femur: Qualifiers: Encounter type: subsequent encounter Fracture healing: with routine healing Qualified Code(s): S72.142D - Displaced intertrochanteric fracture of left femur, subsequent encounter for closed fracture with routine healing Status: Acute (2) Closed subtrochanteric fracture of hip: Qualifiers: Encounter type: subsequent encounter Fracture alignment: nondisplaced Fracture healing: with routine healing Laterality: left Qualified Code(s): S 72.25XD - Nondisplaced subtrochanteric fracture of left femur, subsequent encounter for closed fracture with routine healing Status: Acute (3) Closed fracture of left hip: Qualifiers: Encounter type: subsequent encounter Fracture healing: with routine healing Qualified Code(s): S72.002D - Fracture of unspecified part of neck of left femur, subsequent encounter for closed fracture with routine healing Status: Acute (4) Alcohol use disorder, severe, dependence: Status: Acute Assessment & Plan narrative: 62-year-old male with severe depression, AUD admitted for left femur fracture. #Left femur fracture: POD 5 s/p ORIF repair of comminuted left femur fracture. Continues to report inadequate pain control when attempting PT. making slow progress according to PT note, able to walk only about 6 ft and required significant assistance for safe descent onto bed when sitting. Unable to navigate stairs at this time which is a requirement for him to be able to enter home. PT is recommending SNF at this time and requires daily therapy before safe to discharge home. #H/o alcohol abuse: Sober for 2 weeks based on previous note. No evidence of withdrawal during this admission. Has previously received support resources from during admission. #H/o depression: Appears to be doing well overall despite recent events. Follows with Dr. Kerns outpatient. Continue current medication regimen. DVT ppx: ASA 81mg BID Dispo: Likely discharge to SNF vs home with home health per PT recs. Discussed plans with piano case and bench assembler who is waiting to hear back from possible sniff placement, if this is unsuccessful then we will pursue home health support options. Time Spent With Patient Time with patient: less than 30 minutes
--- NOTE | 2023-02-06 10:33 | P.PN_ITS ---
Exam Vital Signs (past 8 hours): - 02/06/23 06:00 02/06/23 08:00 Temperature 97.6 F 97.3 F L Pulse Rate 95 H 90 Respiratory Rate 17 16 Blood Pressure 125/71 111/65 Pulse Oximetry 99 97 Oxygen Flow Rate 0 Oxygen Delivery Method Room Air Oxygen Flow Rate 0 Objective Labs 02/02/23 05:25 02/05/23 05:10 REPLACED BY [facility] Medical History Complicated grief Facet arthropathy, lumbar Lumbar foraminal stenosis Spondylolisthesis at L5-S1 level Surgical History H/O foot surgery Family History Family/Other No pertinent family history Social History household members: none Smoking Status: Current every day smoker alcohol intake: former Assessment & Plan Assessment & Plan narrative: Patient is POD#5 s/p L femur IMN. Patient is admitted after surgery. Patient has been stable and slow to progress with physical therapy. Patient is neurovascularly intact on exam. Patient has no signs or symptoms of DVT. Patient's dressing is clean dry and intact. Patient is Partial WB to LLE. PT is recommending SNF rehab due to slow progression with mobility training. Discharge when able to get into SNF rehab facility. F/u in 2 weeks for paxton removal.
--- NOTE | 2023-02-06 11:26 | PT-IP ANOTE ---
Pt refused AM therapy, but agreeable to PM. Will check back on pt at agreed upon time of 1330.
[2023-02-06] MEDS: clonazePAM 0.5 MG TABLET 1 MG PO ×2 (13:59→20:19)
--- NOTE | 2023-02-06 14:05 | PT.IPTN ---
Current Diagnoses Alcohol dependence, uncomplicated (01/30/23) Bipolar II disorder (01/30/23) Anxiety disorder, unspecified (01/30/23) Essential (primary) hypertension (01/30/23) Spondylosis without myelopathy or radiculopathy, lumbar region (01/30/23) Fracture of unspecified part of neck of left femur, initial encounter for closed fracture (01/30/23) Fracture of unspecified part of neck of left femur, subsequent encounter for closed fracture with routine healing (01/30/23) Displaced intertrochanteric fracture of left femur, subsequent encounter for closed fracture with routine healing (01/30/23) Displaced subtrochanteric fracture of unspecified femur, initial encounter for closed fracture (01/30/23) Nondisplaced subtrochanteric fracture of left femur, subsequent encounter for closed fracture with routine healing (01/30/23) 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 termination clerk (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 therapy (01/30/23) Surgery Performed Operation Date: 02/01/23 16:45 Actual Procedures p hip intertroch, subtroch fracture(Left) - Earline Fleming MD Physical Therapy Treatment Note M2 PT-IP Current Condition Start: 02/02/23 14:46 Freq: NEEDED Status: Active Protocol: Document 02/02/23 13:35 AB (Rec: 02/02/23 15:02 AB [id number]) Physical Therapy Current Condition Current Condition Evaluation Date 02/02/23 Treatment Diagnosis s/p L hip ORIF; difficulty in walking Onset Date 01/30/23 M3 PT-IP Subjective Start: 02/02/23 14:46 Freq: NEEDED Status: Active Protocol: Document 02/06/23 13:32 KS (Rec: 02/06/23 14:18 KS [id number]) Subjective Physical Therapy Visit Type Type Treatment Note Visit Start Time 13:32 Visit Stop Time 14:05 Total Visit Minutes 33 Number of LICENSING DIRECTOR Visits 6 Physical Therapy Visit Comments Patient Comments Pt eager to participate w/ PT. Therapy Pain Assessment Pain When Pain Assessed During Mobility Pain Present Pain Present Pain Reported Location Left Hip Scale Used not quanitifed Description Shooting,Stabbing,Throbbing, With Movement Pain Management Techniques Elevation,Modification of Treatment,Re-positioning, Timing of Activity with Medications M4 PT-IP Mobility and Gait Start: 02/02/23 14:46 Freq: NEEDED Status: Active Protocol: Document 02/06/23 13:32 KS (Rec: 02/06/23 14:18 KS [id number]) PT-Bed Mobility Assessment Supine to Sit Supine to Sit Minimal Assistance,1 Person Assistance,Head of Bed Elevated,Bedrails Sit to Supine Sit to Supine Moderate Assistance,Bedrails Scooting Scooting to Edge of Bed Contact Guard Assistance PT-Transfer Assessment Sit to and From Stand Sit to and from Stand Minimal Assistance,1 Person Assistance,Use of Upper Extremities Equipment Transfer Assistive Device Gait Belt,Front Wheeled Walker Orthotic/Prosthetic Devices or Brace: No Transfers Transfer Destination Bed Transfer Technique lateral steps/scoot Transfer Ability Level of Assist Minimal Assistance,1 Person Assistance,Use of Upper Extremities Comments Mobility Comments Pt in bed upon arrival, unfortunately having increased pain and anxiety revolving a d/c plan. Min A for sup<>sit, CGA for scooting EOB. Pt able to sit up but requires Assistance for lifting LLE. Pt performed sit<>stand w/ Min A and FWW. C/o increased pain w / standing however pt did maintain standing balance ~3 min and was able to pivot feet to move towards HOB. Good carryover w/ use of BUE to use FWW to maintain PWB in LLE. Reveiwed LE exercises. Mod A for LE elevation back into bed . Gait Assessment Gait Gait Assistance Required: Minimum Assistance,1 Person Assist Distance (Feet) 3 Able to Maintain Weight Bearing Status Yes During Gait Assistive Devices Assistive Device Gait Belt,Front Wheeled Walker Orthotic/Prosthetic Devices or Brace: No Gait Deviations General Gait Pattern Antalgic,Decreased Stride Length,Decreased Feet Clearance,Step-to Gait Factors Limiting Gait Function Factors Limiting Gait Function Decreased Activity Tolerance, Decreased Strength,Limited Range of Motion,Pain,Poor Balance,Poor Safety Awareness Comments Gait Comments See mobility comments Stair Climbing Assessment Comments Stair Climbing Comments Unable at this time PT-Balance Assessment Sitting Balance and Reactions Static Sitting Balance Ability Good Dynamic Sitting Balance Ability Fair Standing Balance and Reactions Static Standing Balance Ability Fair Dynamic Standing Balance Ability Poor Device Used FWW M5 PT-IP Objective Assessments Start: 02/02/23 14:46 Freq: NEEDED Status: Active Protocol: Document 02/02/23 13:35 AB (Rec: 02/02/23 15:02 AB [id number]) Orientation Orientation/Cognition Level of Alertness Alert Orientation Name,Place,Situation Safety Awareness Decreased Safety Awareness Memory Description No Deficits Noted Gross Range of Motion Lower Extremity ROM Impairments pt with increase LLE guading inihibiting ROM Strength Lower Extremity Strength Assessment Left Impaired Hip 2+/5 Knee 3+/5 Muscle Tone Muscle Tone WNL Yes M6 PT-IP Treatment Start: 02/02/23 14:46 Freq: NEEDED Status: Active Protocol: Document 02/06/23 13:32 KS (Rec: 02/06/23 14:18 KS [id number]) Physical Therapy Treatment Exercises Exercises Ankle Pumps,Gluteal Sets,Quad Sets Education Education Provided Precautions,Weight Bearing Status,Post-Op Packet,Safety M7 PT-IP Assessment and Plan Start: 02/02/23 14:46 Freq: NEEDED Status: Active Protocol: Document 02/06/23 13:32 KS (Rec: 02/06/23 14:18 KS [id number]) PT Summary Assessment and Plan Potential Rehabilitation Potential Fair Summary Impairments Pain,ROM,Strength,Balance, Coordination,Sensation,Tone, Cognition,Bed Mobility, Transfers,Gait,Activity Tolerance Progress Towards Goals Slow Progress due to Pain,Slow Progress due to Medical Issues Assessment Summary Pt continues to make good progress and is showing good effort w/ PT. He is in a lot of pain and is still requiring some assistance w/ bed mobility as he is unable to elevate his LLE from the bed, and needs Min A to stand. Pt is a high fall risk and is not safe to go home. He will require SNF to improve functional mobility and strength. Goals Bed Mobility Goal Minimal Assistance Transfer Goal Minimal Assistance,Front Wheeled Walker Gait Goal Minimal Assistance,Front Wheel Walker Gait Distance 25 Other Goals improve bed mobility, transfers and ambulation using FWW SBA ~ 50 ft. Days to Meet Goals 10 Frequency of Treatment Frequency Of Treatment Twice a Day Treatment Plan Physical Therapy Treatment Plan Bed Mobility Training,Transfer Training,Gait Training, Therapeutic Exercise,Balance Retraining,Post Op Education, Discharge Planning,Hot or Cold Pack,Neuromuscular Re-ed, Coordination Retraining,Manual Therapy Weight Bearing Status Weight Bearing Status Partial Weight Bearing Allowed Weight Bearing Amount (enter % PWB LLE or #) (%) Recommendations To Nursing Amount of Assist Needed 2 Person Assist Discharge Recommendations PT Discharge Recommendations SNF Rehab Transportation Needs at Discharge Wheelchair/Cabulance,Stretcher /Ambulance
[2023-02-06 15:00] VITALS: BP 96/62; PULSE 88; RESP 16; TEMP 36.2; O2SAT 98
[2023-02-06] MEDS: QUETIAPINE 100 MG TABLET 400 MG PO (20:19)
[2023-02-06] MEDS: LITHIUM 150 MG IR CAPSULE 600 MG PO (20:20)
[2023-02-06] MEDS: TRAZODONE 50 MG TABLET 200 MG PO (20:20)
[2023-02-06] MEDS: SODIUM CHLORIDE 0.9% FLUSH 10 ML IV (20:21)
[2023-02-06] MEDS: PANTOPRAZOLE DR 40 MG TABLET PO (20:24)
[2023-02-06 21:45] VITALS: BP 113/69; PULSE 89; RESP 17; TEMP 36.5; O2SAT 99
--- NOTE | 2023-02-06 22:59 | PC.NURSE ---
Patient is alert and oriented. Did noted moderate tremors in bilateral UE but otherwise negative for signs of CIWA. Breath sounds CTA with RA sat of 99%. HRR. Denied nausea. BT present and is passing a little flatus but has not had a BM since 01/29; medicated with Colace and Senna and also received Miralax earlier today. Is voiding per urinal; denied dysuria. Is able to move himself in bed. Gait not assessed; per PT he needs assist of 2 + walker to pivot transfer out of bed and is only PWB on left leg. Aquacel dressing to left upper lateral leg is intact with drainage noted; outlined. Dressing to lateral left knee is CDI. CMS is intact although has pre-existing numbness in left foot that is unchanged from pre-op per patient. He does have difficulty lifting left leg off bed. Refusing SCD's so reminded to ankle wave. Complained of 9/10 pain at start of shift so was medicated with IV Dilaudid and then later with po Dilaudid and was asleep at last patient check; provided ice pack as well. Fall risk score is high and bed alarm is activated.
[2023-02-07] MEDS: HYDROMORPHONE 4 MG TABLET PO ×5 (02:22→20:59)
[2023-02-07] MEDS: SODIUM CHLORIDE 0.9% FLUSH 10 ML IV ×3 (04:50→20:49)
[2023-02-07] MEDS: HYDROMORPHONE 1 MG INJ IV (04:50)
[2023-02-07 05:09] VITALS: BP 102/65; PULSE 87; RESP 17; TEMP 36.2; O2SAT 99
[2023-02-07 08:01] VITALS: BP 113/68; PULSE 85; RESP 16; TEMP 36.3; O2SAT 98
[2023-02-07] MEDS: VENLAFAXINE ER 75 MG CAP 150 MG PO (08:03)
[2023-02-07] MEDS: CYCLOBENZAPRINE 10 MG TABLET PO ×3 (08:03→20:49)
[2023-02-07] MEDS: SENNOSIDES 8.6 MG TABLET 17.2 MG PO ×2 (08:03→20:49)
[2023-02-07] MEDS: polyethylene glycoL 3350 17 GM POWD.PACK PO (08:03)
[2023-02-07] MEDS: DOCUSATE 100 MG CAPSULE PO ×2 (08:03→20:49)
[2023-02-07] MEDS: clonazePAM 0.5 MG TABLET 1 MG PO ×2 (08:03→20:48)
[2023-02-07] MEDS: ASPIRIN EC 81 MG TABLET PO ×2 (08:03→20:48)
--- NOTE | 2023-02-07 09:00 | OT.IP.EVAL ---
Current Diagnoses Alcohol dependence, uncomplicated (01/30/23) Bipolar II disorder (01/30/23) Anxiety disorder, unspecified (01/30/23) Essential (primary) hypertension (01/30/23) Spondylosis without myelopathy or radiculopathy, lumbar region (01/30/23) Fracture of unspecified part of neck of left femur, initial encounter for closed fracture (01/30/23) Fracture of unspecified part of neck of left femur, subsequent encounter for closed fracture with routine healing (01/30/23) Displaced intertrochanteric fracture of left femur, subsequent encounter for closed fracture with routine healing (01/30/23) Displaced subtrochanteric fracture of unspecified femur, initial encounter for closed fracture (01/30/23) Nondisplaced subtrochanteric fracture of left femur, subsequent encounter for closed fracture with routine healing (01/30/23) 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 (01/30/23) Surgery Performed Operation Date: 02/01/23 16:45 Actual Procedures p hip intertroch, subtroch fracture(Left) - Earline Fleming MD Past Medical History (Last Reviewed 02/05/23 @ 09:40 by Juan Connell PA-C) Complicated grief Facet arthropathy, lumbar Lumbar foraminal stenosis Spondylolisthesis at L5-S1 level Surgical History (Last Reviewed 02/05/23 @ 09:40 by Juan Connell PA-C) H/O foot surgery Occupational Therapy Inpatient Evaluation/Re-Eval M1 PT/OT-IP Prior Functional Status Start: 02/07/23 09:39 Freq: NEEDED Status: Active Protocol: Document 02/07/23 09:39 [facility] (Rec: 02/07/23 09:57 [facility] [id number]) Medical Review Prior Functional Status Medical History Reviewed Yes Communication able to make needs known Mobility and Gait pt stated that he was independent with all mobilities and ambulation without AD. Activities of Daily Living and IADL's Completely independent with no needs. Social History Household Members none Living Arrangements House Number of Floors (Floors) One Floor Number of Stairs To Enter/Railing? Pr pt has gravel and uneven surfaces if going around to the mother in law suite where he lives. Otherwise pt goes in from the front house up 5 steps with bilateral rails and down 3 steps with no rails to get to his place, the mother in law suite. Pt also thinking he will just stay in the house and that his mother could try to help him out. Home Environment Standard Height Toilet,Walk in Shower Home Equipment Front Wheel Walker,Straight Cane,Crutches,Manual Wheelchair,Tub Transfer Bench, Shower Seat with Backrest Additional Social History Comment pt lives next door to his mom (mother in law suite) but his mom will not be able to assist him. stated that his GF might be able to assist some but will not be able to stay with him M2 OT-IP Current Condition Start: 02/07/23 09:39 Freq: Status: Active Protocol: Document 02/07/23 09:39 [facility] (Rec: 02/07/23 09:57 [facility] [id number]) Occupational Therapy Current Condition Current Condition Evaluation Date 02/07/23 Treatment Diagnosis S/P L hip ORIF Diagnosis Onset Date 01/30/23 Weight Bearing Status Weight Bearing Status Partial Weight Bearing M3 OT- IP Subjective and Pain Start: 02/07/23 09:39 Freq: Status: Active Protocol: Document 02/07/23 09:39 [facility] (Rec: 02/07/23 09:57 [facility] [id number]) OT- Subjective Occupational Therapy Visit Type Type Initial Evaluation Visit Start Time 09:00 Visit Stop Time 09:28 Total Visit Minutes 28 Occupational Therapy Visit Comments Patient Comments Pt agreed to get up. Patient/Caregiver Goals To get better. OT Pain Assessment Pain When Pain Assessed At Rest Pain Present Pain Present Pain Reported Location left LE Intensity 9 Scale Used Numeric (0 - 10) M4 OT- IP ADL's Start: 02/07/23 09:39 Freq: Status: Active Protocol: Document 02/07/23 09:39 [facility] (Rec: 02/07/23 09:57 [facility] [id number]) OT [id number] General Evaluation Self-Feeding Ability Independent OT ADL-Grooming Comments OT Grooming Comments Not performed. OT ADL-Oral Care Comments Oral Care Comments NOt performed. OT ADL-Dressing General Eval Lower Body Dressing Ability Maximum Assistance Comments OT Dressing Comments Able to show pt use of LB dressing equipment to assist with his needs. OT ADL-Toileting Comments OT Toileting Comments Pt not having to go . Pt will benefit from drop arm BSC and urinal for home use. OT ADL-Bathing Comments OT Bathing Comments Not performed, pt states has a tub bench at home to use. M5 OT- IP IADL's Start: 02/07/23 09:39 Freq: Status: Active Protocol: Document 02/07/23 09:39 [facility] (Rec: 02/07/23 09:57 [facility] [id number]) OT-Instrumental Activities of Daily Living Deficits IADL Deficits Identified Deficits Home Safety Awareness Awareness of Need for Assistance at Home Good Awareness Home Safety Comments Pt states if having to go home that his could assist him some. Meal Preparation Meal Preparation Caregiver Provides Assist Range Examiner Range Examiner Caregiver Provides Assist M6 OT- IP Functional Cognition Start: 02/07/23 09:39 Freq: Status: Active Protocol: Document 02/07/23 09:39 [facility] (Rec: 02/07/23 09:57 [facility] [id number]) Cognitive Factors Limiting Selfcare Function Cognitive Ability Level of Alertness Alert Patient Orientation Name,Age,Place,Situation Attention Span Ability Capable of Focused Attention, Capable of Sustained Attention Ability to Follow Commands Able to Follow One Step Commands Cognitive Comments Cognitive Assessment Comments Pt able to follow commands for needs. Pt insistent that he will not drink and wanting to go to rehab to get better. OT- Vision and Hearing OT- Hearing Assessment OT- Hearing Assessment WFL OT- Vision Assessment Visual Acuity Glasses For Reading Visual Attentiveness WFL Occular Pursuits WFL M7 OT- IP Mobility and Balance Start: 02/07/23 09:39 Freq: Status: Active Protocol: Document 02/07/23 09:39 [facility] (Rec: 02/07/23 09:57 [facility] [id number]) OT- Bed Mobility Assessment Rolling Level of Assistance Standby Assistance Supine to Sit Supine to Sit Assist Standby Assistance Sit to Supine Sit to Supine Assist Minimal Assistance Scooting Scooting to Edge of Bed Standby Assistance Scooting Up and Down in Bed Standby Assistance OT-Transfer Assessment Sit to and From Stand Sit to and from Stand Maximum Assistance Comments Mobility Comments Pt with increased time able to get to the edge of the bed to the right. Pt aware able to use cane or gait belt to assist to help move his left leg over. Pt able to use his hands to assist at this time. Pt needing BRITT to help get his LLE back into bed. Pt MAXA X 1 to stand. Pt just able to shuffle his RLE side to side to move a little to the head of the bed at this time. Pt would benefit from use of a WC for mobility at this time and in addition to squat pivot transfer to surfaces. OT- Balance Assessment Sitting Balance and Reactions Static Sitting Balance Ability Normal Dynamic Sitting Balance Ability Good Standing Balance and Reactions Static Standing Balance Ability Fair Dynamic Standing Balance Ability Poor M8 OT- IP Objective Assessments Start: 02/07/23 09:39 Freq: Status: Active Protocol: Document 02/07/23 09:39 [facility] (Rec: 02/07/23 09:57 [facility] [id number]) OT Gross Range of Motion Upper Extremity Range of Motion Assessment Within Functional Limits OT Strength Upper Extremity Strength Assessment Within Functional Limits M9 OT- IP Assessment and Plan Start: 02/07/23 09:39 Freq: Status: Active Protocol: Document 02/07/23 09:39 [facility] (Rec: 02/07/23 09:57 [facility] [id number]) OT Summary Assessment and Plan Potential Rehabilitation Potential Good Analytic Complexity at Evaluation Moderate Summary OT Impairments Pain,Balance,Functional Mobility,Grooming,Dressing, Toileting,Bathing,Toilet Transfers,Shower Transfers, Activity Tolerance Progress Towards Goals Slow Progress due to Pain,Slow Progress due to Activity Tolerance Assessment Summary Pt MOD complexity and main barriers are steps, pain, PWB, and now needing extensive assist for all ADl and mobility needs. Pt will greatly benefit from skilled rehab to be able to improve his independence for ADl and mobility needs. Pt's elderly mom not able to provide enough assist for pt's needs at this time. Prior pt was completely independent with his needs. Goals Self-Feeding Goal Independent Grooming Goal Independent Dressing Goal Independent,Long Handled Shoe Horn,Flooring Professional,Sock Aid Toileting Goal Independent Bathing Goal Standby Assistance,Hand Held Shower Sprayer,Long Handled Sponge or [place] Toilet Transfer Goal Independent,Bedside Commode Shower Transfer Goal Independent Days to Meet Goals 25 Frequency of Treatment Frequency Of Treatment Once a Day Treatment Plan OT Treatment Plan ADL Training,Functional Mobility,Patient/Family Education,Discharge Planning Other Treatment Recommendations and Next Pt to do squat pivot transfers Treatment Focus to drop arm commode from bed with MODA X 1. Discharge Recommendations OT Discharge Recommendations SNF Rehab Home Equipment Needs drop arm BSC Transportation Needs at Discharge Wheelchair/Cabulance
[2023-02-07] MEDS: NAPROXEN 250 MG TABLET 500 MG PO ×2 (10:58→17:09)
--- NOTE | 2023-02-07 11:23 | PT.IPTN ---
Current Diagnoses Alcohol dependence, uncomplicated (01/30/23) Bipolar II disorder (01/30/23) Anxiety disorder, unspecified (01/30/23) Essential (primary) hypertension (01/30/23) Spondylosis without myelopathy or radiculopathy, lumbar region (01/30/23) Fracture of unspecified part of neck of left femur, initial encounter for closed fracture (01/30/23) Fracture of unspecified part of neck of left femur, subsequent encounter for closed fracture with routine healing (01/30/23) Displaced intertrochanteric fracture of left femur, subsequent encounter for closed fracture with routine healing (01/30/23) Displaced subtrochanteric fracture of unspecified femur, initial encounter for closed fracture (01/30/23) Nondisplaced subtrochanteric fracture of left femur, subsequent encounter for closed fracture with routine healing (01/30/23) 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 (01/30/23) Surgery Performed Operation Date: 02/01/23 16:45 Actual Procedures p hip intertroch, subtroch fracture(Left) - Earline Fleming MD Physical Therapy Treatment Note M2 PT-IP Current Condition Start: 02/02/23 14:46 Freq: NEEDED Status: Active Protocol: Document 02/02/23 13:35 AB (Rec: 02/02/23 15:02 AB [id number]) Physical Therapy Current Condition Current Condition Evaluation Date 02/02/23 Treatment Diagnosis s/p L hip ORIF; difficulty in walking Onset Date 01/30/23 M3 PT-IP Subjective Start: 02/02/23 14:46 Freq: NEEDED Status: Active Protocol: Document 02/07/23 11:00 MB (Rec: 02/07/23 11:23 MB [id number]) Subjective Physical Therapy Visit Type Type Treatment Note Visit Start Time 11:00 Visit Stop Time 11:15 Total Visit Minutes 15 Number of BOTTLE WASHING MACHINE OPERATOR Visits 7 Physical Therapy Visit Comments Patient Comments Pt reports high pain. Therapy Pain Assessment Pain When Pain Assessed During Mobility Pain Present Pain Present Pain Reported Location left LE Intensity 9 Scale Used Numeric (0 - 10) Description Acute Pain Behaviors Facial Grimacing,Guarding Pain Management Techniques Modification of Treatment,Re- positioning,Timing of Activity with Medications M4 PT-IP Mobility and Gait Start: 02/02/23 14:46 Freq: NEEDED Status: Active Protocol: Document 02/07/23 11:00 MB (Rec: 02/07/23 11:23 MB [id number]) PT-Bed Mobility Assessment Supine to Sit Supine to Sit Standby Assistance,1 Person Assistance,Head of Bed Elevated Sit to Supine Sit to Supine Moderate Assistance,1 Person Assistance Scooting Scooting to Edge of Bed Standby Assistance PT-Transfer Assessment Sit to and From Stand Sit to and from Stand Contact Guard Assistance,1 Person Assistance,Use of Upper Extremities Equipment Transfer Assistive Device Gait Belt,Front Wheeled Walker Orthotic/Prosthetic Devices or Brace: No Transfer Ability Level of Assist Contact Guard Assistance,1 Person Assistance,Use of Upper Extremities Comments Mobility Comments PT provides gait belt for pt to loop around bottom of left foot to help him scoot his left leg to the right (pt requests to exit the bed to the right). Pt is able to perform supine to sitting EOB with cues and SBA, increased time and use of gait belt and to get back to bed, even with use of gait belt around foot, he requires mod A to get his leg up onto the bed and to scoot it over. It is edematous today. Gait Assessment Gait Gait Assistance Required: Independent,Minimum Assistance Distance (Feet) 3 Able to Maintain Weight Bearing Status Yes During Gait Assistive Devices Assistive Device Gait Belt,Front Wheeled Walker Orthotic/Prosthetic Devices or Brace: No Gait Deviations General Gait Pattern Antalgic,Decreased Stride Length,Decreased Feet Clearance,Flexed Trunk,Step-to Gait Factors Limiting Gait Function Factors Limiting Gait Function Decreased Activity Tolerance, Decreased Strength,Pain,Poor Balance Comments Gait Comments For the most part, pt appears to be able to maintain PWB LLE with heavy support of UEs on the RW and with step-to gait pattern. With sitting, he does not scoot the left foot out in front and so he does likely increase WB through LLE with stand to sit. PT does raise the bed high for STS transfers . Pt takes 3 forwards steps and many right side steps with PT today. PT-Balance Assessment Sitting Balance and Reactions Static Sitting Balance Ability Fair Dynamic Sitting Balance Ability Fair Standing Balance and Reactions Static Standing Balance Ability Poor Dynamic Standing Balance Ability Poor Device Used RW M5 PT-IP Objective Assessments Start: 02/02/23 14:46 Freq: NEEDED Status: Active Protocol: Document 02/02/23 13:35 AB (Rec: 02/02/23 15:02 AB [id number]) Orientation Orientation/Cognition Level of Alertness Alert Orientation Name,Place,Situation Safety Awareness Decreased Safety Awareness Memory Description No Deficits Noted Gross Range of Motion Lower Extremity ROM Impairments pt with increase LLE guading inihibiting ROM Strength Lower Extremity Strength Assessment Left Impaired Hip 2+/5 Knee 3+/5 Muscle Tone Muscle Tone WNL Yes M6 PT-IP Treatment Start: 02/02/23 14:46 Freq: NEEDED Status: Active Protocol: Document 02/06/23 13:32 KS (Rec: 02/06/23 14:18 KS [id number]) Physical Therapy Treatment Exercises Exercises Ankle Pumps,Gluteal Sets,Quad Sets Education Education Provided Precautions,Weight Bearing Status,Post-Op Packet,Safety M7 PT-IP Assessment and Plan Start: 02/02/23 14:46 Freq: NEEDED Status: Active Protocol: Document 02/07/23 11:00 MB (Rec: 02/07/23 11:23 MB [id number]) PT Summary Assessment and Plan Potential Rehabilitation Potential Fair Status of Condition at Evaluation Evolving Summary Impairments Pain,ROM,Strength,Balance,Bed Mobility,Transfers,Gait, Activity Tolerance Progress Towards Goals Slow Progress due to Pain Assessment Summary Pt has high pain and LLE edema today. He states he has had some drainage from LLE wounds. He declines LE exercises in bed today and is agreeable to get OOB to take a few steps and then requests to get back in bed. He declines sitting up for lunch. Goals Bed Mobility Goal Standby Assistance Transfer Goal Standby Assistance,Front Wheeled Walker Gait Goal Standby Assistance,Front Wheel Walker Gait Distance 25 Days to Meet Goals 10 Frequency of Treatment Frequency Of Treatment Twice a Day Treatment Plan Physical Therapy Treatment Plan Bed Mobility Training,Transfer Training,Gait Training, Therapeutic Exercise,Balance Retraining,Post Op Education, Discharge Planning,Hot or Cold Pack,Neuromuscular Re-ed, Coordination Retraining,Manual Therapy Weight Bearing Status Weight Bearing Status Partial Weight Bearing Allowed Weight Bearing Amount (enter % PWB LLE or #) (%) Recommendations To Nursing Amount of Assist Needed 2 Person Assist Discharge Recommendations PT Discharge Recommendations SNF Rehab Transportation Needs at Discharge Wheelchair/Cabulance,Stretcher /Ambulance
--- NOTE | 2023-02-07 13:24 | P.PN_ITS ---
Subjective Subjective Date Patient Seen: 02/07/23 Time Patient Seen: 13:24 Interval history: Patient seen in follow-up of left femur fracture. Depression, and history of alcohol abuse. Patient doing well as far as alcohol goes. Having no desire. Still feels strong has been more than 2 weeks. Emotionally feeling disappointed that he is here but otherwise handling at all well. Pain control is the issue. He has been taking consistent medication with IV Dilaudid and p.o. Dilaudid. No other changes. Exam Vital Signs (past 8 hours): - 02/07/23 08:01 Temperature 97.3 F L Pulse Rate 85 Respiratory Rate 16 Blood Pressure 113/68 Pulse Oximetry 98 Oxygen Flow Rate 0 Oxygen Delivery Method Room Air Oxygen Flow Rate 0 Narrative Exam Narrative: Alert male lying in bed no acute distress Lungs are clear heart is regular rate and rhythm Objective Labs 02/02/23 05:25 02/05/23 05:10 [facility] Medical History Complicated grief Facet arthropathy, lumbar Lumbar foraminal stenosis Spondylolisthesis at L5-S1 level Surgical History H/O foot surgery Family History Family/Other No pertinent family history Social History household members: none Smoking Status: Current every day smoker alcohol intake: former Assessment & Plan Assessment & Plan narrative: Left femur fracture. Status post surgery day 6. Overall stable. Pain control has been the issue. Will discontinue his IV medication continue p.o. Dilaudid and add etodolac 1 p.o. b.i.d.. Will see how that goes. Hopefully we can take some of the inflammation pain out and see how he does. Did not get a lot out of the Toradol initially but will see how that goes. History of depression. Actually doing really well. No major issues. Patient will continue to follow. History of alcohol abuse. Stable. No evidence of withdrawal more than 2 weeks out. Seems strong in his recovery will follow. Code status full. DVT prophylaxis on Lovenox Disposition. Mid long discussion about his pain control. We are going to try to get him best control we can but will take all his pain away. Apparently physical therapy went better today. Discussed with social service and the question will be placement which right now is difficult. Not really understanding is emotional status is stable and his alcohol abuse is resolved at this point. But will see how things go. 40 minutes spent with the patient, social service, nursing, orders, dictation
--- NOTE | 2023-02-07 13:51 | CM.DPNOTE ---
Addendum entered by SHASHI Ng 02/07/23 16:57: Gali from [facility] reports they can accept pt for services. Will need order/face to face/dc summary at discharge. SL Addendum entered by SHASHI Ng 02/07/23 16:56: ELEMENTARY SCHOOL MUSIC TEACHER spoke with Izzy at [facility]-unable to accept patient at this time. CM team will confirm with [facility] and [facility] tomorrow. CM team will send Apolinar note from today to [facility] and [facility] highlighting how well he is doing mentally/with alcohol recovery. CHIDI Original Note: DCP note ELEMENTARY SCHOOL MUSIC TEACHER reviewed EMR. Per provider, continues to rec SNF for discharge. Per PT, patient not doing great with therapy and continue to rec SNF for safe discharge. SNF search is as follows: [facility]- Decline [facility]- Decline due to Hx of Suicide attempts and alcohol use. [facility]- no bed availability for a few weeks [facility] Per previous note, patient was open to [facility]. Per notes, no referral has been made to [facility] at this time. ELEMENTARY SCHOOL MUSIC TEACHER spoke with Gali at [facility]. Kindly Agreed to review. Gali at [facility] is concerned with ability to accept due to history of suicide attempts and substance abuse. DCP will continue pending responses from SNF agencies/. CM team will continue to follow closely SHASHI Ng
--- NOTE | 2023-02-07 14:34 | PM.PNPO.1 ---
Subjective Subjective Date Patient Seen: 02/07/23 Time Patient Seen: 14:44 Interval history: 62 year old male who is POD #6 s/p ORIF with intermedullary nail of the left femur for a comminuted left femur fracture. States pain is 9/10 and he is unhappy with being taken off IV pain medication. Expresses concerns about going home due to his lack of mobility, only able to stand up and take small steps around his room so far, using bedside urinal and commode still. Exam Vital Signs (past 8 hours): - 02/07/23 08:01 Temperature 97.3 F L Pulse Rate 85 Respiratory Rate 16 Blood Pressure 113/68 Pulse Oximetry 98 Oxygen Flow Rate 0 Oxygen Delivery Method Room Air Oxygen Flow Rate 0 Const Orientation: alert Resp Effort & Inspection: normal respiratory effort and able to speak in complete sentences Cardio Rate: regular rate Other: all extremities appear well perfused. Skin Other: Distal incision dressing is clean and dry. Proximal dressing is saturated with straw colored serious fluid. Dressing removed to reveal well healing surgical incision site, paxton in place, unable to express any fluid from the wound, no surrounding erythema or discharge. Neuro Other: Sensation intact to bilateral distal extremities. Extrem Other: Global pitting edema of the entire left lower leg. Moderate left knee effusion. Negative Jaki's. Able to stand and take small steps while partial weight bearing to left leg with the assistance of a walker. Objective Labs 02/02/23 05:25 02/05/23 05:10 [facility] Medical History Complicated grief Facet arthropathy, lumbar Lumbar foraminal stenosis Spondylolisthesis at L5-S1 level Surgical History H/O foot surgery Family History Family/Other No pertinent family history Social History household members: none Smoking Status: Current every day smoker alcohol intake: former Assessment & Plan Post-op Assessment and plan (1) Closed comminuted intertrochanteric fracture of left femur: Assessment and Plan narrative: Dressing changed by me today. Keep dressing in place until 2 week post op appt wtih [facility], change only as needed if it becomes saturated. Discharge dispotition and pain control per hospitalist service, no further need for orthopedic management at this time. Please re-consult orthopedics as necessary. Discussed dc to SNF with pt d/t lack of mobility and patient agrees with plan. Postoperative Procedures: Procedures Operation Date: 02/01/23 16:45 Actual Procedure Side Surgeon p hip intertroch, subtroch fracture Left Earline Fleming MD
[2023-02-07 15:02] VITALS: BP 122/75; PULSE 85; RESP 18; TEMP 36.8; O2SAT 95
--- NOTE | 2023-02-07 15:37 | PT-IP ANOTE ---
Pt con't with high pain and declines p.m. treatment.
[2023-02-07 19:46] VITALS: BP 113/69; PULSE 83; RESP 16; TEMP 36.1; O2SAT 93
[2023-02-07] MEDS: PANTOPRAZOLE DR 40 MG TABLET PO (20:49)
[2023-02-07] MEDS: LITHIUM 150 MG IR CAPSULE 600 MG PO (20:49)
[2023-02-07] MEDS: QUETIAPINE 100 MG TABLET 400 MG PO (20:49)
[2023-02-07] MEDS: TRAZODONE 50 MG TABLET 200 MG PO (20:50)
[2023-02-07 23:32] VITALS: BP 109/69; PULSE 95; RESP 16; TEMP 36.1; O2SAT 96
--- NOTE | 2023-02-08 00:32 | PC.NURSE ---
Addendum entered by Sue Garcia R.N. 02/08/23 03:48: Patient had requested pain medication at 0020 and was told he could not have the dilaudid until 0100. When RN went in to give him the pain medication at 0100 he was asleep. Awoke around 0230 and called for pain med which he received and is currently asleep. Original Note: Patient is alert and oriented but has flat affect. Breath sounds CTA with RA sat of 93%. HRR. Denied nausea. BT present and abdomen is soft; still passing flatus but no BM since 01/29. Is voiding per urinal and denied dysuria. Is able to move himself in bed. Previous RN reported he has been assisted out of bed using walker and 2 assists and taking more steps with assistance of PT; gait not assessed this shift. Aquacel dressing to left hip is intact with drainage noted at proximal end; no leakage. Dressing to lateral left knee is CDI. Continues to have 8/10 pain in left LE and is being partially managed now with po Dilaudid; refusing ice packs. Has 1+ edema in left leg. Chronic numbness in left foot remains unchanged. CMS intact otherwise except is unable to lift his leg off the bed still tonight. Refusing SCD's so reminded to ankle wave when awake. Fall risk score is high and bed alarm is activated.
[2023-02-08] MEDS: HYDROMORPHONE 4 MG TABLET PO ×5 (02:37→20:50)
[2023-02-08 05:47] VITALS: BP 109/73; PULSE 79; RESP 16; TEMP 36.2; O2SAT 94
[2023-02-08] MEDS: ACETAMINOPHEN 325 MG TABLET 650 MG PO ×2 (07:41→16:49)
[2023-02-08] MEDS: NAPROXEN 250 MG TABLET 500 MG PO ×2 (07:41→16:49)
[2023-02-08] MEDS: clonazePAM 0.5 MG TABLET 1 MG PO ×2 (08:11→20:49)
[2023-02-08] MEDS: CYCLOBENZAPRINE 10 MG TABLET PO ×3 (08:11→20:50)
[2023-02-08] MEDS: polyethylene glycoL 3350 17 GM POWD.PACK PO (08:11)
[2023-02-08] MEDS: ASPIRIN EC 81 MG TABLET PO ×2 (08:11→20:49)
[2023-02-08] MEDS: DOCUSATE 100 MG CAPSULE PO ×2 (08:11→20:50)
[2023-02-08] MEDS: SENNOSIDES 8.6 MG TABLET 17.2 MG PO ×2 (08:11→20:49)
[2023-02-08] MEDS: VENLAFAXINE ER 75 MG CAP 150 MG PO (08:11)
--- NOTE | 2023-02-08 08:57 | PT.IPTN ---
Current Diagnoses Alcohol dependence, uncomplicated (01/30/23) Bipolar II disorder (01/30/23) Anxiety disorder, unspecified (01/30/23) Essential (primary) hypertension (01/30/23) Spondylosis without myelopathy or radiculopathy, lumbar region (01/30/23) Fracture of unspecified part of neck of left femur, initial encounter for closed fracture (01/30/23) Fracture of unspecified part of neck of left femur, subsequent encounter for closed fracture with routine healing (01/30/23) Displaced intertrochanteric fracture of left femur, subsequent encounter for closed fracture with routine healing (01/30/23) Displaced subtrochanteric fracture of unspecified femur, initial encounter for closed fracture (01/30/23) Nondisplaced subtrochanteric fracture of left femur, subsequent encounter for closed fracture with routine healing (01/30/23) 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 (01/30/23) Surgery Performed Operation Date: 02/01/23 16:45 Actual Procedures p hip intertroch, subtroch fracture(Left) - Earline Fleming MD Physical Therapy Treatment Note M2 PT-IP Current Condition Start: 02/02/23 14:46 Freq: NEEDED Status: Active Protocol: Document 02/02/23 13:35 AB (Rec: 02/02/23 15:02 AB [id number]) Physical Therapy Current Condition Current Condition Evaluation Date 02/02/23 Treatment Diagnosis s/p L hip ORIF; difficulty in walking Onset Date 01/30/23 M3 PT-IP Subjective Start: 02/02/23 14:46 Freq: NEEDED Status: Active Protocol: Document 02/08/23 09:21 TS (Rec: 02/08/23 09:43 TS [id number]) Subjective Physical Therapy Visit Type Type Treatment Note Visit Start Time 08:57 Visit Stop Time 09:20 Total Visit Minutes 23 Number of WELDER EXPLOSION Visits 1 Physical Therapy Visit Comments Patient Comments Pt found resting in bed, is agreeable to PT. Therapy Pain Assessment Pain When Pain Assessed During Mobility Pain Present Pain Present Pain Reported M4 PT-IP Mobility and Gait Start: 02/02/23 14:46 Freq: NEEDED Status: Active Protocol: Document 02/08/23 09:21 TS (Rec: 02/08/23 09:43 TS [id number]) PT-Bed Mobility Assessment Supine to Sit Supine to Sit Standby Assistance,1 Person Assistance,Head of Bed Elevated Sit to Supine Sit to Supine Minimal Assistance,1 Person Assistance Scooting Scooting to Edge of Bed Standby Assistance PT-Transfer Assessment Sit to and From Stand Sit to and from Stand Contact Guard Assistance,1 Person Assistance,Use of Upper Extremities Equipment Transfer Assistive Device Gait Belt,Front Wheeled Walker Orthotic/Prosthetic Devices or Brace: No Comments Mobility Comments Supine to sit SBA HOB elevated 25D, bed raised to height of bed at home, pt uses BUEs to assist LLE over to EOB. He performed sit to stand with single UE on FWW and pushing from bed, pt demonstrates good awareness of PWB on LLE. Pt ambulated ~10' CGA with slow step to gait and decreased wbering on LLE. Pt ambulated back to bed, stand to sit CGA with cues for FWW management. Therapist attempted to get pt to try to stand again, pt requested back to bed. Sit supine Raf with strap placed around pt's L foot. Pt was left in bed, all needs met. Gait Assessment Gait Gait Assistance Required: Contact Guard Assist,1 Person Assist Distance (Feet) 10 Able to Maintain Weight Bearing Status Yes During Gait Assistive Devices Assistive Device Gait Belt,Front Wheeled Walker Orthotic/Prosthetic Devices or Brace: No Gait Deviations General Gait Pattern Antalgic,Decreased Stride Length,Decreased Feet Clearance,Flexed Trunk,Step-to Gait Factors Limiting Gait Function Factors Limiting Gait Function Decreased Activity Tolerance, Decreased Strength,Pain,Poor Balance Comments Gait Comments See mobility comments Stair Climbing Assessment Comments Stair Climbing Comments Unable at this time PT-Balance Assessment Sitting Balance and Reactions Static Sitting Balance Ability Good Dynamic Sitting Balance Ability Fair Standing Balance and Reactions Static Standing Balance Ability Fair Dynamic Standing Balance Ability Fair Device Used FWW M5 PT-IP Objective Assessments Start: 02/02/23 14:46 Freq: NEEDED Status: Active Protocol: Document 02/02/23 13:35 AB (Rec: 02/02/23 15:02 AB [id number]) Orientation Orientation/Cognition Level of Alertness Alert Orientation Name,Place,Situation Safety Awareness Decreased Safety Awareness Memory Description No Deficits Noted Gross Range of Motion Lower Extremity ROM Impairments pt with increase LLE guading inihibiting ROM Strength Lower Extremity Strength Assessment Left Impaired Hip 2+/5 Knee 3+/5 Muscle Tone Muscle Tone WNL Yes M6 PT-IP Treatment Start: 02/02/23 14:46 Freq: NEEDED Status: Active Protocol: Document 02/08/23 09:21 TS (Rec: 02/08/23 09:43 TS [id number]) Physical Therapy Treatment Exercises Exercises Heel Slides Education Education Provided Precautions,Weight Bearing Status,Post-Op Packet,Safety M7 PT-IP Assessment and Plan Start: 02/02/23 14:46 Freq: NEEDED Status: Active Protocol: Document 02/08/23 09:21 TS (Rec: 02/08/23 09:43 TS [id number]) PT Summary Assessment and Plan Potential Rehabilitation Potential Fair Summary Impairments Pain,ROM,Strength,Balance,Bed Mobility,Transfers,Gait, Activity Tolerance Progress Towards Goals Slow Progress due to Pain Assessment Summary Blade continues to make slow progress with his mobility. He is SBA for supine to sit with HOB elevated and uses BUE support to assist LLE to EOB. He performed sit to stand with FWW CGA from elevated bed. He progressed his gait to ~10' CGA/SBA, continues to have very slow michela with use of FWW. PT is recommending Home vs SNF. Pt is requiring less assist for bed mobility and OOB mobility this session. Pt has ~10 steps to enter house, pt is not ready to perform. If he were to go home most likely would need BLS to enter home. Goals Bed Mobility Goal Standby Assistance Transfer Goal Standby Assistance,Front Wheeled Walker Gait Goal Standby Assistance,Front Wheel Walker Gait Distance 25 Days to Meet Goals 10 Frequency of Treatment Frequency Of Treatment Twice a Day Treatment Plan Physical Therapy Treatment Plan Bed Mobility Training,Transfer Training,Gait Training, Therapeutic Exercise,Balance Retraining,Post Op Education, Discharge Planning,Hot or Cold Pack,Neuromuscular Re-ed, Coordination Retraining,Manual Therapy Weight Bearing Status Weight Bearing Status Partial Weight Bearing Allowed Weight Bearing Amount (enter % PWB LLE or #) (%) Recommendations To Nursing Amount of Assist Needed 2 Person Assist Discharge Recommendations PT Discharge Recommendations Home vs SNF Transportation Needs at Discharge Wheelchair/Cabulance,Stretcher /Ambulance
--- NOTE | 2023-02-08 08:57 | PM.PN.1 ---
Subjective Subjective Date Patient Seen: 02/08/23 Interval history: Patient is seen day 6. Postop. Status post fracture. No other changes. Pain control is about the same. Was able to get up move. Minimally though. Not ready to go home. No other changes. Constipated. Exam Vital Signs (past 8 hours): - 02/08/23 05:47 Temperature 97.1 F L Pulse Rate 79 Respiratory Rate 16 Blood Pressure 109/73 Pulse Oximetry 94 Oxygen Flow Rate 0 Oxygen Delivery Method Room Air Oxygen Flow Rate 0 Narrative Exam Narrative: Alert middle-aged male lying in bed interactive appropriate no acute distress lungs are clear heart is regular rate and rhythm abdomen is soft positive bowel sounds nontender Objective Labs 02/02/23 05:25 02/05/23 05:10 [facility] Medical History Complicated grief Facet arthropathy, lumbar Lumbar foraminal stenosis Spondylolisthesis at L5-S1 level Surgical History H/O foot surgery Family History Family/Other No pertinent family history Social History household members: none Smoking Status: Current every day smoker alcohol intake: former Assessment & Plan Assessment & Plan narrative: Constipation. Patient has MiraLax we need to be more aggressive with that. And suppositories. Need to be more aggressive before discharge. Left leg fracture. Maybe pain is better controlled on anti-inflammatory and Dilaudid. Will continue. Continue physical therapy or occupational therapy. Depression. Has been pretty good. Seems to be better than he has been in some time. Will continue usual meds. History of alcohol abuse. Patient is feeling very good about his sobriety. This is probably is bright and interactive of seen him for some time. Have some hope. Will see how things go. Code status full. GI prophylaxis no need DVT prophylaxis on Lovenox. Disposition. Apparently it is very difficult to get help or sniff placement for patients with alcohol and depression history. Patient is actually better than I have seen him in some time and I think this is a disservice but is what it is. It appears as if he is going to be staying here until he can ambulate enough to go home. Hopefully home health will not give up on somebody also. I am reading that it looks like they are concerned. I agree with the concern but he is doing well at this time. Hopefully that will continue. Certainly not helping him will put him at risk. Awaiting choices but it appears as if he will be here several more days until he can ambulate and go home. Will continue PT and OT. 35 minutes spent with the patient and staff dictation orders
--- NOTE | 2023-02-08 10:38 | DI.RAD.S_ITS ---
PROCEDURE: XR FEMUR LT MIN 2V INDICATIONS: left femur fracture TECHNIQUE: 2 views of the femur were acquired. COMPARISON: [facility], CR, XR FEMUR LT MIN 2V, 02/01/2023, 19:25. [facility], CR, XR FEMUR LT MIN 2V, 02/01/2023, 16:59. FINDINGS: Bones: Left femur intramedullary mehnaz and trochanteric screw fixation, with similar alignment. This includes medial displacement of the lesser trochanter. Soft tissues: No suspicious soft tissue calcifications or masses. IMPRESSION: Similar alignment and appearance of the left femur, status post ORIF. Dictated by: Mario Alberto Ni M.D. on 02/08/2023 at 11:45 Approved by: Mario Alberto Ni M.D. on 02/08/2023 at 11:46
[2023-02-08 12:00] VITALS: BP 113/71; PULSE 75; RESP 16; TEMP 36.3; O2SAT 100
--- NOTE | 2023-02-08 12:30 | OT.IP.TRT ---
Current Diagnoses Alcohol dependence, uncomplicated (01/30/23) Bipolar II disorder (01/30/23) Anxiety disorder, unspecified (01/30/23) Essential (primary) hypertension (01/30/23) Spondylosis without myelopathy or radiculopathy, lumbar region (01/30/23) Fracture of unspecified part of neck of left femur, initial encounter for closed fracture (01/30/23) Fracture of unspecified part of neck of left femur, subsequent encounter for closed fracture with routine healing (01/30/23) Displaced intertrochanteric fracture of left femur, subsequent encounter for closed fracture with routine healing (01/30/23) Displaced subtrochanteric fracture of unspecified femur, initial encounter for closed fracture (01/30/23) Nondisplaced subtrochanteric fracture of left femur, subsequent encounter for closed fracture with routine healing (01/30/23) 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 (01/30/23) Surgery Performed Operation Date: 02/01/23 16:45 Actual Procedures p hip intertroch, subtroch fracture(Left) - Earline Fleming MD Occupational Therapy Treatment Note M2 OT-IP Current Condition Start: 02/07/23 09:39 Freq: Status: Active Protocol: Document 02/07/23 09:39 [facility] (Rec: 02/07/23 09:57 [facility] [id number]) Occupational Therapy Current Condition Current Condition Evaluation Date 02/07/23 Treatment Diagnosis S/P L hip ORIF Diagnosis Onset Date 01/30/23 Weight Bearing Status Weight Bearing Status Partial Weight Bearing M3 OT- IP Subjective and Pain Start: 02/07/23 09:39 Freq: Status: Active Protocol: Document 02/08/23 12:33 [facility] (Rec: 02/08/23 12:44 [facility] [id number]) OT- Subjective Occupational Therapy Visit Type Type Treatment Note Visit Start Time 12:20 Visit Stop Time 12:30 Occupational Therapy Visit Comments Patient Comments Pt after encouragement agreed to get up. Patient/Caregiver Goals TO go home but open to going to skilled rehab. OT Pain Assessment Pain When Pain Assessed At Rest Pain Present Pain Present Pain Reported Location left LE Intensity 9 Scale Used Numeric (0 - 10) M4 OT- IP ADL's Start: 02/07/23 09:39 Freq: Status: Active Protocol: Document 02/07/23 09:39 [facility] (Rec: 02/07/23 09:57 [facility] [id number]) OT VBQ-Ulmp-Ssajwur General Evaluation Self-Feeding Ability Independent OT ADL-Grooming Comments OT Grooming Comments Not performed. OT ADL-Oral Care Comments Oral Care Comments NOt performed. OT ADL-Dressing General Eval Lower Body Dressing Ability Maximum Assistance Comments OT Dressing Comments Able to show pt use of LB dressing equipment to assist with his needs. OT ADL-Toileting Comments OT Toileting Comments Pt not having to go . Pt will benefit from BSC and urinal for home use. OT ADL-Bathing Comments OT Bathing Comments Not performed, pt states has a tub bench at home to use. M5 OT- IP IADL's Start: 02/07/23 09:39 Freq: Status: Active Protocol: Document 02/07/23 09:39 [facility] (Rec: 02/07/23 09:57 [facility] [id number]) OT-Instrumental Activities of Daily Living Deficits IADL Deficits Identified Deficits Home Safety Awareness Awareness of Need for Assistance at Home Good Awareness Home Safety Comments Pt states his elderly may be able to assist some. Meal Preparation Meal Preparation Caregiver Provides Assist Environmental Program Manager Environmental Program Manager Caregiver Provides Assist M6 OT- IP Functional Cognition Start: 02/07/23 09:39 Freq: Status: Active Protocol: Document 02/07/23 09:39 [facility] (Rec: 02/07/23 09:57 [facility] [id number]) Cognitive Factors Limiting Selfcare Function Cognitive Ability Level of Alertness Alert Patient Orientation Name,Age,Place,Situation Attention Span Ability Capable of Focused Attention, Capable of Sustained Attention Ability to Follow Commands Able to Follow One Step Commands Cognitive Comments Cognitive Assessment Comments Pt able to follow commands for needs. Pt insistent that he will not drink and wanting to go to rehab to get better. OT- Vision and Hearing OT- Hearing Assessment OT- Hearing Assessment WFL OT- Vision Assessment Visual Acuity Glasses For Reading Visual Attentiveness WFL Occular Pursuits WFL M7 OT- IP Mobility and Balance Start: 02/07/23 09:39 Freq: Status: Active Protocol: Document 02/08/23 12:33 [facility] (Rec: 02/08/23 12:44 [facility] [id number]) OT- Bed Mobility Assessment Supine to Sit Supine to Sit Assist Standby Assistance Sit to Supine Sit to Supine Assist Minimal Assistance Scooting Scooting to Edge of Bed Standby Assistance Scooting Up and Down in Bed Standby Assistance OT-Transfer Assessment Transfers Transfer Ability Standby Assistance Technique Transfer Destination Bed,Wheelchair Transfer Technique Squat Pivot Comments Mobility Comments Able to have pt try to transfer to and from a wc with squat pivot/lateral scoot and to the right and able to do. Educated best to go to the right side and easier to not have to use his left leg and adhere to the PWB status. Pt refused and wanting to get back by transfer to the left and able to do but putting too much weigh through his left leg. M8 OT- IP Objective Assessments Start: 02/07/23 09:39 Freq: Status: Active Protocol: Document 02/07/23 09:39 [facility] (Rec: 02/07/23 09:57 [facility] [id number]) OT Gross Range of Motion Upper Extremity Range of Motion Assessment Within Functional Limits OT Strength Upper Extremity Strength Assessment Within Functional Limits M9 OT- IP Assessment and Plan Start: 02/07/23 09:39 Freq: Status: Active Protocol: Document 02/08/23 12:33 [facility] (Rec: 02/08/23 12:44 [facility] [id number]) OT Summary Assessment and Plan Potential Rehabilitation Potential Good Analytic Complexity at Evaluation Moderate Summary OT Impairments Pain,Balance,Functional Mobility,Grooming,Dressing, Toileting,Bathing,Toilet Transfers,Shower Transfers, Activity Tolerance Progress Towards Goals Slow Progress due to Pain,Slow Progress due to Activity Tolerance Assessment Summary Able to show and try option of squat pivot transfer to the right and pt able to do with SBA and assist to make sure the wc did not move. Pt agreed the wc may work at home or especially for longer distances. Pt too tired to do more after the transfer to and from the bed to at this time. Pt would greatly benefit from short rehab stay so able to increase his mobility more so than his elderly mom is able to care for him at home. Pt will still benefit from getting LB dressing equipment, drop arm commode to use at home. At this time pt's biggest barrier are steps at home and pain. Goals Self-Feeding Goal Independent Grooming Goal Independent Dressing Goal Independent,Long Handled Shoe Horn,Client Support Representative,Sock Aid Toileting Goal Independent Bathing Goal Standby Assistance,Hand Held Shower Sprayer,Long Handled Sponge or Gasquet Toilet Transfer Goal Independent,Bedside Commode Shower Transfer Goal Independent Days to Meet Goals 15 Frequency of Treatment Frequency Of Treatment Once a Day Treatment Plan OT Treatment Plan ADL Training,Functional Mobility,Patient/Family Education,Discharge Planning Other Treatment Recommendations and Next Transfer to drop arm commode Treatment Focus with SBA. Discharge Recommendations OT Discharge Recommendations SNF Rehab Home Equipment Needs drop arm BS Transportation Needs at Discharge Wheelchair/Cabulance
--- NOTE | 2023-02-08 13:18 | P.PN_ITS ---
Subjective Subjective Date Patient Seen: 02/08/23 Time Patient Seen: 13:18 Interval history: Patient's pain is moderate to severe. Denies fever or chills. No nausea or vomiting. Exam Vital Signs (past 8 hours): - 02/08/23 05:47 02/08/23 12:00 Temperature 97.1 F L 97.3 F L Pulse Rate 79 75 Respiratory Rate 16 16 Blood Pressure 109/73 113/71 Pulse Oximetry 94 100 Oxygen Flow Rate 0 0 Oxygen Delivery Method Room Air Oxygen Flow Rate 0 Narrative Exam Narrative: 62-year-old male resting comfortably in bed in no apparent distress. The dressing currently shows a quarter-size area of drainage otherwise intact. Motor functions intact bilateral lower extremities. Sensation grossly intact to light touch bilateral lower extremities. Const General: cooperative and comfortable Orientation: alert Resp Effort & Inspection: normal respiratory effort and able to speak in complete sentences Objective Labs 02/02/23 05:25 02/05/23 05:10 [facility] Medical History Complicated grief Facet arthropathy, lumbar Lumbar foraminal stenosis Spondylolisthesis at L5-S1 level Surgical History H/O foot surgery Family History Family/Other No pertinent family history Social History household members: none Smoking Status: Current every day smoker alcohol intake: former Assessment & Plan Post-op Postoperative Procedures: Procedures Operation Date: 02/01/23 16:45 Actual Procedure Side Surgeon p hip intertroch, subtroch fracture Left Earline Carey Fleming MD Postoperative day: 7 Postoperative status narrative: Stable Postoperative plan narrative: The next dressing change will be to lucien dressing per Dr. Fleming Partial weight-bearing left lower extremity. Follow up outpatient Orthopedics in 2 weeks with new x-rays AP and lateral left femur and AP pelvis Patient has been slow to progress due to pain and difficulty with partial weight-bearing left lower extremity Discharge per Internal Medicine when stable.
--- NOTE | 2023-02-08 13:46 | PT.IPTN ---
Current Diagnoses Alcohol dependence, uncomplicated (01/30/23) Bipolar II disorder (01/30/23) Anxiety disorder, unspecified (01/30/23) Essential (primary) hypertension (01/30/23) Spondylosis without myelopathy or radiculopathy, lumbar region (01/30/23) Fracture of unspecified part of neck of left femur, initial encounter for closed fracture (01/30/23) Fracture of unspecified part of neck of left femur, subsequent encounter for closed fracture with routine healing (01/30/23) Displaced intertrochanteric fracture of left femur, subsequent encounter for closed fracture with routine healing (01/30/23) Displaced subtrochanteric fracture of unspecified femur, initial encounter for closed fracture (01/30/23) Nondisplaced subtrochanteric fracture of left femur, subsequent encounter for closed fracture with routine healing (01/30/23) Other terminal clerk (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 therapy (01/30/23) Surgery Performed Operation Date: 02/01/23 16:45 Actual Procedures p hip intertroch, subtroch fracture(Left) - Earline Fleming MD Physical Therapy Treatment Note M2 PT-IP Current Condition Start: 02/02/23 14:46 Freq: NEEDED Status: Active Protocol: Document 02/02/23 13:35 AB (Rec: 02/02/23 15:02 AB [id number]) Physical Therapy Current Condition Current Condition Evaluation Date 02/02/23 Treatment Diagnosis s/p L hip ORIF; difficulty in walking Onset Date 01/30/23 M3 PT-IP Subjective Start: 02/02/23 14:46 Freq: NEEDED Status: Active Protocol: Document 02/08/23 14:26 TS (Rec: 02/08/23 14:37 TS [id number]) Subjective Physical Therapy Visit Type Type Treatment Note Visit Start Time 13:46 Visit Stop Time 13:59 Total Visit Minutes 13 Number of BAIT MAN Visits 2 Physical Therapy Visit Comments Patient Comments Pt found resting in bed, friend in room, is agreeable to PT. Therapy Pain Assessment Pain When Pain Assessed During Mobility Pain Present Pain Present Pain Reported M4 PT-IP Mobility and Gait Start: 02/02/23 14:46 Freq: NEEDED Status: Active Protocol: Document 02/08/23 14:26 TS (Rec: 02/08/23 14:37 TS [id number]) PT-Bed Mobility Assessment Supine to Sit Supine to Sit Standby Assistance,1 Person Assistance,Head of Bed Elevated Sit to Supine Sit to Supine Minimal Assistance,1 Person Assistance Scooting Scooting to Edge of Bed Standby Assistance PT-Transfer Assessment Sit to and From Stand Sit to and from Stand Contact Guard Assistance,1 Person Assistance,Use of Upper Extremities Equipment Transfer Assistive Device Gait Belt,Front Wheeled Walker Orthotic/Prosthetic Devices or Brace: No Comments Mobility Comments Pt performed supine to sit SBA with BUE support assisting LLE to EOB. Sit to stand with FWW CGA, pt shifts weight heavily to R side to stand. He ambulated a short distance of ~10' in room SBA with slow step to gait. Sit to supine Raf for LLE into bed. Pt was left in bed all needs met. Gait Assessment Gait Gait Assistance Required: Standby Assistance,1 Person Assist Distance (Feet) 10 Able to Maintain Weight Bearing Status Yes During Gait Assistive Devices Assistive Device Gait Belt,Front Wheeled Walker Orthotic/Prosthetic Devices or Brace: No Gait Deviations General Gait Pattern Antalgic,Decreased Stride Length,Decreased Feet Clearance,Flexed Trunk,Step-to Gait Factors Limiting Gait Function Factors Limiting Gait Function Decreased Activity Tolerance, Decreased Strength,Pain,Poor Balance Comments Gait Comments See mobility comments Stair Climbing Assessment Comments Stair Climbing Comments Unable at this time PT-Balance Assessment Sitting Balance and Reactions Static Sitting Balance Ability Good Dynamic Sitting Balance Ability Good Standing Balance and Reactions Static Standing Balance Ability Fair Dynamic Standing Balance Ability Fair Device Used FWW M5 PT-IP Objective Assessments Start: 02/02/23 14:46 Freq: NEEDED Status: Active Protocol: Document 02/02/23 13:35 AB (Rec: 02/02/23 15:02 AB [id number]) Orientation Orientation/Cognition Level of Alertness Alert Orientation Name,Place,Situation Safety Awareness Decreased Safety Awareness Memory Description No Deficits Noted Gross Range of Motion Lower Extremity ROM Impairments pt with increase LLE guading inihibiting ROM Strength Lower Extremity Strength Assessment Left Impaired Hip 2+/5 Knee 3+/5 Muscle Tone Muscle Tone WNL Yes M6 PT-IP Treatment Start: 02/02/23 14:46 Freq: NEEDED Status: Active Protocol: Document 02/08/23 14:26 TS (Rec: 02/08/23 14:37 TS [id number]) Physical Therapy Treatment Education Education Provided Precautions,Weight Bearing Status,Post-Op Packet,Safety M7 PT-IP Assessment and Plan Start: 02/02/23 14:46 Freq: NEEDED Status: Active Protocol: Document 02/08/23 14:26 TS (Rec: 02/08/23 14:37 TS [id number]) PT Summary Assessment and Plan Potential Rehabilitation Potential Fair Summary Impairments Pain,ROM,Strength,Balance,Bed Mobility,Transfers,Gait, Activity Tolerance Progress Towards Goals Slow Progress due to Pain Assessment Summary Blade continues to be SBA for supine to sit but requires Raf for LLE into bed. He performed sit to stand with FWW CGA, continues to heavily shift weight to R side to stand, demonstrates awareness of PWB on L side. He continues to ambulate a short distance in the room of ~10'. Pt has ~ 10 stairs to do to get in house, pt is not safe to do so at this time. PT is recommending SNF vs Home at this time. Pt may need BLS transport to get into house. Goals Bed Mobility Goal Standby Assistance Transfer Goal Standby Assistance,Front Wheeled Walker Gait Goal Standby Assistance,Front Wheel Walker Gait Distance 25 Days to Meet Goals 10 Frequency of Treatment Frequency Of Treatment Twice a Day Treatment Plan Physical Therapy Treatment Plan Bed Mobility Training,Transfer Training,Gait Training, Therapeutic Exercise,Balance Retraining,Post Op Education, Discharge Planning,Hot or Cold Pack,Neuromuscular Re-ed, Coordination Retraining,Manual Therapy Weight Bearing Status Weight Bearing Status Partial Weight Bearing Allowed Weight Bearing Amount (enter % PWB LLE or #) (%) Recommendations To Nursing Amount of Assist Needed 2 Person Assist Discharge Recommendations PT Discharge Recommendations Home vs SNF Transportation Needs at Discharge Wheelchair/Cabulance,Stretcher /Ambulance
[2023-02-08 18:00] VITALS: BP 118/67; PULSE 77; RESP 17; TEMP 36.7; O2SAT 100
[2023-02-08] MEDS: BISACODYL 10 MG SUPP PR (18:11)
--- NOTE | 2023-02-08 18:18 | CM.DPNOTE ---
DCP note BULK DRIVER reviewed EMR. CC Shayla faxed updated clinicals to [facility]. BULK DRIVER received [facility] due to Hx of SI/Substance use. BULK DRIVER entered room and introduced self and role. Pt laying in bed. BULK DRIVER updated him on lack of SNF placement. Pt adamant that he is not ready to dc home. This BULK DRIVER told him that ultimately it is the provider's decision, not this BULK DRIVER, if pt discharges. Pt reports he's working as hard as he can with PT/OT/to get up with nursing but is insistent he cannot go home at this time. Pt appreciative of [facility] acceptance. BULK DRIVER reported the transport plan could be BLS transport home to get up stairs, pt not agreeable to BLS at this time due to insistence that he is not going to discharge any time soon. Plan: likely home with [facility] when medically stable. BULK DRIVER will consider reaching out to [facility] tomorrow for additional potential placement options. CM team will continue to follow closely. SHASHI Ng
[2023-02-08 20:40] VITALS: BP 139/83; PULSE 85; RESP 18; TEMP 36.4; O2SAT 99
[2023-02-08] MEDS: LITHIUM 150 MG IR CAPSULE 600 MG PO (20:49)
[2023-02-08] MEDS: TRAZODONE 50 MG TABLET 200 MG PO (20:50)
[2023-02-08] MEDS: QUETIAPINE 100 MG TABLET 400 MG PO (20:50)
[2023-02-08] MEDS: SODIUM CHLORIDE 0.9% FLUSH 10 ML IV (21:43)
[2023-02-08] MEDS: PANTOPRAZOLE DR 40 MG TABLET PO (22:00)
[2023-02-09] MEDS: HYDROMORPHONE 4 MG TABLET PO ×5 (00:51→19:10)
[2023-02-09 06:00] VITALS: BP 122/71; PULSE 88; RESP 16; TEMP 36.6; O2SAT 99
--- NOTE | 2023-02-09 07:19 | PM.PNPO.1 ---
Subjective Subjective Date Patient Seen: 02/09/23 Time Patient Seen: 07:00 Interval history: Patient says he is feeling well. He is had to have the dressing changed twice yesterday but has had no drainage since this morning. He is working with physical therapy sudden hopes that he can go home. Initial plan was that he would go home to an rehab facility but they have been unable to find center that can accommodate him. No other new complaints today Exam Vital Signs (past 8 hours): - 02/09/23 06:00 Temperature 97.8 F Pulse Rate 88 Respiratory Rate 16 Blood Pressure 122/71 Pulse Oximetry 99 Oxygen Flow Rate 0 Oxygen Delivery Method Room Air Oxygen Flow Rate 0 Narrative Exam Narrative: Aquacel dressing is appears to be well-maintained. Some bleeding into the gauze but contained. No bordering erythema or streaking. No pain on compression along the posterior thigh or calf. Able to internally rotate and externally rotate at the hip with no increase in pain. Able to dorsiflex and plantar flex at the ankle against resistance. Sensation grossly intact to the left lower extremity. Resp Effort & Inspection: normal respiratory effort and able to speak in complete sentences Objective Labs 02/02/23 05:25 02/05/23 05:10 [facility] Medical History Complicated grief Facet arthropathy, lumbar Lumbar foraminal stenosis Spondylolisthesis at L5-S1 level Surgical History H/O foot surgery Family History Family/Other No pertinent family history Social History household members: none Smoking Status: Current every day smoker alcohol intake: former Assessment & Plan Post-op Postoperative Procedures: Procedures Operation Date: 02/01/23 16:45 Actual Procedure Side Surgeon p hip intertroch, subtroch fracture Left Earline Fleming MD Postoperative day: 8 Postoperative status: doing well Postoperative status narrative: Patient's pain is under control. Working with physical therapy. Postoperative plan: routine post-op care Postoperative plan narrative: Continue with multimodal pain control. Continue to work with physical therapy. Plan is to discharge to a rehabilitation facility if able to find the center that is able to accommodate Rich. If no Center is available continue to work with physical therapy until he is cleared to be discharged home with approval from Medicine. Time Spent With Patient Time with patient: less than 15 minutes Quality VTE Deep Vein Thrombosis/Pulmonary Embolism Present on Admission: No
[2023-02-09] MEDS: ACETAMINOPHEN 325 MG TABLET 650 MG PO ×3 (08:28→20:54)
[2023-02-09] MEDS: NAPROXEN 250 MG TABLET 500 MG PO ×2 (08:28→16:16)
[2023-02-09] MEDS: ASPIRIN EC 81 MG TABLET PO ×2 (08:28→20:53)
[2023-02-09] MEDS: clonazePAM 0.5 MG TABLET 1 MG PO ×2 (08:28→20:54)
[2023-02-09] MEDS: SENNOSIDES 8.6 MG TABLET 17.2 MG PO ×2 (08:28→20:55)
[2023-02-09] MEDS: polyethylene glycoL 3350 17 GM POWD.PACK PO (08:28)
[2023-02-09] MEDS: CYCLOBENZAPRINE 10 MG TABLET PO ×3 (08:28→20:54)
[2023-02-09] MEDS: DOCUSATE 100 MG CAPSULE PO ×2 (08:28→20:55)
[2023-02-09] MEDS: VENLAFAXINE ER 75 MG CAP 150 MG PO (08:35)
--- NOTE | 2023-02-09 10:25 | PT.IPTN ---
Current Diagnoses Alcohol dependence, uncomplicated (01/30/23) Bipolar II disorder (01/30/23) Anxiety disorder, unspecified (01/30/23) Essential (primary) hypertension (01/30/23) Spondylosis without myelopathy or radiculopathy, lumbar region (01/30/23) Fracture of unspecified part of neck of left femur, initial encounter for closed fracture (01/30/23) Fracture of unspecified part of neck of left femur, subsequent encounter for closed fracture with routine healing (01/30/23) Displaced intertrochanteric fracture of left femur, subsequent encounter for closed fracture with routine healing (01/30/23) Displaced subtrochanteric fracture of unspecified femur, initial encounter for closed fracture (01/30/23) Nondisplaced subtrochanteric fracture of left femur, subsequent encounter for closed fracture with routine healing (01/30/23) Other long term acute care registered nurse (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 therapy (01/30/23) Surgery Performed Operation Date: 02/01/23 16:45 Actual Procedures p hip intertroch, subtroch fracture(Left) - Earline Fleming MD Physical Therapy Treatment Note M2 PT-IP Current Condition Start: 02/02/23 14:46 Freq: NEEDED Status: Active Protocol: Document 02/02/23 13:35 AB (Rec: 02/02/23 15:02 AB [id number]) Physical Therapy Current Condition Current Condition Evaluation Date 02/02/23 Treatment Diagnosis s/p L hip ORIF; difficulty in walking Onset Date 01/30/23 M3 PT-IP Subjective Start: 02/02/23 14:46 Freq: NEEDED Status: Active Protocol: Document 02/09/23 10:51 TS (Rec: 02/09/23 11:04 TS [id number]) Subjective Physical Therapy Visit Type Type Treatment Note Visit Start Time 10:25 Visit Stop Time 10:50 Total Visit Minutes 25 Number of UTILITY PIPE LAYER Visits 3 Physical Therapy Visit Comments Patient Comments Pt found resting in bed, is agreeable to PT. Therapy Pain Assessment Pain When Pain Assessed During Mobility Pain Present Pain Present Pain Reported M4 PT-IP Mobility and Gait Start: 02/02/23 14:46 Freq: NEEDED Status: Active Protocol: Document 02/09/23 10:51 TS (Rec: 02/09/23 11:04 TS [id number]) PT-Bed Mobility Assessment Supine to Sit Supine to Sit Standby Assistance,1 Person Assistance,Head of Bed Elevated Sit to Supine Sit to Supine Minimal Assistance,1 Person Assistance Scooting Scooting to Edge of Bed Standby Assistance PT-Transfer Assessment Sit to and From Stand Sit to and from Stand Contact Guard Assistance,1 Person Assistance,Use of Upper Extremities Equipment Transfer Assistive Device Gait Belt,Front Wheeled Walker Orthotic/Prosthetic Devices or Brace: No Comments Mobility Comments Supine to sit SBA with UE support assisting LLE to EOB. Sit to stand CGA with FWW, pt heavily leans to R side for decreased wbering on LLE. He ambulated ~25' in room SBA with heavy UE support on FWW and slow step to gait, reports tightness in LLE. Sit to supine into bed Raf for LLE. Pt was left in bed, friend in room, all needs met. Gait Assessment Gait Gait Assistance Required: Standby Assistance,1 Person Assist Distance (Feet) 25 Able to Maintain Weight Bearing Status Yes During Gait Assistive Devices Assistive Device Gait Belt,Front Wheeled Walker Orthotic/Prosthetic Devices or Brace: No Gait Deviations General Gait Pattern Antalgic,Decreased Stride Length,Decreased Feet Clearance,Flexed Trunk,Step-to Gait Factors Limiting Gait Function Factors Limiting Gait Function Decreased Activity Tolerance, Decreased Strength,Pain,Poor Balance Comments Gait Comments See mobility comments Stair Climbing Assessment Comments Stair Climbing Comments Unable at this time PT-Balance Assessment Sitting Balance and Reactions Static Sitting Balance Ability Good Dynamic Sitting Balance Ability Good Standing Balance and Reactions Static Standing Balance Ability Fair Dynamic Standing Balance Ability Fair Device Used FWW M5 PT-IP Objective Assessments Start: 02/02/23 14:46 Freq: NEEDED Status: Active Protocol: Document 02/02/23 13:35 AB (Rec: 02/02/23 15:02 AB [id number]) Orientation Orientation/Cognition Level of Alertness Alert Orientation Name,Place,Situation Safety Awareness Decreased Safety Awareness Memory Description No Deficits Noted Gross Range of Motion Lower Extremity ROM Impairments pt with increase LLE guading inihibiting ROM Strength Lower Extremity Strength Assessment Left Impaired Hip 2+/5 Knee 3+/5 Muscle Tone Muscle Tone WNL Yes M6 PT-IP Treatment Start: 02/02/23 14:46 Freq: NEEDED Status: Active Protocol: Document 02/09/23 10:51 TS (Rec: 02/09/23 11:04 TS [id number]) Physical Therapy Treatment Education Education Provided Precautions,Weight Bearing Status,Post-Op Packet,Safety M7 PT-IP Assessment and Plan Start: 02/02/23 14:46 Freq: NEEDED Status: Active Protocol: Document 02/09/23 10:51 TS (Rec: 02/09/23 11:04 TS [id number]) PT Summary Assessment and Plan Potential Rehabilitation Potential Fair Summary Impairments Pain,ROM,Strength,Balance,Bed Mobility,Transfers,Gait, Activity Tolerance Progress Towards Goals Slow Progress due to Pain Assessment Summary Blade is making some progress with his mobility but remains limited by ongoing pain. He is SBA for supine to sit and uses UEs to assist LLE to EOB. He performed sit to stand CGA with FWW, has good standing balance with no retroleaning. He progressed his gait to ~25' SBA with a continued slow antalgic gait, pt reported some tightness in LLE that has not been there before. PT is recommending Home vs SNF at this time. If pt were to go would most likely need BLS into house due to 10 steps into house. Goals Bed Mobility Goal Standby Assistance Transfer Goal Standby Assistance,Front Wheeled Walker Gait Goal Standby Assistance,Front Wheel Walker Gait Distance 25 Days to Meet Goals 10 Frequency of Treatment Frequency Of Treatment Twice a Day Treatment Plan Physical Therapy Treatment Plan Bed Mobility Training,Transfer Training,Gait Training, Therapeutic Exercise,Balance Retraining,Post Op Education, Discharge Planning,Hot or Cold Pack,Neuromuscular Re-ed, Coordination Retraining,Manual Therapy Weight Bearing Status Weight Bearing Status Partial Weight Bearing Allowed Weight Bearing Amount (enter % PWB LLE or #) (%) Recommendations To Nursing Amount of Assist Needed 1 Person Assist Discharge Recommendations PT Discharge Recommendations Home vs SNF Transportation Needs at Discharge Wheelchair/Cabulance,Stretcher /Ambulance
--- NOTE | 2023-02-09 13:11 | OT.IPNOTE ---
Attempted OT treatment with pt to practice ADl needs. Pt insistent that he will figure it out on his own. Pt also refuses a shower at this time. Pt states has all the equipment needs and not wanting to practice. Pt has concerns about having to empty the BSC at home and told pt that he will actively need to start thinking about who will assist him at home besides his elderly mom. NO charge.
--- NOTE | 2023-02-09 13:35 | PT.IPTN ---
Current Diagnoses Alcohol dependence, uncomplicated (01/30/23) Bipolar II disorder (01/30/23) Anxiety disorder, unspecified (01/30/23) Essential (primary) hypertension (01/30/23) Spondylosis without myelopathy or radiculopathy, lumbar region (01/30/23) Fracture of unspecified part of neck of left femur, initial encounter for closed fracture (01/30/23) Fracture of unspecified part of neck of left femur, subsequent encounter for closed fracture with routine healing (01/30/23) Displaced intertrochanteric fracture of left femur, subsequent encounter for closed fracture with routine healing (01/30/23) Displaced subtrochanteric fracture of unspecified femur, initial encounter for closed fracture (01/30/23) Nondisplaced subtrochanteric fracture of left femur, subsequent encounter for closed fracture with routine healing (01/30/23) Other superintendent terminal (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 therapy (01/30/23) Surgery Performed Operation Date: 02/01/23 16:45 Actual Procedures p hip intertroch, subtroch fracture(Left) - Earline Fleming MD Physical Therapy Treatment Note M2 PT-IP Current Condition Start: 02/02/23 14:46 Freq: NEEDED Status: Active Protocol: Document 02/02/23 13:35 AB (Rec: 02/02/23 15:02 AB [id number]) Physical Therapy Current Condition Current Condition Evaluation Date 02/02/23 Treatment Diagnosis s/p L hip ORIF; difficulty in walking Onset Date 01/30/23 M3 PT-IP Subjective Start: 02/02/23 14:46 Freq: NEEDED Status: Active Protocol: Document 02/09/23 14:10 TS (Rec: 02/09/23 14:23 TS [id number]) Subjective Physical Therapy Visit Type Type Treatment Note Visit Start Time 13:35 Visit Stop Time 13:50 Total Visit Minutes 15 Number of MATERIALS MANAGEMENT CLERK Visits 4 Physical Therapy Visit Comments Patient Comments Pt found on commode, is agreeable to PT session. Therapy Pain Assessment Pain When Pain Assessed During Mobility Pain Present Pain Present Pain Reported M4 PT-IP Mobility and Gait Start: 02/02/23 14:46 Freq: NEEDED Status: Active Protocol: Document 02/09/23 14:10 TS (Rec: 02/09/23 14:23 TS [id number]) PT-Bed Mobility Assessment Sit to Supine Sit to Supine Minimal Assistance,1 Person Assistance PT-Transfer Assessment Sit to and From Stand Sit to and from Stand Standby Assistance,Use of Upper Extremities Equipment Transfer Assistive Device Gait Belt,Front Wheeled Walker Orthotic/Prosthetic Devices or Brace: No Comments Mobility Comments Sit to stand from commode SBA with BUE support pushing from arms of commode. He ambulated ~15' in room, reported increased pain/discomfort, requested back to bed. Sit to supine into bed Raf for LLE and use of gait strap. Pt was left in bed all needs met, RN notified. Gait Assessment Gait Gait Assistance Required: Standby Assistance,1 Person Assist Distance (Feet) 15 Able to Maintain Weight Bearing Status Yes During Gait Assistive Devices Assistive Device Gait Belt,Front Wheeled Walker Orthotic/Prosthetic Devices or Brace: No Gait Deviations General Gait Pattern Antalgic,Decreased Stride Length,Decreased Feet Clearance,Flexed Trunk,Step-to Gait Factors Limiting Gait Function Factors Limiting Gait Function Decreased Activity Tolerance, Decreased Strength,Pain,Poor Balance Comments Gait Comments See mobility comments Stair Climbing Assessment Comments Stair Climbing Comments Unable at this time PT-Balance Assessment Sitting Balance and Reactions Static Sitting Balance Ability Good Dynamic Sitting Balance Ability Good Standing Balance and Reactions Static Standing Balance Ability Fair Dynamic Standing Balance Ability Fair Device Used FWW M5 PT-IP Objective Assessments Start: 02/02/23 14:46 Freq: NEEDED Status: Active Protocol: Document 02/02/23 13:35 AB (Rec: 02/02/23 15:02 AB [id number]) Orientation Orientation/Cognition Level of Alertness Alert Orientation Name,Place,Situation Safety Awareness Decreased Safety Awareness Memory Description No Deficits Noted Gross Range of Motion Lower Extremity ROM Impairments pt with increase LLE guading inihibiting ROM Strength Lower Extremity Strength Assessment Left Impaired Hip 2+/5 Knee 3+/5 Muscle Tone Muscle Tone WNL Yes M6 PT-IP Treatment Start: 02/02/23 14:46 Freq: NEEDED Status: Active Protocol: Document 02/09/23 14:10 TS (Rec: 02/09/23 14:23 TS [id number]) Physical Therapy Treatment Education Education Provided Precautions,Weight Bearing Status,Post-Op Packet,Safety M7 PT-IP Assessment and Plan Start: 02/02/23 14:46 Freq: NEEDED Status: Active Protocol: Document 02/09/23 14:10 TS (Rec: 02/09/23 14:23 TS [id number]) PT Summary Assessment and Plan Potential Rehabilitation Potential Fair Summary Impairments Pain,ROM,Strength,Balance,Bed Mobility,Transfers,Gait, Activity Tolerance Progress Towards Goals Slow Progress due to Pain Assessment Summary Blade continues to ambulate short distances in room of ~15 ' SBA, reported increased pain /discomfort. He required Raf for LLE into bed with the use of strap. PT continues to recommend Home vs SNF at this time. Goals Bed Mobility Goal Standby Assistance Transfer Goal Standby Assistance,Front Wheeled Walker Gait Goal Standby Assistance,Front Wheel Walker Gait Distance 25 Days to Meet Goals 10 Frequency of Treatment Frequency Of Treatment Twice a Day Treatment Plan Physical Therapy Treatment Plan Bed Mobility Training,Transfer Training,Gait Training, Therapeutic Exercise,Balance Retraining,Post Op Education, Discharge Planning,Hot or Cold Pack,Neuromuscular Re-ed, Coordination Retraining,Manual Therapy Weight Bearing Status Weight Bearing Status Partial Weight Bearing Allowed Weight Bearing Amount (enter % PWB LLE or #) (%) Recommendations To Nursing Amount of Assist Needed 1 Person Assist Discharge Recommendations PT Discharge Recommendations Home vs SNF Transportation Needs at Discharge Wheelchair/Cabulance,Stretcher /Ambulance
[2023-02-09] MEDS: CALCIUM CARBONATE 500 MG TAB PO (15:41)
[2023-02-09] MEDS: ONDANSETRON 4 MG ODT PO (15:41)
--- NOTE | 2023-02-09 16:19 | CM.DPNOTE ---
DCP Note ROTOGRAVURE PRESS OPERATOR reviewed EMR. ROTOGRAVURE PRESS OPERATOR discussed pt with CM team and CM director. ROTOGRAVURE PRESS OPERATOR unable to meet with pt today due to triaging needs. [facility] still following, will need face to face/order/dc summary at discharge. Per therapy team, will likely need BLS transport home to get up 10 stairs. ROTOGRAVURE PRESS OPERATOR unable to discuss with pt today. [employer] noni robins spoke with [facility] RN today, reporting they are going to attempt to continue to cover pt stay for as long as they can, however, are likely soon going to report he does not meet criteria for INPT in an acute care setting. Plan: likely home with [facility] for PT/OT needs. CM team will continue to follow closely for transport arrangements home. SHASHI Ng
--- NOTE | 2023-02-09 17:10 | DIET.PN1 ---
Dietary Progress Note Assessment: PO much improved at 50-100%. Ht: 208.28 cm Wt: 117.934 kg BMI: 27.1 Last BM: 02/08/23 (02/08/23 20:39) MNA: 11 Jonatan Score: 20 Diet: 02/01/23 Dinner General (Regular) Diet Diet Modifications: Food Texture: Level 7 - Regular Liquid Consistency: Level 0 - Thin Nutrition Percent Meal Consumed 100% 02/09/23 13:53 Percent Meal Consumed 100% 02/09/23 09:15 Percent Meal Consumed 100% 02/08/23 18:00 Percent Meal Consumed 100% 02/08/23 14:19 Percent Meal Consumed 100% 02/08/23 10:21 Labs: RBC 3.66 X10^6/uL (4.5-5.9) L 02/02/23 05:25 Hgb 11.6 g/dL (13.5-17.5) L 02/02/23 05:25 Hct 34.1 % (41-53) L 02/02/23 05:25 Creatinine 0.78 mg/dL (0.66-1.25) 02/05/23 05:10 Interventions: sending ons for healing and PCM Monitoring/Evaluations: consult prn Electronically Signed by: Cristina Wallace 02/09/23 17:10 Clinical Dietitian [address] [id number]
--- NOTE | 2023-02-09 18:17 | P.PN_ITS ---
Subjective Subjective Date Patient Seen: 02/09/23 Time Patient Seen: 18:17 Interval history: Patient had unremarkable night. He is still having very significant pain at the insertion of the screws just above his knee when he works with physical therapy. If he is on his leg at all it really swells and is painful. He states he previously had a DVT in this leg and stopped the blood thinners and wondered if he should be back on these. He is only on aspirin a day. Currently. swelling has not changed significantly. Patient had not had a bowel movement for 10 days. He was given a suppository yesterday and had a small bowel movement. He is not having any abdominal pain. He is eating well without difficulty. No fevers, chills, shortness of breath, chest pain No abdominal pain No rashes Denies depression or anxiety Day number 23 no alcohol in he feels very strong and confident in his plan to continue in sobriety 12 point review of systems otherwise unremarkable Exam Vital Signs (past 8 hours): Oxygen Delivery Method Room Air Oxygen Flow Rate 0 Narrative Exam Narrative: Afebrile vital signs are stable Alert and oriented x3 HEENT unremarkable Neck: Supple without adenopathy or thyromegaly or bruit Chest: Clear to auscultation without wheezes rhonchi or crackles Cor: Regular rate and rhythm without murmur Abdomen: Positive bowel sounds, soft, nontender Extremities patient with significant edema lower extremity gastrocnemius unless over the foot. Pulses intact. Incisions look clean and dry through the bandage. Neurologic exam nonfocal Objective Labs 02/02/23 05:25 02/05/23 05:10 [facility] Medical History Complicated grief Facet arthropathy, lumbar Lumbar foraminal stenosis Spondylolisthesis at L5-S1 level Surgical History H/O foot surgery Family History Family/Other No pertinent family history Social History household members: none Smoking Status: Current every day smoker alcohol intake: former Assessment & Plan Assessment & Plan narrative: 62-year-old male with history of fall and femur fracture. Postop day 9. Postop continue per ortho and continue with current pain control and physical therapy. Patient has to climb up 10 steps to get home. We are having trouble finding placement for him. Will discuss further with Care management tomorrow 2. Lower extremity edema which has been chronic due to venous stasis changes from previous DVT. Patient has been sedentary. Will repeat Doppler venous to look for any clot tomorrow. Continue aspirin in the meantime. 3. Constipation Plan: Will give MiraLax as needed and lactulose as needed 4. Bipolar disorder well-controlled Plan: Continue with current medications 5. Alcohol use disorder Patient is doing well with not using alcohol plans to continue. 6. GI prophylaxis Plan: Continue on proton pump inhibitor 50 minutes spent with patient and discussing with physician and nursing and meeting with patient reviewing chart and formulating a plan and documentation Quality VTE Deep Vein Thrombosis/Pulmonary Embolism Present on Admission: No
[2023-02-09] MEDS: LITHIUM 150 MG IR CAPSULE 600 MG PO (20:53)
[2023-02-09] MEDS: TRAZODONE 50 MG TABLET 200 MG PO (20:53)
[2023-02-09] MEDS: QUETIAPINE 100 MG TABLET 400 MG PO (20:55)
[2023-02-09] MEDS: PANTOPRAZOLE DR 40 MG TABLET PO (20:55)
[2023-02-10] MEDS: HYDROMORPHONE 4 MG TABLET PO ×6 (00:08→21:30)
[2023-02-10 04:13] LABS: Add Manual Diff / Slide Review NO; Basophils Absolute Auto 200 /uL (0-100); Basophils Percent Auto 2.8 % (0-2); Eosinophils Absolute Auto 600 /uL (0-450); Hematocrit 26.6 % (41-53); Hemoglobin 9.2 g/dL (13.5-17.5); Lymphocytes Absolute Auto 2200 /uL (1100-4500); Lymphocytes Percent Auto 25.1 % (25-40); Mean Corpuscular HGB Conc 34.7 % (30-36); Mean Corpuscular Hemoglobin 31.4 PG (26-34); Mean Corpuscular Volume 90.4 fL (80-100); Monocytes Absolute Auto 900 /uL (0-900); Monocytes Percent Auto 10.5 % (3-14); Neutrophils Absolute Auto 4800 /uL (1500-7000); Neutrophils Percent Auto 54.6 % (50-75); Platelet Count 574 X10^3/uL (150-400); Red Blood Cell Count 2.95 X10^6/uL (4.5-5.9); White Blood Cell Count 8.8 X10^3/uL (4.5-11.0)
[2023-02-10 04:27] VITALS: BP 111/69; PULSE 84; RESP 15; TEMP 36.2; O2SAT 99
[2023-02-10 04:34] LABS: BUN Creatinine Ratio 19.8 (6-22); Blood Urea Nitrogen 21 mg/dL (9-20); Carbon Dioxide 30 mmol/L (22-32); Chloride 103 mmol/L (98-107); Estimated Glomerular Filt Rate > 60 mL/min (>60); HEMOLYSIS < 15 (0-50); Sodium 135 mmol/L (137-145)
[2023-02-10 04:35] LABS: Calcium 9.1 mg/dL (8.4-10.2); Glucose 99 mg/dL (80-110)
--- NOTE | 2023-02-10 07:00 | DI.US.S_ITS ---
PROCEDURE: US PERIP VENOUS LOW EXTREM LT INDICATIONS: EDEMA TECHNIQUE: Real-time imaging, as well as color and pulse Doppler interrogation, were performed of the lower extremity deep veins from the inguinal ligament to the popliteal fossa, with documentation of the visualized calf veins. COMPARISON: [facility], , [facility] VENOUS LOW EXTREM LT, 06/01/2021, 12:04. FINDINGS: There is thrombus in the left lower extremity. Saphenofemoral junction: Patent. Common femoral vein: Partially occluded Profundal vein: Occlusive thrombus, new. Superficial femoral vein: Occlusive thrombus Popliteal vein: Partially occluded. Posterior tibial vein: Patent. Peroneal vein not well seen. Lower extremity edema. IMPRESSION: Positive exam. Left lower extremity DVT. Comment: Findings were discussed with Radha Araujo at time of dictation. Dictated by: Justino Tamayo M.D. on 02/10/2023 at 8:05 Approved by: Justino Tamayo M.D. on 02/10/2023 at 8:31
[2023-02-10 08:00] VITALS: BP 117/74; PULSE 77; RESP 16; TEMP 36.2; O2SAT 98
--- NOTE | 2023-02-10 08:00 | PM.PNPO.1 ---
Subjective Subjective Date Patient Seen: 02/10/23 Time Patient Seen: 08:00 Interval history: Pain is still moderate to severe. Denies fever or chills. No nausea or vomiting. Exam Vital Signs (past 8 hours): - 02/10/23 04:27 Temperature 97.2 F L Pulse Rate 84 Respiratory Rate 15 Blood Pressure 111/69 Pulse Oximetry 99 Oxygen Flow Rate 0 Oxygen Delivery Method Room Air Oxygen Flow Rate 0 Narrative Exam Narrative: 62-year-old male resting comfortably in bed in no apparent distress. Dressing is saturated. Motor functions intact to left lower extremity. Sensation grossly intact to light touch left lower extremity. Const General: cooperative and comfortable Nutritional Appearance: average body habitus Orientation: alert Resp Effort & Inspection: normal respiratory effort and able to speak in complete sentences Objective Labs 02/10/23 04:00 02/10/23 04:00 Labs: Laboratory Results - last 24 hr 02/10/23 04:00 WBC 8.8 RBC 2.95 L Hgb 9.2 L Hct 26.6 L MCV 90.4 MCH 31.4 MCHC 34.7 RDW 13.0 Plt Count 574 H Neut % (Auto) 54.6 Lymph % (Auto) 25.1 Swift % (Auto) 10.5 Eos % (Auto) 7.0 H Baso % (Auto) 2.8 H Neut # (Auto) 4800 Lymph # (Auto) 2200 Swift # (Auto) 900 Eos # (Auto) 600 H Baso # (Auto) 200 H Sodium 135 L Potassium 4.0 Chloride 103 Carbon Dioxide 30 BUN 21 H Creatinine 1.06 Estimated GFR > 60 BUN/Creatinine Ratio 19.8 Glucose 99 Calcium 9.1 PFSH Medical History Complicated grief Facet arthropathy, lumbar Lumbar foraminal stenosis Spondylolisthesis at L5-S1 level Surgical History H/O foot surgery Family History Family/Other No pertinent family history Social History household members: none Smoking Status: Current every day smoker alcohol intake: former Assessment & Plan Post-op Postoperative Procedures: Procedures Operation Date: 02/01/23 16:45 Actual Procedure Side Surgeon p hip intertroch, subtroch fracture Left Earline Carey Fleming MD Postoperative status narrative: Stable Postoperative plan narrative: Partial weight-bearing left lower extremity. New dressing will be applied today. Benjie dressing to be placed per Dr. Fleming Follow up outpatient Orthopedics in 2 weeks with new x-rays AP and lateral left femur and AP pelvis Patient has been slow to progress due to pain and difficulty with partial weight-bearing left lower extremity Discharge per Internal Medicine when stable. Quality VTE Deep Vein Thrombosis/Pulmonary Embolism Present on Admission: No
--- NOTE | 2023-02-10 08:44 | PM.PN.1 ---
Subjective Subjective Date Patient Seen: 02/10/23 Time Patient Seen: 08:15 Interval history: Patient had unremarkable night. Lower extremity Doppler was done this morning showing increase evidence of deep venous thrombosis now affecting the profundus. Patient had a history in May of 2021 of blood clot was on anticoagulants and self discontinued them at some point. Patient has been fairly immobile due to pain control issues since his open reduction internal fixation of his femoral fracture. He has been on a baby aspirin daily. We will stop this and put him on Eliquis Patient is tolerating p.o.. Patient is working on mobility. Patient denies any shortness a breath or chest pain or palpitations No fevers or chills 12 point review of systems otherwise negative Exam Vital Signs (past 8 hours): - 02/10/23 04:27 02/10/23 08:00 Temperature 97.2 F L 97.2 F L Pulse Rate 84 77 Respiratory Rate 15 16 Blood Pressure 111/69 117/74 Pulse Oximetry 99 98 Oxygen Flow Rate 0 Oxygen Delivery Method Room Air Oxygen Flow Rate 0 Narrative Exam Narrative: Afebrile vital signs are stable HEENT unremarkable Neck is supple Chest: Clear to auscultation Cor: Regular rate and rhythm without murmur Abdomen: Positive bowel sounds, soft Lower extremities pulses bilaterally. Significant lower extremity edema left, appears unchanged. No erythema. No gastrocnemius tenderness. Bandages in place and clean and dry. Objective Labs 02/10/23 04:00 02/10/23 04:00 Labs: Laboratory Results - last 24 hr 02/10/23 04:00 WBC 8.8 RBC 2.95 L Hgb 9.2 L Hct 26.6 L MCV 90.4 MCH 31.4 MCHC 34.7 RDW 13.0 Plt Count 574 H Neut % (Auto) 54.6 Lymph % (Auto) 25.1 Foard % (Auto) 10.5 Eos % (Auto) 7.0 H Baso % (Auto) 2.8 H Neut # (Auto) 4800 Lymph # (Auto) 2200 Foard # (Auto) 900 Eos # (Auto) 600 H Baso # (Auto) 200 H Sodium 135 L Potassium 4.0 Chloride 103 Carbon Dioxide 30 BUN 21 H Creatinine 1.06 Estimated GFR > 60 BUN/Creatinine Ratio 19.8 Glucose 99 Calcium 9.1 [facility] Medical History Complicated grief Facet arthropathy, lumbar Lumbar foraminal stenosis Spondylolisthesis at L5-S1 level Surgical History H/O foot surgery Family History Family/Other No pertinent family history Social History household members: none Smoking Status: Current every day smoker alcohol intake: former Assessment & Plan Assessment & Plan narrative: Assessment & Plan narrative: 62-year-old male with history of fall and femur fracture. Postop day 10. Postop continue per ortho and continue with current pain control and physical therapy. Patient has to climb up 10 steps to get home. We are having trouble finding placement for him. Due to recent involuntary detainment for alcohol disuse, skilled care facilities are not willing to accept patient. Patient is unable to care for himself at home or get into his home at this time so will continue with inpatient treatment with PT, OT and now treatment of DVT. 2. 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 Discussed with Radiology. The popliteal vein has a less clot than it did in May of 2021 when he had his 1st DVT. The profunda vein clot is new. Plan will go ahead and treat with Eliquis 10 mg twice daily for a week and then 5 mg twice daily indefinitely. Discussed with patient that he will need to continue on Eliquis indefinitely will stop aspirin tomorrow. 3. Constipation Plan: Will give MiraLax as needed and lactulose as needed 4. Bipolar disorder well-controlled Plan: Continue with current medications 5. Alcohol use disorder Patient is doing well with not using alcohol plans to continue. 6. GI prophylaxis Plan: Continue on proton pump inhibitor Code status is full code Disposition home with home health hopefully within next 48-72 hours 51 minute spent with patient discussing with radiologist, physician, nursing, meeting with patient formulating a plan and documentation. Quality VTE Deep Vein Thrombosis/Pulmonary Embolism Present on Admission: No
[2023-02-10] MEDS: APIXABAN 5 MG TABLET 10 MG PO ×2 (09:25→20:44)
[2023-02-10] MEDS: CYCLOBENZAPRINE 10 MG TABLET PO ×3 (09:25→20:44)
[2023-02-10] MEDS: NAPROXEN 250 MG TABLET 500 MG PO ×2 (09:25→17:30)
[2023-02-10] MEDS: SENNOSIDES 8.6 MG TABLET 17.2 MG PO ×2 (09:25→20:45)
[2023-02-10] MEDS: clonazePAM 0.5 MG TABLET 1 MG PO ×2 (09:25→20:45)
[2023-02-10] MEDS: DOCUSATE 100 MG CAPSULE PO ×2 (09:26→20:45)
[2023-02-10] MEDS: polyethylene glycoL 3350 17 GM POWD.PACK PO (09:26)
[2023-02-10] MEDS: VENLAFAXINE ER 75 MG CAP 150 MG PO (09:58)
--- NOTE | 2023-02-10 10:18 | PT.IPTN ---
Current Diagnoses Alcohol dependence, uncomplicated (01/30/23) Bipolar II disorder (01/30/23) Anxiety disorder, unspecified (01/30/23) Essential (primary) hypertension (01/30/23) Spondylosis without myelopathy or radiculopathy, lumbar region (01/30/23) Fracture of unspecified part of neck of left femur, initial encounter for closed fracture (01/30/23) Fracture of unspecified part of neck of left femur, subsequent encounter for closed fracture with routine healing (01/30/23) Displaced intertrochanteric fracture of left femur, subsequent encounter for closed fracture with routine healing (01/30/23) Displaced subtrochanteric fracture of unspecified femur, initial encounter for closed fracture (01/30/23) Nondisplaced subtrochanteric fracture of left femur, subsequent encounter for closed fracture with routine healing (01/30/23) 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 (01/30/23) Surgery Performed Operation Date: 02/01/23 16:45 Actual Procedures p hip intertroch, subtroch fracture(Left) - Earline Fleming MD Physical Therapy Treatment Note M2 PT-IP Current Condition Start: 02/02/23 14:46 Freq: NEEDED Status: Active Protocol: Document 02/02/23 13:35 AB (Rec: 02/02/23 15:02 AB [id number]) Physical Therapy Current Condition Current Condition Evaluation Date 02/02/23 Treatment Diagnosis s/p L hip ORIF; difficulty in walking Onset Date 01/30/23 M3 PT-IP Subjective Start: 02/02/23 14:46 Freq: NEEDED Status: Active Protocol: Document 02/10/23 10:32 TS (Rec: 02/10/23 10:43 TS [id number]) Subjective Physical Therapy Visit Type Type Treatment Note Visit Start Time 10:18 Visit Stop Time 10:32 Total Visit Minutes 12 Number of HIGH SPEED OPERATOR Visits 5 Physical Therapy Visit Comments Patient Comments Pt found resting in bed, reports having DVT, RN cleared for PT. Therapy Pain Assessment Pain When Pain Assessed During Mobility Pain Present Pain Present Pain Reported M4 PT-IP Mobility and Gait Start: 02/02/23 14:46 Freq: NEEDED Status: Active Protocol: Document 02/10/23 10:32 TS (Rec: 02/10/23 10:43 TS [id number]) PT-Bed Mobility Assessment Supine to Sit Supine to Sit Standby Assistance,1 Person Assistance,Head of Bed Elevated Sit to Supine Sit to Supine Minimal Assistance,1 Person Assistance Scooting Scooting to Edge of Bed Standby Assistance PT-Transfer Assessment Sit to and From Stand Sit to and from Stand Standby Assistance,Use of Upper Extremities Equipment Transfer Assistive Device Gait Belt,Front Wheeled Walker Orthotic/Prosthetic Devices or Brace: No Comments Mobility Comments Supine to sit SBA with HOB slighlty elevated, pt assists LLE with BUE support to EOB. Sit to stand from elevated bed with FWW SBA, pt uses heavy UE support on FWW. He ambulated with slow step to gait in room ~20' SBA, pt requested back to bed. Sit to supine Raf for LLE inot bed. Pt was left back in bed all needs met. Gait Assessment Gait Gait Assistance Required: Standby Assistance,1 Person Assist Distance (Feet) 20 Able to Maintain Weight Bearing Status Yes During Gait Assistive Devices Assistive Device Gait Belt,Front Wheeled Walker Orthotic/Prosthetic Devices or Brace: No Gait Deviations General Gait Pattern Antalgic,Decreased Stride Length,Decreased Feet Clearance,Flexed Trunk,Step-to Gait Factors Limiting Gait Function Factors Limiting Gait Function Decreased Activity Tolerance, Decreased Strength,Pain,Poor Balance Comments Gait Comments See mobility comments Stair Climbing Assessment Comments Stair Climbing Comments Unable at this time PT-Balance Assessment Sitting Balance and Reactions Static Sitting Balance Ability Good Dynamic Sitting Balance Ability Good Standing Balance and Reactions Static Standing Balance Ability Fair Dynamic Standing Balance Ability Fair Device Used FWW M5 PT-IP Objective Assessments Start: 02/02/23 14:46 Freq: NEEDED Status: Active Protocol: Document 02/02/23 13:35 AB (Rec: 02/02/23 15:02 AB [id number]) Orientation Orientation/Cognition Level of Alertness Alert Orientation Name,Place,Situation Safety Awareness Decreased Safety Awareness Memory Description No Deficits Noted Gross Range of Motion Lower Extremity ROM Impairments pt with increase LLE guading inihibiting ROM Strength Lower Extremity Strength Assessment Left Impaired Hip 2+/5 Knee 3+/5 Muscle Tone Muscle Tone WNL Yes M6 PT-IP Treatment Start: 02/02/23 14:46 Freq: NEEDED Status: Active Protocol: Document 02/10/23 10:32 TS (Rec: 02/10/23 10:43 TS [id number]) Physical Therapy Treatment Education Education Provided Precautions,Weight Bearing Status,Post-Op Packet,Safety M7 PT-IP Assessment and Plan Start: 02/02/23 14:46 Freq: NEEDED Status: Active Protocol: Document 02/10/23 10:32 TS (Rec: 02/10/23 10:43 TS [id number]) PT Summary Assessment and Plan Potential Rehabilitation Potential Fair Summary Impairments Pain,ROM,Strength,Balance,Bed Mobility,Transfers,Gait, Activity Tolerance Progress Towards Goals Slow Progress due to Pain Assessment Summary Blade continues to report moderate to severe pain and was recently diagnosed with DVT in LLE. He continues to be SBA for supine to sit and Raf for LLE back into bed. He continues to ambulate short distances in room SBA with FWW . Pt has poor activity tolerance with OOB mobility. PT continues to recommend Home vs SNF at this time. Pt has ~ 10 steps to get into house, would require BLS into home. Goals Bed Mobility Goal Standby Assistance Transfer Goal Standby Assistance,Front Wheeled Walker Gait Goal Standby Assistance,Front Wheel Walker Gait Distance 25 Days to Meet Goals 10 Frequency of Treatment Frequency Of Treatment Twice a Day Treatment Plan Physical Therapy Treatment Plan Bed Mobility Training,Transfer Training,Gait Training, Therapeutic Exercise,Balance Retraining,Post Op Education, Discharge Planning,Hot or Cold Pack,Neuromuscular Re-ed, Coordination Retraining,Manual Therapy Weight Bearing Status Weight Bearing Status Partial Weight Bearing Allowed Weight Bearing Amount (enter % PWB LLE or #) (%) Recommendations To Nursing Amount of Assist Needed 1 Person Assist Discharge Recommendations PT Discharge Recommendations Home vs SNF Transportation Needs at Discharge Wheelchair/Cabulance,Stretcher /Ambulance
--- NOTE | 2023-02-10 11:04 | OT.IPNOTE ---
Pt found to have left LE DVT and just initiated Eliquis this morning, to check on pt tomorrow for OT.
--- NOTE | 2023-02-10 11:26 | PC.NURSE ---
Addendum entered by Joycelyn Barnes R.N. 02/10/23 14:38: Patient is being treated for a blood clot as well and has been started on eloquis. This was given this morning. Patient refused his lunch and was given dilaudid 4mg po earlier. Original Note: Patient is alert and oriented x4, he is pleasant and cooperative with staff. He has a hx of suicidal ideation, and he is bipolar. Patient takes seroquel and lithium per home medication regimen. He has a dressing with aquacel to his l.upper hip, Juan BOWSER would like this to be changed to a Benjie dressing. Will do that today. He is getting dilaudid for pain and discomfort and this has been helpful to him every 4 hours. He is also working with physical therapy.
--- NOTE | 2023-02-10 14:24 | CM.DPNOTE ---
Addendum entered by SHASHI Borrego 02/11/23 15:31: ADD: F2F and HH order completed, SEBAS Mcguire has now sent to Gali at [facility]. DC Summary to [facility] upon discharge. According to Dr Finney- patient will discharge when cleared for return home w/HH. DAYAMI Original Note: DCP Cont Patient now w/DVT being treated with Eliquis. Provider will not discharge patient until he is more mobile. Patient will be returning home w/elderly, fragile mother. Patient will need to be able to move around, [facility] services referred, need F2F, HH Order and DC Summary. Placed call to Sierra at [facility] inpatient rehab, reviewed patient's therapy notes and chart. Sierra explains [facility]rasco will not authorize patient's stay at [facility], he does not meet medical acuity nor is he needing much assistance once he is up from the bed. CM team following closely for patient's eventual return home w/family and [facility] services. Patient would benefit from outpatient [facility] treatment and Resumption of outpatient psychiatry and counseling. DAYAMI
--- NOTE | 2023-02-10 14:58 | PT.IPTN ---
Current Diagnoses Alcohol dependence, uncomplicated (01/30/23) Bipolar II disorder (01/30/23) Anxiety disorder, unspecified (01/30/23) Essential (primary) hypertension (01/30/23) Spondylosis without myelopathy or radiculopathy, lumbar region (01/30/23) Fracture of unspecified part of neck of left femur, initial encounter for closed fracture (01/30/23) Fracture of unspecified part of neck of left femur, subsequent encounter for closed fracture with routine healing (01/30/23) Displaced intertrochanteric fracture of left femur, subsequent encounter for closed fracture with routine healing (01/30/23) Displaced subtrochanteric fracture of unspecified femur, initial encounter for closed fracture (01/30/23) Nondisplaced subtrochanteric fracture of left femur, subsequent encounter for closed fracture with routine healing (01/30/23) 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 (01/30/23) Surgery Performed Operation Date: 02/01/23 16:45 Actual Procedures p hip intertroch, subtroch fracture(Left) - Earline Fleming MD Physical Therapy Treatment Note M2 PT-IP Current Condition Start: 02/02/23 14:46 Freq: NEEDED Status: Active Protocol: Document 02/02/23 13:35 AB (Rec: 02/02/23 15:02 AB [id number]) Physical Therapy Current Condition Current Condition Evaluation Date 02/02/23 Treatment Diagnosis s/p L hip ORIF; difficulty in walking Onset Date 01/30/23 M3 PT-IP Subjective Start: 02/02/23 14:46 Freq: NEEDED Status: Active Protocol: Document 02/10/23 15:46 TS (Rec: 02/10/23 15:57 TS [id number]) Subjective Physical Therapy Visit Type Type Treatment Note Visit Start Time 14:58 Visit Stop Time 15:12 Total Visit Minutes 14 Number of LEAD TECHNICIAN Visits 6 Physical Therapy Visit Comments Patient Comments Pt found resting in bed, is agreeable to PT. Therapist brought up attempting stairs, pt would like to try tomorrow, therapist agreed. Therapy Pain Assessment Pain When Pain Assessed During Mobility Pain Present Pain Present Pain Reported M4 PT-IP Mobility and Gait Start: 02/02/23 14:46 Freq: NEEDED Status: Active Protocol: Document 02/10/23 15:46 TS (Rec: 02/10/23 15:57 TS [id number]) PT-Bed Mobility Assessment Supine to Sit Supine to Sit Standby Assistance,1 Person Assistance,Head of Bed Elevated Sit to Supine Sit to Supine Minimal Assistance,1 Person Assistance Scooting Scooting to Edge of Bed Standby Assistance PT-Transfer Assessment Sit to and From Stand Sit to and from Stand Standby Assistance,Use of Upper Extremities Equipment Transfer Assistive Device Gait Belt,Front Wheeled Walker Orthotic/Prosthetic Devices or Brace: No Comments Mobility Comments Supine to sit SBA with HOB elevated, pt assists LLE to EOB with BUE support. He performed sit to stand SBA with FWW. He ambulated ~25' in room SBA with step to antalgic gait. Pt sat back in bed, Sit to supine Raf for LLE into bed. pt was left in bed, all needs met, RN notified. Gait Assessment Gait Gait Assistance Required: Standby Assistance,1 Person Assist Distance (Feet) 25 Able to Maintain Weight Bearing Status Yes During Gait Assistive Devices Assistive Device Gait Belt,Front Wheeled Walker Orthotic/Prosthetic Devices or Brace: No Gait Deviations General Gait Pattern Antalgic,Decreased Stride Length,Decreased Feet Clearance,Flexed Trunk,Step-to Gait Factors Limiting Gait Function Factors Limiting Gait Function Decreased Activity Tolerance, Decreased Strength,Pain,Poor Balance Comments Gait Comments See mobility comments Stair Climbing Assessment Comments Stair Climbing Comments Unable at this time PT-Balance Assessment Sitting Balance and Reactions Static Sitting Balance Ability Good Dynamic Sitting Balance Ability Good Standing Balance and Reactions Static Standing Balance Ability Fair Dynamic Standing Balance Ability Fair Device Used FWW M5 PT-IP Objective Assessments Start: 02/02/23 14:46 Freq: NEEDED Status: Active Protocol: Document 02/02/23 13:35 AB (Rec: 02/02/23 15:02 AB [id number]) Orientation Orientation/Cognition Level of Alertness Alert Orientation Name,Place,Situation Safety Awareness Decreased Safety Awareness Memory Description No Deficits Noted Gross Range of Motion Lower Extremity ROM Impairments pt with increase LLE guading inihibiting ROM Strength Lower Extremity Strength Assessment Left Impaired Hip 2+/5 Knee 3+/5 Muscle Tone Muscle Tone WNL Yes M6 PT-IP Treatment Start: 02/02/23 14:46 Freq: NEEDED Status: Active Protocol: Document 02/10/23 15:46 TS (Rec: 02/10/23 15:57 TS [id number]) Physical Therapy Treatment Education Education Provided Precautions,Weight Bearing Status,Post-Op Packet,Safety M7 PT-IP Assessment and Plan Start: 02/02/23 14:46 Freq: NEEDED Status: Active Protocol: Document 02/10/23 15:46 TS (Rec: 02/10/23 15:57 TS [id number]) PT Summary Assessment and Plan Potential Rehabilitation Potential Fair Summary Impairments Pain,ROM,Strength,Balance,Bed Mobility,Transfers,Gait, Activity Tolerance Progress Towards Goals Slow Progress due to Pain Assessment Summary Blade continues to make slow progress with his mobility to due his pain level in LLE. He continues to be SBA for sitting EOB, requires Raf for LLE into bed. He performed sit to stand with FWW SBA and continues to ambulate short distances in the room. Pt does demonstrate awareness of his PWB stauts on LLE. PT is recommending home with assist and HHPT. If pt was to go home would need to complete ~10 steps or would require BLS into home. Goals Bed Mobility Goal Standby Assistance Transfer Goal Standby Assistance,Front Wheeled Walker Gait Goal Standby Assistance,Front Wheel Walker Gait Distance 25 Days to Meet Goals 10 Frequency of Treatment Frequency Of Treatment Twice a Day Treatment Plan Physical Therapy Treatment Plan Bed Mobility Training,Transfer Training,Gait Training, Therapeutic Exercise,Balance Retraining,Post Op Education, Discharge Planning,Hot or Cold Pack,Neuromuscular Re-ed, Coordination Retraining,Manual Therapy Weight Bearing Status Weight Bearing Status Partial Weight Bearing Allowed Weight Bearing Amount (enter % PWB LLE or #) (%) Recommendations To Nursing Amount of Assist Needed 1 Person Assist Discharge Recommendations PT Discharge Recommendations Home with Assistance,Home Health Transportation Needs at Discharge Private Vehicle,Wheelchair/ Cabulance,Stretcher/Ambulance
[2023-02-10 20:00] VITALS: BP 120/73; PULSE 87; RESP 17; TEMP 36.4; O2SAT 98
[2023-02-10] MEDS: LITHIUM 150 MG IR CAPSULE 600 MG PO (20:44)
[2023-02-10] MEDS: QUETIAPINE 100 MG TABLET 400 MG PO (20:44)
[2023-02-10] MEDS: TRAZODONE 50 MG TABLET 200 MG PO (20:44)
[2023-02-10] MEDS: ACETAMINOPHEN 325 MG TABLET 650 MG PO (20:45)
[2023-02-10] MEDS: PANTOPRAZOLE DR 40 MG TABLET PO (20:45)
[2023-02-10] MEDS: ONDANSETRON 4 MG ODT PO (20:45)
[2023-02-11] MEDS: HYDROMORPHONE 4 MG TABLET PO ×5 (04:50→21:34)
[2023-02-11 07:00] VITALS: BP 103/60; PULSE 84; RESP 18; TEMP 36.7; O2SAT 96
--- NOTE | 2023-02-11 07:24 | P.PN_ITS ---
Subjective Subjective Date Patient Seen: 02/11/23 Time Patient Seen: 07:25 Interval history: Patient is a 62 year old male who is POD#10 s/p ORIF with intermedullary nail of the left femur for a comminuted left femur fracture. States he is still in a lot of pain but it is better controlled than last week. He reports feeling optimistic about his progress with PT, able to get up and down to go to the bathroom himself now with the support of a walker. Had a BM yesterday, urinating on his own. Denies chest pain, SOB, vomiting, fever, chills. Endorses some nausea off and on. Exam Vital Signs (past 8 hours): Oxygen Delivery Method Room Air Oxygen Flow Rate 0 Const General: cooperative Resp Effort & Inspection: normal respiratory effort and able to speak in complete sentences Cardio Rate: regular rate Skin Other: Two surgical site dressings intact, scant serous discharge on the proximal dressing. Neuro General: patient alert and patient oriented x3 Gait: gait assisted Method: walker Other: Sensation intact to bilateral lower extremities. Extrem Other: Global edema of the entire left lower leg. Moderate left knee effusion. Able to stand and take small steps while partial weight bearing to left leg with the assistance of a walker. Objective Labs 02/10/23 04:00 02/10/23 04:00 [facility] Medical History Complicated grief Facet arthropathy, lumbar Lumbar foraminal stenosis Spondylolisthesis at L5-S1 level Surgical History H/O foot surgery Family History Family/Other No pertinent family history Social History household members: none Smoking Status: Current every day smoker alcohol intake: former Assessment & Plan Post-op Postoperative Procedures: Procedures Operation Date: 02/01/23 16:45 Actual Procedure Side Surgeon p hip intertroch, subtroch fracture Left Earline Fleming MD Postoperative day: 10 Postoperative status narrative: Stable Postoperative plan narrative: Partial weight-bearing left lower extremity, continue to work with PT on mobility. Continue multimodal pain control. Follow up outpatient Orthopedics at 2 weeks post-op with new x-rays AP and lateral left femur and AP pelvis Patient has been slow to progress due to pain and difficulty with partial weight-bearing left lower extremity. Discharge per Internal Medicine when stable, patient is still on Eliquis for DVT of LLE treatment. Quality VTE Deep Vein Thrombosis/Pulmonary Embolism Present on Admission: No
[2023-02-11] MEDS: CYCLOBENZAPRINE 10 MG TABLET PO ×2 (09:43→20:56)
[2023-02-11] MEDS: APIXABAN 5 MG TABLET 10 MG PO ×2 (09:44→20:55)
[2023-02-11] MEDS: SENNOSIDES 8.6 MG TABLET 17.2 MG PO (09:44)
[2023-02-11] MEDS: DOCUSATE 100 MG CAPSULE PO (09:44)
[2023-02-11] MEDS: clonazePAM 0.5 MG TABLET 1 MG PO ×2 (09:44→20:55)
[2023-02-11] MEDS: NAPROXEN 250 MG TABLET 500 MG PO ×2 (09:45→17:48)
[2023-02-11] MEDS: VENLAFAXINE ER 75 MG CAP 150 MG PO (09:48)
--- NOTE | 2023-02-11 09:52 | PM.PN.1 ---
Subjective Subjective Interval history: CC: R leg femur fracture Doing well working with PT and mobilizing. Had BM yesterday, eating well, urinating ok. Exam Vital Signs (past 8 hours): - 02/11/23 07:00 Temperature 98.0 F Pulse Rate 84 Respiratory Rate 18 Blood Pressure 103/60 Pulse Oximetry 96 Oxygen Flow Rate 0 Oxygen Delivery Method Room Air Oxygen Flow Rate 0 Narrative Exam Narrative: pleasant fellow laying in bed Resp Other: clear to auscultation bilaterally Cardio Other: regular rate and rhythm, S1/S2 GI Other: soft nontender active bowel sounds Extrem Other: L leg with well healing ortho incisions on lateral knee and hip. hip dressing draining to lucien pump. mild distal edeam appreciated Objective Labs 02/10/23 04:00 02/10/23 04:00 [facility] Medical History Complicated grief Facet arthropathy, lumbar Lumbar foraminal stenosis Spondylolisthesis at L5-S1 level Surgical History H/O foot surgery Family History Family/Other No pertinent family history Social History household members: none Smoking Status: Current every day smoker alcohol intake: former Assessment & Plan Assessment & Plan narrative: #history of fall #L femur fracture Postop day 11. Working well with PT and becoming more mobile. Appreciate ortho input. Patient has to climb up 10 steps to get home. We are having trouble finding placement for him. Due to recent involuntary detainment for alcohol misuse, skilled care facilities are not willing to accept patient. Patient is unable to care for himself at home or get into his home at this time so will continue with inpatient treatment with PT, OT and now treatment of DVT. #Lower extremity edema due to lower extremity DVT which appears to be recurrent. Discussed with Radiology. The popliteal vein has a less clot than it did in May of 2021 when he had his 1st DVT. The profunda vein clot is new. continue initiation of therapy with Eliquis 10 mg twice daily for a week and then 5 mg twice daily indefinitely. Discussed with patient that he will need to continue on Eliquis indefinitely aspirin is stopped. #Constipation miralax and lactulose prn #Bipolar disorder controlled, continue home regimen #Alcohol use disorder Patient is doing well with not using alcohol plans to continue abstaining. dispo: pending improvement with PT then home with code: full MDM: IFP DVT ppx: eliquis and scds GI ppx: PPI Quality VTE Deep Vein Thrombosis/Pulmonary Embolism Present on Admission: No
[2023-02-11] MEDS: SODIUM CHLORIDE 0.9% FLUSH 10 ML IV ×2 (10:23→20:56)
--- NOTE | 2023-02-11 10:45 | PT.IPTN ---
Current Diagnoses Alcohol dependence, uncomplicated (01/30/23) Bipolar II disorder (01/30/23) Anxiety disorder, unspecified (01/30/23) Essential (primary) hypertension (01/30/23) Spondylosis without myelopathy or radiculopathy, lumbar region (01/30/23) Fracture of unspecified part of neck of left femur, initial encounter for closed fracture (01/30/23) Fracture of unspecified part of neck of left femur, subsequent encounter for closed fracture with routine healing (01/30/23) Displaced intertrochanteric fracture of left femur, subsequent encounter for closed fracture with routine healing (01/30/23) Displaced subtrochanteric fracture of unspecified femur, initial encounter for closed fracture (01/30/23) Nondisplaced subtrochanteric fracture of left femur, subsequent encounter for closed fracture with routine healing (01/30/23) 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 (01/30/23) Surgery Performed Operation Date: 02/01/23 16:45 Actual Procedures p hip intertroch, subtroch fracture(Left) - Earline Fleming MD Physical Therapy Treatment Note M2 PT-IP Current Condition Start: 02/02/23 14:46 Freq: NEEDED Status: Active Protocol: Document 02/02/23 13:35 AB (Rec: 02/02/23 15:02 AB [id number]) Physical Therapy Current Condition Current Condition Evaluation Date 02/02/23 Treatment Diagnosis s/p L hip ORIF; difficulty in walking Onset Date 01/30/23 M3 PT-IP Subjective Start: 02/02/23 14:46 Freq: NEEDED Status: Active Protocol: Document 02/11/23 10:59 TS (Rec: 02/11/23 11:19 TS [id number]) Subjective Physical Therapy Visit Type Type Treatment Note Visit Start Time 10:45 Visit Stop Time 10:58 Total Visit Minutes 13 Number of DATA COLLECTION SPECIALIST Visits 7 Physical Therapy Visit Comments Patient Comments Pt reports increased pain today in LLE, requires some motivation to participate in PT, pt understands the importance of mobility while here in hospital. Therapy Pain Assessment Pain When Pain Assessed During Mobility Pain Present Pain Present Pain Reported M4 PT-IP Mobility and Gait Start: 02/02/23 14:46 Freq: NEEDED Status: Active Protocol: Document 02/11/23 10:59 TS (Rec: 02/11/23 11:19 TS [id number]) PT-Bed Mobility Assessment Supine to Sit Supine to Sit Standby Assistance,1 Person Assistance,Head of Bed Elevated Sit to Supine Sit to Supine Minimal Assistance,1 Person Assistance Scooting Scooting to Edge of Bed Standby Assistance PT-Transfer Assessment Sit to and From Stand Sit to and from Stand Standby Assistance,Use of Upper Extremities Equipment Transfer Assistive Device Gait Belt,Front Wheeled Walker Orthotic/Prosthetic Devices or Brace: No Comments Mobility Comments Supine to sit SBA with HOB elevated and use of handrails. He performed sit to stand SBA with FWW with heavy use of UEs and decreased wbering on LLE. He ambulated a short distance in room ~25' SBA with FWW. He performed steps x2 on step stool with use of FWW CGA, had no buckling or LOB. Pt requested back to bed, all needs met. Gait Assessment Gait Gait Assistance Required: Standby Assistance,1 Person Assist Distance (Feet) 25 Able to Maintain Weight Bearing Status Yes During Gait Assistive Devices Assistive Device Gait Belt,Front Wheeled Walker Orthotic/Prosthetic Devices or Brace: No Gait Deviations General Gait Pattern Antalgic,Decreased Stride Length,Decreased Feet Clearance,Flexed Trunk,Step-to Gait Factors Limiting Gait Function Factors Limiting Gait Function Decreased Activity Tolerance, Decreased Strength,Pain,Poor Balance Comments Gait Comments See mobility comments Stair Climbing Assessment Evaluation Level of Assist On Stairs Contact Guard Assistance,1 Person Assistance Devices Stair Climbing Assistive Devices Front Wheel Walker Technique/Endurance Stair Climbing Direction Ascend and Descend Stair Climbing Technique Step to Step Number of Steps Climbed 2 Comments Stair Climbing Comments See mobility comments PT-Balance Assessment Sitting Balance and Reactions Static Sitting Balance Ability Good Dynamic Sitting Balance Ability Good Standing Balance and Reactions Static Standing Balance Ability Fair Dynamic Standing Balance Ability Fair Device Used FWW M5 PT-IP Objective Assessments Start: 02/02/23 14:46 Freq: NEEDED Status: Active Protocol: Document 02/02/23 13:35 AB (Rec: 02/02/23 15:02 AB [id number]) Orientation Orientation/Cognition Level of Alertness Alert Orientation Name,Place,Situation Safety Awareness Decreased Safety Awareness Memory Description No Deficits Noted Gross Range of Motion Lower Extremity ROM Impairments pt with increase LLE guading inihibiting ROM Strength Lower Extremity Strength Assessment Left Impaired Hip 2+/5 Knee 3+/5 Muscle Tone Muscle Tone WNL Yes M6 PT-IP Treatment Start: 02/02/23 14:46 Freq: NEEDED Status: Active Protocol: Document 02/11/23 10:59 TS (Rec: 02/11/23 11:19 TS [id number]) Physical Therapy Treatment Education Education Provided Precautions,Weight Bearing Status,Post-Op Packet,Safety M7 PT-IP Assessment and Plan Start: 02/02/23 14:46 Freq: NEEDED Status: Active Protocol: Document 02/11/23 10:59 TS (Rec: 02/11/23 11:19 TS [id number]) PT Summary Assessment and Plan Potential Rehabilitation Potential Fair Summary Impairments Pain,ROM,Strength,Balance,Bed Mobility,Transfers,Gait, Activity Tolerance Progress Towards Goals Slow Progress due to Pain Assessment Summary Blade continues to make progress with his mobility but remains limited by pain and poor activity tolerance. He continues to perform bed mobility SBA with Raf for LLE into bed. He continues to ambulate short distances in room with slow step to antalgic gait. He performed steps x2 with use of FWW CGA onto step stool, pt reported no increase in discomfort and had no buckling or LOB. He continues to have limited tolerance to activity. PT is recommending pt return home with assist and HHPT. Goals Bed Mobility Goal Standby Assistance Transfer Goal Standby Assistance,Front Wheeled Walker Gait Goal Standby Assistance,Front Wheel Walker Gait Distance 25 Days to Meet Goals 10 Frequency of Treatment Frequency Of Treatment Twice a Day Treatment Plan Physical Therapy Treatment Plan Bed Mobility Training,Transfer Training,Gait Training, Therapeutic Exercise,Balance Retraining,Post Op Education, Discharge Planning,Hot or Cold Pack,Neuromuscular Re-ed, Coordination Retraining,Manual Therapy Other Recommendations and Next Treatment Trial step with use of cane Focus and rail support. Weight Bearing Status Weight Bearing Status Partial Weight Bearing Allowed Weight Bearing Amount (enter % PWB LLE or #) (%) Recommendations To Nursing Amount of Assist Needed 1 Person Assist Discharge Recommendations PT Discharge Recommendations Home with Assistance,Home Health Other Discharge Recommendations May require BLS to get up 10 steps to enter home. Pt may be progressing to being able to complete 10 steps but would require support on each side. Pt reports having single rail to enter home. Transportation Needs at Discharge Private Vehicle,Wheelchair/ Cabulance,Stretcher/Ambulance
[2023-02-11] MEDS: ACETAMINOPHEN 325 MG TABLET 650 MG PO ×2 (12:05→20:56)
--- NOTE | 2023-02-11 13:52 | OT.IPNOTE ---
Attempted to see pt for OT and pt states too tired and not feeling well as he thought he did too much last night while getting to the bathroom with nursing. Suggesting pt showers and pt refused and states, I just feel too scared. Offered to use rolling shower chair to assist to get pt in the shower or sponge bath. Pt still refusing. Pt states will get up with LEAD CASHIER later. No Charge
--- NOTE | 2023-02-11 14:53 | PT.IPTN ---
Current Diagnoses Alcohol dependence, uncomplicated (01/30/23) Bipolar II disorder (01/30/23) Anxiety disorder, unspecified (01/30/23) Essential (primary) hypertension (01/30/23) Spondylosis without myelopathy or radiculopathy, lumbar region (01/30/23) Fracture of unspecified part of neck of left femur, initial encounter for closed fracture (01/30/23) Fracture of unspecified part of neck of left femur, subsequent encounter for closed fracture with routine healing (01/30/23) Displaced intertrochanteric fracture of left femur, subsequent encounter for closed fracture with routine healing (01/30/23) Displaced subtrochanteric fracture of unspecified femur, initial encounter for closed fracture (01/30/23) Nondisplaced subtrochanteric fracture of left femur, subsequent encounter for closed fracture with routine healing (01/30/23) 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 (01/30/23) Surgery Performed Operation Date: 02/01/23 16:45 Actual Procedures p hip intertroch, subtroch fracture(Left) - Earline Fleming MD Physical Therapy Treatment Note M2 PT-IP Current Condition Start: 02/02/23 14:46 Freq: NEEDED Status: Active Protocol: Document 02/02/23 13:35 AB (Rec: 02/02/23 15:02 AB [id number]) Physical Therapy Current Condition Current Condition Evaluation Date 02/02/23 Treatment Diagnosis s/p L hip ORIF; difficulty in walking Onset Date 01/30/23 M3 PT-IP Subjective Start: 02/02/23 14:46 Freq: NEEDED Status: Active Protocol: Document 02/11/23 15:10 TS (Rec: 02/11/23 15:28 TS [id number]) Subjective Physical Therapy Visit Type Type Treatment Note Visit Start Time 14:53 Visit Stop Time 15:10 Total Visit Minutes 23 Number of COOK CAMP Visits 8 Physical Therapy Visit Comments Patient Comments Pt found resting in bed, is agreeable to PT. Therapy Pain Assessment Pain When Pain Assessed During Mobility Pain Present Pain Present Pain Reported M4 PT-IP Mobility and Gait Start: 02/02/23 14:46 Freq: NEEDED Status: Active Protocol: Document 02/11/23 15:10 TS (Rec: 02/11/23 15:28 TS [id number]) PT-Bed Mobility Assessment Supine to Sit Supine to Sit Standby Assistance,1 Person Assistance,Head of Bed Elevated Sit to Supine Sit to Supine Minimal Assistance,1 Person Assistance Scooting Scooting to Edge of Bed Standby Assistance Scooting Up and Down in Bed Standby Assistance PT-Transfer Assessment Sit to and From Stand Sit to and from Stand Standby Assistance,Use of Upper Extremities Equipment Transfer Assistive Device Gait Belt,Front Wheeled Walker Orthotic/Prosthetic Devices or Brace: No Comments Mobility Comments Supine to sit SBA with HOB elevated and BUE support, pt assists LLE to EOB with UEs. Sit to stand with FWW SBA, pt uses heavy UE assist and decreased wbering on LLE to stand. Pt ambulated in hallway ~80' SBA with slow step to gait. He performed steps x3 CGA with use of FWW, pt demonstrates good awareness of his PWB status on LLE. Sit to supine into bed Raf for LLE. Pt was left in bed, all needs met. Gait Assessment Gait Gait Assistance Required: Standby Assistance,1 Person Assist Distance (Feet) 80 Able to Maintain Weight Bearing Status Yes During Gait Assistive Devices Assistive Device Gait Belt,Front Wheeled Walker Orthotic/Prosthetic Devices or Brace: No Gait Deviations General Gait Pattern Antalgic,Decreased Stride Length,Decreased Feet Clearance,Flexed Trunk,Step-to Gait Factors Limiting Gait Function Factors Limiting Gait Function Decreased Activity Tolerance, Decreased Strength,Pain,Poor Balance Comments Gait Comments See mobility comments Stair Climbing Assessment Evaluation Level of Assist On Stairs Contact Guard Assistance,1 Person Assistance Devices Stair Climbing Assistive Devices Front Wheel Walker Technique/Endurance Stair Climbing Direction Ascend and Descend Stair Climbing Technique Step to Step Number of Steps Climbed 3 Comments Stair Climbing Comments See mobility comments PT-Balance Assessment Sitting Balance and Reactions Static Sitting Balance Ability Good Dynamic Sitting Balance Ability Good Standing Balance and Reactions Static Standing Balance Ability Fair Dynamic Standing Balance Ability Fair Device Used FWW M5 PT-IP Objective Assessments Start: 02/02/23 14:46 Freq: NEEDED Status: Active Protocol: Document 02/02/23 13:35 AB (Rec: 02/02/23 15:02 AB [id number]) Orientation Orientation/Cognition Level of Alertness Alert Orientation Name,Place,Situation Safety Awareness Decreased Safety Awareness Memory Description No Deficits Noted Gross Range of Motion Lower Extremity ROM Impairments pt with increase LLE guading inihibiting ROM Strength Lower Extremity Strength Assessment Left Impaired Hip 2+/5 Knee 3+/5 Muscle Tone Muscle Tone WNL Yes M6 PT-IP Treatment Start: 02/02/23 14:46 Freq: NEEDED Status: Active Protocol: Document 02/11/23 15:10 TS (Rec: 02/11/23 15:28 TS [id number]) Physical Therapy Treatment Education Education Provided Precautions,Weight Bearing Status,Post-Op Packet,Safety M7 PT-IP Assessment and Plan Start: 02/02/23 14:46 Freq: NEEDED Status: Active Protocol: Document 02/11/23 15:10 TS (Rec: 02/11/23 15:28 TS [id number]) PT Summary Assessment and Plan Potential Rehabilitation Potential Fair Summary Impairments Pain,ROM,Strength,Balance,Bed Mobility,Transfers,Gait, Activity Tolerance Progress Towards Goals Progressing Toward Goals Assessment Summary Blade is making good progress with his mobility this session . He progressed his gait to ~ 80' SBA with step to gait and FWW. He performed stairs x3 on step stool CGA with use of FWW. He demonstrated increased tolerance to activity this session. PT continues to recommend home with assist at this time. He does have 10 stairs into home, x5 with B handrails and x5 with single rail. Therapy will attempt to get pt to trial steps with single rail tomorrow. Goals Bed Mobility Goal Standby Assistance Transfer Goal Standby Assistance,Front Wheeled Walker Gait Goal Standby Assistance,Front Wheel Walker Gait Distance 25 Days to Meet Goals 10 Frequency of Treatment Frequency Of Treatment Twice a Day Treatment Plan Physical Therapy Treatment Plan Bed Mobility Training,Transfer Training,Gait Training, Therapeutic Exercise,Balance Retraining,Post Op Education, Discharge Planning,Hot or Cold Pack,Neuromuscular Re-ed, Coordination Retraining,Manual Therapy Weight Bearing Status Weight Bearing Status Partial Weight Bearing Allowed Weight Bearing Amount (enter % PWB LLE or #) (%) Recommendations To Nursing Amount of Assist Needed 1 Person Assist Discharge Recommendations PT Discharge Recommendations Home with Assistance,Home Health Other Discharge Recommendations May require BLS to get up 10 steps to enter home. Pt may be progressing to being able to complete 10 steps but would require support on each side. Pt reports having single rail to enter home. Transportation Needs at Discharge Private Vehicle,Wheelchair/ Cabulance,Stretcher/Ambulance
[2023-02-11 20:02] VITALS: BP 106/61; PULSE 79; RESP 16; TEMP 36.8; O2SAT 97
[2023-02-11] MEDS: TRAZODONE 50 MG TABLET 200 MG PO (20:55)
[2023-02-11] MEDS: QUETIAPINE 100 MG TABLET 400 MG PO (20:55)
[2023-02-11] MEDS: LITHIUM 150 MG IR CAPSULE 600 MG PO (20:56)
[2023-02-11] MEDS: PANTOPRAZOLE DR 40 MG TABLET PO (21:34)
[2023-02-12] MEDS: HYDROMORPHONE 4 MG TABLET PO ×5 (01:52→19:49)
[2023-02-12 07:00] VITALS: BP 105/68; PULSE 77; RESP 12; TEMP 36.4; O2SAT 97
[2023-02-12] MEDS: ACETAMINOPHEN 325 MG TABLET 650 MG PO ×2 (07:43→15:35)
[2023-02-12] MEDS: NAPROXEN 250 MG TABLET 500 MG PO ×2 (07:43→16:14)
--- NOTE | 2023-02-12 09:00 | PT.IPTN ---
Current Diagnoses Alcohol dependence, uncomplicated (01/30/23) Bipolar II disorder (01/30/23) Anxiety disorder, unspecified (01/30/23) Essential (primary) hypertension (01/30/23) Spondylosis without myelopathy or radiculopathy, lumbar region (01/30/23) Fracture of unspecified part of neck of left femur, initial encounter for closed fracture (01/30/23) Fracture of unspecified part of neck of left femur, subsequent encounter for closed fracture with routine healing (01/30/23) Displaced intertrochanteric fracture of left femur, subsequent encounter for closed fracture with routine healing (01/30/23) Displaced subtrochanteric fracture of unspecified femur, initial encounter for closed fracture (01/30/23) Nondisplaced subtrochanteric fracture of left femur, subsequent encounter for closed fracture with routine healing (01/30/23) 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 (01/30/23) Surgery Performed Operation Date: 02/01/23 16:45 Actual Procedures p hip intertroch, subtroch fracture(Left) - Earline Fleming MD Physical Therapy Treatment Note M2 PT-IP Current Condition Start: 02/02/23 14:46 Freq: NEEDED Status: Active Protocol: Document 02/02/23 13:35 AB (Rec: 02/02/23 15:02 AB [email or web address]) Physical Therapy Current Condition Current Condition Evaluation Date 02/02/23 Treatment Diagnosis s/p L hip ORIF; difficulty in walking Onset Date 01/30/23 M3 PT-IP Subjective Start: 02/02/23 14:46 Freq: NEEDED Status: Active Protocol: Document 02/12/23 09:24 TS (Rec: 02/12/23 09:39 TS [id number]) Subjective Physical Therapy Visit Type Type Treatment Note Visit Start Time 09:00 Visit Stop Time 09:23 Total Visit Minutes 23 Number of TETRYL WRINGER OPERATOR Visits 9 Physical Therapy Visit Comments Patient Comments Pt found resting in bed, is agreeable to PT. Therapy Pain Assessment Pain When Pain Assessed During Mobility Pain Present Pain Present Pain Reported M4 PT-IP Mobility and Gait Start: 02/02/23 14:46 Freq: NEEDED Status: Active Protocol: Document 02/12/23 09:24 TS (Rec: 02/12/23 09:39 TS [id number]) PT-Bed Mobility Assessment Supine to Sit Supine to Sit Standby Assistance,1 Person Assistance,Head of Bed Elevated Sit to Supine Sit to Supine Minimal Assistance,1 Person Assistance Scooting Scooting to Edge of Bed Standby Assistance Scooting Up and Down in Bed Standby Assistance PT-Transfer Assessment Sit to and From Stand Sit to and from Stand Standby Assistance,Use of Upper Extremities Equipment Transfer Assistive Device Gait Belt,Front Wheeled Walker Orthotic/Prosthetic Devices or Brace: No Comments Mobility Comments Supine to sit SBA with HOB elevated, pt assists LLE to EOB with BUE support. He performed sit to stand with FWW SBA with heavy UE support and good awareness of PWB on LLE. He ambulated in hallway ~ 175' SBA with step to antalgic gait, takes standing rest breaks due to pain/discomfort in LLE. He performed steps x3 ascending/descending with B handrails SBA. Pt attempted to perform steps sidestepping with single rail but could not get proper leverage and required increased wbering on LLE. Pt ambulated back to bed, all needs met. Gait Assessment Gait Gait Assistance Required: Standby Assistance,1 Person Assist Distance (Feet) 175 Able to Maintain Weight Bearing Status Yes During Gait Assistive Devices Assistive Device Gait Belt,Front Wheeled Walker Orthotic/Prosthetic Devices or Brace: No Gait Deviations General Gait Pattern Antalgic,Decreased Stride Length,Decreased Feet Clearance,Flexed Trunk,Step-to Gait Factors Limiting Gait Function Factors Limiting Gait Function Decreased Activity Tolerance, Decreased Strength,Pain,Poor Balance Comments Gait Comments See mobility comments Stair Climbing Assessment Evaluation Level of Assist On Stairs Contact Guard Assistance,1 Person Assistance Devices Stair Climbing Assistive Devices Left Railing,Right Railing Technique/Endurance Stair Climbing Direction Ascend and Descend Stair Climbing Technique Step to Step Number of Steps Climbed 3 Comments Stair Climbing Comments See mobility comments PT-Balance Assessment Sitting Balance and Reactions Static Sitting Balance Ability Good Dynamic Sitting Balance Ability Good Standing Balance and Reactions Static Standing Balance Ability Fair Dynamic Standing Balance Ability Fair Device Used FWW M5 PT-IP Objective Assessments Start: 02/02/23 14:46 Freq: NEEDED Status: Active Protocol: Document 02/02/23 13:35 AB (Rec: 02/02/23 15:02 AB [id number]) Orientation Orientation/Cognition Level of Alertness Alert Orientation Name,Place,Situation Safety Awareness Decreased Safety Awareness Memory Description No Deficits Noted Gross Range of Motion Lower Extremity ROM Impairments pt with increase LLE guading inihibiting ROM Strength Lower Extremity Strength Assessment Left Impaired Hip 2+/5 Knee 3+/5 Muscle Tone Muscle Tone WNL Yes M6 PT-IP Treatment Start: 02/02/23 14:46 Freq: NEEDED Status: Active Protocol: Document 02/12/23 09:24 TS (Rec: 02/12/23 09:39 TS [id number]) Physical Therapy Treatment Education Education Provided Precautions,Weight Bearing Status,Post-Op Packet,Safety M7 PT-IP Assessment and Plan Start: 02/02/23 14:46 Freq: NEEDED Status: Active Protocol: Document 02/12/23 09:24 TS (Rec: 02/12/23 09:39 TS [id number]) PT Summary Assessment and Plan Potential Rehabilitation Potential Fair Summary Impairments Pain,ROM,Strength,Balance,Bed Mobility,Transfers,Gait, Activity Tolerance Progress Towards Goals Progressing Toward Goals Assessment Summary Blade is making good progress with his mobility this session . He progressed his gait to ~ 175'SBA with use of FWW, does require standing rest breaks due to pain/discomfort in LLE. He performed steps x3 with use of B handrails. Pt attempted to perform steps sidestepping leading with RLE and single but could not complete. Pt has 5 steps with 2 rails and then 5 steps with single rail. Pt requires support on BUE's to complete stairs at this time. If pt cannot get up stairs with single rail and the use of an AD or any other form of assist he may require BLS transport into his home. PT is recommending home with assist at this time. Goals Bed Mobility Goal Standby Assistance Transfer Goal Standby Assistance,Front Wheeled Walker Gait Goal Standby Assistance,Front Wheel Walker Gait Distance 25 Days to Meet Goals 10 Frequency of Treatment Frequency Of Treatment Twice a Day Treatment Plan Physical Therapy Treatment Plan Bed Mobility Training,Transfer Training,Gait Training, Therapeutic Exercise,Balance Retraining,Post Op Education, Discharge Planning,Hot or Cold Pack,Neuromuscular Re-ed, Coordination Retraining,Manual Therapy Other Recommendations and Next Treatment Trial step with use of cane Focus and rail support. Weight Bearing Status Weight Bearing Status Partial Weight Bearing Allowed Weight Bearing Amount (enter % PWB LLE or #) (%) Recommendations To Nursing Amount of Assist Needed Independent Discharge Recommendations PT Discharge Recommendations Home with Assistance,Home Health Transportation Needs at Discharge Private Vehicle,Wheelchair/ Cabulance,Stretcher/Ambulance
[2023-02-12] MEDS: VENLAFAXINE ER 75 MG CAP 150 MG PO (09:29)
[2023-02-12] MEDS: CYCLOBENZAPRINE 10 MG TABLET PO ×3 (09:29→20:04)
[2023-02-12] MEDS: APIXABAN 5 MG TABLET 10 MG PO ×2 (09:29→20:04)
[2023-02-12] MEDS: clonazePAM 0.5 MG TABLET 1 MG PO ×2 (09:29→20:04)
[2023-02-12] MEDS: polyethylene glycoL 3350 17 GM POWD.PACK PO (09:29)
[2023-02-12] MEDS: DOCUSATE 100 MG CAPSULE PO (09:29)
[2023-02-12] MEDS: SENNOSIDES 8.6 MG TABLET 17.2 MG PO (09:29)
[2023-02-12] MEDS: SODIUM CHLORIDE 0.9% FLUSH 10 ML IV ×2 (09:30→20:04)
--- NOTE | 2023-02-12 10:32 | PM.PNPO.1 ---
Subjective Subjective Date Patient Seen: 02/12/23 Time Patient Seen: 09:30 Interval history: Patient is a 62 year old male who is POD#11 s/p ORIF with intermedullary nail of the left femur for a comminuted left femur fracture. States he is still in pain but it is slowly improving from day to day, mostly painful after his PT sessions. Most of the pain is located above his knee/distal femur. Calve pain is improving. He reports feeling optimistic about his progress with PT, able to get up and down to go to the bathroom himself now with the support of a walker. Had a BM yesterday, urinating on his own. States the toilet is painful for him to use due to its low height so he prefers to use the commode. Overall making good progress but does not feel ready to be d/c home yet due to limited mobility and moderate-severe pain. Denies chest pain, SOB, vomiting, fever, chills. Exam Vital Signs (past 8 hours): - 02/12/23 07:00 Temperature 97.6 F Pulse Rate 77 Respiratory Rate 12 Blood Pressure 105/68 Pulse Oximetry 97 Oxygen Flow Rate 0 Oxygen Delivery Method Room Air Oxygen Flow Rate 0 Const General: cooperative Orientation: alert, awake and oriented x3 Resp Effort & Inspection: normal respiratory effort and able to speak in complete sentences Cardio Rate: regular rate Skin Other: ANDREW dressing intact, functioning and with mild serous discharge. Distal surgical incision dressing clean and dry. Neuro General: patient alert and patient oriented x3 Gait: gait assisted Method: walker Other: Sensation intact to bilateral lower extremities. Extrem Other: Global swelling to the left lower leg. Mild left knee effusion. Able to stand and take small steps while partial weight bearing to left leg with the assistance of a walker. 5/5 strength with dorsi and plantar flexion. Objective Labs 02/10/23 04:00 02/10/23 04:00 [facility] Medical History Complicated grief Facet arthropathy, lumbar Lumbar foraminal stenosis Spondylolisthesis at L5-S1 level Surgical History H/O foot surgery Family History Family/Other No pertinent family history Social History household members: none Smoking Status: Current every day smoker alcohol intake: former Assessment & Plan Post-op Postoperative Procedures: Procedures Operation Date: 02/01/23 16:45 Actual Procedure Side Surgeon p hip intertroch, subtroch fracture Left Earline Carey Fleming MD Postoperative day: 11 Postoperative status narrative: Stable Postoperative plan narrative: Partial weight-bearing left lower extremity, continue to work with PT on mobility prior to d/c. Continue multimodal pain control. Follow up outpatient Orthopedics at 2 weeks post-op with new x-rays AP and lateral left femur and AP pelvis Patient has been slow to progress due to pain and difficulty with partial weight-bearing left lower extremity. Discharge per Internal Medicine when stable, patient is still on Eliquis for DVT of LLE treatment. Quality VTE Deep Vein Thrombosis/Pulmonary Embolism Present on Admission: No
--- NOTE | 2023-02-12 12:12 | PT.IPTN ---
Current Diagnoses Alcohol dependence, uncomplicated (01/30/23) Bipolar II disorder (01/30/23) Anxiety disorder, unspecified (01/30/23) Essential (primary) hypertension (01/30/23) Spondylosis without myelopathy or radiculopathy, lumbar region (01/30/23) Fracture of unspecified part of neck of left femur, initial encounter for closed fracture (01/30/23) Fracture of unspecified part of neck of left femur, subsequent encounter for closed fracture with routine healing (01/30/23) Displaced intertrochanteric fracture of left femur, subsequent encounter for closed fracture with routine healing (01/30/23) Displaced subtrochanteric fracture of unspecified femur, initial encounter for closed fracture (01/30/23) Nondisplaced subtrochanteric fracture of left femur, subsequent encounter for closed fracture with routine healing (01/30/23) 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 (01/30/23) Surgery Performed Operation Date: 02/01/23 16:45 Actual Procedures p hip intertroch, subtroch fracture(Left) - Earline Fleming MD Physical Therapy Treatment Note M2 PT-IP Current Condition Start: 02/02/23 14:46 Freq: NEEDED Status: Active Protocol: Document 02/02/23 13:35 AB (Rec: 02/02/23 15:02 AB [id number]) Physical Therapy Current Condition Current Condition Evaluation Date 02/02/23 Treatment Diagnosis s/p L hip ORIF; difficulty in walking Onset Date 01/30/23 M3 PT-IP Subjective Start: 02/02/23 14:46 Freq: NEEDED Status: Active Protocol: Document 02/12/23 12:07 AB (Rec: 02/12/23 12:12 AB [id number]) Subjective Physical Therapy Visit Type Type Administrative Note Notes 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 Pt denied having any stairs during PT eval and therefore, no stair climbing goal set for pt. Pt's plan of care for PT goals will be revised to include stair climbing. y M7 PT-IP Assessment and Plan Start: 02/02/23 14:46 Freq: NEEDED Status: Active Protocol: Document 02/12/23 12:07 AB (Rec: 02/12/23 12:12 AB [id number]) PT Summary Assessment and Plan Goals Bed Mobility Goal Independent Transfer Goal Independent,Front Wheeled Walker Gait Goal Standby Assistance,Front Wheel Walker Gait Distance 250 Other Goals up/down 5 steps B rails + 5 steps 1 rail/AD SBA Days to Meet Goals 10 Frequency of Treatment Frequency Of Treatment Twice a Day Treatment Plan Physical Therapy Treatment Plan Bed Mobility Training,Transfer Training,Gait Training, Therapeutic Exercise,Balance Retraining,Post Op Education, Discharge Planning,Hot or Cold Pack,Neuromuscular Re-ed, Coordination Retraining,Manual Therapy Other Recommendations and Next Treatment stair climbing with use of Focus appropriate AD/1 rail
--- NOTE | 2023-02-12 12:31 | PM.PN.1 ---
Subjective Subjective Interval history: chief complaint : left leg pain Mobilizing much more with PT but still unable to manage complex stairs like he has at home. Main issue lately is pain control and nausea. He is encouraged to spend the day in the chair and the night in the bed. Patient does not turn off TV nor divert his attention from it during interview. A plan is emerging for possible discharge using BLS to help him get into his house which has ten stairs up he would have difficulty managing. Main concern he has is I can't wipe my own ass due to pain. We discussed that his insurance may stop covering further costs of this admission. Exam Vital Signs (past 8 hours): - 02/12/23 07:00 Temperature 97.6 F Pulse Rate 77 Respiratory Rate 12 Blood Pressure 105/68 Pulse Oximetry 97 Oxygen Flow Rate 0 Oxygen Delivery Method Room Air Oxygen Flow Rate 0 Narrative Exam Narrative: laying in bed watching TV or napping with the TV on Const Other: well developed well nourished Resp Other: clear to auscultation bilaterally Cardio Other: regular rate and rhythm, S1/S2 GI Other: soft nontender nondistended Extrem Other: LLE with clean dry dressings over ortho incisions, hip draining to lucien pump looks ok. persistent pitting edema up to midcalf. Psych Other: poor eye contact, guarded affect Objective Labs 02/10/23 04:00 02/10/23 04:00 [facility] Medical History Complicated grief Facet arthropathy, lumbar Lumbar foraminal stenosis Spondylolisthesis at L5-S1 level Surgical History H/O foot surgery Family History Family/Other No pertinent family history Social History household members: none Smoking Status: Current every day smoker alcohol intake: former Assessment & Plan Assessment & Plan narrative: #history of fall #L femur fracture Postop day 12. Working well with PT and becoming more mobile. Appreciate ortho input. Patient has to climb up 10 steps to get home. Due to recent involuntary detainment for alcohol misuse, skilled care facilities are not willing to accept patient. Patient is unable to care for himself at home or get into his home at this time so will continue with inpatient treatment with PT, OT and treatment of DVT. He is tolerating dilaudid po q4 but requestingont he hour. will provide some alternative pain control options, encourage mobilization. prn nausea meds available - we discussed today that he needs to eat in order to heal up. #Lower extremity edema due to lower extremity DVT which appears to be recurrent. Discussed with Radiology. The popliteal vein has a less clot than it did in May of 2021 when he had his 1st DVT. The profunda vein clot is new. continue initiation of therapy with Eliquis 10 mg twice daily for a week and then 5 mg twice daily indefinitely. Discussed with patient that he will need to continue on Eliquis indefinitely aspirin is stopped. #Constipation miralax and lactulose prn #Bipolar disorder controlled, continue home regimen encourage pt to spend the days in the chair with lights on, then nights in the bed with lights off, to avoid ICU delirium. #Alcohol use disorder Patient is doing well with not using alcohol plans to continue abstaining. dispo: tomorrow hopefully home with HH, may be able to arrange BLS transfer home code: full MDM: IFP DVT ppx: eliquis and scds GI ppx: PPI time spent: 40 min Quality VTE Deep Vein Thrombosis/Pulmonary Embolism Present on Admission: No
--- NOTE | 2023-02-12 12:56 | CM.DPNOTE ---
Addendum entered by SHASHI Ng 02/12/23 13:42: TRASH TRUCK DRIVER spoke with pt in room with PING Trammell at bedside. Pt reports not wanting BLS transport home due to potential bill. Pt reports he does not want to dc home yet. Pt reports he will work with PT team to attempt to come up with a solution to navigate stairs safely. TRASH TRUCK DRIVER did not cancel BLS transport at this time in the event that pt changes his mind. TRASH TRUCK DRIVER completed medical necessity form. CM team will continue to follow closely. SL Original Note: DCP Note TRASH TRUCK DRIVER reviewed EMR. Per Dr. Finney, attempting to dcp pt home with HH support, likely tomorrow. BLS transport still recommended for assisting getting pt into the home due to 10 stairs. TRASH TRUCK DRIVER spoke with Regis at [facility]. Arranged for transport to pt's home Tuesday03/16/[address] Rhodes signed medical necessity transportation form. TRASH TRUCK DRIVER completed face to face. [facility] will just need dc summary. Plan: home with [facility] support. Transport with [facility] Tuesday 1330. CM team will continue to follow closely. SHASHI Ng
--- NOTE | 2023-02-12 14:59 | PT-IP ANOTE ---
Pt was up walking with nursing this afternoon, is in pain and would like to rest, refused PT. PT will check back in with pt tomorrow.
--- NOTE | 2023-02-12 15:00 | PT-IP ANOTE ---
Due to large height and current mobility deficits pt will require FWW with extensions for safe mobility.
[2023-02-12] MEDS: HYDROCODONE/ACET 10/325 TABLET 1 TAB PO ×2 (17:00→23:19)
[2023-02-12 19:59] VITALS: BP 109/73; PULSE 81; RESP 16; TEMP 36.3; O2SAT 95
[2023-02-12] MEDS: QUETIAPINE 100 MG TABLET 400 MG PO (20:03)
[2023-02-12] MEDS: TRAZODONE 50 MG TABLET 200 MG PO (20:03)
[2023-02-12] MEDS: PANTOPRAZOLE DR 40 MG TABLET PO (20:03)
[2023-02-12] MEDS: LITHIUM 150 MG IR CAPSULE 600 MG PO (20:03)
[2023-02-12] MEDS: OXYCODONE/ACETAMINOPHEN 5/325 TABLET 1 TAB PO (21:17)
[2023-02-12] MEDS: CALCIUM CARBONATE 500 MG TAB PO (23:27)
[2023-02-13] MEDS: HYDROMORPHONE 4 MG TABLET PO ×2 (04:34→08:33)
--- NOTE | 2023-02-13 08:12 | CM.DPC ---
DCP Cont.] Reviewed EMR, met with floor RN to discuss pt updates. Plan is for pt to d/c home today at 11:00am, a friend is going to pick him up. This CLAY DRY PRESS MIXER OPERATOR will cancel the 1:30 BLS transport once pt is officially out of the building. No further DCP needs indicated at this time.
[2023-02-13] MEDS: clonazePAM 0.5 MG TABLET 1 MG PO (08:32)
[2023-02-13] MEDS: CYCLOBENZAPRINE 10 MG TABLET PO (08:32)
[2023-02-13] MEDS: DOCUSATE 100 MG CAPSULE PO (08:32)
[2023-02-13] MEDS: polyethylene glycoL 3350 17 GM POWD.PACK PO (08:33)
[2023-02-13] MEDS: NAPROXEN 250 MG TABLET 500 MG PO (08:33)
[2023-02-13] MEDS: APIXABAN 5 MG TABLET 10 MG PO (08:33)
[2023-02-13] MEDS: SENNOSIDES 8.6 MG TABLET 17.2 MG PO (08:33)
[2023-02-13] MEDS: SODIUM CHLORIDE 0.9% FLUSH 10 ML IV (08:34)
[2023-02-13] MEDS: VENLAFAXINE ER 75 MG CAP 150 MG PO (08:46)
--- NOTE | 2023-02-13 10:01 | PM.DS.1 ---
History of Present Illness History of Present Illness Date Patient Seen: 02/13/23 Time Patient Seen: 10:02 Chief complaint: GLF, L hip pain Narrative: Operative Date/Time/Diagnoses Date of procedure: 02/01/23 Time of procedure: 16:20 Pre-op diagnosis: Comminuted left femur fracture subtroch intertroch variant Post-op diagnosis: same Procedure & Clinicians Procedure: Intramedullary nailing left femur fracture subtroch intertrochanteric variant Same procedure as scheduled: Yes Indications: This is a 62-year-old gentleman who fell and sustained a comminuted left subtroch intertrochanteric hip fracture. He is brought to the operating room for open reduction internal fixation. Surgeon: Earline Fleming Charge Master Coordinator: Leyda Alexander Anesthesia Type: General Patient is a 62 year old male who is POD #12 s/p ORIF with intermedullary nail of the left femur for a comminuted left femur fracture. States he is still in a significant amount of pain but it is slowly improving from day to day, mostly painful after his PT sessions. Most of the pain is located above his knee/distal femur. Calve pain is improving. He reports feeling optimistic about his progress with PT, able to get up and down to go to the bathroom himself now with the support of a walker but still expressed anxiety about being sent home and concerned he will not be able to fully care for himself due to his limited mobility. States the toilet is painful for him to use due to its low height so he prefers to use the commode. Patient has been approved for home health. Denies chest pain, SOB, nausea, vomiting, fever, chills. Discharge Providers Provider Date of admission: 01/30/23 18:00 Discharge Date: 02/13/23 Primary care physician: Roldan Jiang MD Consults: 01/30/23 16:19 [place] to [facility] [place] Stat Comment: 01/30/23 19:33 Consult to INTEGRATED PROGRAM TEACHER - [employer] Routine Comment: Consult to Orthopedic Surgery Routine Comment: Consulting Provider: Earline Fleming Reason for consultation: hip fx Has provider been notified: Yes 01/30/23 20:20 Consult to Dietitian, Adult Routine Comment: Reason For Exam: alcoholism 01/30/23 20:53 Consult to INTEGRATED PROGRAM TEACHER - [employer]er Routine Comment: Consult to Grape Pr[employer]er Routine Comment: 02/01/23 20:08 Consult to Discharge Planning Routine Comment: Consult to Physical Therapy Evaluate & Treat Comment: Physician Instructions: Evaluate and Treat 02/02/23 14:36 Consult to Occupational Therapy Evaluate & Treat Comment: Physician Instructions: Evaluate and treat 02/11/23 11:19 Consult to Home Health Routine Comment: Reason For Exam: Home health services upon discharge 02/12/23 14:40 Consult to Physical Therapy Evaluate & Treat Comment: Physician Instructions: walker for home use with necessary extensions Discharge provider: Leyda Alexander PA-C Summary Hospital Course Discharge Diagnosis: Comminuted left femur fracture s/p ORIF with intermedullary nail Hospital Course: Hospital course complicated by poor progress with PT and poor pain control. Exam Vital Signs (past 8 hours): Oxygen Delivery Method Room Air Oxygen Flow Rate 0 Const Orientation: alert, awake and oriented x3 Resp Effort & Inspection: normal respiratory effort and able to speak in complete sentences Cardio Rate: regular rate Skin Other: ANDREW dressing intact, functioning and with mild serous discharge. Distal surgical incision dressing clean and dry. Neuro General: patient alert and patient oriented x3 Gait: gait assisted Method: walker Other: Sensation intact to bilateral lower extremities. Extrem Other: LLE w/ pitting edema up to midcalf, mild left knee effusion. 5/5 strength with dorsi and plantar flexion. Objective Labs 02/10/23 04:00 02/10/23 04:00 [facility] Medical History Complicated grief Facet arthropathy, lumbar Lumbar foraminal stenosis Spondylolisthesis at L5-S1 level Surgical History H/O foot surgery Family History Family/Other No pertinent family history Social History household members: none Smoking Status: Current every day smoker alcohol intake: former Discharge Assessment & Plan Assessment and Plan Assessment: Okay to be d/c to home today, has home health approved. Comminuted left femur fracture s/p ORIF with intermedullary nail Plan of Treatment: Partial weight-bearing on the left lower extremity. Follow-up [facility] orthopedics at about 2 weeks post-op with new x-rays AP and lateral left femur and an AP pelvis, wound check and staple removal. Continue multimodal pain management, continue Eliquis for DVT. Sent short Rx for hydromorphone and Rx for Burns for patient to step down to. Continue to work on safe ambulation with walker and improve mobility. Keep dressing in place until 2 week postop appt, keep dressing clean and dry. Discharge Plan Discharge Plan Patient Disposition: Home Health Service Provider Discharge Comment: Follow-up [facility] orthopedics at about 2 weeks post-op for new x-rays AP and lateral left femur and an AP pelvis, wound check and staple removal. F/up with PCP within 2 weeks. Discharge orders & Medications Prescriptions: New docusate sodium 100 mg Capsule 100 mg PO BID PRN (Reason: Constipation) Qty: 30 0RF Eliquis 5 mg Tablet 5 mg PO BID Qty: 60 0RF hydromorphone 4 mg Tablet 4 mg PO Q4HR PRN (Reason: Pain, Severe (7-10)) Qty: 20 0RF hydrocodone-acetaminophen 10-325 mg Tablet 1 tab PO Q4-6H PRN (Reason: Pain, Moderate (4-6)) Qty: 30 0RF naproxen 250 mg Tablet 500 mg PO BIDWM Qty: 60 0RF Continued clonazepam 1 mg tablet 1 mg PO TID PRN (Reason: severe anxiety. ) Qty: 30 0RF lithium carbonate 300 mg capsule 600 mg PO BEDTIME Qty: 60 2RF trazodone 100 mg tablet 200 mg PO BEDTIME Qty: 60 3RF venlafaxine 75 mg capsule,extended release 24hr 150 mg PO QAM quetiapine 400 mg tablet 400 mg PO BEDTIME omeprazole 40 mg capsule,delayed release(DR/EC) 40 mg PO BID Patient Comments: TAKE ONE CAPSULE BY MOUTH TWICE DAILY Follow up/Referrals: Roldan Jiang MD [Primary Care Provider] - Earline Fleming MD [Physician] - (Follow up in 2 weeks with new x-rays AP and lateral left femur and AP pelvis) Diet/Activity/Treatments Diet: Diet as Tolerated and Regular Activity: Partial weight-bearing left lower extremity Cold/Heat Therapy: Ice as needed for pain control Skin/Wound/Dressing Care Report to your healthcare provider any signs of infection, such as:: chills, fever, night sweats, increased pain, unusual drainage and unusual redness Dressing: Keep dressing clean and dry, if dressing becomes saturated or dirty okay to remove and replace with clean, dry gauze. No soaking the incisions site, do not apply lotions, creams or ointments to the incision site. Visit Report/Discharge Packet Instructions: DI for Prescription Opioid Use Stand Alone Forms: Patient Portal/API, Stroke Signs & Symptoms Discharge Data Primary Care Provider: Roldan Jiang VTE Deep Vein Thrombosis/Pulmonary Embolism Present on Admission: No
--- NOTE | 2023-02-13 10:33 | PM.DS.1 ---
History of Present Illness History of Present Illness Date Patient Seen: 02/13/23 Time Patient Seen: 10:30 Chief complaint: GLF, L hip pain Narrative: CC: LLE pain Mr. Lucio is doing ok this morning a plan has emerged for him to go home today either with a friend or via BLS. He found that adding in some hydrocodone as a pain control option alternative to dilaudid last night was helpful so will plan to discharge on NSAIDS and some of both of these c/o ortho. He is eating and able to ambulate short distances on the flat ok with tall FWW and stem cutter. He does find it easier to use bedside commode than the toilet. Discharge Providers Provider Date of admission: 01/30/23 18:00 Discharge Date: 02/13/23 Primary care physician: Roldan Jiang MD Consults: 01/30/23 16:[address] [facility] - Balance Wheel Screw Hole Driller Stat Comment: 01/30/23 19:[address] [facility] - Balance Wheel Screw Hole Driller Routine Comment: Consult to Orthopedic Surgery Routine Comment: Consulting Provider: Earline Fleming Reason for consultation: hip fx Has provider been notified: Yes 01/30/23 20:20 Consult to Dietitian, Adult Routine Comment: Reason For Exam: alcoholism 01/30/23 20:53 Consult to [facility] [facility] - Balance Wheel Screw Hole Driller Routine Comment: Consult to Balance Wheel Screw [employer] Driller Routine Comment: 02/01/23 20:08 Consult to Discharge Planning Routine Comment: Consult to Physical Therapy Evaluate & Treat Comment: Physician Instructions: Evaluate and Treat 02/02/23 14:36 Consult to Occupational Therapy Evaluate & Treat Comment: Physician Instructions: Evaluate and treat 02/11/23 11:19 Consult to Home Health Routine Comment: Reason For Exam: Home health services upon discharge 02/12/23 14:40 Consult to Physical Therapy Evaluate & Treat Comment: Physician Instructions: walker for home use with necessary extensions Discharge provider: Campbell Finney MD Summary Hospital Course Discharge Diagnosis: #history of fall #L femur fracture #Lower extremity edema #L lower extremity 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 Lucio is a pleasant and very tall gentleman who presented to our ED with extreme L leg pain after sustaining a ground level fall. He was found to have a comminuted femur fracture which was addressed with ORIF. His convalescence however was complicated by the discovery of a recurrent DVT in the same leg which caused a great deal of swelling and pain. Due in part to his extreme height (6'10), the ten stairs leading into his home, and some recent psychiatric/substance abuse issues, we were unable to find a safe discharge or placement strategy for him and so he remained in our care to receive physical therapy rehab, pain control, and anticoagulation. He did well with all of these and was able to make steady progress towards discharge today. He has been able to mobilize with PT using FWW but going up and down stairs remains difficult. He has done well with taking Eliquis initiation dose and the pain and swelling in his distal L leg has improved but is still present. We discussed that he should plan on taking eliquis or some other form of anticoagulation indefinitely. He will be going home today with assistance and I do believe that he would be able to safely evacuate his dwelling if it was on fire if he can get in there today. Status at Discharge Cognitive/behavioral status at discharge: at baseline, oriented Functional status at discharge: uses cane/walker Overall status at discharge: patient is progressing back to baseline Exam Vital Signs (past 8 hours): Oxygen Delivery Method Room Air Oxygen Flow Rate 0 Narrative Exam Narrative: sitting up in bed Const Other: well developed well nourished HENMT Other: normocephalic/atraumatic Resp Other: clear to auscultation bilaterally Cardio Other: regular rate and rhythm, S1/S2 GI Other: soft nontender nondistended Extrem Other: LLE with dry bandages over ortho incisions on lateral hip and knee. foot/ankle with pitting edema 2+ up to midcalf, mildly improved from yesterday, good dorsopedal pulse Psych Other: well kempt, guarded affect Objective Labs 02/10/23 04:00 02/10/23 04:00 [facility] Medical History Complicated grief Facet arthropathy, lumbar Lumbar foraminal stenosis Spondylolisthesis at L5-S1 level Surgical History H/O foot surgery Family History Family/Other No pertinent family history Social History household members: none Smoking Status: Current every day smoker alcohol intake: former Discharge Assessment & Plan Assessment and Plan Assessment: #history of fall #L femur fracture Postop day 13. Good healing of L upper leg s/p mehnaz placement, he is working well with PT and becoming more mobile. Appreciate ortho input. Healing has been complicated by recurrent DVT in same limb which is increasing his pain. Pain control at this time seems to be doing well with hydrocodone and dilaudid for breakthrough. He is full weight bearing with tall FWW per PT #Lower extremity edema #L lower extremity DVT which appears to be recurrent but arguably provoked Discussed with Radiology. The popliteal vein has a less clot than it did in May of 2021 when he had his 1st DVT. The profunda vein clot is new. Completed initiation eliquis, continue 5 mg twice daily indefinitely. Discussed with patient that he will need to continue on Eliquis indefinitely aspirin is stopped. This additional insult to his LLE is making the mobilization process more difficult and prolonged than if it was just a femur fracture. #Constipation miralax and lactulose prn #Bipolar disorder controlled, continue home regimen #Alcohol use disorder Patient is doing well with not using alcohol plans to continue abstaining. dispo: home with HH, may require BLS transfer home if friend unable to help - has ten stairs up into home. code: full MDM: IFP DVT ppx: eliquis and scds GI ppx: PPI time spent: 40 min Discharge Plan Discharge Plan Patient Disposition: Home Health Service Provider Discharge Comment: Follow-up [facility] orthopedics at about 2 weeks post-op for new x-rays AP and lateral left femur and an AP pelvis, wound check and staple removal. F/up with PCP within 2 weeks. Discharge orders & Medications Prescriptions: New docusate sodium 100 mg Capsule 100 mg PO BID PRN (Reason: Constipation) Qty: 30 0RF Eliquis 5 mg Tablet 5 mg PO BID Qty: 60 0RF hydromorphone 4 mg Tablet 4 mg PO Q4HR PRN (Reason: Pain, Severe (7-10)) Qty: 20 0RF hydrocodone-acetaminophen 10-325 mg Tablet 1 tab PO Q4-6H PRN (Reason: Pain, Moderate (4-6)) Qty: 30 0RF naproxen 250 mg Tablet 500 mg PO BIDWM Qty: 60 0RF Continued clonazepam 1 mg tablet 1 mg PO TID PRN (Reason: severe anxiety. ) Qty: 30 0RF lithium carbonate 300 mg capsule 600 mg PO BEDTIME Qty: 60 2RF trazodone 100 mg tablet 200 mg PO BEDTIME Qty: 60 3RF venlafaxine 75 mg capsule,extended release 24hr 150 mg PO QAM quetiapine 400 mg tablet 400 mg PO BEDTIME omeprazole 40 mg capsule,delayed release(DR/EC) 40 mg PO BID Patient Comments: TAKE ONE CAPSULE BY MOUTH TWICE DAILY Follow up/Referrals: Roldan Jiang MD [Primary Care Provider] - Earline Fleming MD [Physician] - (Follow up in 2 weeks with new x-rays AP and lateral left femur and AP pelvis) Diet/Activity/Treatments Diet: Diet as Tolerated and Regular Activity: Partial weight-bearing left lower extremity Cold/Heat Therapy: Ice as needed for pain control Skin/Wound/Dressing Care Report to your healthcare provider any signs of infection, such as:: chills, fever, night sweats, increased pain, unusual drainage and unusual redness Dressing: Keep dressing clean and dry, if dressing becomes saturated or dirty okay to remove and replace with clean, dry gauze. No soaking the incisions site, do not apply lotions, creams or ointments to the incision site. Visit Report/Discharge Packet Instructions: DI for Prescription Opioid Use Stand Alone Forms: Patient Portal/API, Stroke Signs & Symptoms Discharge Data Primary Care Provider: Roldan Jiang Quality VTE Deep Vein Thrombosis/Pulmonary Embolism Present on Admission: No
--- NOTE | 2023-02-13 10:36 | PT-IP ANOTE ---
Attempted to see pt at 10:20 AM, pt refused PT this AM. Dispensed FWW w/ extension, reminded pt of WB status. No charge.
[2023-02-13 10:43] VITALS: BP 109/66; PULSE 83; RESP 18; O2SAT 97
[2023-02-13] MEDS: OXYCODONE/ACETAMINOPHEN 5/325 TABLET 1 TAB PO (10:45)
--- NOTE | 2023-02-13 12:56 | PC.NURSE ---
Iv removed. Discussed pain medications, worsening symptoms, follow up care. No questions. Patient wheeled out to private vehicle via w/c by RN.
== END 2023-02-13 12:50 | disposition home health service (06) | DRG 481 ==
LOC: ED 17:59 → AC 18:00
PROVIDERS: Family Medicine; Orthopaedic Surgery; Admitting Provider Family Medicine; Emergency Provider Emergency Medicine; PCP Family Medicine; Referring Provider Emergency Medicine; Visit Provider Family Medicine
PROC: 0QS706Z Reposition Left Upper Femur with Intramedullary Internal Fixation Device, Open Approach (ICD-10-PCS; CPT 27245; principal; 2023-02-01 16:45)
DX: S72.142A Displaced intertrochanteric fracture of left femur, initial encounter for closed fracture (principal); E46 Unspecified protein-calorie malnutrition; F31.81 Bipolar II disorder; I82.432 Acute embolism and thrombosis of left popliteal vein; I82.492 Acute embolism and thrombosis of other specified deep vein of left lower extremity; F17.210 Nicotine dependence, cigarettes, uncomplicated; S72.22XA Displaced subtrochanteric fracture of left femur, initial encounter for closed fracture; K59.00 Constipation, unspecified; G89.18 Other acute postprocedural pain; F10.90 Alcohol use, unspecified, uncomplicated; W01.0XXA Fall on same level from slipping, tripping and stumbling without subsequent striking against object, initial encounter; Y90.0 Blood alcohol level of less than 20 mg/100 ml; Z79.01 Long term (current) use of anticoagulants; Z86.718 Personal history of other venous thrombosis and embolism; Z68.27 Body mass index [BMI] 27.0-27.9, adult
CPT/HCPCS: 36415; 71045; 73502; 73552; 76000; 80048; 80053; 80178; 80305; 80320; 82565; 83690; 85025; 85027; 85610; 85730; 86850; 86870; 86900; 86901; 93971; 96374; 96375; 97110; 97116; 97162; 97166; 97530; 97535; 99232; 99284; 99285; C9290; J0171; J0690; J1100; J1170; J1885; J2250; J2270; J2405; J2704; J3010; J3490

== ENCOUNTER → 2024-01-27 07:38 | Outpatient (CLI) | payer OTHER, MEDICAID, SELFPAY ==
[2023-04-11 11:20] VITALS: BMI 27.1
--- NOTE | 2024-01-27 07:42 | DI.CT.S_ITS ---
PROCEDURE: CT CHEST WO CON INDICATIONS: PULMONARY NODULE TECHNIQUE: Noncontrast 2.0-2.5 mm thick sections acquired from the pulmonary apices to the posterior costophrenic angles. 7 mm thick axial MIP and 5 mm coronal and sagittal reformats were then acquired. For radiation dose reduction, the following was used: automated exposure control, adjustment of mA and/or kV according to patient size. COMPARISON: None. FINDINGS: Image quality: Diagnostic. Lower Neck: No enlarged lymph nodes. Thyroid: There is a 0.7 centimeter left thyroid nodule which is hypodense centrally and hyperdense peripherally. Axillae: No enlarged lymph nodes. Chest Wall: Increased AP diameter of the chest compatible with COPD morphology. Bones: Unremarkable. Lungs and Pleura: No pneumothorax or pleural effusions. No consolidation. 0.9 centimeter subsolid nodule within the right upper lobe (series 3, image 182). Heart: Heart size is normal. No pericardial effusion. Thoracic Vessels: The aorta and pulmonary arteries demonstrate normal size. Mediastinum and Alexus: No enlarged lymph nodes. Esophagus: No wall thickening. No hiatal hernia. Upper Abdomen: Visualized upper abdomen solid organs and bowel loops appear normal. IMPRESSION: 1. Right upper lobe 0.9 centimeter subsolid solitary pulmonary nodule. Recommend CT at 3-6 month to confirm persistence and than an annual CT up to 5 years. 2. Left thyroid 0.7 centimeter nodule. Recommend dedicated thyroid ultrasound for risk stratification. Dictated by: Cody Stock M.D. on 01/27/2024 at 9:41 Approved by: Cody Stock M.D. on 01/27/2024 at 9:46
== END ==
PROVIDERS: PCP Family Medicine; Referring Provider Family Medicine; Visit Provider Family Medicine
DX: R91.1 Solitary pulmonary nodule (principal); E04.1 Nontoxic single thyroid nodule
CPT/HCPCS: 71250

== ENCOUNTER → 2024-02-23 07:30 | Outpatient (CLI) | payer OTHER, SELFPAY ==
[2023-04-11 11:20] VITALS: BMI 27.1
--- NOTE | 2024-02-23 07:31 | DI.US.S_ITS ---
PROCEDURE: US ABDOMEN COMPLETE INDICATIONS: epigastric pain, weight loss, alcoholism TECHNIQUE: Real-time scanning was performed of the abdominal and retroperitoneal organs, with image documentation. COMPARISON: None. FINDINGS: Liver: Liver is normal in size and homogeneous in echotexture. Diffusely increased hepatic echogenicity. Gallbladder: Contracted without evidence of large intraluminal gallstones. Numerous tiny wall adherent gallstones versus polyps are noted. Ring down artifact is also noted within the gallbladder wall, compatible with adenomyomatosis. Biliary ducts: Intrahepatic bile ducts are non-dilated. Extrahepatic bile duct caliber measures 6 mm. Normal is 6-7 mm or less in diameter, or 10 mm or less post-cholecystectomy. Pancreas: Visualized portions of the pancreas are sonographically normal. Spleen: Spleen is normal in size and homogeneous in echotexture. Kidneys: Kidneys are normal in size and echotexture. Right kidney measures 13 cm long; left kidney measures 12.3 cm long. No nephrolithiasis. No solid masses. Moderate left hydronephrosis. Aorta: Visualized aorta is normal in caliber at less than 3 cm. Iliacs: Proximal common iliac arteries are normal in caliber at less than 2.5 cm. IVC: Intrahepatic inferior vena cava is patent. Miscellaneous: No free abdominal fluid. IMPRESSION: 1. Diffuse hepatic steatosis. 2. Numerous tiny wall adherent gallstones versus benign polyps as well as adenomyomatosis. 3. Moderate left renal hydronephrosis. Dictated by: Cody Stock M.D. on 02/24/2024 at 0:49 Approved by: Cody Stock M.D. on 02/24/2024 at 0:55
== END ==
PROVIDERS: PCP Family Medicine; Referring Provider Surgery; Visit Provider Surgery
DX: K76.0 Fatty (change of) liver, not elsewhere classified (principal); N13.30 Unspecified hydronephrosis; R10.13 Epigastric pain; R63.4 Abnormal weight loss; F10.20 Alcohol dependence, uncomplicated
CPT/HCPCS: 76700

== ENCOUNTER 2024-03-02 13:45 | Day surgery (SDC) | payer OTHER, SELFPAY ==
[2023-04-11 11:20] VITALS: BMI 27.1
--- NOTE | 2024-03-02 | PATH_ITS ---
[facility] Accession Number: [id number] No. of containers..03 Tissue . 01 Material submitted: . PART A: stomach - ANTRAL BX PART B: colon - TRANSVERSE COLON POLYP PART C: colon - SIGMOID POLYP . 01 Diagnosis: A. ANTRUM: Gastric mucosa with minimal chronic nonspecific inflammation. No Helicobacter pylori organisms identified on H/E slide. No intestinal metaplasia, dysplasia, or malignancy. . B. TRANSVERSE COLON POLYP: Tubular adenoma. . C. SIGMOID COLON POLYP: Hyperplastic polyp. HAM 03/05/2024 1108 Local . 01 Electronically signed: . Colleen Duarte MD, Pathologist NPI- [id number] . 01 Gross description: . A. Received in formalin with two patient identifiers and antral biopsy, are two yoo soft tissue fragments 0.3 to 0.5 cm in greatest dimension. Submitted in cassette A1. B. Received in formalin with two patient identifiers and transverse colon polyp, is a single yoo soft tissue fragment coated in yellow mucoid material measuring 0.7 cm in greatest dimension. Submitted in cassette B1. C. Received in formalin with two patient identifiers and sigmoid polyp, are multiple yoo to yellow to green soft tissue fragments and other biological material aggregating to 1.3 x 0.7 x 0.1 cm. Filtered and submitted in C1. ([id number]) /HAM 03/04/2024 0528 Local . 01 Pathologist provided ICD-10: K29.30, D12.3, D12.5 . 01 CPT . 670512, 897101, 091750 Specimen Comment: A courtesy copy of this report has been sent to [facility] Pathology Performed at: [address] [id number] MD Cody Adamson MD Phone: [phone]
[2024-03-02 14:12] VITALS: BP 132/95; PULSE 99; RESP 24; TEMP 37.1; O2SAT 100
[2024-03-02] MEDS: SODIUM CHLORIDE 0.9% 1,000 ML 84 ML IV (14:17)
--- NOTE | 2024-03-02 14:48 | P.OP.PRE_ITS ---
Pre-operative Note COVID-19 COVID-19 status: Not tested Interval Note History & Physical reviewed/Exam performed by Physician: Yes Changes to H&P: No H&P completed within 30 days and has changed as indicated here:: Discussed ultr asound findings with the patient with steatosis of the liver and possible adenomyomatosis/cholelithiasis. Proceed with EGD and colonoscopy today. ASA Class (for procedural sedation): III
--- NOTE | 2024-03-02 15:15 | PM.OP.EC ---
Operative Date/Time/Diagnoses Date of procedure: 03/02/24 Time of procedure: 15:15 Pre-op diagnosis: Abdominal pain reflux history of polyps Post-op diagnosis: same (Bile reflux gastritis, transverse colon polyp, sigmoid polyp) Procedure & Clinicians Study performed: 1. Esophagogastroduodenoscopy with antral biopsy 2. Colonoscopy with cold snare polypectomy transverse colon sigmoid polyp Same procedure as scheduled: Yes Indications: Abdominal pain, weight loss, history of polyps Surgeon: Gerard Flores Procedure Notes SCOAP/Timeout: Perform Procedure in detail: Time-out was performed. Mac was induced. Patient was placed in left lateral decubitus position. Bite block was placed in the mouth. Upper scope was performed to the 2nd portion of the duodenal. There was bile present in the antrum of the stomach prior to entering the duodenal consistent with bile reflux gastritis. Had linear erosions. Antral biopsy was performed. Retroflexed view showed small hiatal hernia. GE junction was normal. Z-line at 40 cm from the incisors. The perineum was inspected without any gross abnormality. Lubricated pediatric colonoscope was inserted and advanced to the cecum. The terminal ileum was intubated. The colonoscope was withdrawn slowly inspecting the circumference of the colon. Subcentimeter polyp was noted in the transverse colon, and sigmoid colon, removed with cold snare and retrieved completely. Very small polyps may have been missed, prep quality was adequate. Retroflexed view of the rectum showed small, non prolapsed nonbleeding internal hemorrhoids. The scope was withdrawn the patient was taken to PACU in good condition. Scope withdrawal time: 8 Sedation minutes: 19 Findings: gastritis and polyp Specimen(s): other (1. Antral biopsy2. transverse colon polyp 3. Sigmoid polyp) Complications: none Impression: Bile reflux gastritis Post-procedure Recommendations: Colonscopy in 5 years Follow up: as needed Disposition: PACU
[2024-03-02 15:17] VITALS: BP 113/77; PULSE 89; RESP 24; TEMP 36.6; O2SAT 97
[2024-03-02 15:22] VITALS: BP 129/87; PULSE 95; RESP 28; O2SAT 98
[2024-03-02 15:30] VITALS: BP 131/87; PULSE 87; RESP 15; O2SAT 100
[2024-03-02 15:38] VITALS: BP 130/87; PULSE 87; RESP 17; O2SAT 100
== END 2024-03-02 15:40 | disposition home or self-care (01) ==
PROVIDERS: PCP Family Medicine; Referring Provider Surgery; Visit Provider Surgery
PROC: 0DJ08ZZ Inspection of Upper Intestinal Tract, Via Natural or Artificial Opening Endoscopic (ICD-10-PCS; CPT 45385; principal; 2024-03-02 15:00)
PROC: 0DJD8ZZ Inspection of Lower Intestinal Tract, Via Natural or Artificial Opening Endoscopic (ICD-10-PCS; CPT 45378; 2024-03-02 15:00)
DX: D12.3 Benign neoplasm of transverse colon (principal); K29.60 Other gastritis without bleeding; K21.9 Gastro-esophageal reflux disease without esophagitis; K63.5 Polyp of colon; Z86.0100 Personal history of colon polyps, unspecified; R10.13 Epigastric pain; R63.4 Abnormal weight loss; G47.33 Obstructive sleep apnea (adult) (pediatric); F31.9 Bipolar disorder, unspecified; F10.21 Alcohol dependence, in remission; F17.210 Nicotine dependence, cigarettes, uncomplicated; Z79.01 Long term (current) use of anticoagulants; Z80.0 Family history of malignant neoplasm of digestive organs
CPT/HCPCS: 45385; 43239; J2704; J3010

== ENCOUNTER → 2024-03-19 06:42 | Outpatient (CLI) | payer OTHER, SELFPAY ==
[2023-04-11 11:20] VITALS: BMI 27.1
--- NOTE | 2024-03-19 06:43 | DI.US.S_ITS ---
PROCEDURE: US THYROID INDICATIONS: THYROID NODULE TECHNIQUE: Real-time scanning was performed of the thyroid gland, with image documentation. COMPARISON: None. FINDINGS: Thyroid: Right lobe measures 6.2 x 1.6 x 1.7 cm. Left lobe measures 6.1 x 1.8 x 1.8 cm. Isthmus is 4 cm thick. Echotexture is heterogeneous, with multiple small thyroid nodules. The heterogeneous left thyroid nodule corresponds to a colloid cyst, which requires no further follow-up. Nodule number: 1 Location: Right inferior pole Size: 1.1 x 0.6 x 0.9 cm. Composition: Part solid Echogenicity: Isoechoic Shape: wider than tall. Margins: Smooth Echogenic foci: None Total points: 2 ACR TI-RADS category: Benign IMPRESSION: Slightly heterogeneous thyroid, with multiple small, non suspicious nodules which do not require follow-up per consensus guidelines. ACR TI-RADS definitions and recommendations: TI-RADS 1 (benign): 0 points. FNA not needed. TI-RADS 2 (not suspicious): 2 points. FNA not needed. TI-RADS 3: 3 points. * FNA if 2.5 cm or larger, follow up if 1.5 cm or larger (at 1, 3, and 5 years). TI-RADS 4: 4-6 points. * FNA if 1.5 cm or larger, follow up if 1 cm or larger (at 1, 2, 3, and 5 years). TI-RADS 5: 7 points or more. * FNA if 1 cm or larger, follow up if 0.5 cm or larger (every year for 5 years). Dictated by: Mario Alberto Ni M.D. on 03/19/2024 at 10:54 Approved by: Mario Alberto Ni M.D. on 03/19/2024 at 10:57
== END ==
PROVIDERS: PCP Family Medicine; Referring Provider Family Medicine; Visit Provider Family Medicine
DX: E04.1 Nontoxic single thyroid nodule (principal)
CPT/HCPCS: 76536

== ENCOUNTER → 2024-05-25 10:27 | Outpatient (CLI) | payer OTHER, SELFPAY ==
[2023-04-11 11:20] VITALS: BMI 27.1
--- NOTE | 2024-05-25 10:28 | DI.CT.S_ITS ---
PROCEDURE: CT CHEST WO CON INDICATIONS: PULMONARY NODULE TECHNIQUE: Noncontrast 2.0-2.5 mm thick sections acquired from the pulmonary apices to the posterior costophrenic angles. 7 mm thick axial MIP and 5 mm coronal and sagittal reformats were then acquired. For radiation dose reduction, the following was used: automated exposure control, adjustment of mA and/or kV according to patient size. COMPARISON: [facility], CT, CT CHEST WO CON, 01/27/2024, 7:52. FINDINGS: Image quality: Diagnostic. Some images are limited by beam hardening artifacts. Decreased right upper lobe anterior solid 6 mm nodule previously measured 9 mm . No new nodules. Mild calcifications of the aortic valve unchanged. Para mild non-specific wall thickening distal esophagus into the stomach some of which commonly artifact from partial nondistention although mild esophagitis, gastritis could have a similar appearance new compared to the prior exam. No pneumothorax, no pleural effusion, no pericardial effusion, no lobar consolidation. Heart size within normal limits. Pulmonary vasculature normal. Mild dextroscoliosis upper thoracic spine and [id number] degenerative changes of the thoracic spine without CT evidence of fracture, subluxation. Thyroid: 7 mm left thyroid lobe nodule unchanged, mildly enlarged thyroid gland with heterogeneous attenuation commonly related to cord are unchanged. Thoracic Vessels: The aorta and pulmonary arteries demonstrate normal size. Mediastinum and Alexus: No enlarged lymph nodes. Upper Abdomen: Visualized upper abdomen solid organs and bowel loops appear normal. IMPRESSION: 6 mm and nodule decreased from 9 mm on the prior exam. Consider CT follow-up 12 months. Dictated by: Praful Hinds M.D. on 05/25/2024 at 12:10 Approved by: Praful Hinds M.D. on 05/25/2024 at 12:27
== END ==
PROVIDERS: PCP Family Medicine; Referring Provider Family Medicine; Visit Provider Family Medicine
DX: R91.1 Solitary pulmonary nodule (principal); E04.1 Nontoxic single thyroid nodule; M47.814 Spondylosis without myelopathy or radiculopathy, thoracic region; M41.9 Scoliosis, unspecified
CPT/HCPCS: 71250

== ENCOUNTER → 2024-05-31 07:22 | Outpatient (CLI) | payer OTHER, SELFPAY ==
[2023-04-11 11:20] VITALS: BMI 27.1
--- NOTE | 2024-05-31 07:23 | DI.NM.S_ITS ---
PROCEDURE: [place] HIDA WITH CCK PHARMACEUTICAL: 5.4 mCi Tc-99m mebrofenin IV; 1.9 mcg CCK IV. INDICATIONS: CHRONIC NAUSEA TECHNIQUE: Following intravenous administration of Tc-99m mebrofenin, sequential anterior abdominal images were obtained. To evaluate the contractile response of the gallbladder in response to Cholecystokinin (CCK), sincalide (0.02 ?g/kg) was administered by slow intravenous infusion approximately 60 minutes after the administration of the radiopharmaceutical. Sequential imaging was continued for 30 minutes after the start of CCK infusion. Gallbladder ejection fraction was calculated. COMPARISON: [place], [place], [place] HIDA WITH CCK, 06/23/2021, 8:41. FINDINGS: Biliary scan: There is normal tracer uptake and excretion by the liver. There is normal visualization of the intrahepatic ducts, common bile duct, and gallbladder. There is normal tracer transit into the duodenum. CCK stimulation: There is normal contractile response of the gallbladder to CCK infusion. The calculated gallbladder ejection fraction is 63% ; normal values are above 35%. It has been shown that any patient abdominal pain after CCK administration is related to the rate of CCK injection, rather than to any underlying gallbladder disease (Clinical Nuclear Medicine 2012; 37: 63-70. Journal of Nuclear Medicine 2014; 55: 1-9). IMPRESSION: 1. There is normal tracer uptake and excretion by the liver with visualization of the bile ducts, gallbladder and transit into the duodenum. 2. Normal contractile response of the gallbladder to CCK infusion. Dictated by: Akshat Avila M.D. on 05/31/2024 at 10:44 Approved by: Akshat Avila M.D. on 05/31/2024 at 10:46
== END ==
PROVIDERS: PCP Family Medicine; Referring Provider Family Medicine; Visit Provider Family Medicine
DX: R11.0 Nausea (principal)
CPT/HCPCS: 78227; A9537; J2805

== ENCOUNTER → 2024-06-06 12:23 | Outpatient (CLI) | payer OTHER, SELFPAY ==
[2023-04-11 11:20] VITALS: BMI 27.1
--- NOTE | 2024-06-06 12:26 | DI.RAD.S_ITS ---
PROCEDURE: XR FEMUR LT MIN 2V INDICATIONS: PAIN L FEMUR TECHNIQUE: 2 views of the femur were acquired. COMPARISON: [facility], CR, XR FEMUR LT MIN 2V, 02/08/2023, 11:03. FINDINGS: Bones: A solidly united intertrochanteric fracture of the proximal left femur is transfixed by cephalomedullary mehnaz. One of the distal screws supporting the mehnaz is fractured. The fracture remains in near anatomic alignment. Mildly lesser trochanteric and greater trochanteric tip fragments are partially united Joints: Left hip is normal. Mild tibiofemoral degeneration appreciated Soft tissues: No soft tissue abnormality. IMPRESSION: ORIF intertrochanteric fracture left hip in near anatomic alignment. It is solid united Dictated by: David Zavala M.D. on 06/07/2024 at 11:29 Approved by: David Zavala M.D. on 06/07/2024 at 11:31
--- NOTE | 2024-06-06 12:26 | DI.RAD.S_ITS ---
PROCEDURE: XR HIP W PEL IF DONE LT 2V INDICATIONS: PAIN L FEMUR TECHNIQUE: AP pelvis with lateral view(s) of the left hip(s). COMPARISON: [facility], CR, XR HIP W PEL IF DONE LT 2V, 01/30/2023, 16:24. FINDINGS: Bones: Cephalomedullary mehnaz transfixes a solid united old intertrochanteric fracture of the left hip. A lesser trochanteric fragment is displaced less than 1 cm medially and is subtotally united. There is also a nonunited fracture through the greater trochanteric tip. SI and hip joints: Mild degeneration in both SI joints noted. Both hip joints normal Soft tissues: No soft tissue swelling, calcification or mass. IMPRESSION: ORIF left intertrochanteric fracture which is solidly unified and in near anatomic alignment. Partially and displaced lesser trochanteric and greater trochanteric tip fragments again seen. Dictated by: David Zavala M.D. on 06/07/2024 at 11:28 Approved by: David Zavala M.D. on 06/07/2024 at 11:29
== END ==
LOC: RAD 12:25
PROVIDERS: PCP Family Medicine; Referring Provider Family Medicine; Visit Provider Family Medicine
DX: M89.8X5 Other specified disorders of bone, thigh (principal); S72.142D Displaced intertrochanteric fracture of left femur, subsequent encounter for closed fracture with routine healing; M47.898 Other spondylosis, sacral and sacrococcygeal region
CPT/HCPCS: 73502; 73552

== ENCOUNTER → 2024-07-23 07:23 | Outpatient (CLI) | payer OTHER, SELFPAY ==
[2023-04-11 11:20] VITALS: BMI 27.1
--- NOTE | 2024-07-23 07:24 | DI.NM.S_ITS ---
PROCEDURE: [place] GASTRIC EMPTYING STUDY RADIOPHARMACEUTICAL: 1 mCi Tc-99m sulfur colloid in an egg sandwich. INDICATIONS: lt quadrant abd pain TECHNIQUE: A Tc-99m labeled sulfur colloid labeled egg sandwich or oatmeal was served to the patient. Anterior and posterior planar images of the abdomen were obtained at 0 minutes and 30 minutes, then at hourly intervals up to 4 hours. The patient was upright and ambulating during the interval. COMPARISON: None. FINDINGS: The stomach has normal size, morphology, and position. There is normal emptying of solid gastric contents from the stomach by visual inspection. No gastroesophageal reflux is visualized. The percentage of tracer retained at specific time points are as follows: Time point Percent gastric retention Normal range 30 minutes 69 % 70% or more 1 hour 40 % 30% to 90% 2 hours 23 % 60% or less 3 hours 16 % 30% or less 4 hours 9 % 10% or less IMPRESSION: Gastric retention is minimally lower than expected at 30 minutes as above, otherwise normal gastric retention times. Dictated by: Akshat Avila M.D. on 07/23/2024 at 12:43 Approved by: Akshat Avila M.D. on 07/23/2024 at 12:45
== END ==
PROVIDERS: PCP Family Medicine; Referring Provider Family Medicine; Visit Provider Family Medicine
DX: R10.12 Left upper quadrant pain (principal)
CPT/HCPCS: 78264; A9541

== ENCOUNTER 2024-12-01 13:35 | Emergency (ER) | payer OTHER, SELFPAY ==
[2023-04-11 11:20] VITALS: BMI 27.1
[2024-12-01] VITALS (8 sets, daily range): BP systolic 123–188; BP diastolic 71–98; PULSE 77–91; RESP 16; TEMP 36.6; O2SAT 91–98; BMI 27.1
[2024-12-01 14:04] LABS: Appearance Urine UA CLEAR; Bilirubin Urine UA NEGATIVE (NEGATIVE); Color Urine UA YELLOW; Glucose Urine UA NEGATIVE (Negative); Ketones Urine UA NEGATIVE (NEGATIVE); Leukocyte Esterase Urine UA NEGATIVE (NEGATIVE); Nitrite Urine UA NEGATIVE (Negative); Occult Blood Urine UA NEGATIVE (Negative); Protein Urine UA NEGATIVE (Negative); Specific Gravity Urine UA <=1.005 (1.000-1.035); Urobilinogen Urine UA 0.2 E.U./dL (0.2); pH Urine UA 6.0 (4.5-8.0)
[2024-12-01 14:10] LABS: UR Morphine/Opiate cutoff 300 Negative (Negative); Urine MDMA Negative (Negative); Urine Methamphetamines Negative (Negative); Urine Tetrahydrocannabinol Positive (Negative); Urine Tricyclic Antidepressant Negative (Negative)
[2024-12-01 14:18] LABS: Culture Indicated Urine Cult Not Indicated
[2024-12-01 14:31] LABS: Add Manual Diff / Slide Review NO; Hematocrit 47.2 % (41-53); Hemoglobin 16.0 g/dL (13.5-17.5); Lymphocytes Absolute Auto 3100 /uL (1100-4500); Mean Corpuscular HGB Conc 33.9 % (30-36); Mean Corpuscular Hemoglobin 31.7 PG (26-34); Mean Corpuscular Volume 93.6 fL (80-100); Platelet Count 311 X10^3/uL (150-400)
[2024-12-01 14:44] LABS: Acetaminophen < 10 ug/mL (10-30); Alanine Aminotransferase 20 IU/L (<50); Albumin 4.7 g/dL (3.5-5.0); Albumin Globulin Ratio 1.3 (1.0-2.8); Alkaline Phosphatase 147 U/L (38-126); Blood Urea Nitrogen 14 mg/dL (9-20); Calcium 9.2 mg/dL (8.4-10.2); Carbon Dioxide 22 mmol/L (22-32); Chloride 113 mmol/L (98-107); Estimated Glomerular Filt Rate > 60 mL/min (>60); Globulin 3.7 g/dL (1.7-4.1); Glucose 97 mg/dL (70-99); HEMOLYSIS 20 (0-50); Potassium 3.9 mmol/L (3.4-5.1); Salicylate < 1.0 mg/dL (<20); Sodium 147 mmol/L (137-145); Total Protein 8.4 g/dL (6.3-8.2)
[2024-12-01 15:18] LABS: TSH w/ Reflex to FT4 1.02 uIU/mL (0.47-4.68)
--- NOTE | 2024-12-01 15:27 | ED.ALCOHOL ---
HPI - Alcohol General Chief Complaint: Toxicology Problem Stated Complaint: Intoxicated and fell Time Seen by Provider: 12/01/24 14:00 History of Present Illness HPI narrative: Patient is a 64-year-old male with history of alcohol use disorder, anxiety disorder, hypertension, polysubstance use disorder, bipolar disorder, presenting in the setting of alcohol intoxication and reported fall. Per report, patient had been drinking alcohol and self presented to rehab where he had a witnessed fall. Related Data Home Medications ?Medication ?Instructions ?Recorded ?Confirmed fluticasone propionate 50 2 spray intranasal DAILY 02/09/24 10/01/24 mcg/actuation nasal spray,suspension Previous Rx's ?Medication ?Instructions ?Recorded apixaban 5 mg tablet (Eliquis) 5 mg PO BID #60 tabs 02/13/23 quetiapine 400 mg tablet 400 mg PO BEDTIME #30 tabs 03/02/23 omeprazole 40 mg capsule,delayed 40 mg PO BID #60 caps 10/01/24 release trazodone 100 mg tablet 300 mg (3 x 100 mg) PO BEDTIME #90 10/01/24 tabs venlafaxine 37.5 mg 37.5 mg PO DAILY #30 caps 11/26/24 capsule,extended release 24 hr clonazepam 1 mg tablet 1 mg PO TID PRN severe anxiety. 11/29/24 #90 tabs Allergies Allergy/AdvReac Type Severity Reaction Status Date / Time No Known Drug Allergies Allergy Verified 03/02/24 14:04 Patient History Medical History (Updated 10/01/24 @ 15:20 by Mario Alberto Kerns MD) Personal history of colonic polyps Epigastric pain Weight loss, abnormal Complicated grief Facet arthropathy, lumbar Lumbar foraminal stenosis Spondylolisthesis at L5-S1 level Surgical History H/O foot surgery Family History Mother Colon cancer Kidney disease Social History marital status: unmarried,single details: Pt. lives with his mother. household members: none lives independently: Yes occupational status: unemployed and disabled alcohol intake: former substance use type: marijuana alcohol intake frequency: 3 or more drinks per day Alcohol type: beer and hard liquor Exam Initial Vital Signs Initial Vital Signs: Vital Signs Temperature 97.8 F 12/01/24 13:54 Pulse Rate 82 12/01/24 13:54 Respiratory Rate 16 12/01/24 13:54 Blood Pressure 188/87 H 12/01/24 13:54 Pulse Oximetry 97 12/01/24 13:54 Oxygen Delivery Method Room Air 12/01/24 13:54 Course Orders Ordered: ED Orders 12/01/24 13:50 Urinalysis and Microscopic Stat Urine Drug Screen, Rapid Stat 12/01/24 13:56 Consult to TIRE CENTER MANAGER - Baby Attendant Routine 12/01/24 14:15 Acetaminophen Stat Complete Blood Count AUTO DIFF Stat Comprehensive Metabolic Panel Stat Ethanol (ETOH) Stat Salicylate Stat TSH w/ Reflex to FT4 Stat 12/01/24 17:19 COVID19 -Nasal RAPID Stat Lorazepam (Lorazepam 1 Mg Tablet) 0 mg PO CIWAPRN PRN; Protocol PRN Reason: Alcohol Withdrawal Multivitamins (Multivitamin 1 Tablet) 1 tab PO DAILY ELEUTERIO Thiamine HCl (Thiamine 100 Mg Tablet) 100 mg PO DAILY ELEUTERIO Stop: 12/05/24 09:01 Discontinued Medications Lorazepam (Lorazepam 2 Mg/Ml Inj) 1 mg IV NOW ONE Stop: 12/01/24 18:06 Last Admin: 12/01/24 18:08 Dose: 1 mg Documented By: TC Reevaluation(s) Reevaluation #1: At this time, patient is ambulating with increasing steadiness, does state that he uses a cane at baseline. Given workup thus far, patient is considered medically cleared and social work will evaluate for dual diagnosis placement in the setting of patient's alcohol use disorder and history of bipolar disorder, anxiety. Time: 17:28 Vital Signs Vital signs: Vital Signs - 8 hr 12/01/24 13:54 12/01/24 15:18 12/01/24 15:19 Temperature 97.8 F Pulse Rate 82 77 80 Respiratory Rate 16 16 Blood Pressure 188/87 H 136/98 H Pulse Oximetry 97 98 97 Oxygen Delivery Method Room Air Room Air 12/01/24 15:19 12/01/24 16:12 12/01/24 16:12 Temperature Pulse Rate 78 Respiratory Rate Blood Pressure 163/98 H 142/76 H Pulse Oximetry 94 Oxygen Delivery Method Room Air 12/01/24 17:30 12/01/24 17:30 Temperature Pulse Rate 81 Respiratory Rate Blood Pressure 176/94 H Pulse Oximetry 98 Oxygen Delivery Method Room Air MDM - Alcohol Differential Diagnosis Differential diagnosis: Likely alcohol intoxication, alcohol ketoacidosis and other (Traumatic injury, polysubstance use, encephalopathy) Medical Records Attestation: I reviewed the patient's medical records. Lab Data Attestation: I reviewed the patient's lab results. 12/01/24 14:15 12/01/24 14:15 Labs: Lab Results 12/01/24 12/01/24 12/01/24 Range/Units 13:50 13:50 14:15 WBC 9.6 (4.5-11.0) X10^3/uL RBC 5.05 (4.5-5.9) X10^6/uL Hgb 16.0 (13.5-17.5) g/dL Hct 47.2 (41-53) % MCV 93.6 (80-100) fL MCH 31.7 (26-34) PG MCHC 33.9 (30-36) % RDW 13.5 (11.6-14.8) % Plt Count 311 (150-400) X10^3/uL Neut % (Auto) 54.5 (50-75) % Lymph % (Auto) 32.3 (25-40) % [place] % (Auto) 5.8 (3-14) % Eos % (Auto) 4.4 H (2-4) % Baso % (Auto) 3.0 H (0-2) % Neut # (Auto) 5200 (9877-6668) /uL Lymph # (Auto) 3100 (4459-2640) /uL [place] # (Auto) 600 (0-900) /uL Eos # (Auto) 400 (0-450) /uL Baso # (Auto) 300 H (0-100) /uL Sodium 147 H (137-145) mmol/L Potassium 3.9 (3.4-5.1) mmol/L Chloride 113 H (98-107) mmol/L Carbon Dioxide 22 (22-32) mmol/L BUN 14 (9-20) mg/dL Creatinine 1.19 (0.66-1.25) mg/dL Estimated GFR > 60 (>60) mL/min BUN/Creatinine Ratio 11.8 (6-22) Glucose 97 (70-99) mg/dL Calcium 9.2 (8.4-10.2) mg/dL Total Bilirubin 0.5 (0.2-1.3) mg/dL AST 35 (17-59) IU/L ALT 20 (<50) IU/L Alkaline Phosphatase 147 H (38-126) U/L Total Protein 8.4 H (6.3-8.2) g/dL Albumin 4.7 (3.5-5.0) g/dL Globulin 3.7 (1.7-4.1) g/dL Albumin/Globulin Ratio 1.3 (1.0-2.8) TSH 1.02 (0.47-4.68) uIU/mL Urine Color Yellow Urine Appearance Clear Urine pH 6.0 Not Reportable (4.5-8.0) Ur Specific [place] <=1.005 (1.000-1.035) Urine Protein Negative (Negative) Urine Glucose (UA) Negative (Negative) g/dL Urine Ketones Negative (NEGATIVE) Urine Occult Blood Negative (Negative) Urine Nitrate Negative (Negative) Urine Bilirubin Negative (NEGATIVE) Urine Urobilinogen 0.2 (0.2) E.U./dL Ur Leukocyte Esterase Negative (NEGATIVE) Urine RBC None seen (0-5/HPF) Urine WBC None seen (0-5/HPF) Ur Squamous Epith Cells None seen (0-5/HPF) Urine Bacteria Occasional (0-1) (None) Ur Culture Indicated? Cult not indicated Vol Urine Centrifuged 10ml (spun) Salicylates < 1.0 (<20) mg/dL U Opiates 300ng/mL cut Negative (Negative) Ur Oxycodone Screen Negative (Negative) Urine Methadone Screen Negative (Negative) Acetaminophen < 10 (10-30) ug/mL Ur Barbiturates Screen Negative (Negative) U Tricyclic Antidepress Negative (Negative) Ur Phencyclidine Scrn Negative (Negative) Ur Amphetamines Screen Negative (Negative) U Methamphetamines Scrn Negative (Negative) Ur MDMA Scrn (Ecstasy) Negative (Negative) U Benzodiazepines Scrn Negative (Negative) Urine Cocaine Screen Negative (Negative) U Marijuana (THC) Screen Positive H (Negative) Urine Specific [place] Not Reportable Ethyl Alcohol 346 H (<10) mg/dL Ur Creatinine Not Reportable SARS-CoV-2 (PCR) (Negative) 12/01/24 Range/Units 17:19 WBC (4.5-11.0) X10^3/uL RBC (4.5-5.9) X10^6/uL Hgb (13.5-17.5) g/dL Hct (41-53) % MCV (80-100) fL MCH (26-34) PG MCHC (30-36) % RDW (11.6-14.8) % Plt Count (150-400) X10^3/uL Neut % (Auto) (50-75) % Lymph % (Auto) (25-40) % [place] % (Auto) (3-14) % Eos % (Auto) (2-4) % Baso % (Auto) (0-2) % Neut # (Auto) (3930-2999) /uL Lymph # (Auto) (1547-3052) /uL [place] # (Auto) (0-900) /uL Eos # (Auto) (0-450) /uL Baso # (Auto) (0-100) /uL Sodium (137-145) mmol/L Potassium (3.4-5.1) mmol/L Chloride (98-107) mmol/L Carbon Dioxide (22-32) mmol/L BUN (9-20) mg/dL Creatinine (0.66-1.25) mg/dL Estimated GFR (>60) mL/min BUN/Creatinine Ratio (6-22) Glucose (70-99) mg/dL Calcium (8.4-10.2) mg/dL Total Bilirubin (0.2-1.3) mg/dL AST (17-59) IU/L ALT (<50) IU/L Alkaline Phosphatase (38-126) U/L Total Protein (6.3-8.2) g/dL Albumin (3.5-5.0) g/dL Globulin (1.7-4.1) g/dL Albumin/Globulin Ratio (1.0-2.8) TSH (0.47-4.68) uIU/mL Urine Color Urine Appearance Urine pH (4.5-8.0) Ur Specific [place] (1.000-1.035) Urine Protein (Negative) Urine Glucose (UA) (Negative) g/dL Urine Ketones (NEGATIVE) Urine Occult Blood (Negative) Urine Nitrate (Negative) Urine Bilirubin (NEGATIVE) Urine Urobilinogen (0.2) E.U./dL Ur Leukocyte Esterase (NEGATIVE) Urine RBC (0-5/HPF) Urine WBC (0-5/HPF) Ur Squamous Epith Cells (0-5/HPF) Urine Bacteria (None) Ur Culture Indicated? Vol Urine Centrifuged Salicylates (<20) mg/dL U Opiates 300ng/mL cut (Negative) Ur Oxycodone Screen (Negative) Urine Methadone Screen (Negative) Acetaminophen (10-30) ug/mL Ur Barbiturates Screen (Negative) U Tricyclic Antidepress (Negative) Ur Phencyclidine Scrn (Negative) Ur Amphetamines Screen (Negative) U Methamphetamines Scrn (Negative) Ur MDMA Scrn (Ecstasy) (Negative) U Benzodiazepines Scrn (Negative) Urine Cocaine Screen (Negative) U Marijuana (THC) Screen (Negative) Urine Specific [place] Ethyl Alcohol (<10) mg/dL Ur Creatinine SARS-CoV-2 (PCR) Negative (Negative) Treatment and Disposition Social Determinants of Health that impact treatment or disposition: Plan for treatment of alcohol withdrawal, and social work evaluation for rehab/dual diagnosis placement. MDM Narrative Medical decision making narrative: History and exam as above. Patient presenting with behavior changes most consistent with acute alcohol intoxication. Report of alcohol use prior to presentation and without evidence of sustained traumatic injury. No report of witnessed seizure and patient with appropriate level of alertness, no confusion, oral trauma, incontinence suggestive of seizure. We will plan for labs for further evaluation and medical clearance for rehab placement. Social work to be consulted. Discharge Plan Departure Prescriptions: No Action quetiapine 400 mg tablet 400 mg PO BEDTIME Qty: 30 3RF omeprazole 40 mg capsule,delayed release(DR/EC) 40 mg PO BID Qty: 60 3RF trazodone 100 mg tablet 300 mg PO BEDTIME Qty: 90 3RF venlafaxine 37.5 mg capsule,extended release 24hr 37.5 mg PO DAILY Qty: 30 1RF clonazepam 1 mg tablet 1 mg PO TID PRN (Reason: severe anxiety. ) Qty: 90 0RF fluticasone propionate 50 mcg/actuation spray,suspension 2 spray intranasal DAILY Rx Instructions: administer into each nostril Eliquis 5 mg Tablet 5 mg PO BID Qty: 60 0RF Referrals: Roldan Jiang MD [Primary Care Provider, Family Practice]
[2024-12-01 17:27] LABS: Ethanol (ETOH) 346 mg/dL (<10)
[2024-12-01 17:51] LABS: COVID19 -Nasal RAPID Negative (Negative)
--- NOTE | 2024-12-01 18:08 | CM.SWNOTE ---
ED APPLIQUER ZIGZAG Assessment APPLIQUER ZIGZAG - Chapter Relations Administrator Assessment APPLIQUER ZIGZAG/Chapter Relations Administrator Assessment Time Spent with Patient Start date 12/01/24 Visit Start Time 16:40 End date 12/01/24 Visit End Time 17:10 Total time Care 30 minutes Management spent on patient visit-in minutes Mental Health Screening Include Onset, Duration, Intensity Psych. Hx Mental Patient has hx of Alcohol use disorder, Anxiety Health and Chemical disorder, polysubstance use disorder and Bipolar II Dependency disorder. Patient has hx of SI and suicide attempts. Patient has hx of ETOH use, drinking average of 1/5 of vodka daily, patient unable elaborate on recent ETOH use, last drink was this morning. Patient is also positive for marijuana. Substance Abuse Screening Include Onset, Duration, Intensity Presenting Problem Patient presents to ED via friend's POV after seeking detox at [facility]. It was reported that patient was intoxicated upon arrival, fell and was unable to complete intake there. Patient is seeking treatment, patient's BAL upon arrival is 346. Precipitating Event( Patient has been struggling with his sobriety and s) mental health since the passing of his best friend in the spring, patient's friend by suicide. Patient is currently residing with and caring for his aging mother and feels a lot of guilt for the role he is not fulfilling in his family. Patient endorses that he should be super dad and grand dad but I am weak and shallow. Patient Strengths Patient has support from family and has daughters that reside locally. Current Behavioral Patient sees Psychiatrist Dr. Mario Alberto Kerns and therapist Health Provider(s) SHASHI Galicia at [facility] ( Include Facility, Ph. # [phone]) Provider, Ph. # Patient has weekly appts with therapist (next appt ) and patient's next appt with Psychiatrist appt is on 12/06/24) Patient gives consent to contact his outpatient MH providers. APPLIQUER ZIGZAG calls clinic and leaves . Patient is prescribed Clonazepam 1 mg PO TID, quetiapine 400mg po q.h.s, trazodone 300 mg po q.hs. and Venlafaxine ER 75 mg po. It is reported that patient has engaged in AA meetings. Family Hx of Patient has experienced a lot of loss in his life and Behavioral Abuse due to patient's alcoholism he has lost contact with some of his family members. Rehab Facilities? (( Patient endorses hx of several rehab and detox stays Date(s), Location(s) but is not able to elaborate. ) Most recently it was documented that patient was [employer] at detox facility [facility] in [place] on . Prior to that patient has hx of hospitalizations at [facility] in October 2022 twice and detox placement at [facility] in November 2022. History of Patient presents with anxiety and some shakiness. Withdrawal? Seizures ? Longest Period of Patient endorses that he was 5 years sober prior to Sobriety Spring 2022 and he has had difficulty maintaining his sobriety since then. Psychosocial Patient is 64 y/o male who resides in [place] at his information & mother's home and patient assists in caring for his Support Systems aging mother. Patient has supports from daughter and friends that reside locally. School/Work Patient is currently disabled. Legal Concerns Legal Matters - none reported Outstanding Issues Mental Status Orientation (Person/ Patient is A/O to person, self and place but was not Place/Time) able to accurately identify the year Stated Mood so much disappointment Affect (Congruent dysthymic, tearful with Mood?) Thought Content - patient denies any hallucinations. Specify/Describe Obsessions, Delusions, Hallucinations Thought Processes ( circumstantial. Logical-Coherent- Goal Directed- Detailed-Tangential- Circumstantial- Logical-Disorganized -Thought Blocking) Speech (Normal-Slow- normal, slurred at times Odbukfy-Ranpc-Wrvs- Loud-Pressured) Motor (Normal- normal, patient is able to ambulate without assistance [id number] ) Insight (Good-Fair- fair/limited Poor/Limited) Judgement (Good-Fair fair/limited -Poor/Limited) Impulse Control ( adequate Adequate-Impaired) Memory (Immediate- intact, not formally assessed Recent-Remote, Impaired-Intact) Concentration ( intact Intact-Impaired) Attention (Intact- intact Impaired) Behavior ( appropriate Appropriate- Inappropriate) Additional Comment patient presents as calm, cooperative and communicative . Risk Assessment Suicidal Ideation ( No Plan) Homicidal Ideation ( No Plan) Comment Patient endorses vague SI stating I'd like to and I would like to go to sleep and not wake up. Patient denies any current SI or intent to kill self, patient endorses he wants to live for his grandbabies. Patient has hx of overdose in July 2022 and hx of overdose in 2004. Patient has hx of thoughts of plans to kill self with a belt and hang self. Intervention Intervention APPLIQUER ZIGZAG enters room to meet with patient. Patient endorses his intention to seek treatment today. Patient presents as tearful and presents with sadness and grief due to his current state of depression and relapse on alcohol. Patient endorses that he knows he needs help and identifies that his mental health and grief of his best friend contribute to his ETOH use. Patient presents with vague SI and states that he will not kill himself because he wants to be here for his grandkids. APPLIQUER ZIGZAG discusses dual dx treatment and with permission discusses this with patient's daughter via phone. Patient indicates agreement and understanding with preference not to go to [facility]. It is the opinion of this APPLIQUER ZIGZAG that upon medical clearance patient would benefit from dual dx detox treatment for stabilization, medication management and safety. APPLIQUER ZIGZAG reviews this with ED provider Dr. Lowe who indicates agreement and understanding. APPLIQUER ZIGZAG calls [facility], it is reported that they have beds and can review patient when BAL is at 150. Plan RA Plan ED team to seek dual diagnosis bed for patient upon medical clearance JORGITO Du
--- NOTE | 2024-12-01 21:43 | PC.NURSE ---
this RN attempted to place patient on monitors patient refused to have anything on stating I dont want this on this RN educated that he needs to be monitored to make sure he is breathing, patient continued to refuse
[2024-12-01] MEDS: ONDANSETRON 4 MG/2 ML INJ IV (22:14)
[2024-12-01 22:35] LABS: Ethanol (ETOH) 155 mg/dL (<10)
[2024-12-02] MEDS: MAG HYDROX/ALUMINUM/SIMETH SUS 30 ML, LIDOCAINE VISCOUS 2% 15 ML PO ×2 (00:39→09:34)
--- NOTE | 2024-12-02 03:00 | DI.CT.S_ITS ---
PROCEDURE: CT HEAD/BRAIN WO CON INDICATIONS: alcohol intoxication TECHNIQUE: Noncontrast 4.5 mm thick angled axial sections acquired from the foramen magnum to the vertex, with coronal and sagittal reformats. For radiation dose reduction, the following was used: automated exposure control, adjustment of mA and/or kV according to patient size. COMPARISON: [facility], CT, CT HEAD/BRAIN WO CON, 07/30/2017, 21:22. FINDINGS: Image quality: Diagnostic. Some images are limited by beam hardening artifacts most notably at the base of the skull. Ventricles and cortical sulci are moderately dilated commonly represents a pattern of atrophy mildly progressed. Mild areas of low-attenuation in the periventricular and deep white matter, commonly related to chronic small vessel ischemic changes unchanged. New mild mucoperiosteal thickening bilateral frontal, anterior ethmoid and right maxillary sinuses, left sphenoid sinus measuring up to 5 mm thickness. The orbits, scalp, calvarium, , mastoid air cells, middle ear cavities normal. No CT evidence of intracranial hemorrhage, mass lesion, mass effect, acute or subacute infarct. IMPRESSION: New mild mucoperiosteal thickening paranasal sinuses. Moderate atrophy mildly progressed. Chronic small vessel ischemic changes unchanged. No CT evidence of acute abnormality. If symptoms persist or worsen, or there is high clinical suspicion of intracranial abnormality, MRI could be performed. Preliminary report was provided by [facility], Libertad Jaime MD 12/02/2024 at 3:38 a.m. Dictated by: Praful Hinds M.D. on 12/02/2024 at 6:34 Approved by: Praful Hinds M.D. on 12/02/2024 at 6:38
--- NOTE | 2024-12-02 03:19 | PC.NURSE ---
INTERIOR DESIGN TEACHER note: Attempting placement for patient. Following up based on Inspector Air Carrier Adilene Walls told me, called [place] at [phone], spoke with Guillermina, and asked if a blood alcohol of 155 was okay to start the process. She said it was. Faxed over the packet. 0029 spoke with Ethel to follow up. They were reviewing his packet. At 0248 called and spoke with Ethel again, who had me speak with Cori. Cori stated that they are reviewing his packet, they had some delay because their systems are down. She said the provider at [place] would probably like a head CT before going further, but she would speak with her provider to make sure and call us back. I told Dr. Ortiz about what they may need to precede. 0257 Cori called back and said yes they would need a CT and to fax the results once we had them. Thanked her for her help. Told Dr. Ortiz, and he ordered the head CT.
[2024-12-02 04:42] VITALS: BP 172/107; PULSE 103; RESP 16; O2SAT 96
[2024-12-02] MEDS: THIAMINE 100 MG TABLET PO (09:33)
[2024-12-02] MEDS: ONDANSETRON 4 MG/2 ML INJ IV (09:36)
[2024-12-02] MEDS: NALOXONE 4 MG NASAL SPRAY MISC (09:36)
[2024-12-02] MEDS: MULTIVITAMIN 1 TABLET 1 TAB PO (09:42)
[2024-12-02 09:52] VITALS: O2SAT 100
[2024-12-02 09:53] VITALS: BP 162/107; PULSE 96; O2SAT 98
== END 2024-12-02 10:05 | disposition short-term general hospital (02) ==
PROVIDERS: Student in an Organized Health Care Education/Training Program; Emergency Provider Family Medicine; PCP Family Medicine
DX: F10.129 Alcohol abuse with intoxication, unspecified (principal); Y90.8 Blood alcohol level of 240 mg/100 ml or more; W19.XXXA Unspecified fall, initial encounter
CPT/HCPCS: 36415; 70450; 80053; 80305; 80320; 80329; 81001; 84443; 85025; 87635; 96374; 96375; 96376; 99284; A9270; G0480; J2060; J2405